=== PATIENT | female | born 1935 | race Caucasian/White ===

== ENCOUNTER 2016-08-27 11:53 | Outpatient (CLI) | payer MEDICARE, OTHER | END 2016-08-27 11:54 | disposition EMS.NT | LOC: EMS 11:53 | PROVIDERS: ATTEND Surgery | DX: Z03.89 Encounter for observation for other suspected diseases and conditions ruled out (principal); W01.0XXA Fall on same level from slipping, tripping and stumbling without subsequent striking against object, initial encounter; Y93.01 Activity, walking, marching and hiking; Y92.030 Kitchen in apartment as the place of occurrence of the external cause ==

== ENCOUNTER 2016-09-28 10:38 | Outpatient (CLI) | payer MEDICARE, OTHER | END 2016-09-28 10:39 | disposition EMS.NT | LOC: EMS 10:38 | PROVIDERS: ATTEND Surgery | DX: Z03.89 Encounter for observation for other suspected diseases and conditions ruled out (principal); W18.30XA Fall on same level, unspecified, initial encounter; Y93.9 Activity, unspecified; Y92.008 Other place in unspecified non-institutional (private) residence as the place of occurrence of the external cause ==

== ENCOUNTER 2017-03-30 09:39 | Outpatient (CLI) | payer MEDICARE, OTHER | END 2017-03-30 09:40 | disposition EMS.NT | LOC: EMS 09:39 | PROVIDERS: ATTEND Surgery | DX: R53.1 Weakness (principal); W18.30XA Fall on same level, unspecified, initial encounter; Y92.003 Bedroom of unspecified non-institutional (private) residence as the place of occurrence of the external cause ==

== ENCOUNTER 2017-03-30 12:04 | Emergency (ER) | payer MEDICARE, OTHER, MEDICAID ==
[2017-03-30 12:43] LABS: BILIRUBIN,URINE NEGATIVE (NEGATIVE); GLUCOSE, URINE (UA) NEGATIVE (NEGATIVE); KETONES,URINE (UA) NEGATIVE (NEGATIVE); LEUKOCYTE ESTERASE, URINE LARGE (NEGATIVE); NITRITE,URINE NEGATIVE (NEGATIVE); OCCULT BLOOD,URINE NEGATIVE (NEGATIVE); PH,URINE 6.5 PH (5.0-7.5); PROTEIN,URINE NEGATIVE (NEGATIVE); UROBILINOGEN,URINE 0.2 (NORMAL) E.U./dL (NORMAL)
[2017-03-30 12:53] LABS: CLARITY,URINE HAZY (CLEAR); RBC,URINE 0-5 /HPF (0-5); WBC CLUMPS,URINE PRESENT
[2017-03-30 12:54] LABS: BACTERIA,URINE Many /HPF (None Seen); SQUAMOUS EPITHELIAL CELL,UR FEW Squamous (<= Few)
[2017-03-30] MEDS ORDERED: cefTRIAXone 1 GM VIAL IM STA (13:16)
[2017-03-30] MEDS ORDERED: LIDOCAINE 1% 2 ML VIAL ONE (13:26)
--- NOTE | 2017-03-30 13:36 | ED Physician Documentation ---
History of Present Illness - Stated complaint Stated Complaint: FEMALE - Chief complaint Chief Complaint: General - History obtained from History obtained from: Patient, Family - History of Present Illness Timing: Today - Additonal information Additional information: 81-year-old female out of bed today to use her walker and she collapsed to the ground. She used her Lifeline if she is not able to get up by herself and she did not seem to be injured from this incident. The people at her residence asked her to go to the emergency department for further evaluation. The patient herself is uncertain why she fell and does not feel particularly ill. Review of Systems Constitutional: reports: Fatigue. denies: Fever, Chills Eyes: denies: Decreased vision Ears: denies: Ear pain Nose: denies: Congestion Throat: denies: Sore throat Cardiac: denies: Chest pain / pressure, Palpitations Respiratory: denies: Dyspnea, Cough GI: denies: Abdominal Pain, Nausea, Vomiting : denies: Dysuria, Frequency Skin: denies: Rash Musculoskeletal: denies: Neck pain, Back pain, Extremity pain PD PAST MEDICAL HISTORY - Past Medical History Cardiovascular: High cholesterol, Angina Respiratory: Shortness of breath Endocrine/Autoimmune: Type 2 diabetes GI: None : Incontinence HEENT: Chronic hearing loss Musculoskeletal: Osteoarthritis, Gout - Past Surgical History General: Colonoscopy Ortho: Carpal Tunnel surgery, 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 - Present Medications Home Medications: Ambulatory Orders Medication Instructions Recorded Confirmed Allopurinol [Zyloprim] 300 mg PO DAILY 02/18/13 02/18/13 Aspirin Chewable [[place] 81 mg PO DAILY 02/18/13 02/18/13 Aspirin] Calcium Carbonate [Calcium] 500 mg PO 02/18/13 02/18/13 Cholecalciferol [Vitamin D3] 2,000 unit PO DAILY 02/18/13 02/18/13 Cyanocobalamin (Vitamin B-12) 1,000 mcg PO BID 02/18/13 02/18/13 [Vitamin B-12] Cyclobenzaprine HCl 10 mg PO 02/18/13 02/18/13 Hydrochlorothiazide 25 mg PO 02/18/13 02/18/13 Insulin Aspart Protam & Aspart 19 unit SQ QPM 02/18/13 02/18/13 [Novolog Mix 70-30 Vial] Insulin Aspart Protam & Aspart 21 unit SQ DAILY 02/18/13 02/18/13 [Novolog Mix 70-30 Vial] Lisinopril 2.5 mg PO 02/18/13 02/18/13 Metformin HCl [Glumetza] 500 mg PO 02/18/13 02/18/13 [place]-3 Fatty Acids [Fish Oil 1,000 mg PO 02/18/13 02/18/13 Concentrate] Omeprazole [PriLOSEC] 20 mg PO DAILY 02/18/13 02/18/13 Oxybutynin [Ditropan] 2.5 mg PO BID 02/18/13 02/18/13 Simvastatin [Zocor] 40 mg PO QPM 02/18/13 02/18/13 Sulfamethoxazole/Trimethoprim 1 each PO BID #14 tablet 03/30/17 [Sulfamethoxazole-Tmp Ds Tablet] - Allergies Allergies/Adverse Reactions: Allergies Allergy/AdvReac Type Severity Reaction Status Date / Time cephalexin [Cephalexin] Allergy Intermediate generalized Verified 03/30/17 12:22 shaking - Social History Does the pt smoke?: No Smoking Status: Never smoker PD ED PE NORMAL - Vitals Vital signs reviewed: Yes (normal) - General General: No acute distress, Well developed/nourished - HEENT HEENT: Atraumatic, PERRL, EOMI - Neck Neck: Supple, no meningeal sign - Cardiac Cardiac: RRR, Other (2 out of 6 holosystolic blowing type murmur at the left sternal border consistent with aortic stenosis.) - Respiratory Respiratory: No respiratory distress, Clear bilaterally - Abdomen Abdomen: Normal bowel sounds, Soft, Non tender - Back Back: No CVA TTP, No spinal TTP - Derm Derm: Normal color, Warm and dry, No rash - Neuro Neuro: No motor deficit, No sensory deficit, Normal speech Eye Opening: Spontaneous Motor: Obeys Commands Verbal: Oriented GCS Score: 15 - Psych Psych: Normal mood, Normal affect Results - Vitals Vitals: Vital Signs - 24 hr 03/30/17 03/30/17 12:18 13:38 Temperature 36.2 C L 36.9 C Heart Rate 78 88 Respiratory 20 18 Rate Blood Pressure 109/63 143/77 H O2 Saturation 98 98 Oxygen O2 Source Room air - Labs Labs: Laboratory Tests 03/30/17 03/30/17 03/30/17 12:30 13:35 13:35 WBC 9.4 RBC 3.74 L Hgb 11.9 L Hct 35.4 L MCV 94.9 MCH 31.7 H MCHC 33.5 RDW 14.7 Plt Count 224 MPV 9.8 Neut # 6.9 H Lymph # 1.6 [place] # 0.6 Eos # 0.2 Baso # 0.0 Absolute Nucleated RBC 0.00 Nucleated RBC % 0.0 Sodium 141 Potassium 4.3 Chloride 105 Carbon Dioxide 23 Anion Gap 13.0 BUN 22 H Creatinine 1.1 H Estimated GFR (MDRD) 47 L Glucose 149 H Calcium 9.4 Urine Color YELLOW Urine Clarity HAZY Urine pH 6.5 Ur Specific [place] 1.010 Urine Protein NEGATIVE Urine Glucose (UA) NEGATIVE Urine Ketones NEGATIVE Urine Occult Blood NEGATIVE Urine Nitrite NEGATIVE Urine Bilirubin NEGATIVE Urine Urobilinogen 0.2 (NORMAL) Ur Leukocyte Esterase LARGE H Urine RBC 0-5 Urine WBC >25 H Urine WBC Clumps PRESENT Ur Squamous Epith Cells FEW Squamous Urine Bacteria Many H Ur Microscopic Review INDICATED Urine Culture Comments INDICATED PD MEDICAL DECISION MAKING - ED course Complexity details: reviewed old records, reviewed results, re-evaluated patient , considered differential, d/w patient, d/w family ED course: 81 y/o female with a collapse today at home has UTI on eval of the urine. She has a murmer consistent with aortic stenosis and she is warned about dehydration. She is given an injection of rocephin today and we will place her on some sulfa/tri Departure - Departure Disposition: Home, Self Care Clinical Impression: Urinary tract infection Qualifiers: Urinary tract infection type: acute cystitis Hematuria presence: without hematuria Qualified Code(s): N30.00 - Acute cystitis without hematuria Condition: Stable Instructions: ED UTI Cystitis Female Follow-Up: Kerri Webb MD [Primary Care Provider] - Prescriptions: Sulfamethoxazole/Trimethoprim [Sulfamethoxazole-Tmp Ds Tablet] 1 each PO BID # 14 tablet
[2017-03-30 13:39] VITALS: BP 143/77
[2017-03-30 13:49] LABS: BASOPHILS % (AUTO) 0.5 %; CALCIUM 9.4 mg/dL (8.5-10.3); CREATININE 1.1 mg/dL (0.4-1.0); EOSINOPHILS # (AUTO) 0.2 10^3/uL (0.0-0.7); EOSINOPHILS % (AUTO) 1.6 %; HGB - HEMOGLOBIN 11.9 g/dL (12.0-16.0); LYMPHOCYTES # (AUTO) 1.6 10^3/uL (1.5-3.5); LYMPHOCYTES % (AUTO) 17.1 %; MEAN CORPUSCULAR HEMOGLOBIN 31.7 pg (27.0-31.0); MEAN CORPUSCULAR HGB CONC 33.5 g/dL (32.0-36.0); MEAN CORPUSCULAR VOLUME 94.9 fL (81.0-99.0); MEAN PLATELET VOLUME 9.8 fL (7.9-10.8); MONOCYTES # (AUTO) 0.6 10^3/uL (0.0-1.0); MONOCYTES % (AUTO) 6.9 %; NEUTROPHILS # (AUTO) 6.9 10^3/uL (1.5-6.6); NEUTROPHILS % (AUTO) 73.9 %; PLT - PLATELET COUNT 224 10^3/uL (130-450); RED BLOOD COUNT 3.74 10^6/uL (4.20-5.40); RED CELL DISTRIBUTION WIDTH 14.7 % (12.0-15.0); WHITE BLOOD COUNT 9.4 x10^3/uL (4.8-10.8)
== END 2017-03-30 14:06 | disposition home or self-care (01) ==
LOC: ED 12:04
DX: N30.00 Acute cystitis without hematuria (principal); R55 Syncope and collapse; R01.1 Cardiac murmur, unspecified; E11.9 Type 2 diabetes mellitus without complications; Z79.4 Long term (current) use of insulin; Z79.82 Long term (current) use of aspirin
CPT/HCPCS: 36415; 80048; 81001; 81003; 85025; 87086; 96372; 99283

== ENCOUNTER 2017-04-02 09:42 | Outpatient (CLI) | payer MEDICARE, OTHER, MEDICAID | END 2017-04-02 09:43 | disposition EMS.NT | LOC: EMS 09:42 | PROVIDERS: ATTEND Surgery | DX: Z03.89 Encounter for observation for other suspected diseases and conditions ruled out (principal); W01.0XXA Fall on same level from slipping, tripping and stumbling without subsequent striking against object, initial encounter; Y92.009 Unspecified place in unspecified non-institutional (private) residence as the place of occurrence of the external cause ==

== ENCOUNTER 2017-05-14 11:11 | Outpatient (CLI) | payer MEDICARE, OTHER, MEDICAID | END 2017-05-14 11:12 | disposition EMS.NT | LOC: EMS 11:11 | PROVIDERS: ATTEND Surgery | DX: Z03.89 Encounter for observation for other suspected diseases and conditions ruled out (principal); W18.39XA Other fall on same level, initial encounter; Y92.038 Other place in apartment as the place of occurrence of the external cause ==

== ENCOUNTER 2017-08-21 02:48 | Outpatient (CLI) | payer MEDICARE, OTHER, MEDICAID | END 2017-08-21 02:49 | disposition EMS.NT | LOC: EMS 02:48 | PROVIDERS: ATTEND Surgery | DX: Z03.89 Encounter for observation for other suspected diseases and conditions ruled out (principal); W01.0XXA Fall on same level from slipping, tripping and stumbling without subsequent striking against object, initial encounter; Y92.038 Other place in apartment as the place of occurrence of the external cause ==

== ENCOUNTER 2017-10-30 13:35 | Outpatient (CLI) | payer MEDICARE, OTHER, MEDICAID ==
--- NOTE | 2017-10-30 15:32 | CT Report ---
Procedure Date: 10/30/2017 Accession Number: [id number] / [id number] Procedure: CT - Head W/O CPT Code: FULL RESULT: EXAM: Head W/O DATE: 10/30/2017 3:04 PM CLINICAL HISTORY: DEMENTIA COMPARISON: None. TECHNIQUE: Multiaxial CT images were obtained from the foramen magnum to the vertex. IV contrast: None. Reformats: Coronal. In accordance with CT protocol optimization, one or more of the following dose reduction techniques were utilized for this exam: automated exposure control, adjustment of mA and/or KV based on patient size, or use of iterative reconstructive technique. FINDINGS: Parenchyma: No intraparenchymal hemorrhage. No evidence of mass, midline shift, or CT findings of infarction. Paula-white differentiation is distinct. Extraaxial Spaces: Normal for age. No subdural or epidural collections identified. Ventricles: Normal in size and position. Sinuses: Imaged paranasal sinuses, orbits, and mastoids show no significant abnormality. Bones: No evidence of fracture or calvarial defect. Other: None. IMPRESSION: Normal head CT. RADIA
== END 2017-10-30 13:36 | disposition home or self-care (01) ==
LOC: DI 13:35
PROVIDERS: ATTEND Internal Medicine
DX: F03.90 Unspecified dementia, unspecified severity, without behavioral disturbance, psychotic disturbance, mood disturbance, and anxiety (principal)
CPT/HCPCS: 70450

== ENCOUNTER 2017-10-30 15:31 | Inpatient (IN) | payer MEDICARE, OTHER, MEDICAID ==
[2017-10-30 16:09] LABS: HGB - HEMOGLOBIN 10.9 g/dL (12.0-16.0); MEAN CORPUSCULAR HEMOGLOBIN 31.2 pg (27.0-31.0); MEAN CORPUSCULAR HGB CONC 32.8 g/dL (32.0-36.0); MEAN CORPUSCULAR VOLUME 95.2 fL (81.0-99.0); MEAN PLATELET VOLUME 8.8 fL (7.9-10.8); RED BLOOD COUNT 3.49 10^6/uL (4.20-5.40); RED CELL DISTRIBUTION WIDTH 14.2 % (12.0-15.0); WHITE BLOOD COUNT 9.6 x10^3/uL (4.8-10.8)
[2017-10-30 16:12] LABS: INR 1.4 (0.8-1.2); PT - PROTHROMBIN TIME 16.1 secs (9.9-12.6)
[2017-10-30 16:18] LABS: ALBUMIN 3.1 g/dL (3.2-5.5); ALBUMIN/GLOBULIN RATIO 0.8 (1.0-2.2); BILIRUBIN,TOTAL 0.8 mg/dL (0.2-1.0); CALCIUM 8.9 mg/dL (8.5-10.3); CREATININE 2.6 mg/dL (0.4-1.0); TOTAL PROTEIN 6.8 g/dL (6.7-8.2)
[2017-10-30 17:54] LABS: BASOPHILS # (AUTO) 0.1 10^3/uL (0.0-0.1); BASOPHILS % (AUTO) 0.9 %; EOSINOPHILS % (AUTO) 0.5 %; HGB - HEMOGLOBIN 10.7 g/dL (12.0-16.0); LYMPHOCYTES # (AUTO) 2.3 10^3/uL (1.5-3.5); LYMPHOCYTES % (AUTO) 23.8 %; MEAN CORPUSCULAR HEMOGLOBIN 31.7 pg (27.0-31.0); MEAN CORPUSCULAR HGB CONC 33.7 g/dL (32.0-36.0); MEAN CORPUSCULAR VOLUME 94.1 fL (81.0-99.0); MEAN PLATELET VOLUME 8.8 fL (7.9-10.8); MONOCYTES # (AUTO) 1.3 10^3/uL (0.0-1.0); MONOCYTES % (AUTO) 13.1 %; NEUTROPHILS # (AUTO) 5.9 10^3/uL (1.5-6.6); NEUTROPHILS % (AUTO) 61.7 %; PLT - PLATELET COUNT 335 10^3/uL (130-450); RED BLOOD COUNT 3.38 10^6/uL (4.20-5.40); RED CELL DISTRIBUTION WIDTH 13.7 % (12.0-15.0); WHITE BLOOD COUNT 9.6 x10^3/uL (4.8-10.8)
[2017-10-30] MEDS ORDERED: SODIUM CHLORIDE 0.9% 1,000 ML IV ONE (18:02)
[2017-10-30] MEDS ORDERED: MORPHINE 10 MG/ML VIAL IVP STA (18:02)
[2017-10-30] MEDS ORDERED: ONDANSETRON 4 MG/2 ML VIAL IVP STA (18:02)
[2017-10-30] MEDS ORDERED: ACETAMINOPHEN 500 MG TABLET PO STA (18:02)
[2017-10-30 18:04] LABS: BILIRUBIN,URINE NEGATIVE (NEGATIVE); GLUCOSE, URINE (UA) NEGATIVE (NEGATIVE); KETONES,URINE (UA) NEGATIVE (NEGATIVE); LEUKOCYTE ESTERASE, URINE NEGATIVE (NEGATIVE); NITRITE,URINE NEGATIVE (NEGATIVE); OCCULT BLOOD,URINE LARGE (NEGATIVE); PROTEIN,URINE >=300 mg/dL (NEGATIVE); UROBILINOGEN,URINE 0.2 (NORMAL) E.U./dL (NORMAL)
[2017-10-30 18:08] LABS: ALBUMIN 2.9 g/dL (3.2-5.5); ALBUMIN/GLOBULIN RATIO 0.7 (1.0-2.2); BILIRUBIN,TOTAL 0.9 mg/dL (0.2-1.0); CLARITY,URINE BLOODY (CLEAR); CREATININE 2.6 mg/dL (0.4-1.0)
[2017-10-30 18:09] LABS: BACTERIA,URINE Many /HPF (None Seen); RBC,URINE TNTC /HPF (0-5); SQUAMOUS EPITHELIAL CELL,UR NONE SEEN (<= Few)
[2017-10-30] MEDS ORDERED: cefTRIAXone 2 GM in SODIUM CHLORIDE 0.9% MINIBAG 100 ML IV STA (18:23)
--- NOTE | 2017-10-30 19:49 | CT Report ---
Procedure Date: 10/30/2017 Accession Number: [id number] / [id number] Procedure: CT - Abdomen/Pelvis W/O CPT Code: FULL RESULT: EXAM: CT ABDOMEN AND PELVIS WITHOUT CONTRAST. EXAM DATE: 10/30/2017 06:50 PM. CLINICAL HISTORY: Hematuria, abdominal pain. COMPARISONS: None. TECHNIQUE: Routine helical CT imaging was performed through the abdomen and pelvis. IV contrast: No. Enteric contrast: No. Reconstructions: Coronal and sagittal. In accordance with CT protocol optimization, one or more of the following dose reduction techniques were utilized for this exam: automated exposure control, adjustment of mA and/or KV based on patient size, or use of iterative reconstructive technique. FINDINGS: Lung bases: Jayson coronary artery calcification. Minimal bibasilar scarring or atelectasis. Liver: Unremarkable. Gallbladder: Surgically removed. Bile ducts: Unremarkable Pancreas: Unremarkable. Spleen: Unremarkable. Adrenals: Unremarkable. Kidneys: Low-density mass Hounsfield units of 17 at the upper pole right kidney most suggestive for a renal cyst measures 2.7 cm. Evaluation limited without IV contrast. Mild atrophy of both kidneys. Bilateral dilated intra and extra renal pelves with mild bilateral hydronephrosis. There is also bilateral hydroureter diffusely but no ureteral calculi are seen. No urinary tract calculus is seen. Bowel: There are no dilated bowel loops seen to suggest obstruction. There is mild sigmoid diverticulosis. Normal appendix. There is a rectocele present. No free fluid or free air. Pelvis: Diffuse bladder wall thickening most prominent at the bladder dome, with mild adjacent stranding, could represent acute cystitis. Bladder mass is not excluded. There is diffuse hydroureter bilaterally. Status post hysterectomy. Vascular structures: Marked splenic artery calcification. No acute findings. Fat-containing umbilical or periumbilical hernia, has a neck of 1.7 cm, diameter measures 3.7 cm. No acute bone findings. IMPRESSION: 1. Mild atrophy of both kidneys. Bilateral dilated intra-and extra renal pelves with mild bilateral hydronephrosis. There is also bilateral hydroureter diffusely. No urinary tract calculi are seen. Diffuse bladder wall thickening most prominent at the bladder dome, with mild adjacent stranding, could represent acute cystitis. Bladder mass is not excluded. 2. Fat-containing umbilical hernia. 3. Mild sigmoid diverticulosis. 4. Rectocele. 5. Otherwise, see above. RADIA
--- NOTE | 2017-10-30 20:12 | ED Physician Documentation ---
History of Present Illness - Stated complaint Stated Complaint: FEMALE /BLEEDING CLOTS - Chief complaint Chief Complaint: General - History obtained from History obtained from: Patient, Family - Additonal information Additional information: 82-year-old female presents the emergency department with increasing lower abdominal pain and hematuria which has progressively worsened. The patient reports a significant amount of pain with urination. No fevers. No triggering factors. Symptoms are described as severe. No other associated symptoms. Review of Systems Constitutional: reports: Fatigue. denies: Fever, Chills Eyes: denies: Discharge Ears: denies: Ear pain Nose: denies: Congestion Throat: denies: Sore throat Cardiac: denies: Chest pain / pressure Respiratory: denies: Dyspnea GI: reports: Abdominal Pain : reports: Dysuria, Hematuria Musculoskeletal: denies: Neck pain Neurologic: denies: Generalized weakness Immunocompromised: denies: Chemotherapy PD PAST MEDICAL HISTORY - Past Medical History Past Medical History: Yes Cardiovascular: High cholesterol, Angina Respiratory: Shortness of breath Endocrine/Autoimmune: Type 2 diabetes GI: None : Incontinence HEENT: Chronic hearing loss Musculoskeletal: Osteoarthritis, Gout - Past Surgical History General: Colonoscopy Ortho: Carpal Tunnel surgery, 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 - Present Medications Home Medications: Ambulatory Orders Medication Instructions Recorded Confirmed Allopurinol [Zyloprim] 300 mg PO DAILY 02/18/13 02/18/13 Aspirin Chewable [[place] 81 mg PO DAILY 02/18/13 02/18/13 Aspirin] Cyanocobalamin (Vitamin B-12) 1,000 mcg PO BID 02/18/13 02/18/13 [Vitamin B-12] Lisinopril 2.5 mg PO 02/18/13 02/18/13 Metformin HCl [Glumetza] 500 mg PO 02/18/13 02/18/13 Omeprazole [PriLOSEC] 20 mg PO DAILY 02/18/13 02/18/13 Oxybutynin [Ditropan] 2.5 mg PO BID 02/18/13 02/18/13 Simvastatin [Zocor] 40 mg PO QPM 02/18/13 02/18/13 Donepezil [Aricept] 10/30/17 traZODone [Desyrel] 10/30/17 - Allergies Allergies/Adverse Reactions: Allergies Allergy/AdvReac Type Severity Reaction Status Date / Time cephalexin [Cephalexin] Allergy Intermediate generalized Verified 10/30/17 15:40 shaking - Social History Does the pt smoke?: No Smoking Status: Never smoker Does the pt drink ETOH?: No Does the pt have substance abuse?: No - Immunizations Immunizations are current?: Yes - POLST Patient has POLST: No PD ED PE NORMAL - General General: Other (82-year-old frail-appearing female who appears acutely uncomfortable) - HEENT HEENT: Atraumatic, PERRL, EOMI, Ears normal - Neck Neck: Supple, no meningeal sign - Cardiac Cardiac: RRR - Respiratory Respiratory: No respiratory distress, Clear bilaterally - Abdomen Abdomen: Normal bowel sounds. No: Non tender (Tenderness to palpation in the lower abdomen) - Derm Derm: Normal color - Extremities Extremities: No deformity, No edema - Neuro Neuro: Alert and oriented X 3, No motor deficit - Psych Psych: Normal mood Results - Vitals Vitals: Vital Signs - 24 hr 10/30/17 15:37 Temperature 36.4 C L Heart Rate 114 H Respiratory 18 Rate Blood Pressure 130/117 H O2 Saturation 99 Oxygen O2 Source Room air - Labs Labs: Laboratory Tests 10/30/17 10/30/17 10/30/17 16:00 16:00 16:00 WBC 9.6 RBC 3.49 L Hgb 10.9 L Hct 33.2 L MCV 95.2 MCH 31.2 H MCHC 32.8 RDW 14.2 Plt Count 347 MPV 8.8 Neut # (Auto) Lymph # (Auto) [place] # (Auto) Eos # (Auto) Baso # (Auto) Absolute Nucleated RBC Nucleated RBC % PT 16.1 H INR 1.4 H APTT 25.6 Sodium Potassium Chloride Carbon Dioxide Anion Gap BUN Creatinine Estimated GFR (MDRD) Glucose Calcium Total Bilirubin AST ALT Alkaline Phosphatase Total Protein Albumin Globulin Albumin/Globulin Ratio Lipase Urine Color Urine Clarity Urine pH Ur Specific [place] Urine Protein Urine Glucose (UA) Urine Ketones Urine Occult Blood Urine Nitrite Urine Bilirubin Urine Urobilinogen Ur Leukocyte Esterase Urine RBC Urine WBC Ur Squamous Epith Cells Urine Bacteria Ur Microscopic Review Urine Culture Comments Blood Type O POSITIVE Antibody Screen NEGATIVE 10/30/17 10/30/17 10/30/17 16:00 17:45 17:45 WBC 9.6 RBC 3.38 L Hgb 10.7 L Hct 31.8 L MCV 94.1 MCH 31.7 H MCHC 33.7 RDW 13.7 Plt Count 335 MPV 8.8 Neut # (Auto) 5.9 Lymph # (Auto) 2.3 [place] # (Auto) 1.3 H Eos # (Auto) 0.0 Baso # (Auto) 0.1 Absolute Nucleated RBC 0.00 Nucleated RBC % 0.0 PT INR APTT Sodium 132 L 131 L Potassium 4.1 5.1 H Chloride 100 L 100 L Carbon Dioxide 21 23 Anion Gap 11.0 8.0 BUN 50 H 49 H Creatinine 2.6 H 2.6 H Estimated GFR (MDRD) 18 L 18 L Glucose 194 H 193 H Calcium 8.9 9.0 Total Bilirubin 0.8 0.9 AST 21 19 ALT 13 13 Alkaline Phosphatase 90 87 Total Protein 6.8 7.0 Albumin 3.1 L 2.9 L Globulin 3.7 4.1 Albumin/Globulin Ratio 0.8 L 0.7 L Lipase 51 51 Urine Color Urine Clarity Urine pH Ur Specific [place] Urine Protein Urine Glucose (UA) Urine Ketones Urine Occult Blood Urine Nitrite Urine Bilirubin Urine Urobilinogen Ur Leukocyte Esterase Urine RBC Urine WBC Ur Squamous Epith Cells Urine Bacteria Ur Microscopic Review Urine Culture Comments Blood Type Antibody Screen 10/30/17 17:45 WBC RBC Hgb Hct MCV MCH MCHC RDW Plt Count MPV Neut # (Auto) Lymph # (Auto) [place] # (Auto) Eos # (Auto) Baso # (Auto) Absolute Nucleated RBC Nucleated RBC % PT INR APTT Sodium Potassium Chloride Carbon Dioxide Anion Gap BUN Creatinine Estimated GFR (MDRD) Glucose Calcium Total Bilirubin AST ALT Alkaline Phosphatase Total Protein Albumin Globulin Albumin/Globulin Ratio Lipase Urine Color RED/BLOODY Urine Clarity BLOODY Urine pH 6.0 Ur Specific [place] 1.020 Urine Protein >=300 H Urine Glucose (UA) NEGATIVE Urine Ketones NEGATIVE Urine Occult Blood LARGE H Urine Nitrite NEGATIVE Urine Bilirubin NEGATIVE Urine Urobilinogen 0.2 (NORMAL) Ur Leukocyte Esterase NEGATIVE Urine RBC TNTC H Urine WBC >25 H Ur Squamous Epith Cells NONE SEEN Urine Bacteria Many H Ur Microscopic Review INDICATED Urine Culture Comments INDICATED Blood Type Antibody Screen - Rads (name of study) CT abdomen pelvis Radiology: Final report received, See rad report PD MEDICAL DECISION MAKING - ED course ED course: The patient has severe acute cystitis which has caused acute renal failure and there is evidence of bladder thickening on CT scan. The patient appears still quite uncomfortable and will require admission to the hospital for further management of her symptoms. I discussed The case with the hospitalist who accepts the patient onto his service. The findings and plan were discussed with the patient and family who understand and agree to the plan - Sepsis Event Vital Signs: Vital Signs - 24 hr 10/30/17 15:37 Temperature 36.4 C L Heart Rate 114 H Respiratory 18 Rate Blood Pressure 130/117 H O2 Saturation 99 Oxygen O2 Source Room air Departure - Departure Disposition: ED Place in Observation Clinical Impression: Acute cystitis without hematuria Acute renal failure Qualifiers: Acute renal failure type: unspecified Qualified Code(s): N17.9 - Acute kidney failure, unspecified Abdominal pain Qualifiers: Abdominal location: unspecified location Qualified Code(s): R10.9 - Unspecified abdominal pain Condition: Good Discharge Date/Time: 10/30/17 21:20
--- NOTE | 2017-10-30 21:43 | HISTORY & PHYSICAL EXAMINATION ---
Chief Complaint - Chief Complaint Chief Complaint: Hematuria History of Present Illness - Admitted From Admitted From:: Home - History Obtained From History obtained from: Patient, daughter, ED Physician - History of Present Illness HPI Comment/Other: Ms. Trini Bond is a very pleasant 82-year-old female with a past medical history significant for Hyperlipidemia, type 2 diabetes mellitus, gastroesophageal reflux disease, detrussor instability, heart per lipidemia, and insomnia. Yesterday the patient began noticing blood clots when she voided and this has continued through to today. Patient's daughter brought her into the emergency department where she has been diagnosed with a urinary tract infection and an acute kidney injury. She will be admitted to an observation bed, given IV fluids and antibiotics, and we will reassess her electrolytes in the morning. If her renal function is returning to baseline she may be safely discharged on oral antibiotics. 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: Uterine cancer : reports: Incontinence HEENT: reports: Chronic hearing loss Musculoskeletal: reports: Osteoarthritis, Gout - Past Surgical History General: reports: Colonoscopy Ortho: reports: Carpal Tunnel surgery, Other /ELECTRICAL AND INSTRUMENT MECHANIC: reports: Hysterectomy HEENT: reports: Cataracts - Family & Social History Family History: Mother: , CAD, Hyperlipidemia, Hypertension, [place], Father : , Alzheimer's Disease, CAD, Hyperlipidemia, Hypertension, [place], Brother : , CAD, Hyperlipidemia, Hypertension, VA Living arrangement: At home Living Situation: Alone - Substance History Use: Uses substance without health or social issues: NONE Abuse: Recurrent use of substance despite neg consequences: NONE Dependence: Experiences withdrawal or developed tolerances: NONE - POLST Patient has POLST: No POLST Status: DNR Meds/Allgy - Home Medications Home Medications: Ambulatory Orders Medication Instructions Recorded Confirmed Allopurinol [Zyloprim] 300 mg PO DAILY 02/18/13 02/18/13 Aspirin Chewable [[facility] Alberto 81 mg PO DAILY 02/18/13 02/18/13 Aspirin] Cyanocobalamin (Vitamin B-12) 1,000 mcg PO BID 02/18/13 02/18/13 [Vitamin B-12] Lisinopril 2.5 mg PO 02/18/13 02/18/13 Metformin HCl [Glumetza] 500 mg PO 02/18/13 02/18/13 Omeprazole [PriLOSEC] 20 mg PO DAILY 02/18/13 02/18/13 Oxybutynin [Ditropan] 2.5 mg PO BID 02/18/13 02/18/13 Simvastatin [Zocor] 40 mg PO QPM 02/18/13 02/18/13 Donepezil [Aricept] 10/30/17 traZODone [Desyrel] 10/30/17 - Allergies Allergies/Adverse Reactions: Allergies Allergy/AdvReac Type Severity Reaction Status Date / Time cephalexin [Cephalexin] Allergy Intermediate generalized Verified 10/30/17 15:40 shaking Review of Systems - Constitutional Constitutional: denies: Fatigue, Fever, Chills, Malaise - Eyes Eyes: denies: Pain, Irritation, Amaurosis, Blurred vision, Dipolpia - Ears, Nose & Throat Ears, Nose & Throat: reports: Hearing loss. denies: Ear pain, Hearing aids, Tinnitus, Vertigo, Nosebleeds - Cardiovascular Cariovascular: denies: Palpitations, Chest pain, Edema, Syncope, Exertional dyspnea - Respiratory Respiratory: denies: Cough, Sputum production, Wheezing, Snoring, Hemoptysis - Gastrointestinal Gastrointestinal: denies: Abdominal pain, Abdominal distention, Constipation, Diarrhea, Change in bowel habits, Rectal bleeding - Genitourinary Genitourinary: reports: Frequency, Hematuria. denies: Dysuria, Urgency, Incontinence - Musculoskeletal Musculoskeletal: denies: Muscle pain, Back pain, Muscle aches, Stiffness, Gout, Joint swelling - Integumentary Integumentary: denies: Rash, Pruritis, Lesions, Dryness - Neurological Neurological: denies: General weakness, Focal weakness, Headache, Dizziness - Psychiatric Psychiatric: denies: Depression, Anxiety, Suicidal, Hallucinations - Endocrine Endocrine: denies: Polyuria, Polydypsia, Polyphagia - Hematologic/Lymphatic Hematologic/Lymphatic: denies: Anemia, Bruising, Petechiae, Lymphadenopathy - All Other Systems All Other Systems: reports: Reviewed and negative Exam - Vital Signs Reviewed Vital Signs: Yes Vital Signs: Vital Signs x48h Temp Pulse Resp BP Pulse Ox 10/30/17 21:02 98.1 C H 84 16 90/52 L 98 - Physical Exam General Appearance: positive: No acute distress, Alert Eyes Bilateral: positive: Normal inspection, PERRL, EOMI, No lid inflammation, Conjunctivae nml, No scleral icterus ENT: positive: ENT inspection nml, Pharynx nml, No signs of dehydration Neck: positive: Nml inspection, Thyroid nml, No JVD, Trachea midline. negative : Thyromegaly Respiratory: positive: Chest non-tender, No respiratory distress, Breath sounds nml. negative: Wheezes, Rales, Rhonchi Cardiovascular: positive: Regular rate & rhythm, No murmur, No gallop Peripheral Pulses: positive: 1+ Abdomen: positive: Non-tender, No organomegaly, Nml bowel sounds, No distention. negative: Guarding, Rebound Back: positive: Nml inspection. negative: CVA tenderness (R), CVA tenderness (L ) Skin: positive: Color nml, No rash, Warm, Dry. negative: Cyanosis Extremities: positive: Non-tender, Full ROM, Nml appearance, No pedal edema Neurologic/Psychiatric: positive: Oriented x3, CN's nml (2-12), Motor nml, Sensation nml, Mood/affect nml Conclusion/Plan - Problem List (1) Hematuria due to acute cystitis Conclusion/Plan: CT scan of the abdomen and pelvis failed to show any significant abnormalities other than some bladder wall thickening which is consistent with acute cystitis. She is also exhibiting an acute kidney injury, with an elevated creatinine to 2.6. Her baseline creatinine done in March of 2017 was 1.1. The patient's urinary tract urinalysis shows bacteriuria, and pyuria and her diagnosis is therefore a simple complicated urinary tract infection. We will treat her with IV antibiotics and IV fluids, and monitor her renal function carefully. If she shows improvement and feels better she may be safely discharged on oral antibiotics. (2) Acute kidney injury Conclusion/Plan: The patient was only here once before, in March 2017 and at that time had a creatinine of 1.1. Her creatinine at this time is 2.6. We will treat her with IV fluids and monitor her creatinine and BUN levels. Her daughter notes that she has not been eating or drinking for about 24 hours. Of note is that on CT of the abdomen and pelvis there was bilateral mild hydronephrosis noted. In light of this the patient should follow-up with a urologist following discharge. (3) Type 2 diabetes mellitus Conclusion/Plan: The patient has a history of type 2 diabetes mellitus but has only been taking 500 mg of metformin as an outpatient. We will hold the metformin and obtain a hemoglobin A1c. (4) Hyperlipidemia Conclusion/Plan: The patient has a history of hyperlipidemia and takes simvastatin at home. We will continue this while she is inpatient. (5) History of gout Conclusion/Plan: The patient has a history of gout and takes allopurinol at home. We will continue this while she is inpatient. (6) Mild dementia Conclusion/Plan: Patient has a history of mild dementia and takes donepezil at home. We will continue this while she is inpatient. (7) Insomnia Conclusion/Plan: Patient has a history of insomnia and takes trazodone at home. We will continue this while she is inpatient. - Lab Results Lab results reviewed: Yes Fish Bones: 10/30/17 17:45 10/30/17 17:45 - Diagnostic Imaging Results Diagnostic Imaging Results: positive: Final report reviewed Diagnostic Imaging Results Comments: EXAM: Head W/O DATE: 10/30/2017 3:04 PM CLINICAL HISTORY: DEMENTIA COMPARISON: None. TECHNIQUE: Multiaxial CT images were obtained from the foramen magnum to the vertex. IV contrast: None. Reformats: Coronal. In accordance with CT protocol optimization, one or more of the following dose reduction techniques were utilized for this exam: automated exposure control, adjustment of mA and/or KV based on patient size, or use of iterative reconstructive technique. FINDINGS: Parenchyma: No intraparenchymal hemorrhage. No evidence of mass, midline shift, or CT findings of infarction. Paula-white differentiation is distinct. Extraaxial Spaces: Normal for age. No subdural or epidural collections identified. Ventricles: Normal in size and position. Sinuses: Imaged paranasal sinuses, orbits, and mastoids show no significant abnormality. Bones: No evidence of fracture or calvarial defect. Other: None. IMPRESSION: Normal head CT. EXAM: CT ABDOMEN AND PELVIS WITHOUT CONTRAST. EXAM DATE: 10/30/2017 06:50 PM. CLINICAL HISTORY: Hematuria, abdominal pain. COMPARISONS: None. TECHNIQUE: Routine helical CT imaging was performed through the abdomen and pelvis. IV contrast: No. Enteric contrast: No. Reconstructions: Coronal and sagittal. In accordance with CT protocol optimization, one or more of the following dose reduction techniques were utilized for this exam: automated exposure control, adjustment of mA and/or KV based on patient size, or use of iterative reconstructive technique. FINDINGS: Lung bases: Jayson coronary artery calcification. Minimal bibasilar scarring or atelectasis. Liver: Unremarkable. Gallbladder: Surgically removed. Bile ducts: Unremarkable Pancreas: Unremarkable. Spleen: Unremarkable. Adrenals: Unremarkable. Kidneys: Low-density mass Hounsfield units of 17 at the upper pole right kidney most suggestive for a renal cyst measures 2.7 cm. Evaluation limited without IV contrast. Mild atrophy of both kidneys. Bilateral dilated intra and extra renal pelves with mild bilateral hydronephrosis. There is also bilateral hydroureter diffusely but no ureteral calculi are seen. No urinary tract calculus is seen. Bowel: There are no dilated bowel loops seen to suggest obstruction. There is mild sigmoid diverticulosis. Normal appendix. There is a rectocele present. No free fluid or free air. Pelvis: Diffuse bladder wall thickening most prominent at the bladder dome, with mild adjacent stranding, could represent acute cystitis. Bladder mass is not excluded. There is diffuse hydroureter bilaterally. Status post hysterectomy. Vascular structures: Marked splenic artery calcification. No acute findings. Fat-containing umbilical or periumbilical hernia, has a neck of 1.7 cm, diameter measures 3.7 cm. No acute bone findings. IMPRESSION: 1. Mild atrophy of both kidneys. Bilateral dilated intra-and extra renal pelves with mild bilateral hydronephrosis. There is also bilateral hydroureter diffusely. No urinary tract calculi are seen. Diffuse bladder wall thickening most prominent at the bladder dome, with mild adjacent stranding, could represent acute cystitis. Bladder mass is not excluded. 2. Fat-containing umbilical hernia. 3. Mild sigmoid diverticulosis. 4. Rectocele. 5. Otherwise, see above. Core Measures - Anticipated LOS I expect patient to be DC'd or transferred within 96 hours.: Yes - DVT/VTE - Prophylaxis VTE/DVT Device ordered at admit?: Yes
[2017-10-30] MEDS: SODIUM CHLORIDE FLUSH 0.9% 10 ML SYRINGE IVP PRN (22:20)
[2017-10-30] MEDS: SODIUM CHLORIDE 0.9% 1,000 ML IV SCH (22:20)
[2017-10-30] MEDS: TEMAZEPAM 15 MG CAPSULE PO PRN (23:43)
[2017-10-31] MEDS: SODIUM CHLORIDE FLUSH 0.9% 10 ML SYRINGE IVP SCH ×3 (00:45→16:28)
[2017-10-31 05:50] LABS: HGB - HEMOGLOBIN 9.4 g/dL (12.0-16.0); MEAN CORPUSCULAR HEMOGLOBIN 31.7 pg (27.0-31.0); MEAN CORPUSCULAR VOLUME 96.1 fL (81.0-99.0); MEAN PLATELET VOLUME 8.5 fL (7.9-10.8); RED BLOOD COUNT 2.96 10^6/uL (4.20-5.40); RED CELL DISTRIBUTION WIDTH 13.8 % (12.0-15.0); WHITE BLOOD COUNT 6.4 x10^3/uL (4.8-10.8)
[2017-10-31 05:58] LABS: CALCIUM 8.2 mg/dL (8.5-10.3); CREATININE 2.1 mg/dL (0.4-1.0)
[2017-10-31 06:43] LABS: HB2 TOTAL 9.6 g/dL; HEMOGLOBIN A1C 0.61 g/dL
--- NOTE | 2017-10-31 08:45 | PROVIDER PROGRESS NOTE ---
Subjective - Prog Note Date Prog Note Date: 10/31/17 Prog Note Time: 08:38 - Subjective Pt reports feeling: Improved Subjective: Trini states, "I am not used to being in the hospital". She denies shortness of breath, chest pain, nausea, vomiting, or a new cough. Current Medications - Current Medications Current Medications: Active Medications Acetaminophen (Tylenol) 650 mg PO Q4HR PRN PRN Reason: Pain or Fever > 38C (100.4F) Last Admin: 10/31/17 17:41 Dose: 650 mg Aspirin (St Alberto Aspirin) 81 mg PO DAILY [facility] Last Admin: 10/31/17 09:18 Dose: 81 mg Sodium Chloride (Normal Saline 0.9%) 1,000 mls @ 80 mls/hr IV .[id number] [facility] Last Admin: 10/31/17 09:18 Dose: 80 mls/hr Ceftriaxone Sodium 1 gm/ (Sodium Chloride) 100 mls @ 200 mls/hr IV Q24H [facility] Last Admin: 10/31/17 17:42 Dose: 200 mls/hr Loratadine (Claritin) 10 mg PO DAILY [facility] Polyethylene Glycol (Miralax) 17 gm PO DAILY [facility] Last Admin: 10/31/17 09:18 Dose: Not Given Sodium Chloride (Normal Saline Flush 0.9%) 10 ml IVP PRN PRN PRN Reason: NEEDED PER PROVIDER ORDERS Last Admin: 10/30/17 22:20 Dose: 10 ml Sodium Chloride (Normal Saline Flush 0.9%) 10 ml IVP 0100,0900,1700 [facility] Last Admin: 10/31/17 16:28 Dose: Not Given Temazepam (Restoril) 15 mg PO QPM PRN PRN Reason: Insomnia Last Admin: 10/30/17 23:43 Dose: 15 mg Trazodone HCl (Desyrel) 100 mg PO QPM [facility] Zinc Oxide (Desitin) 113 gm TOP PRN PRN PRN Reason: Skin Care Last Admin: 10/31/17 09:19 Dose: 1 applic Allopurinol [Zyloprim] 300 mg PO DAILY 02/18/13 Aspirin Chewable [St Alberto Aspirin] 81 mg PO DAILY 02/18/13 Cyanocobalamin (Vitamin B-12) [Vitamin B-12] 2,500 mcg PO BID 02/18/13 Lisinopril 2.5 mg PO DAILY 02/18/13 Metformin HCl [Glumetza] 500 mg PO BIDWM 02/18/13 Omeprazole [PriLOSEC] 20 mg PO QDAC 02/18/13 Oxybutynin [Ditropan] 5 mg PO BID 02/18/13 Simvastatin [Zocor] 40 mg PO QPM 02/18/13 Donepezil [Aricept] 10 mg PO DAILY 10/30/17 traZODone [Desyrel] 100 mg PO QPM 10/30/17 Folic Acid 1 mg PO DAILY 10/31/17 Gluc/Harshal-MSM#1/Vit C/Juan/Bor [Amhdryh-Suaeq-LGI Complex Cplt] 1 tab PO DAILY 10/31/17 Loratadine 10 mg PO DAILY 10/31/17 Potassium Gluconate 99 mg PO QPM 10/31/17 Objective - Vital Signs/Intake & Output Reviewed Vital Signs: Yes Vital Signs: Vital Signs x48h Temp Pulse Resp BP BP Pulse Ox 10/31/17 07:32 36.1 C L 74 18 91/39 L 96 10/31/17 04:42 36.4 C L 81 18 110/58 L 92 Intake & Output: Intake & Output 10/28/17 10/29/17 10/30/17 10/31/17 23:59 23:59 23:59 23:59 Intake Total 150.667 100 Balance 150.667 100 - Objective General Appearance: positive: Alert, Moderate distress, Anxious Eyes Bilateral: positive: Normal inspection Eyes: OU Conjunctivae pale ENT: positive: ENT inspection nml, Pharyngeal erythema, Dry mucous membranes Neck: positive: Nml inspection, Thyroid nml, No JVD Respiratory: positive: Chest non-tender, No respiratory distress, Other ( diminished) Cardiovascular: positive: Systolic murmur, Decreased pulse(s) Peripheral Pulses: 1+ Radial (R), 1+ Radial (L) Abdomen: positive: Non-tender, Other - Lab Results Fish Bones: 11/02/17 06:21 11/02/17 06:21 Other Labs: Lab Results x24hrs 10/31/17 10/31/17 10/31/17 Range/Units 05:35 05:35 05:35 WBC (4.8-10.8) x10^3/uL RBC (4.20-5.40) 10^6/uL Hgb (12.0-16.0) g/dL Hct (37.0-47.0) % MCV (81.0-99.0) fL MCH (27.0-31.0) pg MCHC (32.0-36.0) g/dL RDW (12.0-15.0) % Plt Count (130-450) 10^3/uL MPV (7.9-10.8) fL Sodium 135 (135-145) mmol/L Potassium 4.6 (3.5-5.0) mmol/L Chloride 105 (101-111) mmol/L Carbon Dioxide 23 (21-32) mmol/L Anion Gap 7.0 (6-13) BUN 45 H (6-20) mg/dL Creatinine 2.1 H (0.4-1.0) mg/dL Estimated GFR (MDRD) 22 L (>89) Glucose 179 H (70-100) mg/dL POC Whole Bld Glucose (70 - 100) mg/dL Glycated Hemoglobin 8.0 H (4.6-6.2) % Estim Average Glucose 183 H (70-100) Calcium 8.2 L (8.5-10.3) mg/dL TSH 1.49 (0.34-5.60) uIU/mL 10/31/17 10/30/17 Range/Units 05:35 21:57 WBC 6.4 (4.8-10.8) x10^3/uL RBC 2.96 L (4.20-5.40) 10^6/uL Hgb 9.4 L (12.0-16.0) g/dL Hct 28.5 L (37.0-47.0) % MCV 96.1 (81.0-99.0) fL MCH 31.7 H (27.0-31.0) pg MCHC 33.0 (32.0-36.0) g/dL RDW 13.8 (12.0-15.0) % Plt Count 254 (130-450) 10^3/uL MPV 8.5 (7.9-10.8) fL Sodium (135-145) mmol/L Potassium (3.5-5.0) mmol/L Chloride (101-111) mmol/L Carbon Dioxide (21-32) mmol/L Anion Gap (6-13) BUN (6-20) mg/dL Creatinine (0.4-1.0) mg/dL Estimated GFR (MDRD) (>89) Glucose (70-100) mg/dL POC Whole Bld Glucose 162 H (70 - 100) mg/dL Glycated Hemoglobin (4.6-6.2) % Estim Average Glucose (70-100) Calcium (8.5-10.3) mg/dL TSH (0.34-5.60) uIU/mL ABX Reporting Has patient been on IV antibiotics over the past 48 hours?: Yes Assessment/Plan - Problem List (1) Urinary tract infection with hematuria Impression: A urine sample was obtained in the ED and shows a UTI. The culture has shown no growth so far. She has had bright red blood at times noted by nursing. Her H/H continue to trend downward. Plan: Continue IV antibiotics and await culture results. (2) Acute kidney injury Impression: Creatinine was elevated to 2.6, and this morning was mildly improved at 2.1. Plan: Continue gentle fluids, re-check labs daily. (3) History of gout Impression: The patient has a history of gout and is prescribed allopurinol at home. I will place this on hold this AM as it can be nephrotoxic. Plan: Resume as creatinine improves. (4) Hyperlipidemia Impression: The patient has a history of hyperlipidemia and takes simvastatin at home, and this is continued here. As per lab results, she is found to have a normal ALT/ AST. Plan: Continue to monitor. (5) Type 2 diabetes mellitus Impression: The patient has a history of type 2 diabetes mellitus but has only been taking 500 mg of metformin at home, which is on hold as per hospital protocol. A Hemoglobin A1c was 8.0%, considered fair control for someone her age. The patient was not prescribed coverage so far and we are monitoring early AM sugars. Plan: Consider low dose Lantus in the event her sugars become continuously elevated.
[2017-10-31] MEDS ORDERED: LISINOPRIL 5 MG TABLET PO SCH (09:00)
[2017-10-31] MEDS: SODIUM CHLORIDE 0.9% 1,000 ML IV SCH ×2 (09:18→22:21)
[2017-10-31] MEDS: ASPIRIN CHEW 81 MG TABLET PO SCH (09:18)
[2017-10-31] MEDS: POLYETHYLENE GLYCOL 3350 17 GM PACKET PO SCH (09:18)
[2017-10-31] MEDS: COD LIVER OIL/ZINC OXIDE 113 GM TUBE TOP PRN (09:19)
[2017-10-31] MEDS: ACETAMINOPHEN 325 MG TABLET PO PRN (17:41)
[2017-10-31] MEDS: cefTRIAXone 1 GM in SODIUM CHLORIDE 0.9% MINIBAG 100 ML IV SCH (17:42)
[2017-10-31] MEDS: traZODone 50 MG TABLET PO SCH (20:29)
[2017-10-31] MEDS ORDERED: ZINC OXIDE 20% OINT 28.35 GM TUBE TOP PRN (21:30)
[2017-11-01] MEDS: OXYBUTYNIN 5MG TABLET PO SCH ×3 (00:26→21:05)
[2017-11-01] MEDS: SODIUM CHLORIDE FLUSH 0.9% 10 ML SYRINGE IVP SCH ×3 (01:02→17:26)
[2017-11-01 05:34] LABS: HGB - HEMOGLOBIN 8.5 g/dL (12.0-16.0); MEAN CORPUSCULAR HEMOGLOBIN 31.1 pg (27.0-31.0); MEAN CORPUSCULAR HGB CONC 33.2 g/dL (32.0-36.0); MEAN CORPUSCULAR VOLUME 93.5 fL (81.0-99.0); MEAN PLATELET VOLUME 9.1 fL (7.9-10.8); RED BLOOD COUNT 2.72 10^6/uL (4.20-5.40); RED CELL DISTRIBUTION WIDTH 13.8 % (12.0-15.0); WHITE BLOOD COUNT 5.7 x10^3/uL (4.8-10.8)
[2017-11-01 05:48] LABS: CALCIUM 7.9 mg/dL (8.5-10.3); CREATININE 1.4 mg/dL (0.4-1.0)
[2017-11-01] MEDS: LORATADINE 10 MG TABLET PO SCH (08:39)
[2017-11-01] MEDS: ASPIRIN CHEW 81 MG TABLET PO SCH (08:39)
[2017-11-01] MEDS: POLYETHYLENE GLYCOL 3350 17 GM PACKET PO SCH (08:39)
[2017-11-01] MEDS: ACETAMINOPHEN 325 MG TABLET PO PRN (10:55)
[2017-11-01] MEDS: SODIUM CHLORIDE 0.9% 1,000 ML IV SCH (10:57)
[2017-11-01] MEDS: cefTRIAXone 1 GM in SODIUM CHLORIDE 0.9% MINIBAG 100 ML IV SCH (17:25)
[2017-11-01] MEDS: traZODone 50 MG TABLET PO SCH (21:05)
[2017-11-02] MEDS: SODIUM CHLORIDE FLUSH 0.9% 10 ML SYRINGE IVP SCH ×3 (00:13→17:58)
[2017-11-02 06:49] LABS: HGB - HEMOGLOBIN 7.9 g/dL (12.0-16.0); MEAN CORPUSCULAR HEMOGLOBIN 31.4 pg (27.0-31.0); MEAN CORPUSCULAR HGB CONC 33.8 g/dL (32.0-36.0); MEAN CORPUSCULAR VOLUME 93.1 fL (81.0-99.0); MEAN PLATELET VOLUME 8.9 fL (7.9-10.8); RED BLOOD COUNT 2.51 10^6/uL (4.20-5.40); RED CELL DISTRIBUTION WIDTH 13.9 % (12.0-15.0); WHITE BLOOD COUNT 5.7 x10^3/uL (4.8-10.8)
[2017-11-02 07:06] LABS: CALCIUM 7.9 mg/dL (8.5-10.3); CREATININE 1.1 mg/dL (0.4-1.0)
[2017-11-02] MEDS: POLYETHYLENE GLYCOL 3350 17 GM PACKET PO SCH (09:27)
[2017-11-02] MEDS: LORATADINE 10 MG TABLET PO SCH (09:27)
[2017-11-02] MEDS: OXYBUTYNIN 5MG TABLET PO SCH ×2 (09:27→21:29)
[2017-11-02] MEDS: ASPIRIN CHEW 81 MG TABLET PO SCH (09:27)
[2017-11-02] MEDS: INSULIN GLARGINE 300 UNIT/3 ML PEN SUBQ SCH (09:31)
[2017-11-02] MEDS: ACETAMINOPHEN 325 MG TABLET PO PRN ×2 (09:37→23:46)
[2017-11-02] MEDS: INSULIN ASPART 300 UNIT/3 ML PEN SUBQ SCH ×3 (12:07→21:31)
--- NOTE | 2017-11-02 14:11 | PROVIDER PROGRESS NOTE ---
Subjective - Prog Note Date Prog Note Date: 11/01/17 Prog Note Time: 08:00 - Subjective Pt reports feeling: No change Subjective: Trini continues to display a pleasantly confused demeanor. She denies increased shortness of breath, chest pain, nausea, vomiting or a new cough. Objective - Vital Signs/Intake & Output Reviewed Vital Signs: Yes Vital Signs: Vital Signs x48h Temp Pulse Resp BP Pulse Ox 11/02/17 08:00 36.5 C 97 20 121/75 98 Intake & Output: Intake & Output 10/30/17 10/31/17 11/01/17 11/02/17 23:59 23:59 23:59 23:59 Intake Total 1400 2910.667 680 Output Total 275 150 Balance 1400 2635.667 530 - Objective General Appearance: positive: No acute distress, Alert, Lethargic Eyes Bilateral: positive: Normal inspection Eyes: OU Conjunctivae pale ENT: positive: ENT inspection nml, Pharynx nml, No signs of dehydration, Pharyngeal erythema Neck: positive: Thyroid nml, No JVD, Lymphadenopathy (R), Lymphadenopathy (L), Stiff neck Respiratory: positive: Chest non-tender, No respiratory distress, Other (mild scattered crackles in low bases.) Cardiovascular: positive: No gallop, Irregularly irregular, Systolic murmur, Decreased pulse(s) Peripheral Pulses: 1+ Radial (R), 1+ Radial (L), 1+ Dorsalis pedis (R), 1+ Dorsalis pedis (L) Abdomen: positive: Non-tender, Nml bowel sounds, Other (rounded, soft) Back: positive: Nml inspection Skin: positive: No rash, Warm, Dry, Other (pale) Extremities: positive: Non-tender, Full ROM, Pedal edema (chronic, dependent BLE edema), Joint swelling Neurologic/Psychiatric: positive: Disoriented to time, Weakness, Sensory loss, Depressed mood/affect, Other (very pleasant, understanding of current memory losses) Reflexes: Bicep (R): 2+, Bicep (L): 2+ - Lab Results Fish Bones: 11/02/17 06:21 11/02/17 06:21 Other Labs: Lab Results x24hrs 11/02/17 11/02/17 11/02/17 Range/Units 11:26 06:21 06:21 WBC (4.8-10.8) x10^3/uL RBC (4.20-5.40) 10^6/uL Hgb (12.0-16.0) g/dL Hct (37.0-47.0) % MCV (81.0-99.0) fL MCH (27.0-31.0) pg MCHC (32.0-36.0) g/dL RDW (12.0-15.0) % Plt Count (130-450) 10^3/uL MPV (7.9-10.8) fL Sodium 138 (135-145) mmol/L Potassium 4.1 (3.5-5.0) mmol/L Chloride 110 (101-111) mmol/L Carbon Dioxide 23 (21-32) mmol/L Anion Gap 5.0 L (6-13) BUN 22 H (6-20) mg/dL Creatinine 1.1 H (0.4-1.0) mg/dL Estimated GFR (MDRD) 47 L (>89) Glucose 159 H (70-100) mg/dL POC Whole Bld Glucose 223 H (70 - 100) mg/dL Calcium 7.9 L (8.5-10.3) mg/dL Magnesium 1.2 L (1.7-2.8) mg/dL 18 18 Range/Units 06:21 16:31 WBC 5.7 (4.8-10.8) x10^3/uL RBC 2.51 L (4.20-5.40) 10^6/uL Hgb 7.9 L (12.0-16.0) g/dL Hct 23.4 L (37.0-47.0) % MCV 93.1 (81.0-99.0) fL MCH 31.4 H (27.0-31.0) pg MCHC 33.8 (32.0-36.0) g/dL RDW 13.9 (12.0-15.0) % Plt Count 255 (130-450) 10^3/uL MPV 8.9 (7.9-10.8) fL Sodium (135-145) mmol/L Potassium (3.5-5.0) mmol/L Chloride (101-111) mmol/L Carbon Dioxide (21-32) mmol/L Anion Gap (6-13) BUN (6-20) mg/dL Creatinine (0.4-1.0) mg/dL Estimated GFR (MDRD) (>89) Glucose (70-100) mg/dL POC Whole Bld Glucose 221 H (70 - 100) mg/dL Calcium (8.5-10.3) mg/dL Magnesium (1.7-2.8) mg/dL - Diagnostic Imaging Diagnostic Imaging Results: positive: Final report reviewed ABX Reporting Has patient been on IV antibiotics over the past 48 hours?: Yes Assessment/Plan - Problem List (1) Urinary tract infection with hematuria Impression: A urine sample was obtained in the ED and shows a UTI. The culture has shown lactobaccilli. She has had bright red blood at times noted by nursing. Her H/ H continue to trend downward and today is 8.5/25.5. The bloody urine is noted to be somewhat less frequent. Plan: Continue IV antibiotics and await culture results. (2) Acute kidney injury Impression: Creatinine was elevated to 2.6 on admit and today, are much improved at 1.4, so IVFs are discontinued. Plan: Continue with daily labs. (3) History of gout Impression: The patient has a history of gout and is prescribed allopurinol at home. This was resumed last evening. Plan: Continue to monitor for increased pain. (4) Type 2 diabetes mellitus Impression: The patient continues to demonstrate dementia signs including a "pleasantly confused demeanor". She has been diabetic for several years and is prescribed Metformin at home. A HgA1C was ~8%, which is a safe range for this patient's age. Plan: Start low dose Lantus and continue blood glucose checks. Qualifiers: Diabetes mellitus complication status: with neurologic complications Diabetes mellitus complication detail: with other neurological complication
--- NOTE | 2017-11-02 14:14 | PROVIDER PROGRESS NOTE ---
Subjective - Prog Note Date Prog Note Date: 11/02/17 Prog Note Time: 12:00 - Subjective Pt reports feeling: Improved Subjective: Trini was content with having a riley and agreeable to the plan of care. She denies any new symptoms. Her daughter was in the room later and given a medical update by myself. Current Medications - Current Medications Current Medications: Active Medications Acetaminophen (Tylenol) 650 mg PO Q4HR PRN PRN Reason: Pain or Fever > 38C (100.4F) Last Admin: 11/02/17 09:37 Dose: 650 mg Aspirin ([facility] Alberto Aspirin) 81 mg PO DAILY [facility] Last Admin: 11/02/17 09:27 Dose: 81 mg Ceftriaxone Sodium 1 gm/ (Sodium Chloride) 100 mls @ 200 mls/hr IV Q24H [facility] Last Infusion: 11/01/17 18:35 Dose: Infused Insulin Aspart (Novolog) 1 - 5 unit SUBQ 0800,1200,1700,2100 [facility] PRN Reason: Protocol Last Admin: 11/02/17 12:07 Dose: 2 unit Insulin Glargine (Lantus Solostar) 10 unit SUBQ DAILY [facility] Last Admin: 11/02/17 09:31 Dose: 10 unit Loratadine (Claritin) 10 mg PO DAILY [facility] Last Admin: 11/02/17 09:27 Dose: 10 mg Multi-Ingredient Ointment (Zinc Oxide) 1 applic TOP PRN PRN PRN Reason: Skin Care Oxybutynin Chloride (Ditropan) 5 mg PO BID [facility] Last Admin: 11/02/17 09:27 Dose: 5 mg Polyethylene Glycol (Miralax) 17 gm PO DAILY [facility] Last Admin: 11/02/17 09:27 Dose: 17 gm Sodium Chloride (Normal Saline Flush 0.9%) 10 ml IVP PRN PRN PRN Reason: NEEDED PER PROVIDER ORDERS Last Admin: 10/30/17 22:20 Dose: 10 ml Sodium Chloride (Normal Saline Flush 0.9%) 10 ml IVP 0100,0900,1700 [facility] Last Admin: 11/02/17 09:27 Dose: 10 ml Temazepam (Restoril) 15 mg PO QPM PRN PRN Reason: Insomnia Last Admin: 10/30/17 23:43 Dose: 15 mg Trazodone HCl (Desyrel) 100 mg PO QPM [facility] Last Admin: 11/01/17 21:05 Dose: 100 mg Zinc Oxide (Desitin) 113 gm TOP PRN PRN PRN Reason: Skin Care Last Admin: 10/31/17 09:19 Dose: 1 applic Allopurinol [Zyloprim] 300 mg PO DAILY 02/18/13 Aspirin Chewable [[facility] Alberto Aspirin] 81 mg PO DAILY 02/18/13 Cyanocobalamin (Vitamin B-12) [Vitamin B-12] 2,500 mcg PO BID 02/18/13 Lisinopril 2.5 mg PO DAILY 02/18/13 Metformin HCl [Glumetza] 500 mg PO BIDWM 02/18/13 Omeprazole [PriLOSEC] 20 mg PO QDAC 02/18/13 Oxybutynin [Ditropan] 5 mg PO BID 02/18/13 Simvastatin [Zocor] 40 mg PO QPM 02/18/13 Donepezil [Aricept] 10 mg PO DAILY 10/30/17 traZODone [Desyrel] 100 mg PO QPM 10/30/17 Folic Acid 1 mg PO DAILY 10/31/17 Gluc/Harshal-MSM#1/Vit C/Juan/Bor [Dykugkt-Ahlfj-VMK Complex Cplt] 1 tab PO DAILY 10/31/17 Loratadine 10 mg PO DAILY 10/31/17 Potassium Gluconate 99 mg PO QPM 10/31/17 Objective - Vital Signs/Intake & Output Reviewed Vital Signs: Yes Vital Signs: Vital Signs x48h Temp Pulse Resp BP Pulse Ox 11/02/17 08:00 36.5 C 97 20 121/75 98 Intake & Output: Intake & Output 10/30/17 10/31/17 11/01/17 11/02/17 23:59 23:59 23:59 23:59 Intake Total 1400 2910.667 680 Output Total 275 150 Balance 1400 2635.667 530 - Objective General Appearance: positive: No acute distress, Alert Eyes Bilateral: positive: Normal inspection, PERRL Eyes: OU Conjunctivae pale ENT: positive: ENT inspection nml, Pharynx nml, No signs of dehydration Neck: positive: Nml inspection, Thyroid nml, No JVD, Stiff neck Respiratory: positive: Chest non-tender, No respiratory distress, Breath sounds nml Cardiovascular: positive: No gallop, Irregularly irregular, Systolic murmur, Decreased pulse(s) Peripheral Pulses: 1+ Radial (R), 1+ Radial (L) Abdomen: positive: Non-tender, Nml bowel sounds, Other (rounded, soft) Back: positive: Nml inspection Skin: positive: No rash, Warm, Dry, Other (slightly more pale) Extremities: positive: Non-tender, Full ROM, Pedal edema (chronic, dependent BLE edema equeal) Neurologic/Psychiatric: positive: Disoriented to place, Disoriented to time, Weakness, Sensory loss, Depressed mood/affect, Other (baseline) Reflexes: Bicep (R): 2+ (equal), Bicep (L): 2+ - Lab Results Fish Bones: 11/02/17 06:21 11/02/17 06:21 Other Labs: Lab Results x24hrs 11/02/17 11/02/17 11/02/17 Range/Units 11:26 06:21 06:21 WBC (4.8-10.8) x10^3/uL RBC (4.20-5.40) 10^6/uL Hgb (12.0-16.0) g/dL Hct (37.0-47.0) % MCV (81.0-99.0) fL MCH (27.0-31.0) pg MCHC (32.0-36.0) g/dL RDW (12.0-15.0) % Plt Count (130-450) 10^3/uL MPV (7.9-10.8) fL Sodium 138 (135-145) mmol/L Potassium 4.1 (3.5-5.0) mmol/L Chloride 110 (101-111) mmol/L Carbon Dioxide 23 (21-32) mmol/L Anion Gap 5.0 L (6-13) BUN 22 H (6-20) mg/dL Creatinine 1.1 H (0.4-1.0) mg/dL Estimated GFR (MDRD) 47 L (>89) Glucose 159 H (70-100) mg/dL POC Whole Bld Glucose 223 H (70 - 100) mg/dL Calcium 7.9 L (8.5-10.3) mg/dL Magnesium 1.2 L (1.7-2.8) mg/dL 11/02/1718 Range/Units 06:21 16:31 WBC 5.7 (4.8-10.8) x10^3/uL RBC 2.51 L (4.20-5.40) 10^6/uL Hgb 7.9 L (12.0-16.0) g/dL Hct 23.4 L (37.0-47.0) % MCV 93.1 (81.0-99.0) fL MCH 31.4 H (27.0-31.0) pg MCHC 33.8 (32.0-36.0) g/dL RDW 13.9 (12.0-15.0) % Plt Count 255 (130-450) 10^3/uL MPV 8.9 (7.9-10.8) fL Sodium (135-145) mmol/L Potassium (3.5-5.0) mmol/L Chloride (101-111) mmol/L Carbon Dioxide (21-32) mmol/L Anion Gap (6-13) BUN (6-20) mg/dL Creatinine (0.4-1.0) mg/dL Estimated GFR (MDRD) (>89) Glucose (70-100) mg/dL POC Whole Bld Glucose 221 H (70 - 100) mg/dL Calcium (8.5-10.3) mg/dL Magnesium (1.7-2.8) mg/dL - Diagnostic Imaging Diagnostic Imaging Results: positive: Final report reviewed ABX Reporting Has patient been on IV antibiotics over the past 48 hours?: No Assessment/Plan - Problem List (1) Severe aortic valve stenosis Impression: An echocardiogram was completed and shows this condition to be severe. The patient demonstrates an impressive murmur on exam. Plan: Continue medications, monitor VS, FALL precautions. (2) Urinary tract infection with hematuria Impression: A urine sample was obtained in the ED and shows a UTI. The culture has shown lactobaccilli. She has had bright red blood at times noted by nursing. Her H/ H continue to trend downward and today is 7.9/23.4. The bloody urine is noted to be somewhat less frequent but for ease of monitoring and to ensure that she is no longer bleeding, a riley catheter was inserted. I will change her antibiotic choice to Diflican as per her culture results, and stop IV treatment. Plan: Monitor urine, and maintain riley. (3) Acute kidney injury Impression: Creatinine was elevated to 2.6 on admit and today, are much improved at 1.1. She continues to be eating well and drinking enough fluids. Plan: Continue with daily labs. (4) History of gout Impression: The patient has a history of gout and is prescribed allopurinol at home. This was resumed last evening. Plan: Continue to monitor for increased pain. (5) Type 2 diabetes mellitus Impression: The patient continues to demonstrate dementia signs including a "pleasantly confused demeanor". She has been diabetic for several years and is prescribed Metformin at home. A HgA1C was ~8%, which is a safe range for this patient's age. Early AM sugars are ~150, but during the day with meals, the patient continues to run higher in the 200s. SSI was added at the low dose. Plan: Start low dose Lantus and continue blood glucose checks. Qualifiers: Diabetes mellitus complication status: with neurologic complications Diabetes mellitus complication detail: with other neurological complication (6) Dementia Impression: This is likely a consequence of her many years of DM, vascular in nature. As per her daughter, she has progressively become worse with her memory and functioning. Plan: Continue to monitor, fall precautions. Qualifiers: Dementia type: vascular dementia
[2017-11-02] MEDS: cefTRIAXone 1 GM in SODIUM CHLORIDE 0.9% MINIBAG 100 ML IV SCH (17:58)
[2017-11-02] MEDS: FLUCONAZOLE 100 MG TABLET PO SCH (21:29)
[2017-11-02] MEDS: traZODone 50 MG TABLET PO SCH (21:29)
[2017-11-02] MEDS: MAGNESIUM SULFATE 2 GRAM 2 GM/50 ML BAG IV SCH ×2 (22:30→23:45)
[2017-11-02] MEDS: SODIUM CHLORIDE FLUSH 0.9% 10 ML SYRINGE IVP PRN (22:30)
[2017-11-02] MEDS: COD LIVER OIL/ZINC OXIDE 113 GM TUBE TOP PRN (23:59)
[2017-11-03] MEDS: MAGNESIUM SULFATE 2 GRAM 2 GM/50 ML BAG IV SCH ×2 (00:49→02:00)
[2017-11-03] MEDS: TEMAZEPAM 15 MG CAPSULE PO PRN (00:49)
[2017-11-03] MEDS: SODIUM CHLORIDE FLUSH 0.9% 10 ML SYRINGE IVP SCH ×2 (03:11→08:10)
[2017-11-03 06:22] LABS: HGB - HEMOGLOBIN 8.2 g/dL (12.0-16.0); MEAN CORPUSCULAR VOLUME 93.9 fL (81.0-99.0); MEAN PLATELET VOLUME 8.5 fL (7.9-10.8); RED BLOOD COUNT 2.64 10^6/uL (4.20-5.40); WHITE BLOOD COUNT 6.6 x10^3/uL (4.8-10.8)
[2017-11-03 06:31] LABS: ALBUMIN 2.2 g/dL (3.2-5.5); ALBUMIN/GLOBULIN RATIO 0.8 (1.0-2.2); BILIRUBIN,TOTAL 0.5 mg/dL (0.2-1.0); CALCIUM 8.1 mg/dL (8.5-10.3); MAGNESIUM 3.1 mg/dL (1.7-2.8); PHOSPHORUS 2.8 mg/dL (2.5-4.6); TOTAL PROTEIN 4.9 g/dL (6.7-8.2)
[2017-11-03] MEDS: POLYETHYLENE GLYCOL 3350 17 GM PACKET PO SCH (08:09)
[2017-11-03] MEDS: FLUCONAZOLE 100 MG TABLET PO SCH (08:10)
[2017-11-03] MEDS: FOLIC ACID 1 MG TABLET PO SCH (08:10)
[2017-11-03] MEDS: OXYBUTYNIN 5MG TABLET PO SCH ×2 (08:10→21:45)
[2017-11-03] MEDS: LORATADINE 10 MG TABLET PO SCH (08:10)
[2017-11-03] MEDS: ALLOPURINOL 100 MG TABLET PO SCH (08:10)
[2017-11-03] MEDS: INSULIN ASPART 300 UNIT/3 ML PEN SUBQ SCH ×4 (08:10→21:45)
[2017-11-03] MEDS: ASPIRIN CHEW 81 MG TABLET PO SCH (08:10)
[2017-11-03] MEDS ORDERED: TEMAZEPAM 15 MG CAPSULE PO PRN (10:18)
--- NOTE | 2017-11-03 10:22 | PROVIDER PROGRESS NOTE ---
Subjective - Prog Note Date Prog Note Date: 11/03/17 Prog Note Time: 10:19 - Subjective Pt reports feeling: Improved Subjective: Trini is extra sleepy this AM, possible side effect of a sleep agent. This dose has been cut in half, in the event that she receives it again tonight. She denies any new symptoms such as increased shortness of breath, chest pain, nausea, vomiting or a new cough. Current Medications - Current Medications Current Medications: Active Medications Acetaminophen (Tylenol) 650 mg PO Q4HR PRN PRN Reason: Pain or Fever > 38C (100.4F) Last Admin: 11/02/17 23:46 Dose: 650 mg Allopurinol (Zyloprim) 300 mg PO DAILY [facility] Last Admin: 11/03/17 08:10 Dose: 300 mg Aspirin ([facility]to Aspirin) 81 mg PO DAILY [facility] Last Admin: 11/03/17 08:10 Dose: 81 mg Fluconazole (Diflucan) 100 mg PO DAILY [facility] Last Admin: 11/03/17 08:10 Dose: 100 mg Folic Acid () 1 mg PO DAILY [facility] Last Admin: 11/03/17 08:10 Dose: 1 mg Insulin Aspart (Novolog) 1 - 5 unit SUBQ 0800,1200,1700,2100 [facility] PRN Reason: Protocol Last Admin: 11/03/17 08:10 Dose: Not Given Insulin Glargine (Lantus Solostar) 10 unit SUBQ DAILY [facility] Last Admin: 11/02/17 09:31 Dose: 10 unit Loratadine (Claritin) 10 mg PO DAILY [facility] Last Admin: 11/03/17 08:10 Dose: 10 mg Multi-Ingredient Ointment (Zinc Oxide) 1 applic TOP PRN PRN PRN Reason: Skin Care Oxybutynin Chloride (Ditropan) 5 mg PO BID [facility] Last Admin: 11/03/17 08:10 Dose: 5 mg Polyethylene Glycol (Miralax) 17 gm PO DAILY [facility] Last Admin: 11/03/17 08:09 Dose: 17 gm Spironolactone (Aldactone) 12.5 mg PO DAILY [facility] Temazepam (Restoril) 7.5 mg PO QPM PRN PRN Reason: Insomnia Trazodone HCl (Desyrel) 100 mg PO QPM [facility] Last Admin: 11/02/17 21:29 Dose: 100 mg Zinc Oxide (Desitin) 113 gm TOP PRN PRN PRN Reason: Skin Care Last Admin: 11/02/17 23:59 Dose: 1 applic Allopurinol [Zyloprim] 300 mg PO DAILY 02/18/13 Aspirin Chewable [[facility]to Aspirin] 81 mg PO DAILY 02/18/13 Cyanocobalamin (Vitamin B-12) [Vitamin B-12] 2,500 mcg PO BID 02/18/13 Lisinopril 2.5 mg PO DAILY 02/18/13 Metformin HCl [Glumetza] 500 mg PO BIDWM 02/18/13 Omeprazole [PriLOSEC] 20 mg PO QDAC 02/18/13 Oxybutynin [Ditropan] 5 mg PO BID 02/18/13 Simvastatin [Zocor] 40 mg PO QPM 02/18/13 Donepezil [Aricept] 10 mg PO DAILY 10/30/17 traZODone [Desyrel] 100 mg PO QPM 10/30/17 Folic Acid 1 mg PO DAILY 10/31/17 Gluc/Harshal-MSM#1/Vit C/Juan/Bor [Dzmbtku-Pdkes-SAP Complex Cplt] 1 tab PO DAILY 10/31/17 Loratadine 10 mg PO DAILY 10/31/17 Potassium Gluconate 99 mg PO QPM 10/31/17 Objective - Vital Signs/Intake & Output Reviewed Vital Signs: Yes Vital Signs: Vital Signs x48h Temp Pulse Resp BP Pulse Ox 11/03/17 08:00 36.0 C L 74 18 156/76 H 99 Intake & Output: Intake & Output 10/31/17 11/01/17 11/02/17 11/03/17 23:59 23:59 23:59 23:59 Intake Total 1400 2910.667 1180 510 Output Total 275 1075 950 Balance 1400 2635.667 105 -440 - Objective General Appearance: positive: No acute distress, Lethargic Eyes Bilateral: positive: Normal inspection, PERRL Eyes: OU Conjunctivae pale ENT: positive: ENT inspection nml, Pharynx nml, Pharyngeal erythema Neck: positive: Nml inspection, Thyroid nml, No JVD Respiratory: positive: Chest non-tender, No respiratory distress, Other ( scattered crackles in low bases) - Lab Results Fish Bones: 11/03/17 05:42 11/03/17 05:42 Other Labs: Lab Results x24hrs 11/03/17 11/03/17 11/02/17 Range/Units 05:42 05:42 11:26 WBC 6.6 (4.8-10.8) x10^3/uL RBC 2.64 L (4.20-5.40) 10^6/uL Hgb 8.2 L (12.0-16.0) g/dL Hct 24.8 L (37.0-47.0) % MCV 93.9 (81.0-99.0) fL MCH 31.0 (27.0-31.0) pg MCHC 33.0 (32.0-36.0) g/dL RDW 14.0 (12.0-15.0) % Plt Count 261 (130-450) 10^3/uL MPV 8.5 (7.9-10.8) fL Sodium 137 (135-145) mmol/L Potassium 3.8 (3.5-5.0) mmol/L Chloride 106 (101-111) mmol/L Carbon Dioxide 25 (21-32) mmol/L Anion Gap 6.0 (6-13) BUN 16 (6-20) mg/dL Creatinine 1.0 (0.4-1.0) mg/dL Estimated GFR (MDRD) 53 L (>89) Glucose 127 H (70-100) mg/dL POC Whole Bld Glucose 223 H (70 - 100) mg/dL Calcium 8.1 L (8.5-10.3) mg/dL Phosphorus 2.8 (2.5-4.6) mg/dL Magnesium 3.1 H (1.7-2.8) mg/dL Total Bilirubin 0.5 (0.2-1.0) mg/dL AST 15 (10-42) IU/L ALT 13 (10-60) IU/L Alkaline Phosphatase 62 (42-121) IU/L Total Protein 4.9 L (6.7-8.2) g/dL Albumin 2.2 L (3.2-5.5) g/dL Globulin 2.7 (2.1-4.2) g/dL Albumin/Globulin Ratio 0.8 L (1.0-2.2) ABX Reporting Has patient been on IV antibiotics over the past 48 hours?: No Assessment/Plan - Problem List (1) Severe aortic valve stenosis Impression: An echocardiogram was completed and shows this condition to be severe. The patient demonstrates an impressive murmur on exam. Medical management to keep heart rates lower than 90 bpm. Heart rates today have been ~70. Plan: Continue medications, monitor VS, FALL precautions. (2) Urinary tract infection with hematuria Impression: A urine sample was obtained in the ED and shows a UTI. The culture has shown lactobaccilli. She has had bright red blood at times noted by nursing. Her H/ H is improved today at 8.2/24.8. A rilye was placed yesterday as per conversation with general surgery to monitor bleeding and to keep the bladder decompressed for further prevention of bleeding. There has been no evidence of bleeding, so orders to remove riley were written. Continue oral Diflican as per her culture results. Plan: Monitor urine out put without riley. Qualifiers: Urinary tract infection type: acute cystitis Qualified Code(s): N30.01 - Acute cystitis with hematuria (3) Acute kidney injury Impression: Creatinine was elevated to 2.6 on admit and today, are much improved at 1.0. She continues to be eating well and drinking enough fluids. This condition is considered to be resolved. Plan: Continue with daily labs. (4) History of gout Impression: The patient has a history of gout and is prescribed allopurinol at home and is being administered here. Upon exam, the patient notes no discomfort in her joints. She should be monitored for this as we begin her low dose spironolactone since diuretics sometimes cause worsening gout s/s. Plan: Continue to monitor for increased pain. (5) Type 2 diabetes mellitus Impression: The patient continues to demonstrate dementia signs including a "pleasantly confused demeanor". She has been diabetic for several years and is prescribed Metformin at home. A HgA1C was ~8%, which is a safe range for this patient's age. Early AM sugar today was a bit low at 127, so I will adjust her Lantus to just 7 units daily. During the day with meals, the patient was noted to be in the 200s. SSI was added at the low dose. Plan: Continue with adjusted low dose Lantus and continue blood glucose checks with SSI. Qualifiers: Diabetes mellitus complication status: with neurologic complications Diabetes mellitus complication detail: with other neurological complication (6) Dementia Impression: This is likely a consequence of her many years of DM, vascular in nature. As per her daughter, she has progressively become worse with her memory and functioning. She is noted to need constant cues for doing the next step in ADLs and with ambulating/eating. Plan: Continue to monitor, fall precautions. Qualifiers: Dementia type: vascular dementia (7) Pulmonary hypertension Impression: The patient is found to have increased right sided heart pressures on preliminary echo results. The RVSP at rest is 51 mmHg (estimated), and the indicated, ideal treatment for this is Spironolactone. I will start this medication today, low dose daily, remove her riley to ensure a resolution in her bleeding and monitor for one more night. Plan: Remove riley, IV access, and start spironolactone. * The patient will have an extended stay, past 3 days, due to her newly found pulmonary HTN, and the treatment required. This treatment was delayed due to her other acute problems such as UTI and possible bladder bleeding, which are now both managed or resolved. She is expected to be medically cleared for discharge by tomorrow.
[2017-11-03] MEDS: SPIRONOLACTONE 25 MG TABLET PO SCH (11:08)
[2017-11-03] MEDS: INSULIN GLARGINE 300 UNIT/3 ML PEN SUBQ SCH (11:08)
[2017-11-03] MEDS ORDERED: DOCUSATE SODIUM 250 MG CAPSULE PO SCH (17:00)
[2017-11-03] MEDS ORDERED: SENNA 8.6 MG TABLET PO SCH (17:00)
[2017-11-03] MEDS: traZODone 50 MG TABLET PO SCH (21:44)
[2017-11-04 06:06] LABS: ALBUMIN 2.5 g/dL (3.2-5.5); ALBUMIN/GLOBULIN RATIO 0.8 (1.0-2.2); BILIRUBIN,TOTAL 0.6 mg/dL (0.2-1.0); CALCIUM 8.5 mg/dL (8.5-10.3); CREATININE 1.1 mg/dL (0.4-1.0); TOTAL PROTEIN 5.6 g/dL (6.7-8.2)
[2017-11-04] MEDS: SPIRONOLACTONE 25 MG TABLET PO SCH (08:02)
[2017-11-04] MEDS: POLYETHYLENE GLYCOL 3350 17 GM PACKET PO SCH (08:02)
[2017-11-04] MEDS: FOLIC ACID 1 MG TABLET PO SCH (08:02)
[2017-11-04] MEDS: FLUCONAZOLE 100 MG TABLET PO SCH (08:02)
[2017-11-04] MEDS: LORATADINE 10 MG TABLET PO SCH (08:03)
[2017-11-04] MEDS: ALLOPURINOL 100 MG TABLET PO SCH (08:03)
[2017-11-04] MEDS: OXYBUTYNIN 5MG TABLET PO SCH ×2 (08:03→21:32)
[2017-11-04] MEDS: ASPIRIN CHEW 81 MG TABLET PO SCH (08:03)
[2017-11-04] MEDS: INSULIN ASPART 300 UNIT/3 ML PEN SUBQ SCH ×4 (08:04→21:39)
[2017-11-04] MEDS: INSULIN GLARGINE 300 UNIT/3 ML PEN SUBQ SCH (08:05)
--- NOTE | 2017-11-04 09:18 | DISCHARGE SUMMARY ---
Discharge Summary Admit Date: 10/30/17 Discharge Date: 11/04/17 Discharging Provider: MARISSA Earl Primary Care Provider: Kerri Webb Code Status: Do Not Attempt Resuscitation Condition at Discharge: Good Discharge Disposition: 03 SNF DC/Xfer Discharge Facility Name: [facility] Age of [age] - DIAGNOSES Admission Diagnoses: Acute cystitis with hematuria (N30.01) Acute kidney failure, unspecified (N17.9) Type 2 diabetes mellitus without complications (E11.9) Hyperlipidemia, unspecified (E78.5) Personal history of other diseases of the musculoskeletal system and connective tissue (Z87.39) Unspecified dementia without behavioral disturbance (F03.90) Insomnia, unspecified (G47.00) Discharge Diagnoses with Status of Each Condition: Severe aortic valve stenosis (I35.0) new on this admission, stable. Urinary tract infection with hematuria (N39.0) new on this admit, stable. YOSVANY (acute kidney injury) (N17.9) resolved. History of gout (Z87.39) chronic, stable. Type 2 diabetes mellitus (E11.9) chronic, stable. Dementia (F03.90) chronic, MRI confirms-advanced. Pulmonary hypertension (I27.20) new on this admission, stable. - HPI History of Present Illness: Trini Bond is an 82-year old female with a past medical history of hyperlipidemia, type 2 diabetes mellitus, gastroesophageal reflux disease, detrussor instability, frequent falls, and insomnia. Yesterday the patient began noticing blood clots when she voided and this has continued through to today. She also complained of increasing lower abdominal pain and hematuria which has progressively worsened. The patient reports a significant amount of pain with urination. She denies fevers, chills, recent illnesses, sick contacts , or other triggering factors. Patient's daughter, Susan, who is thought to be her primary pet caretaker, although does not reside with her mother, brought her into the emergency department. She has been diagnosed with a urinary tract infection and an acute kidney injury. A urine sample was obtained and shows a likely UTI. A head CT was completed and shows no bleeds. She was given IV fluids and antibiotics in the ED. She will be watched overnight to evaluate the severity of her bleeding. - HOSPITAL COURSE Hospital Course: The following diagnoses were prevalent during this hospital stay: (1) Severe aortic valve stenosis An echocardiogram was completed and shows this condition to be severe. The patient demonstrates an impressive murmur on exam. Medical management to keep heart rates lower than 90 bpm. She was continued on FALL precautions and this is considered to be stable at the time of discharge. (2) Urinary tract infection with hematuria A urine sample was obtained in the ED and shows a UTI. The culture has shown lactobaccilli. She has had bright red blood at times noted by nursing. Her H/ H is improved today at 8.2/24.8. A riley was placed for 24 hours to observe for hematuria as this was continuing for several days, and the patient's blood levels were falling. After the riley removal, the patient had no further bleeding. The patient was given oral Diflican as per her culture results. (3) Acute kidney injury Creatinine was elevated to 2.6 on admit and today, are much improved at 1.0. She continues to be eating well and drinking enough fluids. This condition is considered to be resolved. (4) History of gout The patient has a history of gout and is prescribed allopurinol at home and is being administered here. Upon exam, the patient notes no discomfort in her joints. She should be monitored for this as we begin her low dose spironolactone since diuretics sometimes cause worsening gout s/s. (5) Type 2 diabetes mellitus The patient continues to demonstrate dementia, but is not known to be combative. She has been diabetic for several years and is prescribed Metformin at home. A HgA1C was ~8%, which is a safe range for this patient's age. Early AM sugar today was a bit low at 149, and she remains on Lantus 5 units daily. During the day with meals, the patient was noted to be in the 200s. SSI was added at the low dose and discontinued at the time of discharge. Her metformin was resumed upon discharge, and all insulin was discontinued. (6) Dementia-vascular This is likely a consequence of her many years of DM, vascular in nature. As per her daughter, she has progressively become worse with her memory and functioning. She is noted to need constant cues for doing the next step in ADLs and with ambulating/eating. Today, her daughter thinks that her mother is much worse with her mentation. A repeat MRI was completed and results show no acute infarcts. She remains on Diflucan for her UTI. (7) Pulmonary hypertension The patient is found to have increased right sided heart pressures on preliminary echo results. The RVSP at rest is 51 mmHg (estimated), and the indicated, ideal treatment for this is Spironolactone. The patient has an increased abdominal girth. * The patient had an extended stay due to her newly found pulmonary HTN, and the treatment required. This treatment was delayed due to her other acute problems such as UTI and possible bladder bleeding, which are now both managed or resolved. Disposition: The patient was in stable condition and was transported via wheel chair van to [facility] for further rehab. She did not require oxygen and her hematuria was resolved. - ALLERGIES Allergies/Adverse Reactions: Allergies Allergy/AdvReac Type Severity Reaction Status Date / Time cephalexin [Cephalexin] Allergy Intermediate generalized Verified 10/30/17 15:40 shaking - MEDICATIONS Home Medications: Ambulatory Orders Medication Instructions Recorded Confirmed Allopurinol [Zyloprim] 300 mg PO DAILY 02/18/13 10/31/17 Aspirin Chewable [St Alberto 81 mg PO DAILY 02/18/13 10/31/17 Aspirin] Cyanocobalamin (Vitamin B-12) 2,500 mcg PO BID 02/18/13 10/31/17 [Vitamin B-12] Lisinopril 2.5 mg PO DAILY 02/18/13 10/31/17 Metformin HCl [Glumetza] 500 mg PO BIDWM 02/18/13 10/31/17 Omeprazole [PriLOSEC] 20 mg PO QDAC 02/18/13 10/31/17 Oxybutynin [Ditropan] 5 mg PO BID 02/18/13 10/31/17 Simvastatin [Zocor] 40 mg PO QPM 02/18/13 10/31/17 traZODone [Desyrel] 100 mg PO QPM 10/30/17 10/31/17 Folic Acid 1 mg PO DAILY 10/31/17 10/31/17 Gluc/Harshal-MSM#1/Vit C/Juan/Bor 1 tab PO DAILY 10/31/17 10/31/17 [Qszxxqa-Afbut-ARU Complex Cplt] Loratadine 10 mg PO DAILY 10/31/17 10/31/17 Fluconazole [Diflucan] 100 mg PO DAILY 5 Days #5 tablet 07/24/18 Spironolactone [Aldactone] 12.5 mg PO DAILY #15 tablet 11/05/17 - PHYSICAL EXAM AT DISCHARGE General Appearance: positive: No acute distress, Alert Eyes Bilateral: positive: Normal inspection, PERRL ENT: positive: ENT inspection nml, Pharynx nml, No signs of dehydration Neck: positive: Nml inspection, Thyroid nml, No JVD, Stiff neck Respiratory: positive: Chest non-tender, No respiratory distress, Breath sounds nml Cardiovascular: positive: Irregularly irregular, Bradycardia, Systolic murmur, Decreased pulse(s) Peripheral Pulses: positive: 1+ Abdomen: positive: Non-tender, Nml bowel sounds, Other (rounded, soft) Back: positive: Nml inspection Skin: positive: No rash, Warm, Dry Extremities: positive: Non-tender, Pedal edema Neurologic/Psychiatric: positive: CN's nml (2-12), Disoriented to place, Disoriented to time, Weakness, Depressed mood/affect Reflexes: Bicep (R): 2+, Bicep (L): 2+ - LABS Result Diagrams: 11/03/17 05:42 11/05/17 05:28 - DIAGNOSTIC IMAGING Diagnostic Imaging Results: Prelim report reviewed, Final report reviewed Diagnostic Imaging Results Comments: EXAM: MRI BRAIN WITHOUT CONTRAST EXAM DATE: 11/04/2017 02:15 PM. IMPRESSION: 1. No MRI evidence for acute intracranial abnormality. 2. Generalized cerebral volume loss is present consistent with atrophy. 3. No hemorrhage. There are minimal to mild findings suggestive of chronic small vessel ischemic disease. 4. Ventral thecal sac indentation at the C1-C2 level without cord compression from a broad-based probably degenerative hypertrophic pannus-like soft tissue collection. EXAM: CT ABDOMEN AND PELVIS WITHOUT CONTRAST. EXAM DATE: 10/30/2017 06:50 PM. IMPRESSION: 1. Mild atrophy of both kidneys. Bilateral dilated intra-and extra renal pelves with mild bilateral hydronephrosis. There is also bilateral hydroureter diffusely. No urinary tract calculi are seen. Diffuse bladder wall thickening most prominent at the bladder dome, with mild adjacent stranding, could represent acute cystitis. Bladder mass is not excluded. 2. Fat-containing umbilical hernia. 3. Mild sigmoid diverticulosis. 4. Rectocele. 5. Otherwise, see above. ECHOCARDIOGRAM 11/01/17 Final read by Jessica Herrmann MD 1. Overall LV systolic function is normal with an EF of 70-75%. 2. Impaired relaxation consistent with Grade 1 diastolic dysfunction. 3. Mild RV enlargement. 4. The RV systolic function is normal. 5. Severe aortic stenosis with peak/mean pressure gradient of 70 mmHg/47 mmHg, the aortic valve area by continuity equation is 0.84 cm2. 6. There is mild aortic regurgitation. 7. Mild tricuspid regurgitation. 8. Moderately abnormal right heart pressures. 9. The RVSP at rest is 51 mmHg. - FOLLOW UP Follow Up: Disposition: 03 SNF DC/Xfer Condition: Good SNF Transition Orders: Admit to: Care Age under the care of Dr. Webb Discharge Diagnosis: Pulmonary hypertension, hypertension, Severe aortic stenosis, UTI, YOSVANY, DM type 2, Dementia, debility, and falls. - TIME SPENT Time Spent in Discharge (Minutes): 60
--- NOTE | 2017-11-04 09:18 | Discharge Plan ---
"Discharge Plan for SNF / [facility] - DC Plan and Transition Orders Disposition: 03 SNF DC/Xfer Condition: Good SNF Transition Orders: Admit to: Care Age under the care of Dr. Webb Discharge Diagnosis: Pulmonary hypertension, hypertension, Severe aortic stenosis, UTI, YOSVANY, DM type 2, Dementia, debility, and falls. Medicare Certification: I certify that [facility] residential care is medically necessary on a continuing basis for any of the conditions for which she/he is receiving care during hospitalization. Notify PCP of admission and forward orders to primary provider for signature. Weight on admission and weekly. Call PCP immediately if weight increases by 5 pounds or if patient develops dyspnea, chest pain/tightness or edema. House Bowel Program: yes; If no BM after 2 days, nurse may give M.O.M. 30ml PO PRN and /or ducolax Supp 1 NE and /or ELIZABETH 250mg P.O., and/or senna 1-2 tabs PO. On day 3 nurse may give repeat above order until residents constipation is resolved. Immunizations: Annual Influenza Vaccine: yes; (between Dec 14 and July 13. ) Unless allergy or already given Two-Step PPD: yes; per [facility] [id number] or appropriate documentation of approved exceptions Treatments & Other Orders: PT/OT and speech as per facility protocol. Physical therapy. Newly started on Spironolactone for pulmonary hypertension. Oxygen Orders: 1-2 L via nasal cannula to keep oxygen saturation greater than 91 %, PRN. Lab Tests or X-Rays Orders: No x-rays indicated. CMP, CBC in 2 weeks. Medications: PLEASE REFER TO THE DISCHARGE MEDICATION LIST. Insulin Orders? No, oral agents only. Diagnosis: Diabetes; Initiate hypo and hyperglycemia protocols for BG <70 and BG >375. May check BG prn for signs/symptoms of dysglycemia. Allergies and Adverse Reactions: Allergies Allergy/AdvReac Type Severity Reaction Status Date / Time cephalexin [Cephalexin] Allergy Intermediate generalized Verified 10/30/17 15:40 shaking - Diet Type: Geriatric Texture: Regular Liquids: Thin May have monthly special meal: Yes - Therapies | Activity Therapy: Evaluation | Treat if indicated: Speech, PT, OT Rehabilitation Potential: Maximize functional status, Return to independent living, Maintain present ADL Functional Activity: Activity as Tolerated Weight Bearing: Full Weight Assistance Devices: Walker"
--- NOTE | 2017-11-04 10:50 | PROVIDER PROGRESS NOTE ---
Subjective - Prog Note Date Prog Note Date: 11/04/17 Prog Note Time: 10:50 - Subjective Pt reports feeling: No change Subjective: Trini has no complaints and is talking "about a man that was in her room". Her daughter is present for this exam and is very concerned about her mother's increased confusion. Current Medications - Current Medications Current Medications: Active Medications Acetaminophen (Tylenol) 650 mg PO Q4HR PRN PRN Reason: Pain or Fever > 38C (100.4F) Last Admin: 11/02/17 23:46 Dose: 650 mg Allopurinol (Zyloprim) 300 mg PO DAILY [facility] Last Admin: 11/04/17 08:03 Dose: 300 mg Aspirin (St Alberto Aspirin) 81 mg PO DAILY [facility] Last Admin: 11/04/17 08:03 Dose: 81 mg Fluconazole (Diflucan) 100 mg PO DAILY [facility] Last Admin: 11/04/17 08:02 Dose: 100 mg Folic Acid () 1 mg PO DAILY [facility] Last Admin: 11/04/17 08:02 Dose: 1 mg Insulin Aspart (Novolog) 1 - 5 unit SUBQ 0800,1200,1700,2100 REBECCA PRN Reason: Protocol Last Admin: 11/04/17 21:39 Dose: 2 unit Insulin Glargine (Lantus Solostar) 10 unit SUBQ DAILY [facility] Last Admin: 11/04/17 08:05 Dose: 10 unit Loratadine (Claritin) 10 mg PO DAILY [facility] Last Admin: 11/04/17 08:03 Dose: 10 mg Multi-Ingredient Ointment (Zinc Oxide) 1 applic TOP PRN PRN PRN Reason: Skin Care Oxybutynin Chloride (Ditropan) 5 mg PO BID [facility] Last Admin: 11/04/17 21:32 Dose: 5 mg Polyethylene Glycol (Miralax) 17 gm PO DAILY [facility] Last Admin: 11/04/17 08:02 Dose: 17 gm Sodium Chloride (Normal Saline Flush 0.9%) 10 ml IVP Q8HR [facility] Spironolactone (Aldactone) 12.5 mg PO DAILY [facility] Last Admin: 11/04/17 08:02 Dose: 12.5 mg Temazepam (Restoril) 15 mg PO QPM PRN PRN Reason: Insomnia Last Admin: 11/04/17 21:32 Dose: 15 mg Trazodone HCl (Desyrel) 100 mg PO QPM REBECCA Last Admin: 11/04/17 21:33 Dose: 100 mg Zinc Oxide (Desitin) 113 gm TOP PRN PRN PRN Reason: Skin Care Last Admin: 11/02/17 23:59 Dose: 1 applic Allopurinol [Zyloprim] 300 mg PO DAILY 02/18/13 Aspirin Chewable [St Alberto Aspirin] 81 mg PO DAILY 02/18/13 Cyanocobalamin (Vitamin B-12) [Vitamin B-12] 2,500 mcg PO BID 02/18/13 Lisinopril 2.5 mg PO DAILY 02/18/13 Metformin HCl [Glumetza] 500 mg PO BIDWM 02/18/13 Omeprazole [PriLOSEC] 20 mg PO QDAC 02/18/13 Oxybutynin [Ditropan] 5 mg PO BID 02/18/13 Simvastatin [Zocor] 40 mg PO QPM 02/18/13 Donepezil [Aricept] 10 mg PO DAILY 10/30/17 traZODone [Desyrel] 100 mg PO QPM 10/30/17 Folic Acid 1 mg PO DAILY 10/31/17 Gluc/Harshal-MSM#1/Vit C/Juan/Bor [Gbculmm-Fsfqn-YMQ Complex Cplt] 1 tab PO DAILY 10/31/17 Loratadine 10 mg PO DAILY 10/31/17 Potassium Gluconate 99 mg PO QPM 10/31/17 Objective - Vital Signs/Intake & Output Reviewed Vital Signs: Yes Vital Signs: Vital Signs x48h Temp Pulse Resp BP Pulse Ox 11/04/17 07:58 37.0 C 98 18 115/58 L 97 Intake & Output: Intake & Output 11/01/17 11/02/17 11/03/17 11/04/17 23:59 23:59 23:59 23:59 Intake Total 2910.667 1180 1130 500 Output Total 275 1075 2150 3 Balance 2635.667 105 -1020 497 - Objective General Appearance: positive: No acute distress, Alert, Anxious Eyes Bilateral: positive: Normal inspection, PERRL Eyes: OU Conjunctivae pale, OU Scleral icterus ENT: positive: ENT inspection nml, Pharynx nml, No signs of dehydration Neck: positive: Nml inspection, No JVD, Lymphadenopathy (R), Lymphadenopathy (L) , Stiff neck Respiratory: positive: Chest non-tender, No respiratory distress, Breath sounds nml Cardiovascular: positive: No gallop, Irregularly irregular, Systolic murmur Peripheral Pulses: 1+ Dorsalis pedis (R), 1+ Dorsalis pedis (L) Abdomen: positive: Non-tender, Nml bowel sounds, Other (rounded, soft) Back: positive: Nml inspection Skin: positive: No rash, Warm, Dry Neurologic/Psychiatric: positive: Disoriented to place, Disoriented to time, Weakness, Sensory loss, Slurred/abnml speech, Depressed mood/affect Reflexes: Bicep (R): 2+, Bicep (L): 2+ - Lab Results Fish Bones: 11/03/17 05:42 11/04/17 05:34 Other Labs: Lab Results x24hrs 11/04/17 11/03/17 Range/Units 05:34 11:19 Sodium 139 (135-145) mmol/L Potassium 3.9 (3.5-5.0) mmol/L Chloride 107 (101-111) mmol/L Carbon Dioxide 27 (21-32) mmol/L Anion Gap 5.0 L (6-13) BUN 15 (6-20) mg/dL Creatinine 1.1 H (0.4-1.0) mg/dL Estimated GFR (MDRD) 47 L (>89) Glucose 149 H (70-100) mg/dL POC Whole Bld Glucose 205 H (70 - 100) mg/dL Calcium 8.5 (8.5-10.3) mg/dL Total Bilirubin 0.6 (0.2-1.0) mg/dL AST 21 (10-42) IU/L ALT 13 (10-60) IU/L Alkaline Phosphatase 71 (42-121) IU/L Total Protein 5.6 L (6.7-8.2) g/dL Albumin 2.5 L (3.2-5.5) g/dL Globulin 3.1 (2.1-4.2) g/dL Albumin/Globulin Ratio 0.8 L (1.0-2.2) - Diagnostic Imaging Diagnostic Imaging Results: positive: Prelim report reviewed, Final report reviewed ABX Reporting Has patient been on IV antibiotics over the past 48 hours?: No Assessment/Plan - Problem List (1) Severe aortic valve stenosis Impression: An echocardiogram was completed and shows this condition to be severe. The patient demonstrates an impressive murmur on exam. Medical management to keep heart rates lower than 90 bpm. Heart rates today have been 58-77. Plan: Continue medications, monitor VS, FALL precautions. (2) Urinary tract infection with hematuria Impression: A urine sample was obtained in the ED and shows a UTI. The culture has shown lactobaccilli. She has had bright red blood at times noted by nursing. Her H/ H is improved today at 8.2/24.8. A riley was placed for 24 hours to observe for hematuria as this was continuing for several days, and the patient's blood levels were falling. The patient was given oral Diflican as per her culture results. Plan: Monitor urine out put without riley. Qualifiers: Urinary tract infection type: acute cystitis Qualified Code(s): N30.01 - Acute cystitis with hematuria (3) Acute kidney injury Impression: Creatinine was elevated to 2.6 on admit and today, are much improved at 1.0. She continues to be eating well and drinking enough fluids. This condition is considered to be resolved. Plan: Continue with daily labs. (4) History of gout Impression: The patient has a history of gout and is prescribed allopurinol at home and is being administered here. Upon exam, the patient notes no discomfort in her joints. She should be monitored for this as we begin her low dose spironolactone since diuretics sometimes cause worsening gout s/s. Plan: Continue to monitor for increased pain. (5) Type 2 diabetes mellitus Impression: The patient continues to demonstrate dementia, but is not known to be combative. She has been diabetic for several years and is prescribed Metformin at home. A HgA1C was ~8%, which is a safe range for this patient's age. Early AM sugar today was a bit low at 149, and she remains on Lantus 7 units daily. During the day with meals, the patient was noted to be in the 200s. SSI was added at the low dose. Plan: Continue with adjusted low dose Lantus and continue blood glucose checks with SSI. Qualifiers: Diabetes mellitus complication status: with neurologic complications Diabetes mellitus complication detail: with other neurological complication (6) Dementia Impression: This is likely a consequence of her many years of DM, vascular in nature. As per her daughter, she has progressively become worse with her memory and functioning. She is noted to need constant cues for doing the next step in ADLs and with ambulating/eating. Today, her daughter thinks that her mother is much worse with her mentation. A repeat MRI was completed and preliminary results show no acute infarcts. I will resume her Diflucan for her UTI. Plan: Continue to monitor, fall precautions. Qualifiers: Dementia type: vascular dementia (7) Pulmonary hypertension Impression: The patient is found to have increased right sided heart pressures on preliminary echo results. The RVSP at rest is 51 mmHg (estimated), and the indicated, ideal treatment for this is Spironolactone. Plan: Continue spironolactone. * The patient will have an extended stay, past 3 days, due to her newly found pulmonary HTN, and the treatment required. This treatment was delayed due to her other acute problems such as UTI and possible bladder bleeding, which are now both managed or resolved.
--- NOTE | 2017-11-04 14:56 | MRI Report ---
Procedure Date: 11/04/2017 Accession Number: [id number] / [id number] Procedure: MRI - Brain W/O CPT Code: FULL RESULT: EXAM: MRI BRAIN WITHOUT CONTRAST EXAM DATE: 11/04/2017 02:15 PM. CLINICAL HISTORY: Change in mental status. COMPARISON: No previous MRI. TECHNIQUE: Multiplanar, multisequence T1-weighted and fluid-sensitive MR sequences of the brain were performed. Sequences optimized for routine evaluation. Other: None. IV Contrast: None. FINDINGS: Brain Volume: Mild generalized cerebral volume loss. Parenchyma/Dura: No restricted diffusion to suggest acute or recent ischemic infarct. Tiny left cerebellar T2 hyperintensity may be from an old infarct. Minimal amorphous brainstem T2 hyperintensity is consistent with chronic microangiopathy. No acute hemorrhage, mass effect, midline shift or abnormal subdural fluid collection. Minimal amorphous cerebral white matter T2-hyperintense signal changes likely from aging and minimal microangiopathy. Ventricles/Cisterns: No hydrocephalus. Mild ventricular prominence is consistent with brain atrophy. Orbits: Previous lens extractions. Sella Turcica: Probable empty or partially empty sella. IAC: No evidence for significant asymmetry or space-occupying lesion allowing for inherent limitations of noncontrast posterior fossa imaging technique. Vasculature: Normal signal flow void is seen in the major arterial structures at the skull base. Sinuses: Minimal nonspecific mucosal thickening. Bones: Ventral thecal sac effacement at the C1-C2 level by broad-based pannus-like hypertrophic degenerative soft tissue collection along the dorsal aspect of the odontoid process extending laterally along the posterior aspects of the C1-C2 lateral masses. No cord compression or displacement. Other: The major arterial skull base flow voids are present. IMPRESSION: 1. No MRI evidence for acute intracranial abnormality. 2. Generalized cerebral volume loss is present consistent with atrophy. 3. No hemorrhage. There are minimal to mild findings suggestive of chronic small vessel ischemic disease. 4. Ventral thecal sac indentation at the C1-C2 level without cord compression from a broad-based probably degenerative hypertrophic pannus-like soft tissue collection. RADIA
[2017-11-04] MEDS ORDERED: TEMAZEPAM 15 MG CAPSULE PO PRN (21:31)
[2017-11-04] MEDS: traZODone 50 MG TABLET PO SCH (21:33)
[2017-11-05 05:49] LABS: ALBUMIN 2.8 g/dL (3.2-5.5); ALBUMIN/GLOBULIN RATIO 0.9 (1.0-2.2); BILIRUBIN,TOTAL 0.3 mg/dL (0.2-1.0); TOTAL PROTEIN 5.9 g/dL (6.7-8.2)
[2017-11-05] MEDS ORDERED: SODIUM CHLORIDE FLUSH 0.9% 10 ML SYRINGE IVP SCH (06:00)
[2017-11-05 08:43] VITALS: BP 144/76
[2017-11-05] MEDS: INSULIN ASPART 300 UNIT/3 ML PEN SUBQ SCH ×2 (09:15→11:39)
[2017-11-05] MEDS: ALLOPURINOL 100 MG TABLET PO SCH (09:16)
[2017-11-05] MEDS: LORATADINE 10 MG TABLET PO SCH (09:16)
[2017-11-05] MEDS: FOLIC ACID 1 MG TABLET PO SCH (09:16)
[2017-11-05] MEDS: FLUCONAZOLE 100 MG TABLET PO SCH (09:16)
[2017-11-05] MEDS: SPIRONOLACTONE 25 MG TABLET PO SCH (09:16)
[2017-11-05] MEDS: OXYBUTYNIN 5MG TABLET PO SCH (09:17)
[2017-11-05] MEDS: POLYETHYLENE GLYCOL 3350 17 GM PACKET PO SCH (09:17)
[2017-11-05] MEDS: ASPIRIN CHEW 81 MG TABLET PO SCH (09:17)
[2017-11-05] MEDS: INSULIN GLARGINE 300 UNIT/3 ML PEN SUBQ SCH (09:26)
== END 2017-11-05 14:39 | DRG 690 ==
LOC: ED 15:31 → MS2 20:36 → UNDOADMOB 20:36 → OBSVTOIN 10-31 13:29 → INTOOBSV 10-31 13:29 → UNDODISIN 11-05 14:39
PROVIDERS: ADMIT Hospitalist; ATTEND Nurse Practitioner
DX: N30.01 Acute cystitis with hematuria (principal); N17.9 Acute kidney failure, unspecified; N13.30 Unspecified hydronephrosis; B96.89 Other specified bacterial agents as the cause of diseases classified elsewhere; E11.49 Type 2 diabetes mellitus with other diabetic neurological complication; E11.9 Type 2 diabetes mellitus without complications; F01.50 Vascular dementia, unspecified severity, without behavioral disturbance, psychotic disturbance, mood disturbance, and anxiety; E78.5 Hyperlipidemia, unspecified; I35.0 Nonrheumatic aortic (valve) stenosis; I27.20 Pulmonary hypertension, unspecified; D64.9 Anemia, unspecified; I10 Essential (primary) hypertension; M1A.9XX0 Chronic gout, unspecified, without tophus (tophi); G47.00 Insomnia, unspecified; K21.9 Gastro-esophageal reflux disease without esophagitis; Z85.42 Personal history of malignant neoplasm of other parts of uterus; Z90.710 Acquired absence of both cervix and uterus; Z66 Do not resuscitate; Z79.84 Long term (current) use of oral hypoglycemic drugs; Z79.82 Long term (current) use of aspirin; Z91.81 History of falling; Z86.79 Personal history of other diseases of the circulatory system; Z79.899 Other long term (current) drug therapy
CPT/HCPCS: 36415; 51701; 70450; 70551; 74176; 80048; 80053; 81001; 81003; 83036; 83690; 83735; 84100; 84443; 85025; 85027; 85610; 85730; 86850; 86900; 86901; 87086; 93306; 96361; 96365; 96375; 99283; 99284

== ENCOUNTER 2017-11-14 04:15 | Outpatient (CLI) | payer MEDICARE, OTHER, MEDICAID | END 2017-11-14 04:16 | disposition home or self-care (01) | LOC: LAB.R 04:15 | DX: A04.72 Enterocolitis due to Clostridium difficile, not specified as recurrent (principal) | CPT/HCPCS: 87493 ==

== ENCOUNTER 2017-11-19 11:45 | Outpatient (CLI) | payer MEDICARE, OTHER, MEDICAID ==
[2017-11-19 18:59] LABS: BASOPHILS % (AUTO) 0.7 %; EOSINOPHILS # (AUTO) 0.1 10^3/uL (0.0-0.7); EOSINOPHILS % (AUTO) 1.6 %; HGB - HEMOGLOBIN 8.7 g/dL (12.0-16.0); LYMPHOCYTES # (AUTO) 1.1 10^3/uL (1.5-3.5); LYMPHOCYTES % (AUTO) 16.5 %; MEAN CORPUSCULAR HEMOGLOBIN 31.1 pg (27.0-31.0); MEAN CORPUSCULAR HGB CONC 32.6 g/dL (32.0-36.0); MEAN CORPUSCULAR VOLUME 95.4 fL (81.0-99.0); MONOCYTES # (AUTO) 0.6 10^3/uL (0.0-1.0); MONOCYTES % (AUTO) 8.8 %; NEUTROPHILS # (AUTO) 4.8 10^3/uL (1.5-6.6); NEUTROPHILS % (AUTO) 72.4 %; PLT - PLATELET COUNT 253 10^3/uL (130-450); RED CELL DISTRIBUTION WIDTH 15.2 % (12.0-15.0); WHITE BLOOD COUNT 6.6 x10^3/uL (4.8-10.8)
[2017-11-19 19:43] LABS: ALBUMIN 2.7 g/dL (3.2-5.5); ALBUMIN/GLOBULIN RATIO 0.9 (1.0-2.2); BILIRUBIN,TOTAL 0.4 mg/dL (0.2-1.0); CREATININE 1.4 mg/dL (0.4-1.0); TOTAL PROTEIN 5.7 g/dL (6.7-8.2)
== END 2017-11-19 11:46 | disposition home or self-care (01) ==
LOC: LAB.R 11:45
DX: I10 Essential (primary) hypertension (principal); I27.20 Pulmonary hypertension, unspecified
CPT/HCPCS: 80053; 85025

== ENCOUNTER 2017-11-25 14:40 | Outpatient (CLI) | payer MEDICARE, OTHER, MEDICAID ==
[2017-11-25 16:22] LABS: BASOPHILS % (AUTO) 0.6 %; EOSINOPHILS # (AUTO) 0.1 10^3/uL (0.0-0.7); EOSINOPHILS % (AUTO) 2.1 %; HGB - HEMOGLOBIN 8.4 g/dL (12.0-16.0); LYMPHOCYTES # (AUTO) 1.2 10^3/uL (1.5-3.5); LYMPHOCYTES % (AUTO) 18.7 %; MEAN CORPUSCULAR HEMOGLOBIN 30.7 pg (27.0-31.0); MEAN CORPUSCULAR HGB CONC 32.3 g/dL (32.0-36.0); MEAN PLATELET VOLUME 9.8 fL (7.9-10.8); MONOCYTES # (AUTO) 0.6 10^3/uL (0.0-1.0); MONOCYTES % (AUTO) 9.3 %; NEUTROPHILS # (AUTO) 4.6 10^3/uL (1.5-6.6); NEUTROPHILS % (AUTO) 69.3 %; PLT - PLATELET COUNT 306 10^3/uL (130-450); RED BLOOD COUNT 2.73 10^6/uL (4.20-5.40); RED CELL DISTRIBUTION WIDTH 14.7 % (12.0-15.0); WHITE BLOOD COUNT 6.6 x10^3/uL (4.8-10.8)
[2017-11-25 16:23] LABS: BILIRUBIN,URINE NEGATIVE (NEGATIVE); GLUCOSE, URINE (UA) NEGATIVE (NEGATIVE); KETONES,URINE (UA) NEGATIVE (NEGATIVE); LEUKOCYTE ESTERASE, URINE LARGE (NEGATIVE); NITRITE,URINE NEGATIVE (NEGATIVE); OCCULT BLOOD,URINE LARGE (NEGATIVE); PH,URINE 6.5 PH (5.0-7.5); PROTEIN,URINE 30 mg/dL (NEGATIVE); UROBILINOGEN,URINE 0.2 (NORMAL) E.U./dL (NORMAL)
[2017-11-25 16:24] LABS: CLARITY,URINE HAZY (CLEAR)
[2017-11-25 16:32] LABS: BACTERIA,URINE Many /HPF (None Seen); RBC,URINE TNTC /HPF (0-5); SQUAMOUS EPITHELIAL CELL,UR NONE SEEN (<= Few); WBC CLUMPS,URINE PRESENT
== END 2017-11-25 14:41 | disposition home or self-care (01) ==
LOC: LAB.R 14:40
DX: N39.0 Urinary tract infection, site not specified (principal)
CPT/HCPCS: 81001; 81003; 85025; 87077; 87086; 87181

== ENCOUNTER 2017-12-29 21:41 | Outpatient (CLI) | payer MEDICARE, OTHER, MEDICAID | END 2017-12-29 21:42 | disposition critical access hospital (66) | LOC: EMS 21:41 | PROVIDERS: ATTEND Surgery | DX: R53.1 Weakness (principal) | CPT/HCPCS: A0425; A0427 ==

== ENCOUNTER 2017-12-29 21:45 | Emergency (ER) | payer MEDICARE, OTHER, MEDICAID ==
[2017-12-29] MEDS ORDERED: SODIUM CHLORIDE 0.9% 1,000 ML IV ONE (22:35)
--- NOTE | 2017-12-29 22:44 | ED Physician Documentation ---
History of Present Illness - Stated complaint Stated Complaint: WEAKNESS - Chief complaint Chief Complaint: General - History obtained from History obtained from: Patient, Family - History of Present Illness Timing: Today - Additonal information Additional information: Patient is an 82 year old female who is being brought in for generalized weakness. according to patient, family and ems patient was trying to walk and got weak and fell. patient currently has a urinary tract infection and is being treated with bactrim. Patient currently denies any pain or injuries. Review of Systems Ten Systems: 10 systems reviewed and negative Constitutional: denies: Fever, Chills Nose: denies: Epistaxis Cardiac: denies: Chest pain / pressure, Palpitations Respiratory: denies: Dyspnea, Cough, Wheezing GI: denies: Abdominal Pain, Nausea, Vomiting : reports: Incontinent (at baseline) Musculoskeletal: reports: Extremity pain, Joint swelling Neurologic: reports: Generalized weakness PD PAST MEDICAL HISTORY - Past Medical History Past Medical History: Yes Cardiovascular: High cholesterol, Angina Respiratory: Shortness of breath Neuro: Dementia Endocrine/Autoimmune: Type 2 diabetes GI: None 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: 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 cancer : Incontinence HEENT: Chronic hearing loss Psych: None Musculoskeletal: Osteoarthritis, Gout Derm: None - Past Surgical History Past Surgical History: Yes General: Colonoscopy Ortho: Carpal Tunnel surgery, Other /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: Hysterectomy HEENT: Cataracts - Present Medications Home Medications: Ambulatory Orders Medication Instructions Recorded Confirmed RX: Allopurinol [Zyloprim] 300 mg PO DAILY 02/18/13 10/31/17 RX: Aspirin Chewable [[place] 81 mg PO DAILY 02/18/13 10/31/17 Aspirin] RX: Cyanocobalamin (Vitamin B-12) 2,500 mcg PO BID 02/18/13 10/31/17 [Vitamin B-12] RX: Lisinopril 2.5 mg PO DAILY 02/18/13 10/31/17 RX: Metformin HCl [Glumetza] 500 mg PO BIDWM 02/18/13 10/31/17 RX: Omeprazole [PriLOSEC] 20 mg PO QDAC 02/18/13 10/31/17 RX: Oxybutynin [Ditropan] 5 mg PO BID 02/18/13 10/31/17 RX: Simvastatin [Zocor] 40 mg PO QPM 02/18/13 10/31/17 RX: traZODone [Desyrel] 100 mg PO QPM 10/30/17 10/31/17 RX: Folic Acid 1 mg PO DAILY 10/31/17 10/31/17 RX: Gluc/Harshal-MSM#1/Vit C/Juan/Bor 1 tab PO DAILY 10/31/17 10/31/17 [Ucmoits-Plijj-QLP Complex Cplt] RX: Loratadine 10 mg PO DAILY 10/31/17 10/31/17 RX: Fluconazole [Diflucan] 100 mg PO DAILY 5 Days #5 tablet 11/05/17 RX: Spironolactone [Aldactone] 12.5 mg PO DAILY #15 tablet 11/05/17 Sulfamethoxazole/Trimethoprim 1 tab ORAL BID 12/29/17 12/29/17 [Sulfamethoxazole-Tmp Ds Tablet] Amox/Clav 875/125 [Augmentin] 1 each PO Q12H #14 tablet 12/30/17 - Allergies Allergies/Adverse Reactions: Allergies Allergy/AdvReac Type Severity Reaction Status Date / Time cephalexin [Cephalexin] Allergy Intermediate generalized Verified 12/29/17 22:08 shaking - Social History Does the pt smoke?: No Smoking Status: Never smoker Does the pt drink ETOH?: No Does the pt have substance abuse?: No - Immunizations Immunizations are current?: Yes - POLST Patient has POLST: No POLST Status: DNR PD ED PE NORMAL - Vitals Vital signs reviewed: Yes - General General: Alert and oriented X 3, No acute distress - HEENT HEENT: Atraumatic - Cardiac Cardiac: RRR - Respiratory Respiratory: No respiratory distress - Abdomen Abdomen: Soft, Non distended - Derm Derm: Normal color PD ED PE EXPANDED - Extremities Extremities: Pedal edema bilateral Results - Vitals Vitals: Vital Signs - 24 hr 12/29/17 12/30/17 21:53 00:08 Temperature 36.6 C 36.7 C Heart Rate 71 86 Respiratory 18 18 Rate Blood Pressure 112/52 L 103/56 L O2 Saturation 95 96 Oxygen O2 Source Room air - Labs Labs: Laboratory Tests 12/29/17 12/29/17 12/29/17 22:45 22:45 22:45 WBC 9.6 RBC 2.88 L Hgb 8.7 L Hct 26.6 L MCV 92.5 MCH 30.3 MCHC 32.8 RDW 15.1 H Plt Count 262 MPV 9.6 Neut # (Auto) 7.9 H Lymph # (Auto) 0.8 L [place] # (Auto) 0.8 Eos # (Auto) 0.0 Baso # (Auto) 0.0 Absolute Nucleated RBC 0.00 Nucleated RBC % 0.0 Sodium 132 L Potassium 3.9 Chloride 103 Carbon Dioxide 19 L Anion Gap 10.0 BUN 36 H Creatinine 1.7 H Estimated GFR (MDRD) 29 L Glucose 166 H Lactic Acid Calcium 8.3 L Total Bilirubin 0.6 AST 28 ALT 23 Alkaline Phosphatase 76 Troponin I < 0.04 Total Protein 6.1 L Albumin 2.7 L Globulin 3.4 Albumin/Globulin Ratio 0.8 L Lipase 33 Urine Color Urine Clarity Urine pH Ur Specific [place] Urine Protein Urine Glucose (UA) Urine Ketones Urine Occult Blood Urine Nitrite Urine Bilirubin Urine Urobilinogen Ur Leukocyte Esterase Urine RBC Urine WBC Ur Squamous Epith Cells Urine Bacteria Urine Mucus Ur Microscopic Review Urine Culture Comments 12/29/17 12/29/17 22:45 23:20 WBC RBC Hgb Hct MCV MCH MCHC RDW Plt Count MPV Neut # (Auto) Lymph # (Auto) [place] # (Auto) Eos # (Auto) Baso # (Auto) Absolute Nucleated RBC Nucleated RBC % Sodium Potassium Chloride Carbon Dioxide Anion Gap BUN Creatinine Estimated GFR (MDRD) Glucose Lactic Acid 1.2 Calcium Total Bilirubin AST ALT Alkaline Phosphatase Troponin I Total Protein Albumin Globulin Albumin/Globulin Ratio Lipase Urine Color YELLOW Urine Clarity SL. CLOUDY Urine pH 6.0 Ur Specific [place] 1.010 Urine Protein TRACE Urine Glucose (UA) NEGATIVE Urine Ketones NEGATIVE Urine Occult Blood TRACE-LYSE Urine Nitrite NEGATIVE Urine Bilirubin NEGATIVE Urine Urobilinogen 0.2 (NORMAL) Ur Leukocyte Esterase LARGE H Urine RBC 0-5 Urine WBC >25 H Ur Squamous Epith Cells RARE Squamous Urine Bacteria Few Urine Mucus Few Strands Ur Microscopic Review INDICATED Urine Culture Comments INDICATED PD MEDICAL DECISION MAKING - ED course Complexity details: reviewed old records, reviewed results, re-evaluated patient, considered differential, d/w patient, d/w family ED course: Patient was seen and examined at bedside. iv access was gained and labs were drawn. patient was started on a fluid bolus and urine was collected. patient's previous urine culture results were reviewed and patient's urine was resistant to bactrim. patient was treated with augmentin based on susceptibility. patient's labs were otherwise unremarkable. A discussion was had with the daughter about seeking out more definitive long care solutions. The daughter stated she had been looking but did not like any of the places. patient did not meet any inpatient criteria and was stable for discharge with outpatient follow up. - Sepsis Event Vital Signs: Vital Signs - 24 hr 12/29/17 12/30/17 21:53 00:08 Temperature 36.6 C 36.7 C Heart Rate 71 86 Respiratory 18 18 Rate Blood Pressure 112/52 L 103/56 L O2 Saturation 95 96 Oxygen O2 Source Room air Departure - Departure Disposition: 01 Home, Self Care Clinical Impression: Urinary tract infection Condition: Good Instructions: ED UTI Cystitis Female Follow-Up: Kerri Webb MD [Primary Care Provider] - Tomorrow Prescriptions: Amox/Clav 875/125 [Augmentin] 1 each PO Q12H #14 tablet Comments: Your symptoms today are being caused by a urinary tract infection. Your antibiotics have been switched. you will be on augmentin 2 times a day for the next week. you should take it with yogurt or probiotics to help reduce gi side effects. you should follow up with your doctor this week for routine care. It is also likely time to look into nursing homes or home nursing. you should work with your doctor in finding a place. Discharge Date/Time: 12/30/17 01:18
[2017-12-29 22:50] LABS: BASOPHILS % (AUTO) 0.3 %; EOSINOPHILS % (AUTO) 0.4 %; HGB - HEMOGLOBIN 8.7 g/dL (12.0-16.0); LYMPHOCYTES # (AUTO) 0.8 10^3/uL (1.5-3.5); LYMPHOCYTES % (AUTO) 8.4 %; MEAN CORPUSCULAR HEMOGLOBIN 30.3 pg (27.0-31.0); MEAN CORPUSCULAR HGB CONC 32.8 g/dL (32.0-36.0); MEAN CORPUSCULAR VOLUME 92.5 fL (81.0-99.0); MEAN PLATELET VOLUME 9.6 fL (7.9-10.8); MONOCYTES # (AUTO) 0.8 10^3/uL (0.0-1.0); MONOCYTES % (AUTO) 8.3 %; NEUTROPHILS # (AUTO) 7.9 10^3/uL (1.5-6.6); NEUTROPHILS % (AUTO) 82.6 %; PLT - PLATELET COUNT 262 10^3/uL (130-450); RED BLOOD COUNT 2.88 10^6/uL (4.20-5.40); RED CELL DISTRIBUTION WIDTH 15.1 % (12.0-15.0); WHITE BLOOD COUNT 9.6 x10^3/uL (4.8-10.8)
[2017-12-29 23:12] LABS: ALBUMIN 2.7 g/dL (3.2-5.5); ALBUMIN/GLOBULIN RATIO 0.8 (1.0-2.2); BILIRUBIN,TOTAL 0.6 mg/dL (0.2-1.0); CALCIUM 8.3 mg/dL (8.5-10.3); CREATININE 1.7 mg/dL (0.4-1.0); TOTAL PROTEIN 6.1 g/dL (6.7-8.2)
[2017-12-29 23:44] LABS: BILIRUBIN,URINE NEGATIVE (NEGATIVE); GLUCOSE, URINE (UA) NEGATIVE (NEGATIVE); KETONES,URINE (UA) NEGATIVE (NEGATIVE); LEUKOCYTE ESTERASE, URINE LARGE (NEGATIVE); NITRITE,URINE NEGATIVE (NEGATIVE); OCCULT BLOOD,URINE TRACE-LYSE (NEGATIVE); PROTEIN,URINE TRACE mg/dL (NEGATIVE); UROBILINOGEN,URINE 0.2 (NORMAL) E.U./dL (NORMAL)
[2017-12-29] MEDS ORDERED: AMOX/CLAV 875 MG/125 MG TABLET PO STA (23:46)
[2017-12-29 23:47] LABS: CLARITY,URINE SL. CLOUDY (CLEAR)
[2017-12-29 23:57] LABS: BACTERIA,URINE Few /HPF (None Seen); MUCUS,URINE Few Strands; RBC,URINE 0-5 /HPF (0-5); SQUAMOUS EPITHELIAL CELL,UR RARE Squamous (<= Few)
[2017-12-30 00:09] VITALS: BP 103/56
== END 2017-12-30 01:18 | disposition home or self-care (01) ==
LOC: EDUNIT# → ED 21:45
DX: N30.90 Cystitis, unspecified without hematuria (principal); E11.9 Type 2 diabetes mellitus without complications; Z79.84 Long term (current) use of oral hypoglycemic drugs
CPT/HCPCS: 36415; 51701; 80053; 81001; 83605; 83690; 84484; 85025; 87086; 96360; 99283; A9270; 81003; 87077; 87181

== ENCOUNTER 2018-01-26 14:11 | Inpatient (IN) | payer MEDICARE, OTHER, MEDICAID ==
--- NOTE | 2018-01-26 14:18 | ED Physician Documentation ---
PD HPI FEMALE - Stated complaint Stated Complaint: FEMALE - History obtained from History obtained from: Patient, Family (daughter) - History of Present Illness Timing - onset: How many days ago (The patient states she has had general we akness again the last couple of days. She typically gets around with a walker. Her daughter states she had seem to be doing okay after starting antibiotics for a UTI 10 days ago. However there is still some medications left and so the patient has apparently not taken them consistently. She has started to have some weakness and confusion last couple of days again. The patient states she has had a little bit of a cough and congestion but no overt fevers or dyspnea. She is usually incontinent of urine. She does not have any dysuria per se.) Timing - duration: Days Timing - details: Gradual onset, Still present, Waxing and waning Associated symptoms: Genital sore/lesion (rash in inguinal area), Hematuria (the past 1-2 days). No: Fever, Vaginal discharge Recently seen: Clinic (10 days ago for UTI and weakness.) Review of Systems Constitutional: reports: Myalgias. denies: Fever, Chills Nose: reports: Congestion. denies: Rhinorrhea / runny nose Cardiac: denies: Chest pain / pressure, Palpitations Respiratory: reports: Cough. 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: Uterine cancer : Incontinence HEENT: Chronic hearing loss Psych: None Musculoskeletal: Osteoarthritis, Gout Derm: None - Past Surgical History Past Surgical History: Yes General: Colonoscopy Ortho: Carpal Tunnel surgery, Other /SUBSEA ENGINEER: Hysterectomy HEENT: Cataracts - Present Medications Home Medications: Ambulatory Orders Medication Instructions Recorded Confirmed Allopurinol [Zyloprim] 300 mg PO DAILY 02/18/13 10/31/17 Aspirin Chewable [[place] Alberto 81 mg PO DAILY 02/18/13 10/31/17 Aspirin] Cyanocobalamin (Vitamin B-12) 2,500 mcg PO BID 02/18/13 10/31/17 [Vitamin B-12] Lisinopril 2.5 mg PO DAILY 02/18/13 10/31/17 Metformin HCl [Glumetza] 500 mg PO BIDWM 02/18/13 10/31/17 Omeprazole [PriLOSEC] 20 mg PO QDAC 02/18/13 10/31/17 Oxybutynin [Ditropan] 5 mg PO BID 02/18/13 10/31/17 Simvastatin [Zocor] 40 mg PO QPM 02/18/13 10/31/17 traZODone [Desyrel] 100 mg PO QPM 10/30/17 10/31/17 Folic Acid 1 mg PO DAILY 10/31/17 10/31/17 Gluc/Harshal-MSM#1/Vit C/Juan/Bor 1 tab PO DAILY 10/31/17 10/31/17 [Jvshvvr-Bktpl-OIA Complex Cplt] Loratadine 10 mg PO DAILY 10/31/17 10/31/17 Acetaminophen [Tylenol Extra 1 tab BID 01/26/18 01/26/18 Strength] Ciprofloxacin [Cipro] 250 mg PO Q12H 01/26/18 01/26/18 Donepezil HCl 10 mg 01/26/18 Multivitamin [Multiple Vitamins] 1 each 01/26/18 - Allergies Allergies/Adverse Reactions: Allergies Allergy/AdvReac Type Severity Reaction Status Date / Time cephalexin [Cephalexin] Allergy Intermediate generalized Verified 01/26/18 14:30 shaking - Living Situation Living Situation: reports: Alone (With her daughter checking in on her once or twice daily.) Living Arrangement: reports: At home - Social History Does the pt smoke?: No Smoking Status: Never smoker Does the pt drink ETOH?: No Does the pt have substance abuse?: No - Family History Family history: reports: Non contributory - Immunizations Immunizations are current?: Yes - POLST Patient has POLST: No POLST Status: DNR PD ED PE NORMAL - Vitals Vital signs reviewed: Yes - General General: No acute distress, Well developed/nourished. No: Alert and oriented X 3 (talkative and oriented to person and place. ) - HEENT HEENT: Atraumatic, Pharynx benign - Neck Neck: Supple, no meningeal sign, No adenopathy - Cardiac Cardiac: RRR, Other (left chest murmur c/w ) - Respiratory Respiratory: Clear bilaterally - Abdomen Abdomen: Soft, Non tender - Female Female : Deferred, Other (there is red rash noted in inguinal area bilaterally, appearing yeast-like. ) - Rectal Rectal: Deferred - Back Back: No CVA TTP - Derm Derm: Normal color, Warm and dry, No rash - Psych Psych: Normal mood Results - Vitals Vitals: Oxygen O2 Source Room air PD MEDICAL DECISION MAKING - ED course Complexity details: reviewed old records (We did get her urine culture results from the office at [facility] and it was showing multiply resistant organism I believe Klebsiella that was sensitive to quinolones and imipenem.), considered differential (The patient is having recurrent weakness and some confusion consistent with prior UTI. She is on Cipro since 01 16 for that and still has some medications left. Her daughter believes she has not been taking them completely as scheduled. Consider the possibility of the weakness and confusion from persistent urinary tract infection or other infection and also consider a possible side effect of the Cipro as that could cause the symptoms to.), d/w patient Departure - Departure Disposition: 66 [facility] DC/Xfer Clinical Impression: Generalized weakness, Confusion, Vicky rash of groin UTI (urinary tract infection) Qualifiers: Urinary tract infection type: acute cystitis Hematuria presence: without hematuria Qualified Code(s): N30.00 - Acute cystitis without hematuria Condition: Stable Record reviewed to determine appropriate education?: Yes
[2018-01-26 14:51] LABS: BILIRUBIN,URINE NEGATIVE (NEGATIVE); GLUCOSE, URINE (UA) NEGATIVE (NEGATIVE); KETONES,URINE (UA) NEGATIVE (NEGATIVE); LEUKOCYTE ESTERASE, URINE TRACE (NEGATIVE); NITRITE,URINE NEGATIVE (NEGATIVE); OCCULT BLOOD,URINE LARGE (NEGATIVE); PROTEIN,URINE 100 mg/dL (NEGATIVE); UROBILINOGEN,URINE 0.2 (NORMAL) E.U./dL (NORMAL)
[2018-01-26 14:53] LABS: CLARITY,URINE CLOUDY (CLEAR)
[2018-01-26] MEDS ORDERED: SODIUM CHLORIDE 0.9% 1,000 ML IV ONE (14:53)
[2018-01-26 14:54] LABS: BACTERIA,URINE Few /HPF (None Seen); RBC,URINE TNTC /HPF (0-5); SQUAMOUS EPITHELIAL CELL,UR NONE SEEN (<= Few); WBC CLUMPS,URINE PRESENT
[2018-01-26 15:10] LABS: BASOPHILS % (AUTO) 0.5 %; EOSINOPHILS # (AUTO) 0.1 10^3/uL (0.0-0.7); EOSINOPHILS % (AUTO) 1.4 %; HGB - HEMOGLOBIN 8.3 g/dL (12.0-16.0); LYMPHOCYTES # (AUTO) 1.1 10^3/uL (1.5-3.5); LYMPHOCYTES % (AUTO) 15.3 %; MEAN CORPUSCULAR HEMOGLOBIN 29.4 pg (27.0-31.0); MEAN CORPUSCULAR HGB CONC 32.3 g/dL (32.0-36.0); MEAN CORPUSCULAR VOLUME 90.9 fL (81.0-99.0); MEAN PLATELET VOLUME 9.1 fL (7.9-10.8); MONOCYTES # (AUTO) 0.6 10^3/uL (0.0-1.0); MONOCYTES % (AUTO) 8.2 %; NEUTROPHILS # (AUTO) 5.5 10^3/uL (1.5-6.6); NEUTROPHILS % (AUTO) 74.6 %; PLT - PLATELET COUNT 321 10^3/uL (130-450); RED BLOOD COUNT 2.83 10^6/uL (4.20-5.40); RED CELL DISTRIBUTION WIDTH 16.1 % (12.0-15.0); WHITE BLOOD COUNT 7.4 x10^3/uL (4.8-10.8)
[2018-01-26 15:21] LABS: ALBUMIN 2.8 g/dL (3.2-5.5); ALBUMIN/GLOBULIN RATIO 0.8 (1.0-2.2); BILIRUBIN,TOTAL 0.2 mg/dL (0.2-1.0); CALCIUM 8.4 mg/dL (8.5-10.3); MAGNESIUM 1.3 mg/dL (1.7-2.8); TOTAL PROTEIN 6.4 g/dL (6.7-8.2)
[2018-01-26] MEDS ORDERED: MEROPENEM 1 GM in SODIUM CHLORIDE 0.9% MINIBAG 100 ML IV STA (15:41)
--- NOTE | 2018-01-26 15:54 | XRAY Report ---
Reason: chest pain left sided Procedure Date: 01/26/2018 Accession Number: [id number] / [id number] Procedure: XR - Chest 2 View X-Ray CPT Code: 89553 FULL RESULT: EXAM: CHEST RADIOGRAPHY EXAM DATE: 01/26/2018 03:22 PM. CLINICAL HISTORY: Chest pain left sided. COMPARISON: Chest radiograph dated 05/11/2014. TECHNIQUE: 2 views. FINDINGS: Lungs/Pleura: No focal opacities evident. No pleural effusion. No pneumothorax. Normal volumes. Mediastinum: Heart and mediastinal contours are unremarkable. Other: There is a peripherally calcified structure projecting through the left lower neck. This was present on the prior chest radiograph dated 05/11/2014 and measured 2.2 cm at that time. IMPRESSION: 1. No focal consolidation. 2. Possible peripherally calcified thyroid nodule which is similar in size to the prior chest radiograph dated 05/11/2014 but is incompletely assessed on this examination and a thyroid ultrasound may be of benefit to further characterize this finding. RADIA
[2018-01-26] MEDS ORDERED: FLUCONAZOLE 100 MG TABLET PO STA (16:37)
--- NOTE | 2018-01-26 16:46 | HISTORY & PHYSICAL EXAMINATION ---
Chief Complaint - Chief Complaint Chief Complaint: increased confusion, UTI History of Present Illness - Admitted From Admitted From:: ED - History Obtained From Records Reviewed: yes History obtained from: chart review, patient Exam Limitations: AMS - History of Present Illness HPI Comment/Other: Trini Bond is an 82-year old female with a past medical history of recurrent UTIs, CKD, DM type 2-diet controlled, hyerlipidemia, gout, dementia, insomnia, severe aortic stenosis, pulmonary hypertension, and anemia. The patient presented to the ED with generalized weakness and increased confusion that began about 2 days ago. She had been prescribed Cipro for a UTI about 10 days ago, but according to her daughter may not have taken the whole course as she has left over pills. Labs show anemia with a hemoglobin of 8.3, hematocrit of 25.7, normal MCV, no WBC count. YOSVANY with a creatinine of 2.2, BUN of 46, reduced GFR of 24, an elevated glucose of 213 and a normal lactic acid of 1.7. A repeat urine sample was obtained and showed a UTI. Upon exam the patient is confused and her daughter was not present. She states that she has been falling at home lately, she has urinary incontinence, and has had more weakness. She states that it has been difficult for her to ambulate, so has been just lying in bed. She is not oriented, but can state her name. She denies chest pain, vomiting, new pain, or shortness of breath. She will be admitted for treatment of her UTI with IV antibiotics and possible higher level of care/Hospice care. 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: Uterine cancer : reports: Incontinence, Chronic bladder infection, Renal insuffiency, Nocturia, Frequency HEENT: reports: Chronic vision loss, Chronic sinusitis, Chronic hearing loss Psych: reports: Depression, Anxiety Musculoskeletal: reports: Osteoarthritis, Gout, Fatigue Derm: reports: None MRSA Hx?: No - Past Surgical History General: reports: Colonoscopy Ortho: reports: Carpal Tunnel surgery, Other /TRIGONOMETRY TUTOR: reports: Hysterectomy HEENT: reports: Cataracts - Family & Social History Family History: Mother: , CAD, Hyperlipidemia, Hypertension, [place], Father: , Alzheimer's Disease, CAD, Hyperlipidemia, Hypertension, [place], Brother: , CAD, Hyperlipidemia, Hypertension, [place] Living arrangement: At home Living Situation: Alone ([facility]) Social History Notes: The patient denies current use of alcohol, tobacco or illicit drugs. She is a DNR. - Substance History Use: Uses substance without health or social issues: NONE Abuse: Recurrent use of substance despite neg consequences: NONE Dependence: Experiences withdrawal or developed tolerances: NONE - POLST Patient has POLST: No POLST Status: DNR Meds/Allgy - Home Medications Home Medications: Ambulatory Orders Medication Instructions Recorded Confirmed Allopurinol [Zyloprim] 300 mg PO DAILY 02/18/13 01/26/18 Aspirin Chewable [St Alberto 81 mg PO DAILY 02/18/13 01/26/18 Aspirin] Cyanocobalamin (Vitamin B-12) 2,500 mcg PO DAILY 02/18/13 01/26/18 [Vitamin B-12] Lisinopril 2.5 mg PO DAILY 02/18/13 01/26/18 Metformin HCl [Glumetza] 500 mg PO BIDWM 02/18/13 01/26/18 Omeprazole [PriLOSEC] 20 mg PO QDAC 02/18/13 01/26/18 Oxybutynin [Ditropan] 5 mg PO BID 02/18/13 01/26/18 Simvastatin [Zocor] 40 mg PO QPM 02/18/13 01/26/18 traZODone [Desyrel] 100 mg PO QPM 10/30/17 01/26/18 Loratadine 10 mg PO DAILY 10/31/17 01/26/18 Acetaminophen [Tylenol Extra 500 mg PO BID 01/26/18 01/26/18 Strength] Donepezil HCl 10 mg PO DAILY 01/26/18 01/26/18 Folic Acid 1 mg PO DAILY 01/26/18 01/26/18 Glucosamine Sulfate 500 mg PO BID 01/26/18 01/26/18 Multivitamin [Theragran] 1 tab PO DAILY 01/26/18 01/26/18 - Allergies Allergies/Adverse Reactions: Allergies Allergy/AdvReac Type Severity Reaction Status Date / Time cephalexin [Cephalexin] Allergy Intermediate generalized Verified 01/26/18 14:30 shaking Review of Systems - Constitutional Constitutional: reports: Fatigue, Weakness, Poor appetite - Eyes Eyes: reports: Vision loss, Corrective lenses - Ears, Nose & Throat Ears, Nose & Throat: reports: Hearing loss, Hearing aids, Nasal congestion, Postnasal drainage - Cardiovascular Cariovascular: reports: Edema, Lightheadedness, Decr. exercise tolerance - Respiratory Respiratory: reports: Cough, SOB with exertion - Gastrointestinal Gastrointestinal: reports: Nausea, Reflux/heartburn, Poor appetite - Genitourinary Genitourinary: reports: Dysuria, Frequency, Hematuria, Incontinence, Nocturia - Musculoskeletal Musculoskeletal: reports: Muscle pain, Limited range of motion, Muscle weakness, Gout - Integumentary Integumentary: reports: Dryness - Neurological Neurological: reports: Dizziness, Memory problems, Pre-existing deficit, Abnormal gait - Psychiatric Psychiatric: reports: Depression - Hematologic/Lymphatic Hematologic/Lymphatic: reports: Recurrent infections - All Other Systems All Other Systems: reports: Reviewed and negative Prior Level of Functionality: The patient has a 4-wheeled walker and was previously ambulatory, with frequent falls. Advanced dementia with very poor heart function. Exam - Vital Signs Reviewed Vital Signs: Yes Vital Signs: Vital Signs x48h Temp Pulse Resp BP Pulse Ox 01/26/18 16:01 36.4 C L 87 16 99/61 100 01/26/18 14:27 36.5 C 100 16 114/48 L 100 - Physical Exam General Appearance: positive: Alert, Moderate distress, Anxious Eyes Bilateral: positive: PERRL ENT: positive: ENT inspection nml, No signs of dehydration Neck: positive: Thyroid nml, No JVD, Trachea midline Respiratory: positive: Chest non-tender, No respiratory distress Cardiovascular: positive: Irregularly irregular, Systolic murmur, Diastolic murmur, Decreased pulse(s) Peripheral Pulses: positive: 1+ Abdomen: positive: Non-tender, Abnml bowel sounds Back: positive: Nml inspection Skin: positive: No rash, Warm, Dry, Pallor Extremities: positive: Non-tender, Pedal edema Neurologic/Psychiatric: positive: Disoriented to place, Disoriented to time, Weakness, Sensory loss, Slurred/abnml speech, Depressed mood/affect Reflexes: Bicep (R): 2+, Bicep (L): 2+ Conclusion/Plan - Problem List (1) Urinary tract infection with hematuria Conclusion/Plan: The patient has been treated with outpatient Cipro, but should have finished these by this time. Her last culture, although I do not have an actual copy, may be sensitive to quinolones and imipenem, and a suspected pathogen of Klebsiella. Plan: Start gentle fluids and continue meropenem IV. Qualifiers: Urinary tract infection type: acute cystitis Qualified Code(s): N30.01 - Acute cystitis with hematuria (2) Confusion Conclusion/Plan: The patient's daughter states that she has been more confused and resides independently over at [facility], close to the hospital. She has baseline moderate to severe dementia. She does not believe that she has been falling lately. She has been on Cipro for UTI treatment. Plan: Continue to monitor. (3) Pulmonary hypertension Conclusion/Plan: The patient last had an echocaridogram in October during her last admission. At that time, she was found to have elevated right heart pressures with an RVSP of 51 mmHg and grade 1 diastolic dysfunction. She was started on spironolactone, but upon this admission, she is no longer on this. Plan: Obtain an updated echo. (4) Severe aortic valve stenosis Conclusion/Plan: The patient has a last known severe aortic stenosis with an aortic valve area of 0.84 cm. She now appears less mobile, with profound confusion. This may be caused by her acute infection, or a worsening overall heart function due to her stenosis. Plan: Obtain an echo and fall precautions. (5) Anemia Conclusion/Plan: The patient has a reduced hemoglobin and hematocrit of 8.3/25.7. As compared to her last admission, when her H/H was 10.9/33.2. She has a normal MCV. She is on folic acid at home, which will continue here. She is having ongoing hematuria, similar to her last admission. It appears pink. Plan: Continue to check daily labs and insert riley for gross hematuria. - Lab Results Lab results reviewed: Yes Demetris Bones: 01/27/18 06:07 01/27/18 06:07 Core Measures - Anticipated LOS I expect patient to be DC'd or transferred within 96 hours.: Yes - DVT/VTE - Prophylaxis VTE/DVT Device ordered at admit?: Yes VTE/DVT Prophylaxis med ordered at admit?: Yes - Stroke - Rehab Assessment Rehab services assessment to be ordered?: Yes - AMI - Statin at Admit Aspirin Prescribed on Admit: Yes
[2018-01-26] MEDS ORDERED: MAGNESIUM SULFATE 2 GRAM 2 GM/50 ML BAG IV SCH (19:09)
[2018-01-26] MEDS: SODIUM CHLORIDE FLUSH 0.9% 10 ML SYRINGE IVP SCH (19:55)
[2018-01-26] MEDS: SODIUM CHLORIDE 0.9% 1,000 ML IV SCH (19:56)
[2018-01-26] MEDS: traZODone 50 MG TABLET PO SCH (20:11)
[2018-01-26] MEDS: OXYBUTYNIN 5MG TABLET PO SCH (20:11)
[2018-01-26] MEDS: ACETAMINOPHEN 500 MG TABLET PO SCH (20:11)
[2018-01-26] MEDS: INSULIN ASPART 300 UNIT/3 ML PEN SUBQ SCH (21:39)
[2018-01-26] MEDS ORDERED: MEROPENEM 1 GM in SODIUM CHLORIDE 0.9% MINIBAG 100 ML IV SCH (23:30)
[2018-01-27] MEDS: SODIUM CHLORIDE FLUSH 0.9% 10 ML SYRINGE IVP SCH ×3 (01:57→17:55)
[2018-01-27] MEDS: MEROPENEM 500 MG in SODIUM CHLORIDE 0.9% MINIBAG 100 ML IV SCH ×2 (03:59→16:08)
[2018-01-27 06:17] LABS: BASOPHILS % (AUTO) 0.7 %; EOSINOPHILS # (AUTO) 0.2 10^3/uL (0.0-0.7); EOSINOPHILS % (AUTO) 3.5 %; HGB - HEMOGLOBIN 7.3 g/dL (12.0-16.0); LYMPHOCYTES # (AUTO) 1.6 10^3/uL (1.5-3.5); LYMPHOCYTES % (AUTO) 22.2 %; MEAN CORPUSCULAR HEMOGLOBIN 29.4 pg (27.0-31.0); MEAN CORPUSCULAR HGB CONC 32.2 g/dL (32.0-36.0); MEAN CORPUSCULAR VOLUME 91.2 fL (81.0-99.0); MEAN PLATELET VOLUME 9.1 fL (7.9-10.8); MONOCYTES # (AUTO) 0.6 10^3/uL (0.0-1.0); MONOCYTES % (AUTO) 8.7 %; NEUTROPHILS # (AUTO) 4.7 10^3/uL (1.5-6.6); NEUTROPHILS % (AUTO) 64.9 %; PLT - PLATELET COUNT 278 10^3/uL (130-450); RED BLOOD COUNT 2.49 10^6/uL (4.20-5.40); RED CELL DISTRIBUTION WIDTH 15.9 % (12.0-15.0); WHITE BLOOD COUNT 7.2 x10^3/uL (4.8-10.8)
[2018-01-27 06:34] LABS: ALBUMIN 2.3 g/dL (3.2-5.5); ALBUMIN/GLOBULIN RATIO 0.9 (1.0-2.2); BILIRUBIN,TOTAL 0.4 mg/dL (0.2-1.0); CALCIUM 8.4 mg/dL (8.5-10.3); CREATININE 1.7 mg/dL (0.4-1.0); MAGNESIUM 1.8 mg/dL (1.7-2.8); PHOSPHORUS 2.7 mg/dL (2.5-4.6); TOTAL PROTEIN 4.9 g/dL (6.7-8.2)
[2018-01-27 06:35] LABS: HB2 TOTAL 7.3 g/dL; HEMOGLOBIN A1C 0.35 g/dL; HEMOGLOBIN A1C % 6.5 % (4.6-6.2)
[2018-01-27] MEDS ORDERED: INSULIN ASPART 300 UNIT/3 ML PEN SUBQ SCH (08:00)
[2018-01-27] MEDS: SODIUM CHLORIDE 0.9% 1,000 ML IV SCH ×2 (08:07→21:29)
[2018-01-27] MEDS: FOLIC ACID 1 MG TABLET PO SCH (08:07)
[2018-01-27] MEDS: ACETAMINOPHEN 500 MG TABLET PO SCH ×2 (08:07→21:23)
[2018-01-27] MEDS: OXYBUTYNIN 5MG TABLET PO SCH ×2 (08:08→21:24)
[2018-01-27] MEDS: POLYETHYLENE GLYCOL 3350 17 GM PACKET PO SCH (08:08)
[2018-01-27] MEDS: INSULIN ASPART 300 UNIT/3 ML PEN SUBQ SCH ×4 (08:09→21:23)
[2018-01-27] MEDS: DOCUSATE SODIUM 250 MG CAPSULE PO SCH (16:13)
[2018-01-27] MEDS: SENNA 8.6 MG TABLET PO SCH (16:14)
[2018-01-27] MEDS: traZODone 50 MG TABLET PO SCH (21:23)
[2018-01-28] MEDS: SODIUM CHLORIDE FLUSH 0.9% 10 ML SYRINGE IVP SCH ×4 (00:31→17:35)
[2018-01-28] MEDS: MEROPENEM 500 MG in SODIUM CHLORIDE 0.9% MINIBAG 100 ML IV SCH ×2 (03:58→15:49)
[2018-01-28 05:46] LABS: BASOPHILS % (AUTO) 0.6 %; EOSINOPHILS # (AUTO) 0.2 10^3/uL (0.0-0.7); EOSINOPHILS % (AUTO) 3.7 %; LYMPHOCYTES # (AUTO) 1.5 10^3/uL (1.5-3.5); LYMPHOCYTES % (AUTO) 22.2 %; MEAN CORPUSCULAR HEMOGLOBIN 29.5 pg (27.0-31.0); MEAN CORPUSCULAR HGB CONC 32.1 g/dL (32.0-36.0); MEAN CORPUSCULAR VOLUME 91.7 fL (81.0-99.0); MEAN PLATELET VOLUME 9.2 fL (7.9-10.8); MONOCYTES # (AUTO) 0.6 10^3/uL (0.0-1.0); MONOCYTES % (AUTO) 9.2 %; NEUTROPHILS # (AUTO) 4.2 10^3/uL (1.5-6.6); NEUTROPHILS % (AUTO) 64.3 %; PLT - PLATELET COUNT 268 10^3/uL (130-450); RED BLOOD COUNT 2.33 10^6/uL (4.20-5.40); RED CELL DISTRIBUTION WIDTH 16.2 % (12.0-15.0); WHITE BLOOD COUNT 6.6 x10^3/uL (4.8-10.8)
[2018-01-28 05:53] LABS: HGB - HEMOGLOBIN 6.9 g/dL (12.0-16.0)
[2018-01-28 05:54] LABS: ALBUMIN/GLOBULIN RATIO 0.8 (1.0-2.2); BILIRUBIN,TOTAL 0.3 mg/dL (0.2-1.0); CALCIUM 7.8 mg/dL (8.5-10.3); CREATININE 1.5 mg/dL (0.4-1.0); TOTAL PROTEIN 4.6 g/dL (6.7-8.2)
[2018-01-28] MEDS ORDERED: FUROSEMIDE 20 MG/2 ML VIAL IVP PRN (05:59)
--- NOTE | 2018-01-28 07:16 | PROVIDER PROGRESS NOTE ---
Subjective - Prog Note Date Prog Note Date: 01/27/18 Prog Note Time: 09:00 - Subjective Pt reports feeling: Improved Subjective: Trini states, "I guess I have to stay her a few more days". She denies dizziness, bleeding, new pain, increased shortness of breath or a productive cough, when asked, but continues to demonstrate confusion. Current Medications - Current Medications Current Medications: Active Medications Acetaminophen (Tylenol) 500 mg PO BID [facility] Last Admin: 01/27/18 21:23 Dose: 500 mg Docusate Sodium (Colace 250mg Capsule) 250 - 500 mg PO DAILY [facility] Last Admin: 01/27/18 16:13 Dose: 250 mg Folic Acid () 1 mg PO DAILY [facility] Last Admin: 01/27/18 08:07 Dose: 1 mg Furosemide (Lasix Inj 20mg Vial) 20 mg IVP ONCE PRN PRN Reason: Between units Stop: 01/29/18 05:58 Meropenem 500 mg/ Sodium (Chloride) 100 mls @ 200 mls/hr IV Q12H [facility] Last Infusion: 01/28/18 04:50 Dose: Infused Sodium Chloride (Normal Saline 0.9%) 1,000 mls @ 83.333 mls/hr IV .Q12H [facility] Last Infusion: 01/28/18 04:50 Dose: 83.333 mls/hr Insulin Aspart (Novolog) 1 - 5 unit SUBQ 0800,1200,1700,2100 [facility]; Protocol Last Admin: 01/27/18 21:23 Dose: 1 unit Oxybutynin Chloride (Ditropan) 5 mg PO BID [facility] Last Admin: 01/27/18 21:24 Dose: 5 mg Polyethylene Glycol (Miralax) 17 gm PO DAILY [facility] Last Admin: 01/27/18 08:08 Dose: 17 gm Senna (Senokot) 8.6 - 17.2 mg PO DAILY [facility] Last Admin: 01/27/18 16:14 Dose: 17.2 mg Sodium Chloride (Normal Saline Flush 0.9%) 10 ml IVP PRN PRN PRN Reason: NEEDED PER PROVIDER ORDERS Sodium Chloride (Normal Saline Flush 0.9%) 10 ml IVP 0100,0900,1700 [facility] Last Admin: 01/28/18 00:31 Dose: Not Given Trazodone HCl (Desyrel) 100 mg PO QPM [facility] Last Admin: 01/27/18 21:23 Dose: 100 mg Allopurinol [Zyloprim] 300 mg PO DAILY 02/18/13 Aspirin Chewable [[place] Aspirin] 81 mg PO DAILY 02/18/13 Cyanocobalamin (Vitamin B-12) [Vitamin B-12] 2,500 mcg PO DAILY 02/18/13 Lisinopril 2.5 mg PO DAILY 02/18/13 Metformin HCl [Glumetza] 500 mg PO BIDWM 02/18/13 Omeprazole [PriLOSEC] 20 mg PO QDAC 02/18/13 Oxybutynin [Ditropan] 5 mg PO BID 02/18/13 Simvastatin [Zocor] 40 mg PO QPM 02/18/13 traZODone [Desyrel] 100 mg PO QPM 10/30/17 Loratadine 10 mg PO DAILY 10/31/17 Acetaminophen [Tylenol Extra Strength] 500 mg PO BID 01/26/18 Donepezil HCl 10 mg PO DAILY 01/26/18 Folic Acid 1 mg PO DAILY 01/26/18 Glucosamine Sulfate 500 mg PO BID 01/26/18 Multivitamin [Theragran] 1 tab PO DAILY 01/26/18 Objective - Vital Signs/Intake & Output Reviewed Vital Signs: Yes Vital Signs: Vital Signs x48h Temp Pulse Resp BP BP Pulse Ox 01/28/18 04:30 36.4 C L 74 18 108/80 98 01/28/18 00:22 36.7 C 83 17 107/58 L 100 Intake & Output: Intake & Output 01/25/18 01/26/18 01/27/18 01/28/18 23:59 23:59 23:59 23:59 Intake Total 1150 3013.608 641.665 Output Total 300 Balance 1150 2713.608 641.665 - Objective General Appearance: positive: No acute distress, Alert Eyes Bilateral: positive: PERRL Eyes: OU Conjunctivae pale ENT: positive: Pharynx nml, Dry mucous membranes Neck: positive: Thyroid nml, No JVD, Trachea midline Respiratory: positive: Chest non-tender, No respiratory distress, Other (bilateral low lobe crackles) Cardiovascular: positive: Irregularly irregular, Systolic murmur, Diastolic murmur, Decreased pulse(s) Peripheral Pulses: 1+ Radial (R), 1+ Radial (L) Abdomen: positive: Non-tender, Nml bowel sounds, Other (rounded, soft) Back: positive: Nml inspection Skin: positive: No rash, Warm, Dry, Other (very pale) Extremities: positive: Pedal edema, Joint swelling Neurologic/Psychiatric: positive: Disoriented to place, Disoriented to time, Weakness, Sensory loss, Slurred/abnml speech (sluggish speech), Depressed mood/affect Reflexes: Bicep (R): 2+, Bicep (L): 2+ - Lab Results Fish Bones: 01/28/18 05:10 01/28/18 05:10 Other Labs: Lab Results x24hrs 01/28/18 01/28/18 01/28/18 Range/Units 05:10 05:10 05:10 WBC 6.6 (4.8-10.8) x10^3/uL RBC 2.33 L (4.20-5.40) 10^6/uL Hgb 6.9 L* (12.0-16.0) g/dL Hct 21.4 L (37.0-47.0) % MCV 91.7 (81.0-99.0) fL MCH 29.5 (27.0-31.0) pg MCHC 32.1 (32.0-36.0) g/dL RDW 16.2 H (12.0-15.0) % Plt Count 268 (130-450) 10^3/uL MPV 9.2 (7.9-10.8) fL Neut # (Auto) 4.2 (1.5-6.6) 10^3/uL Lymph # (Auto) 1.5 (1.5-3.5) 10^3/uL Bandera # (Auto) 0.6 (0.0-1.0) 10^3/uL Eos # (Auto) 0.2 (0.0-0.7) 10^3/uL Baso # (Auto) 0.0 (0.0-0.1) 10^3/uL Absolute Nucleated RBC 0.00 x10^3/uL Nucleated RBC % 0.0 /100WBC Sodium 141 (135-145) mmol/L Potassium 4.4 (3.5-5.0) mmol/L Chloride 115 H (101-111) mmol/L Carbon Dioxide 20 L (21-32) mmol/L Anion Gap 6.0 (6-13) BUN 27 H (6-20) mg/dL Creatinine 1.5 H (0.4-1.0) mg/dL Estimated GFR (MDRD) 33 L (>89) Glucose 174 H (70-100) mg/dL POC Whole Bld Glucose (70 - 100) mg/dL Calcium 7.8 L (8.5-10.3) mg/dL Total Bilirubin 0.3 (0.2-1.0) mg/dL AST 17 (10-42) IU/L ALT 15 (10-60) IU/L Alkaline Phosphatase 66 (42-121) IU/L B-Natriuretic Peptide 320 H (5-100) pg/mL Total Protein 4.6 L (6.7-8.2) g/dL Albumin 2.0 L (3.2-5.5) g/dL Globulin 2.6 (2.1-4.2) g/dL Albumin/Globulin Ratio 0.8 L (1.0-2.2) 01/27/18 01/27/18 01/27/18 Range/Units 20:52 16:36 07:44 WBC (4.8-10.8) x10^3/uL RBC (4.20-5.40) 10^6/uL Hgb (12.0-16.0) g/dL Hct (37.0-47.0) % MCV (81.0-99.0) fL MCH (27.0-31.0) pg MCHC (32.0-36.0) g/dL RDW (12.0-15.0) % Plt Count (130-450) 10^3/uL MPV (7.9-10.8) fL Neut # (Auto) (1.5-6.6) 10^3/uL Lymph # (Auto) (1.5-3.5) 10^3/uL Band[place] # (Auto) (0.0-1.0) 10^3/uL Eos # (Auto) (0.0-0.7) 10^3/uL Baso # (Auto) (0.0-0.1) 10^3/uL Absolute Nucleated RBC x10^3/uL Nucleated RBC % /100WBC Sodium (135-145) mmol/L Potassium (3.5-5.0) mmol/L Chloride (101-111) mmol/L Carbon Dioxide (21-32) mmol/L Anion Gap (6-13) BUN (6-20) mg/dL Creatinine (0.4-1.0) mg/dL Estimated GFR (MDRD) (>89) Glucose (70-100) mg/dL POC Whole Bld Glucose 152 H 155 H 132 H (70 - 100) mg/dL Calcium (8.5-10.3) mg/dL Total Bilirubin (0.2-1.0) mg/dL AST (10-42) IU/L ALT (10-60) IU/L Alkaline Phosphatase (42-121) IU/L B-Natriuretic Peptide (5-100) pg/mL Total Protein (6.7-8.2) g/dL Albumin (3.2-5.5) g/dL Globulin (2.1-4.2) g/dL Albumin/Globulin Ratio (1.0-2.2) ABX Reporting Has patient been on IV antibiotics over the past 48 hours?: Yes Assessment/Plan - Problem List (1) Urinary tract infection with hematuria Impression: The patient has been treated with outpatient Cipro, but should have finished these by this time. Her last culture, although I do not have an actual copy, may be sensitive to quinolones and imipenem, and a suspected pathogen of Klebsiella. Her urine today appears brown, as this may be from previous hematuria that was noted on admission. Plan: Continue gentle fluids and continue meropenem IV. Qualifiers: Urinary tract infection type: acute cystitis Qualified Code(s): N30.01 - Acute cystitis with hematuria (2) Anemia Impression: The patient has a reduced hemoglobin and hematocrit of 8.3/25.7 on admit that is a little worse today at 7.3/22.7. As compared to her last admission, when her H/H was 10.9/33.2. She has a normal MCV. She is on folic acid at home, which will continue here. She is having ongoing hematuria, similar to her last admission. It appeared pink yesterday and today has turned a brown color indicating old bleeding. Her blood pressure is variable, and she denies symptoms on exam, although is a very poor historian. Plan: Continue to check daily labs and insert riley for gross hematuria. (3) Confusion Impression: The patient's daughter states that she has been more confused and resides independently over at [facility] apartments, close to the hospital. She has baseline moderate to severe dementia. She does not believe that she has been falling lately, although, her daughter tells us she has been falling much more often. She has been on Cipro for UTI treatment outpatient that has been now changed to IV treatment. Today, she replied, "it's new to me", when I let her know she is in the hospital. Plan: Continue to monitor. (4) Pulmonary hypertension Impression: The patient last had an echocaridogram in October during her last admission. At that time, she was found to have elevated right heart pressures with an RVSP of 51 mmHg and grade 1 diastolic dysfunction. She was started on spironolactone, but upon this admission, she is no longer on this. Preliminary echo results show an improvement in her RVSP, likley due to the lack of pneumonia for this a dmission. Plan: provide oxygen for respiratory distress. (5) Severe aortic valve stenosis Impression: The patient has a last known severe aortic stenosis with an aortic valve area of 0.84 cm. She now appears less mobile, with profound confusion. This may be caused by her acute infection, or a worsening overall heart function due to her stenosis. Preliminary echo shows no change in this condition. Plan: Continue fall precautions.
[2018-01-28] MEDS ORDERED: SODIUM CHLORIDE 0.9% 500 ML IV ONE ×2 (07:54→11:17)
[2018-01-28] MEDS: DOCUSATE SODIUM 250 MG CAPSULE PO SCH (09:06)
[2018-01-28] MEDS: ACETAMINOPHEN 500 MG TABLET PO SCH ×2 (09:06→20:53)
[2018-01-28] MEDS: SENNA 8.6 MG TABLET PO SCH (09:07)
[2018-01-28] MEDS: FOLIC ACID 1 MG TABLET PO SCH (09:07)
[2018-01-28] MEDS: OXYBUTYNIN 5MG TABLET PO SCH ×2 (09:07→20:54)
[2018-01-28] MEDS: POLYETHYLENE GLYCOL 3350 17 GM PACKET PO SCH (09:07)
[2018-01-28] MEDS: INSULIN ASPART 300 UNIT/3 ML PEN SUBQ SCH ×4 (09:08→20:54)
[2018-01-28 10:56] LABS: MEAN RETIC VALUE 111.5; RED BLOOD COUNT 2.85 10^6/uL (4.20-5.40)
--- NOTE | 2018-01-28 11:22 | Ultrasound Report ---
Reason: hematuria Procedure Date: 01/28/2018 Accession Number: [id number] / [id number] Procedure: US - Retroperitoneal CPT Code: FULL RESULT: EXAM: RENAL ULTRASOUND EXAM DATE: 01/28/2018 10:18 AM. CLINICAL HISTORY: Hematuria. COMPARISON: 10/30/2017 CT. TECHNIQUE: Real-time scanning was performed with static images obtained. FINDINGS: Right Kidney: 11.9 x 5.1 x 3.5 cm. Superior pole cyst 2.2 x 2.3 x 1.7 cm. Moderate hydronephrosis stable. Renal pelvis 2.2 cm Left Kidney: 10.8 x 5.6 x 4.5 cm. Stable moderate hydronephrosis. Renal pelvis 2.2 cm Bladder: Bilateral jets seen. The prevoid bladder volume was 75.8 cc. The postvoid bladder volume was 72.7 cc. Other: None. IMPRESSION: 1. Stable bilateral moderate hydronephrosis. 2. Right renal cyst RADIA
[2018-01-28 11:59] LABS: FERRITIN 67.8 ng/mL (11.0-306.8)
[2018-01-28 12:09] LABS: % IRON SATURATION 22 % (20-50); IRON 40 ug/dL (28-170); TOTAL IRON BINDING CAPACITY 179 ug/dL (250-450); TRANSFERRIN 128 mg/dL (192-382)
--- NOTE | 2018-01-28 13:38 | PROVIDER PROGRESS NOTE ---
Subjective - Prog Note Date Prog Note Date: 01/28/18 - Subjective Pt reports feeling: Improved Subjective: pt report she feel fine, she denies shortness of breath, dizziness, CP, fever, chill. Current Medications - Current Medications Current Medications: Active Medications Acetaminophen (Tylenol) 500 mg PO BID [facility] Last Admin: 01/28/18 09:06 Dose: 500 mg Allopurinol (Zyloprim) 200 mg PO DAILY [facility] Atorvastatin Calcium (Lipitor) 20 mg PO QPM [facility] Docusate Sodium (Colace 250mg Capsule) 250 - 500 mg PO DAILY [facility] Last Admin: 01/28/18 09:06 Dose: 250 mg Donepezil HCl (Aricept) 10 mg PO QPM [facility] Folic Acid () 1 mg PO DAILY [facility] Last Admin: 01/28/18 09:07 Dose: 1 mg Furosemide (Lasix Inj 20mg Vial) 20 mg IVP ONCE PRN PRN Reason: Between units Stop: 01/29/18 05:58 Meropenem 500 mg/ Sodium (Chloride) 100 mls @ 200 mls/hr IV Q12H [facility] Last Infusion: 01/28/18 16:20 Dose: Infused Sodium Chloride (Normal Saline 0.9%) 1,000 mls @ 83.333 mls/hr IV .Q12H [facility] Last Infusion: 01/28/18 04:50 Dose: 83.333 mls/hr Insulin Aspart (Novolog) 1 - 5 unit SUBQ 0800,1200,1700,2100 [facility]; Protocol Last Admin: 01/28/18 16:30 Dose: Not Given Loratadine (Claritin) 10 mg PO DAILY [facility] Multivitamins (Theragran) 1 tab PO DAILY [facility] Oxybutynin Chloride (Ditropan) 5 mg PO BID [facility] Last Admin: 01/28/18 09:07 Dose: 5 mg Polyethylene Glycol (Miralax) 17 gm PO DAILY [facility] Last Admin: 01/28/18 09:07 Dose: 17 gm Senna (Senokot) 8.6 - 17.2 mg PO DAILY [facility] Last Admin: 01/28/18 09:07 Dose: 8.6 mg Sodium Chloride (Normal Saline Flush 0.9%) 10 ml IVP PRN PRN PRN Reason: NEEDED PER PROVIDER ORDERS Sodium Chloride (Normal Saline Flush 0.9%) 10 ml IVP 0100,0900,1700 [facility] Last Admin: 01/28/18 16:31 Dose: Not Given Trazodone HCl (Desyrel) 100 mg PO QPM [facility] Last Admin: 01/27/18 21:23 Dose: 100 mg Allopurinol [Zyloprim] 300 mg PO DAILY 02/18/13 Aspirin Chewable [[place] Aspirin] 81 mg PO DAILY 02/18/13 Cyanocobalamin (Vitamin B-12) [Vitamin B-12] 2,500 mcg PO DAILY 02/18/13 Lisinopril 2.5 mg PO DAILY 02/18/13 Metformin HCl [Glumetza] 500 mg PO BIDWM 02/18/13 Omeprazole [PriLOSEC] 20 mg PO QDAC 02/18/13 Oxybutynin [Ditropan] 5 mg PO BID 02/18/13 Simvastatin [Zocor] 40 mg PO QPM 02/18/13 traZODone [Desyrel] 100 mg PO QPM 10/30/17 Loratadine 10 mg PO DAILY 10/31/17 Acetaminophen [Tylenol Extra Strength] 500 mg PO BID 01/26/18 Donepezil HCl 10 mg PO DAILY 01/26/18 Folic Acid 1 mg PO DAILY 01/26/18 Glucosamine Sulfate 500 mg PO BID 01/26/18 Multivitamin [Theragran] 1 tab PO DAILY 01/26/18 Objective - Vital Signs/Intake & Output Reviewed Vital Signs: Yes Vital Signs: Vital Signs x48h Temp Pulse Pulse Resp BP BP Pulse Ox 01/28/18 12:25 102/73 01/28/18 11:52 36.2 C L 82 18 135/91 H 01/28/18 11:28 36.6 C 65 18 106/71 01/28/18 11:26 36.6 C 65 18 106/71 01/28/18 08:47 36.8 C 88 16 108/58 L 01/28/18 08:18 36.1 C L 65 16 122/62 01/28/18 08:02 36.1 C L 65 16 122/62 96 Intake & Output: Intake & Output 01/25/18 01/26/18 01/27/18 01/28/18 23:59 23:59 23:59 23:59 Intake Total 1150 3013.608 1501.665 Output Total 300 Balance 1150 2713.608 1501.665 - Objective General Appearance: positive: No acute distress, Alert. negative: Lethargic Eyes Bilateral: positive: Normal inspection, PERRL, No lid inflammation, Conjunctivae nml ENT: positive: ENT inspection nml, Pharynx nml, No signs of dehydration. negative: Purulent nasal drainage, Pharyngeal erythema, Oral lesions Neck: positive: Nml inspection, Thyroid nml, No JVD, Trachea midline. negative: Thyromegaly, Lymphadenopathy (R), Lymphadenopathy (L), Stiff neck, Swelling/bruising, Tracheal deviation Respiratory: positive: Chest non-tender, No respiratory distress, Breath sounds nml. negative: Wheezes, Rales, Rhonchi Cardiovascular: positive: Regular rate & rhythm, No murmur, No gallop. negative: Irregularly irregular, Extrasystoles, Tachycardia, Bradycardia, JVD present, Systolic murmur, Diastolic murmur Peripheral Pulses: 2+ Radial (R), 2+ Radial (L), 2+ Dorsalis pedis (R), 2+ Dorsalis pedis (L) Abdomen: positive: Non-tender, No organomegaly, Nml bowel sounds, No distention. negative: Guarding, Rebound Back: positive: Nml inspection. negative: CVA tenderness (R), CVA tenderness (L) Skin: positive: Color nml, No rash, Warm, Dry. negative: Cyanosis, Diaphoresis, Pallor Extremities: positive: Non-tender, Full ROM, Nml appearance. negative: Calf tenderness, Joint swelling, Hudson's sign/cords Neurologic/Psychiatric: positive: Oriented x3, Sensation nml, Mood/affect nml. negative: Weakness, Sensory loss, Facial droop, Slurred/abnml speech, Depressed mood/affect - Lab Results Fish Bones: 01/28/18 05:10 01/28/18 05:10 Other Labs: Lab Results x24hrs 01/28/18 01/28/18 01/28/18 Range/Units 10:46 10:46 10:46 WBC (4.8-10.8) x10^3/uL RBC (4.20-5.40) 10^6/uL Hgb (12.0-16.0) g/dL Hct (37.0-47.0) % MCV (81.0-99.0) fL MCH (27.0-31.0) pg MCHC (32.0-36.0) g/dL RDW (12.0-15.0) % Plt Count (130-450) 10^3/uL MPV (7.9-10.8) fL Reticulocyte % (Auto) (0.5-2.3) % Neut # (Auto) (1.5-6.6) 10^3/uL Lymph # (Auto) (1.5-3.5) 10^3/uL Bremer # (Auto) (0.0-1.0) 10^3/uL Eos # (Auto) (0.0-0.7) 10^3/uL Baso # (Auto) (0.0-0.1) 10^3/uL Absolute Nucleated RBC x10^3/uL Nucleated RBC % /100WBC Absolute Retic (0.020-0.110) 10^6/uL Sodium (135-145) mmol/L Potassium (3.5-5.0) mmol/L Chloride (101-111) mmol/L Carbon Dioxide (21-32) mmol/L Anion Gap (6-13) BUN (6-20) mg/dL Creatinine (0.4-1.0) mg/dL Estimated GFR (MDRD) (>89) Glucose (70-100) mg/dL POC Whole Bld Glucose (70 - 100) mg/dL Calcium (8.5-10.3) mg/dL Iron 40 (28-170) ug/dL TIBC 179 L (250-450) ug/dL % Saturation 22 (20-50) % Transferrin 128 L (192-382) mg/dL Ferritin 67.8 (11.0-306.8) ng/mL Total Bilirubin (0.2-1.0) mg/dL AST (10-42) IU/L ALT (10-60) IU/L Alkaline Phosphatase (42-121) IU/L Lactate Dehydrogenase 115 (91-225) IU/L B-Natriuretic Peptide (5-100) pg/mL Total Protein (6.7-8.2) g/dL Albumin (3.2-5.5) g/dL Globulin (2.1-4.2) g/dL Albumin/Globulin Ratio (1.0-2.2) Vitamin B12 1737 H (180-914) pg/mL Blood Type Antibody Screen Crossmatch IS Only 01/28/18 01/28/18 01/28/18 Range/Units 10:46 07:28 06:29 WBC (4.8-10.8) x10^3/uL RBC 2.85 L (4.20-5.40) 10^6/uL Hgb (12.0-16.0) g/dL Hct (37.0-47.0) % MCV (81.0-99.0) fL MCH (27.0-31.0) pg MCHC (32.0-36.0) g/dL RDW (12.0-15.0) % Plt Count (130-450) 10^3/uL MPV (7.9-10.8) fL Reticulocyte % (Auto) 1.21 (0.5-2.3) % Neut # (Auto) (1.5-6.6) 10^3/uL Lymph # (Auto) (1.5-3.5) 10^3/uL Bremer # (Auto) (0.0-1.0) 10^3/uL Eos # (Auto) (0.0-0.7) 10^3/uL Baso # (Auto) (0.0-0.1) 10^3/uL Absolute Nucleated RBC x10^3/uL Nucleated RBC % /100WBC Absolute Retic 0.035 (0.020-0.110) 10^6/uL Sodium (135-145) mmol/L Potassium (3.5-5.0) mmol/L Chloride (101-111) mmol/L Carbon Dioxide (21-32) mmol/L Anion Gap (6-13) BUN (6-20) mg/dL Creatinine (0.4-1.0) mg/dL Estimated GFR (MDRD) (>89) Glucose (70-100) mg/dL POC Whole Bld Glucose 159 H (70 - 100) mg/dL Calcium (8.5-10.3) mg/dL Iron (28-170) ug/dL TIBC (250-450) ug/dL % Saturation (20-50) % Transferrin (192-382) mg/dL Ferritin (11.0-306.8) ng/mL Total Bilirubin (0.2-1.0) mg/dL AST (10-42) IU/L ALT (10-60) IU/L Alkaline Phosphatase (42-121) IU/L Lactate Dehydrogenase (91-225) IU/L B-Natriuretic Peptide (5-100) pg/mL Total Protein (6.7-8.2) g/dL Albumin (3.2-5.5) g/dL Globulin (2.1-4.2) g/dL Albumin/Globulin Ratio (1.0-2.2) Vitamin B12 (180-914) pg/mL Blood Type O POSITIVE Antibody Screen NEGATIVE Crossmatch IS Only See Detail 01/28/18 01/28/18 01/28/18 Range/Units 05:10 05:10 05:10 WBC 6.6 (4.8-10.8) x10^3/uL RBC 2.33 L (4.20-5.40) 10^6/uL Hgb 6.9 L* (12.0-16.0) g/dL Hct 21.4 L (37.0-47.0) % MCV 91.7 (81.0-99.0) fL MCH 29.5 (27.0-31.0) pg MCHC 32.1 (32.0-36.0) g/dL RDW 16.2 H (12.0-15.0) % Plt Count 268 (130-450) 10^3/uL MPV 9.2 (7.9-10.8) fL Reticulocyte % (Auto) (0.5-2.3) % Neut # (Auto) 4.2 (1.5-6.6) 10^3/uL Lymph # (Auto) 1.5 (1.5-3.5) 10^3/uL Bremer # (Auto) 0.6 (0.0-1.0) 10^3/uL Eos # (Auto) 0.2 (0.0-0.7) 10^3/uL Baso # (Auto) 0.0 (0.0-0.1) 10^3/uL Absolute Nucleated RBC 0.00 x10^3/uL Nucleated RBC % 0.0 /100WBC Absolute Retic (0.020-0.110) 10^6/uL Sodium 141 (135-145) mmol/L Potassium 4.4 (3.5-5.0) mmol/L Chloride 115 H (101-111) mmol/L Carbon Dioxide 20 L (21-32) mmol/L Anion Gap 6.0 (6-13) BUN 27 H (6-20) mg/dL Creatinine 1.5 H (0.4-1.0) mg/dL Estimated GFR (MDRD) 33 L (>89) Glucose 174 H (70-100) mg/dL POC Whole Bld Glucose (70 - 100) mg/dL Calcium 7.8 L (8.5-10.3) mg/dL Iron (28-170) ug/dL TIBC (250-450) ug/dL % Saturation (20-50) % Transferrin (192-382) mg/dL Ferritin (11.0-306.8) ng/mL Total Bilirubin 0.3 (0.2-1.0) mg/dL AST 17 (10-42) IU/L ALT 15 (10-60) IU/L Alkaline Phosphatase 66 (42-121) IU/L Lactate Dehydrogenase (91-225) IU/L B-Natriuretic Peptide 320 H (5-100) pg/mL Total Protein 4.6 L (6.7-8.2) g/dL Albumin 2.0 L (3.2-5.5) g/dL Globulin 2.6 (2.1-4.2) g/dL Albumin/Globulin Ratio 0.8 L (1.0-2.2) Vitamin B12 (180-914) pg/mL Blood Type Antibody Screen Crossmatch IS Only 01/27/18 01/27/18 Range/Units 20:52 16:36 WBC (4.8-10.8) x10^3/uL RBC (4.20-5.40) 10^6/uL Hgb (12.0-16.0) g/dL Hct (37.0-47.0) % MCV (81.0-99.0) fL MCH (27.0-31.0) pg MCHC (32.0-36.0) g/dL RDW (12.0-15.0) % Plt Count (130-450) 10^3/uL MPV (7.9-10.8) fL Reticulocyte % (Auto) (0.5-2.3) % Neut # (Auto) (1.5-6.6) 10^3/uL Lymph # (Auto) (1.5-3.5) 10^3/uL Bremer # (Auto) (0.0-1.0) 10^3/uL Eos # (Auto) (0.0-0.7) 10^3/uL Baso # (Auto) (0.0-0.1) 10^3/uL Absolute Nucleated RBC x10^3/uL Nucleated RBC % /100WBC Absolute Retic (0.020-0.110) 10^6/uL Sodium (135-145) mmol/L Potassium (3.5-5.0) mmol/L Chloride (101-111) mmol/L Carbon Dioxide (21-32) mmol/L Anion Gap (6-13) BUN (6-20) mg/dL Creatinine (0.4-1.0) mg/dL Estimated GFR (MDRD) (>89) Glucose (70-100) mg/dL POC Whole Bld Glucose 152 H 155 H (70 - 100) mg/dL Calcium (8.5-10.3) mg/dL Iron (28-170) ug/dL TIBC (250-450) ug/dL % Saturation (20-50) % Transferrin (192-382) mg/dL Ferritin (11.0-306.8) ng/mL Total Bilirubin (0.2-1.0) mg/dL AST (10-42) IU/L ALT (10-60) IU/L Alkaline Phosphatase (42-121) IU/L Lactate Dehydrogenase (91-225) IU/L B-Natriuretic Peptide (5-100) pg/mL Total Protein (6.7-8.2) g/dL Albumin (3.2-5.5) g/dL Globulin (2.1-4.2) g/dL Albumin/Globulin Ratio (1.0-2.2) Vitamin B12 (180-914) pg/mL Blood Type Antibody Screen Crossmatch IS Only ABX Reporting Has patient been on IV antibiotics over the past 48 hours?: No Assessment/Plan - Problem List (1) Acute cystitis without hematuria Impression: (1) Urinary tract infection with hematuria Impression: 01/28 pt has hx of multiple UTI, ESBL. culture indicates at this time sensitivity to Rocephin continue antibiotics US of abdomen indicates no acute findings follow up urologist as out-pt The patient has been treated with outpatient Cipro, but should have finished these by this time. Her last culture, although I do not have an actual copy, may be sensitive to quinolones and imipenem, and a suspected pathogen of Klebsiella. Her urine today appears brown, as this may be from previous hematuria that was noted on admission. Plan: Continue gentle fluids and continue meropenem IV. (2) Anemia Impression: 01/28, pt's HGB is 6.9 today, will transfusion of two units of blood H&H monitor pt iron study reveals no significant for iron deficiency if HGB continue drop, will test UA again to see pt is hemtauria. if positive, pt may need transfer for uroscopy to stop the bleeding. The patient has a reduced hemoglobin and hematocrit of 8.3/25.7 on admit that is a little worse today at 7.3/22.7. As compared to her last admission, when her H/H was 10.9/33.2. She has a normal MCV. She is on folic acid at home, which will continue here. She is having ongoing hematuria, similar to her last admission. It appeared pink yesterday and today has turned a brown color indicating old bleeding. Her blood pressure is variable, and she denies symptoms on exam, although is a very poor historian. Plan: Continue to check daily labs and insert riley for gross hematuria. (3) Confusion Impression: 01/28 pt is alert and oriented today The patient's daughter states that she has been more confused and resides independently over at [facility], close to the hospital. She has baseline moderate to severe dementia. She does not believe that she has been falling lately, although, her daughter tells us she has been falling much more often. She has been on Cipro for UTI treatment outpatient that has been now changed to IV treatment. Today, she replied, "it's new to me", when I let her know she is in the hospital. Plan: Continue to monitor. (4) Severe aortic valve stenosis Impression: The patient has a last known severe aortic stenosis with an aortic valve area of 0.84 cm. She now appears less mobile, with profound confusion. This may be caused by her acute infection, or a worsening overall heart function due to her stenosis. Preliminary echo shows no change in this condition. Plan: Continue fall precautions.
[2018-01-28] MEDS: traZODone 50 MG TABLET PO SCH (20:54)
[2018-01-28] MEDS: ATORVASTATIN 10 MG TABLET PO SCH (20:54)
[2018-01-28] MEDS: DONEPEZIL 5 MG TABLET PO SCH (20:54)
[2018-01-28 21:06] LABS: HGB - HEMOGLOBIN 11.3 g/dL (12.0-16.0)
[2018-01-29] MEDS: SODIUM CHLORIDE FLUSH 0.9% 10 ML SYRINGE IVP SCH ×3 (00:52→16:08)
[2018-01-29] MEDS: MEROPENEM 500 MG in SODIUM CHLORIDE 0.9% MINIBAG 100 ML IV SCH ×2 (04:12→16:07)
[2018-01-29] MEDS: SODIUM CHLORIDE FLUSH 0.9% 10 ML SYRINGE IVP PRN (04:12)
[2018-01-29 06:32] LABS: BASOPHILS # (AUTO) 0.1 10^3/uL (0.0-0.1); EOSINOPHILS # (AUTO) 0.2 10^3/uL (0.0-0.7); EOSINOPHILS % (AUTO) 3.6 %; HGB - HEMOGLOBIN 10.2 g/dL (12.0-16.0); LYMPHOCYTES # (AUTO) 1.6 10^3/uL (1.5-3.5); LYMPHOCYTES % (AUTO) 26.6 %; MEAN CORPUSCULAR HEMOGLOBIN 30.2 pg (27.0-31.0); MEAN CORPUSCULAR HGB CONC 33.2 g/dL (32.0-36.0); MEAN PLATELET VOLUME 9.1 fL (7.9-10.8); MONOCYTES # (AUTO) 0.5 10^3/uL (0.0-1.0); MONOCYTES % (AUTO) 8.9 %; NEUTROPHILS # (AUTO) 3.6 10^3/uL (1.5-6.6); NEUTROPHILS % (AUTO) 59.9 %; PLT - PLATELET COUNT 265 10^3/uL (130-450); RED BLOOD COUNT 3.39 10^6/uL (4.20-5.40); RED CELL DISTRIBUTION WIDTH 15.1 % (12.0-15.0)
[2018-01-29 06:47] LABS: ALBUMIN 2.2 g/dL (3.2-5.5); ALBUMIN/GLOBULIN RATIO 0.8 (1.0-2.2); BILIRUBIN,TOTAL 0.6 mg/dL (0.2-1.0); CALCIUM 7.9 mg/dL (8.5-10.3); CREATININE 1.3 mg/dL (0.4-1.0); TOTAL PROTEIN 4.9 g/dL (6.7-8.2)
[2018-01-29] MEDS: INSULIN ASPART 300 UNIT/3 ML PEN SUBQ SCH ×4 (09:33→20:20)
[2018-01-29] MEDS: ACETAMINOPHEN 500 MG TABLET PO SCH ×2 (09:34→20:20)
[2018-01-29] MEDS: ALLOPURINOL 100 MG TABLET PO SCH (09:34)
[2018-01-29] MEDS: SENNA 8.6 MG TABLET PO SCH (09:35)
[2018-01-29] MEDS: POLYETHYLENE GLYCOL 3350 17 GM PACKET PO SCH (09:35)
[2018-01-29] MEDS: MULTIVITAMIN TABLET PO SCH (09:35)
[2018-01-29] MEDS: LORATADINE 10 MG TABLET PO SCH (09:35)
[2018-01-29] MEDS: FOLIC ACID 1 MG TABLET PO SCH (09:35)
[2018-01-29] MEDS: OXYBUTYNIN 5MG TABLET PO SCH ×2 (09:35→20:21)
[2018-01-29] MEDS: DOCUSATE SODIUM 250 MG CAPSULE PO SCH (09:35)
[2018-01-29] MEDS: traMADol 50 MG TABLET PO PRN (16:07)
--- NOTE | 2018-01-29 16:51 | PROVIDER PROGRESS NOTE ---
Subjective - Prog Note Date Prog Note Date: 01/29/18 - Subjective Pt reports feeling: Improved Subjective: pt report she feel good, she ate most of her breakfast. pt denies dizziness, hemtauria, black stool. pt denies fever, chill, CP, SOB Current Medications - Current Medications Current Medications: Active Medications Acetaminophen (Tylenol) 500 mg PO BID [facility] Last Admin: 01/29/18 09:34 Dose: 500 mg Allopurinol (Zyloprim) 200 mg PO DAILY [facility] Last Admin: 01/29/18 09:34 Dose: 200 mg Atorvastatin Calcium (Lipitor) 20 mg PO QPM [facility] Last Admin: 01/28/18 20:54 Dose: 20 mg Docusate Sodium (Colace 250mg Capsule) 250 - 500 mg PO DAILY [facility] Last Admin: 01/29/18 09:35 Dose: Not Given Donepezil HCl (Aricept) 10 mg PO QPM [facility] Last Admin: 01/28/18 20:54 Dose: 10 mg Folic Acid () 1 mg PO DAILY [facility] Last Admin: 01/29/18 09:35 Dose: 1 mg Meropenem 500 mg/ Sodium (Chloride) 100 mls @ 200 mls/hr IV Q12H [facility] Last Admin: 01/29/18 16:07 Dose: 200 mls/hr Insulin Aspart (Novolog) 1 - 5 unit SUBQ 0800,1200,1700,2100 [facility]; Protocol Last Admin: 01/29/18 12:08 Dose: 1 unit Loratadine (Claritin) 10 mg PO DAILY [facility] Last Admin: 01/29/18 09:35 Dose: 10 mg Multivitamins (Theragran) 1 tab PO DAILY [facility] Last Admin: 01/29/18 09:35 Dose: 1 tab Oxybutynin Chloride (Ditropan) 5 mg PO BID [facility] Last Admin: 01/29/18 09:35 Dose: 5 mg Polyethylene Glycol (Miralax) 17 gm PO DAILY [facility] Last Admin: 01/29/18 09:35 Dose: Not Given Senna (Senokot) 8.6 - 17.2 mg PO DAILY [facility] Last Admin: 01/29/18 09:35 Dose: Not Given Sodium Chloride (Normal Saline Flush 0.9%) 10 ml IVP PRN PRN PRN Reason: NEEDED PER PROVIDER ORDERS Last Admin: 01/29/18 04:12 Dose: 10 ml Sodium Chloride (Normal Saline Flush 0.9%) 10 ml IVP 0100,0900,1700 [facility] Last Admin: 01/29/18 16:08 Dose: 10 ml Tramadol HCl (Ultram) 50 mg PO Q12H PRN PRN Reason: PAIN Last Admin: 01/29/18 16:07 Dose: 50 mg Trazodone HCl (Desyrel) 100 mg PO QPM [facility] Last Admin: 01/28/18 20:54 Dose: 100 mg Allopurinol [Zyloprim] 300 mg PO DAILY 02/18/13 Aspirin Chewable [[place] Aspirin] 81 mg PO DAILY 02/18/13 Cyanocobalamin (Vitamin B-12) [Vitamin B-12] 2,500 mcg PO DAILY 02/18/13 Lisinopril 2.5 mg PO DAILY 02/18/13 Metformin HCl [Glumetza] 500 mg PO BIDWM 02/18/13 Omeprazole [PriLOSEC] 20 mg PO QDAC 02/18/13 Oxybutynin [Ditropan] 5 mg PO BID 02/18/13 Simvastatin [Zocor] 40 mg PO QPM 02/18/13 traZODone [Desyrel] 100 mg PO QPM 10/30/17 Loratadine 10 mg PO DAILY 10/31/17 Acetaminophen [Tylenol Extra Strength] 500 mg PO BID 01/26/18 Donepezil HCl 10 mg PO DAILY 01/26/18 Folic Acid 1 mg PO DAILY 01/26/18 Glucosamine Sulfate 500 mg PO BID 01/26/18 Multivitamin [Theragran] 1 tab PO DAILY 01/26/18 Objective - Vital Signs/Intake & Output Reviewed Vital Signs: Yes Vital Signs: Vital Signs x48h Temp Pulse Resp BP BP Pulse Ox 01/29/18 16:04 36.6 C 75 20 120/86 H 98 01/29/18 11:50 36.5 C 62 16 122/66 100 Intake & Output: Intake & Output 01/26/18 01/27/18 01/28/18 01/29/18 23:59 23:59 23:59 23:59 Intake Total 1150 3013.608 3766.670 1160 Output Total 300 2100 Balance 1150 2713.608 3766.670 -940 - Objective General Appearance: positive: No acute distress, Alert. negative: Lethargic Eyes Bilateral: positive: Normal inspection, PERRL, No lid inflammation, Conjunctivae nml ENT: positive: ENT inspection nml, Pharynx nml, No signs of dehydration. negative: Purulent nasal drainage, Pharyngeal erythema, Oral lesions Neck: positive: Nml inspection, Thyroid nml, No JVD, Trachea midline. negative: Thyromegaly, Lymphadenopathy (R), Lymphadenopathy (L), Stiff neck, Swelling/bruising, Tracheal deviation Respiratory: positive: Chest non-tender, No respiratory distress, Breath sounds nml. negative: Wheezes, Rales, Rhonchi Cardiovascular: positive: Regular rate & rhythm, No murmur, No gallop. negative: Irregularly irregular, Extrasystoles, Tachycardia, Bradycardia, JVD present, Systolic murmur, Diastolic murmur Peripheral Pulses: 2+ Radial (R), 2+ Radial (L), 2+ Dorsalis pedis (R), 2+ Dorsalis pedis (L) Abdomen: positive: Non-tender, No organomegaly, Nml bowel sounds, No distention. negative: Tenderness, Guarding, Rebound Back: positive: Nml inspection. negative: CVA tenderness (R), CVA tenderness (L) Skin: positive: Color nml, No rash, Warm, Dry. negative: Cyanosis, Diaphoresis, Pallor Extremities: positive: Non-tender, Full ROM, Nml appearance. negative: Calf tenderness, Joint swelling, Hudson's sign/cords Neurologic/Psychiatric: positive: Oriented x3, Sensation nml, Mood/affect nml. negative: Weakness, Sensory loss, Facial droop, Slurred/abnml speech, Depressed mood/affect - Lab Results Fish Bones: 01/29/18 13:02 01/29/18 05:50 Other Labs: Lab Results x24hrs 01/29/18 01/29/18 01/29/18 Range/Units 16:42 13:02 13:02 WBC (4.8-10.8) x10^3/uL RBC (4.20-5.40) 10^6/uL Hgb 11.0 L (12.0-16.0) g/dL Hct 32.9 L (37.0-47.0) % MCV (81.0-99.0) fL MCH (27.0-31.0) pg MCHC (32.0-36.0) g/dL RDW (12.0-15.0) % Plt Count (130-450) 10^3/uL MPV (7.9-10.8) fL Neut # (Auto) (1.5-6.6) 10^3/uL Lymph # (Auto) (1.5-3.5) 10^3/uL [place] # (Auto) (0.0-1.0) 10^3/uL Eos # (Auto) (0.0-0.7) 10^3/uL Baso # (Auto) (0.0-0.1) 10^3/uL Absolute Nucleated RBC x10^3/uL Nucleated RBC % /100WBC Sodium (135-145) mmol/L Potassium (3.5-5.0) mmol/L Chloride (101-111) mmol/L Carbon Dioxide (21-32) mmol/L Anion Gap (6-13) BUN (6-20) mg/dL Creatinine (0.4-1.0) mg/dL Estimated GFR (MDRD) (>89) Glucose (70-100) mg/dL POC Whole Bld Glucose 148 H (70 - 100) mg/dL Calcium (8.5-10.3) mg/dL Total Bilirubin (0.2-1.0) mg/dL AST (10-42) IU/L ALT (10-60) IU/L Alkaline Phosphatase (42-121) IU/L B-Natriuretic Peptide (5-100) pg/mL Total Protein (6.7-8.2) g/dL Albumin (3.2-5.5) g/dL Globulin (2.1-4.2) g/dL Albumin/Globulin Ratio (1.0-2.2) Folate > 49.60 (5.90 - >24.8) ng/mL 01/29/18 01/29/18 01/29/18 Range/Units 11:14 07:32 05:50 WBC (4.8-10.8) x10^3/uL RBC (4.20-5.40) 10^6/uL Hgb (12.0-16.0) g/dL Hct (37.0-47.0) % MCV (81.0-99.0) fL MCH (27.0-31.0) pg MCHC (32.0-36.0) g/dL RDW (12.0-15.0) % Plt Count (130-450) 10^3/uL MPV (7.9-10.8) fL Neut # (Auto) (1.5-6.6) 10^3/uL Lymph # (Auto) (1.5-3.5) 10^3/uL [place] # (Auto) (0.0-1.0) 10^3/uL Eos # (Auto) (0.0-0.7) 10^3/uL Baso # (Auto) (0.0-0.1) 10^3/uL Absolute Nucleated RBC x10^3/uL Nucleated RBC % /100WBC Sodium (135-145) mmol/L Potassium (3.5-5.0) mmol/L Chloride (101-111) mmol/L Carbon Dioxide (21-32) mmol/L Anion Gap (6-13) BUN (6-20) mg/dL Creatinine (0.4-1.0) mg/dL Estimated GFR (MDRD) (>89) Glucose (70-100) mg/dL POC Whole Bld Glucose 160 H 95 (70 - 100) mg/dL Calcium (8.5-10.3) mg/dL Total Bilirubin (0.2-1.0) mg/dL AST (10-42) IU/L ALT (10-60) IU/L Alkaline Phosphatase (42-121) IU/L B-Natriuretic Peptide 440 H (5-100) pg/mL Total Protein (6.7-8.2) g/dL Albumin (3.2-5.5) g/dL Globulin (2.1-4.2) g/dL Albumin/Globulin Ratio (1.0-2.2) Folate (5.90 - >24.8) ng/mL 01/29/18 01/29/18 01/28/18 Range/Units 05:50 05:50 20:57 WBC 6.0 (4.8-10.8) x10^3/uL RBC 3.39 L (4.20-5.40) 10^6/uL Hgb 10.2 L 11.3 L (12.0-16.0) g/dL Hct 30.8 L 34.7 L (37.0-47.0) % MCV 91.0 (81.0-99.0) fL MCH 30.2 (27.0-31.0) pg MCHC 33.2 (32.0-36.0) g/dL RDW 15.1 H (12.0-15.0) % Plt Count 265 (130-450) 10^3/uL MPV 9.1 (7.9-10.8) fL Neut # (Auto) 3.6 (1.5-6.6) 10^3/uL Lymph # (Auto) 1.6 (1.5-3.5) 10^3/uL [place] # (Auto) 0.5 (0.0-1.0) 10^3/uL Eos # (Auto) 0.2 (0.0-0.7) 10^3/uL Baso # (Auto) 0.1 (0.0-0.1) 10^3/uL Absolute Nucleated RBC 0.00 x10^3/uL Nucleated RBC % 0.0 /100WBC Sodium 137 (135-145) mmol/L Potassium 4.3 (3.5-5.0) mmol/L Chloride 113 H (101-111) mmol/L Carbon Dioxide 22 (21-32) mmol/L Anion Gap 2.0 L (6-13) BUN 29 H (6-20) mg/dL Creatinine 1.3 H (0.4-1.0) mg/dL Estimated GFR (MDRD) 39 L (>89) Glucose 123 H (70-100) mg/dL POC Whole Bld Glucose (70 - 100) mg/dL Calcium 7.9 L (8.5-10.3) mg/dL Total Bilirubin 0.6 (0.2-1.0) mg/dL AST 15 (10-42) IU/L ALT 14 (10-60) IU/L Alkaline Phosphatase 69 (42-121) IU/L B-Natriuretic Peptide (5-100) pg/mL Total Protein 4.9 L (6.7-8.2) g/dL Albumin 2.2 L (3.2-5.5) g/dL Globulin 2.7 (2.1-4.2) g/dL Albumin/Globulin Ratio 0.8 L (1.0-2.2) Folate (5.90 - >24.8) ng/mL 01/28/18 Range/Units 20:41 WBC (4.8-10.8) x10^3/uL RBC (4.20-5.40) 10^6/uL Hgb (12.0-16.0) g/dL Hct (37.0-47.0) % MCV (81.0-99.0) fL MCH (27.0-31.0) pg MCHC (32.0-36.0) g/dL RDW (12.0-15.0) % Plt Count (130-450) 10^3/uL MPV (7.9-10.8) fL Neut # (Auto) (1.5-6.6) 10^3/uL Lymph # (Auto) (1.5-3.5) 10^3/uL [place] # (Auto) (0.0-1.0) 10^3/uL Eos # (Auto) (0.0-0.7) 10^3/uL Baso # (Auto) (0.0-0.1) 10^3/uL Absolute Nucleated RBC x10^3/uL Nucleated RBC % /100WBC Sodium (135-145) mmol/L Potassium (3.5-5.0) mmol/L Chloride (101-111) mmol/L Carbon Dioxide (21-32) mmol/L Anion Gap (6-13) BUN (6-20) mg/dL Creatinine (0.4-1.0) mg/dL Estimated GFR (MDRD) (>89) Glucose (70-100) mg/dL POC Whole Bld Glucose 171 H (70 - 100) mg/dL Calcium (8.5-10.3) mg/dL Total Bilirubin (0.2-1.0) mg/dL AST (10-42) IU/L ALT (10-60) IU/L Alkaline Phosphatase (42-121) IU/L B-Natriuretic Peptide (5-100) pg/mL Total Protein (6.7-8.2) g/dL Albumin (3.2-5.5) g/dL Globulin (2.1-4.2) g/dL Albumin/Globulin Ratio (1.0-2.2) Folate (5.90 - >24.8) ng/mL ABX Reporting Has patient been on IV antibiotics over the past 48 hours?: Yes Assessment/Plan - Problem List (1) Acute cystitis without hematuria Impression: 01/29, per sensitivity study of UTI, continue Meropenem pt's occult test is positive, but pt denies. it is possible contaminated from hematuria, repeat occult blood test, is pending now pt also denies hematuria now, report UA, and follow up pt's HGB is stable, report H&H pt had appointment with her urologist Dr. Yolanda Howard, for hematuria on 02/25/18, advise pt follow up 01/28 pt has hx of multiple UTI, ESBL. culture indicates at this time sensitivity to Rocephin continue antibiotics US of abdomen indicates no acute findings follow up urologist as out-pt (2) Anemia Impression: 01/29, HGB is 10.2, repeat H&H, HGB increase to 11.0 at this afternoon iron study not indicate iron deficiency repeat H&H if H&H drop significant and continue hemauria, pt may need transfer for advance care with urologist 01/28, pt's HGB is 6.9 today, will transfusion of two units of blood H&H monitor pt iron study reveals no significant for iron deficiency if HGB continue drop, will test UA again to see pt is hemtauria. if positive, pt may need transfer for uroscopy to stop the bleeding. (3) Confusion Impression: 01/29 pt is alert, oriented 01/28 pt is alert and oriented today (4) Severe aortic valve stenosis Impression: 01/29 EF 70-75%, continue support (5) weakness 01/29 pt report she feel significant weakness. consult with PT/OT
[2018-01-29] MEDS: DONEPEZIL 5 MG TABLET PO SCH (20:21)
[2018-01-29] MEDS: ATORVASTATIN 10 MG TABLET PO SCH (20:21)
[2018-01-29] MEDS: traZODone 50 MG TABLET PO SCH (20:21)
[2018-01-30] MEDS: SODIUM CHLORIDE FLUSH 0.9% 10 ML SYRINGE IVP PRN ×3 (01:17→05:05)
[2018-01-30] MEDS: SODIUM CHLORIDE FLUSH 0.9% 10 ML SYRINGE IVP SCH ×4 (01:17→23:54)
[2018-01-30] MEDS: MEROPENEM 500 MG in SODIUM CHLORIDE 0.9% MINIBAG 100 ML IV SCH ×2 (04:31→16:29)
[2018-01-30 06:14] LABS: BASOPHILS # (AUTO) 0.1 10^3/uL (0.0-0.1); EOSINOPHILS # (AUTO) 0.2 10^3/uL (0.0-0.7); EOSINOPHILS % (AUTO) 2.8 %; HGB - HEMOGLOBIN 10.4 g/dL (12.0-16.0); LYMPHOCYTES # (AUTO) 2.3 10^3/uL (1.5-3.5); LYMPHOCYTES % (AUTO) 29.8 %; MEAN CORPUSCULAR HEMOGLOBIN 29.6 pg (27.0-31.0); MEAN CORPUSCULAR HGB CONC 32.5 g/dL (32.0-36.0); MEAN PLATELET VOLUME 8.8 fL (7.9-10.8); MONOCYTES # (AUTO) 0.6 10^3/uL (0.0-1.0); MONOCYTES % (AUTO) 8.5 %; NEUTROPHILS # (AUTO) 4.4 10^3/uL (1.5-6.6); NEUTROPHILS % (AUTO) 57.9 %; PLT - PLATELET COUNT 296 10^3/uL (130-450); RED BLOOD COUNT 3.53 10^6/uL (4.20-5.40); RED CELL DISTRIBUTION WIDTH 15.7 % (12.0-15.0); WHITE BLOOD COUNT 7.6 x10^3/uL (4.8-10.8)
[2018-01-30 06:46] LABS: ALBUMIN 2.1 g/dL (3.2-5.5); ALBUMIN/GLOBULIN RATIO 0.7 (1.0-2.2); ALKALINE PHOSPHATASE 60 IU/L (42-121); ALT ALANINE AMINOTRANSFERASE 13 IU/L (10-60); AST ASPARTATE AMINOTRANSFERASE 15 IU/L (10-42); BILIRUBIN,TOTAL 0.5 mg/dL (0.2-1.0); BUN - BLOOD UREA NITROGEN 27 mg/dL (6-20); CALCIUM 8.3 mg/dL (8.5-10.3); CARBON DIOXIDE - CO2 24 mmol/L (21-32); CHLORIDE 108 mmol/L (101-111); CREATININE 1.2 mg/dL (0.4-1.0); GFR - MDRD 43 (>89); GLUCOSE 99 mg/dL (70-100); SODIUM 139 mmol/L (135-145); TOTAL PROTEIN 5.1 g/dL (6.7-8.2)
[2018-01-30 06:55] LABS: VBG PH 7.405 (7.31-7.41)
[2018-01-30] MEDS: INSULIN ASPART 300 UNIT/3 ML PEN SUBQ SCH ×4 (08:42→20:14)
[2018-01-30] MEDS: ACETAMINOPHEN 500 MG TABLET PO SCH ×2 (08:43→20:14)
[2018-01-30] MEDS: SENNA 8.6 MG TABLET PO SCH (08:44)
[2018-01-30] MEDS: LORATADINE 10 MG TABLET PO SCH (08:44)
[2018-01-30] MEDS: MULTIVITAMIN TABLET PO SCH (08:44)
[2018-01-30] MEDS: FOLIC ACID 1 MG TABLET PO SCH (08:44)
[2018-01-30] MEDS: DOCUSATE SODIUM 250 MG CAPSULE PO SCH (08:44)
[2018-01-30] MEDS: ALLOPURINOL 100 MG TABLET PO SCH (08:44)
[2018-01-30] MEDS: POLYETHYLENE GLYCOL 3350 17 GM PACKET PO SCH (08:45)
[2018-01-30] MEDS: OXYBUTYNIN 5MG TABLET PO SCH ×2 (08:45→20:14)
--- NOTE | 2018-01-30 13:59 | XRAY Report ---
Reason: Right PICC line placed Procedure Date: 01/30/2018 Accession Number: [id number] / [id number] Procedure: XR - Chest for Line Placement CPT Code: FULL RESULT: EXAM: CHEST RADIOGRAPHY EXAM DATE: 01/30/2018 01:37 PM. CLINICAL HISTORY: Right PICC line placed. COMPARISON: CHEST 2 VIEW 01/26/2018 3:12 PM. TECHNIQUE: 1 view. FINDINGS: Lungs/Pleura: No focal opacities evident. No pleural effusion. No pneumothorax. Mediastinum: Within exam limitations, the cardiomediastinal contour is normal. Other: Stable 2 cm rim calcified lesion left lower neck, benign in appearance. Interval placement of a right PICC line with the tip cavoatrial junction. IMPRESSION: 1. Right PICC line tip cavoatrial junction. 2. Stable, otherwise unremarkable exam. [facility]
[2018-01-30] MEDS: DONEPEZIL 5 MG TABLET PO SCH (20:14)
[2018-01-30] MEDS: ATORVASTATIN 10 MG TABLET PO SCH (20:14)
[2018-01-30] MEDS: traMADol 50 MG TABLET PO PRN (20:14)
[2018-01-30] MEDS: traZODone 50 MG TABLET PO SCH (20:14)
[2018-01-31] MEDS: MEROPENEM 500 MG in SODIUM CHLORIDE 0.9% MINIBAG 100 ML IV SCH (04:23)
[2018-01-31 06:33] LABS: BASOPHILS # (AUTO) 0.1 10^3/uL (0.0-0.1); BASOPHILS % (AUTO) 1.4 %; EOSINOPHILS # (AUTO) 0.2 10^3/uL (0.0-0.7); EOSINOPHILS % (AUTO) 2.3 %; HGB - HEMOGLOBIN 10.5 g/dL (12.0-16.0); LYMPHOCYTES # (AUTO) 2.4 10^3/uL (1.5-3.5); LYMPHOCYTES % (AUTO) 31.7 %; MEAN CORPUSCULAR HEMOGLOBIN 29.9 pg (27.0-31.0); MEAN CORPUSCULAR HGB CONC 32.8 g/dL (32.0-36.0); MEAN CORPUSCULAR VOLUME 91.2 fL (81.0-99.0); MEAN PLATELET VOLUME 8.5 fL (7.9-10.8); MONOCYTES # (AUTO) 0.7 10^3/uL (0.0-1.0); MONOCYTES % (AUTO) 9.3 %; NEUTROPHILS # (AUTO) 4.2 10^3/uL (1.5-6.6); NEUTROPHILS % (AUTO) 55.3 %; PLT - PLATELET COUNT 298 10^3/uL (130-450); RED CELL DISTRIBUTION WIDTH 15.3 % (12.0-15.0); WHITE BLOOD COUNT 7.6 x10^3/uL (4.8-10.8)
[2018-01-31 06:46] LABS: ALBUMIN 2.2 g/dL (3.2-5.5); ALBUMIN/GLOBULIN RATIO 0.8 (1.0-2.2); ALKALINE PHOSPHATASE 68 IU/L (42-121); ALT ALANINE AMINOTRANSFERASE 14 IU/L (10-60); AST ASPARTATE AMINOTRANSFERASE 17 IU/L (10-42); BILIRUBIN,TOTAL 0.5 mg/dL (0.2-1.0); BUN - BLOOD UREA NITROGEN 27 mg/dL (6-20); CALCIUM 8.3 mg/dL (8.5-10.3); CARBON DIOXIDE - CO2 25 mmol/L (21-32); CHLORIDE 108 mmol/L (101-111); CREATININE 1.2 mg/dL (0.4-1.0); GFR - MDRD 43 (>89); GLUCOSE 112 mg/dL (70-100); SODIUM 139 mmol/L (135-145); TOTAL PROTEIN 5.1 g/dL (6.7-8.2)
[2018-01-31 06:55] LABS: VBG PH 7.397 (7.31-7.41)
[2018-01-31] MEDS: LORATADINE 10 MG TABLET PO SCH (08:07)
[2018-01-31] MEDS: POLYETHYLENE GLYCOL 3350 17 GM PACKET PO SCH (08:07)
[2018-01-31] MEDS: MULTIVITAMIN TABLET PO SCH (08:07)
[2018-01-31] MEDS: ALLOPURINOL 100 MG TABLET PO SCH (08:07)
[2018-01-31] MEDS: DOCUSATE SODIUM 250 MG CAPSULE PO SCH (08:08)
[2018-01-31] MEDS: ACETAMINOPHEN 500 MG TABLET PO SCH (08:08)
[2018-01-31] MEDS: OXYBUTYNIN 5MG TABLET PO SCH (08:08)
[2018-01-31] MEDS: SENNA 8.6 MG TABLET PO SCH (08:08)
[2018-01-31] MEDS: SODIUM CHLORIDE FLUSH 0.9% 10 ML SYRINGE IVP SCH (08:09)
[2018-01-31] MEDS: INSULIN ASPART 300 UNIT/3 ML PEN SUBQ SCH ×2 (08:17→11:26)
--- NOTE | 2018-01-31 12:32 | Discharge Plan ---
"Discharge Plan for SNF / [facility] - Discharge Plan And Transition Orders Disposition: 03 SNF DC/Xfer Condition: Poor Allergies and Adverse Reactions: Allergies Allergy/AdvReac Type Severity Reaction Status Date / Time cephalexin [Cephalexin] Allergy Intermediate generalized Verified 01/26/18 14:30 shaking - SNF / [facility] Transition Orders Admit to (Facility): [facility] Under the care of (Name): Kerri Page Discharge Diagnosis: UTI, Hemtouria, weakness, anemia Medicare Certification Statement: I certify that Post Hospital custodial care is medically necessary on a continuing basis for any of the conditions for which she/he is receiving care during hospitalization. Notify PCP of admission and forward orders to primary provider for signature. Weight on admission and: Daily Call PCP immediately if weight increases by: 2 kg Other Notification Orders: Call PCP immediately if patient develops dyspnea, chest pain/tightness or edema. House Bowel Program: Yes Additional Bowel Program Orders: If no BM after 2 days, nurse may give M.O.M. 30ml PO PRN and/or ducolax Supp 1 [place] and/or ELIZABETH 250mg P.O., and/or senna 1-2 tabs PO. On day 3 nurse may give repeat above order until residents constipation is resolved. Annual Influenza Vaccine (between Dec 14 and July 13): Yes Two-step PPD per [facility] [phone] or approved exception documents: Yes Treatments & Other Orders: pt may follow up her PCP when pt is arrival to [facility], continue to have IV of Meropenem for 10 days by PICC line, continue to have PT/OT Lab Tests or X-ray Orders: pt may have CBC and UA in 10 days Medication Orders: PLEASE REFER TO THE DISCHARGE MEDICATION LIST. Insulin Orders?: No - Medications New Prescriptions: Meropenem [Merrem] 500 mg IV Q12H #20 vial - Diet Type: Geriatric Texture: Regular Liquids: Thin May have monthly special meal: Yes - Therapies | Activity Therapy: Evaluation | Treat if indicated: PT, OT Rehabilitation Potential: Maximize functional status Activity: Activity as Tolerated Additional Instructions: pt may follow up her PCP when pt is arrival to [facility], continue to have IV of Meropenem for 10 days by PICC line, continue to have PT/OT"
--- NOTE | 2018-01-31 12:48 | DISCHARGE SUMMARY ---
Discharge Summary Discharge Date: 01/31/18 Discharging Provider: BENITEZ Primary Care Provider: KENAN Lerma Condition at Discharge: Poor Discharge Disposition: 03 SNF DC/Xfer Discharge Facility Name: [facility] - DIAGNOSES Admission Diagnoses: (1) Urinary tract infection with hematuria (2) Confusion (3) Pulmonary hypertension (4) Severe aortic valve stenosis (5) Anemia Discharge Diagnoses with Status of Each Condition: (1) Acute cystitis without hematuria UA reveals enterobacter cloacae complex. pt was arranged to have PICC line for Meropenem IV in SNF for another 10 days. Pt and nurse report pt's hematuria was stopped. HGB has been stable. (2) Anemia HGB is stable. pt has schedule to see her urologist on 02/25/18. pt decline to have EGD and colonoscopy. pt and nurse denies to have more hematuria and black stool. (3) Confusion resolved, as pt's baseline (4) Severe aortic valve stenosis stable (5) weakness improved, continue in [facility] for training. - HPI History of Present Illness: refer from 's HPI on 01/26/18 for pt as the following: Trini Bond is an 82-year old female with a past medical history of recurrent UTIs, CKD, DM type 2-diet controlled, hyerlipidemia, gout, dementia, insomnia, severe aortic stenosis, pulmonary hypertension, and anemia. The patient presented to the ED with generalized weakness and increased confusion that began about 2 days ago. She had been prescribed Cipro for a UTI about 10 days ago, but according to her daughter may not have taken the whole course as she has left over pills. Labs show anemia with a hemoglobin of 8.3, hematocrit of 25.7, normal MCV, no WBC count. YOSVANY with a creatinine of 2.2, BUN of 46, reduced GFR of 24, an elevated glucose of 213 and a normal lactic acid of 1.7. A repeat urine sample was obtained and showed a UTI. Upon exam the patient is confused and her daughter was not present. She states that she has been falling at home lately, she has urinary incontinence, and has had more weakness. She states that it has been difficult for her to ambulate, so has been just lying in bed. She is not oriented, but can state her name. She denies chest pain, vomiting, new pain, or shortness of breath. She will be admitted for treatment of her UTI with IV antibiotics and possible higher level of care/Hospice care. - HOSPITAL COURSE Hospital Course: pt was admitted for AMS and UTI, hematuria and anemia. pt report since she is child, she has been for many times of UTI. pt was treated with Meropenem. pt was transfused two units of blood. pt's HGB has been stable in the hospital. Pt denies to have more hematuria, and black stool. pt decline to have EGD and colonoscopy. pt was d/c to [facility] for continuing PT/OT training for her weakness and IV of antibiotics of Meropenem - ALLERGIES Allergies/Adverse Reactions: Allergies Allergy/AdvReac Type Severity Reaction Status Date / Time cephalexin [Cephalexin] Allergy Intermediate generalized Verified 01/26/18 14:30 shaking - MEDICATIONS Home Medications: Ambulatory Orders Medication Instructions Recorded Confirmed Allopurinol [Zyloprim] 300 mg PO DAILY 02/18/13 01/26/18 Aspirin Chewable [[place] 81 mg PO DAILY 02/18/13 01/26/18 Aspirin] Cyanocobalamin (Vitamin B-12) 2,500 mcg PO DAILY 02/18/13 01/26/18 [Vitamin B-12] Lisinopril 2.5 mg PO DAILY 02/18/13 01/26/18 Metformin HCl [Glumetza] 500 mg PO BIDWM 02/18/13 01/26/18 Omeprazole [PriLOSEC] 20 mg PO QDAC 02/18/13 01/26/18 Oxybutynin [Ditropan] 5 mg PO BID 02/18/13 01/26/18 Simvastatin [Zocor] 40 mg PO QPM 02/18/13 01/26/18 traZODone [Desyrel] 100 mg PO QPM 10/30/17 01/26/18 Loratadine 10 mg PO DAILY 10/31/17 01/26/18 Acetaminophen [Tylenol Extra 500 mg PO BID 01/26/18 01/26/18 Strength] Donepezil HCl 10 mg PO DAILY 01/26/18 01/26/18 Folic Acid 1 mg PO DAILY 01/26/18 01/26/18 Glucosamine Sulfate 500 mg PO BID 01/26/18 01/26/18 Multivitamin [Theragran] 1 tab PO DAILY 01/26/18 01/26/18 Meropenem [Merrem] 500 mg IV Q12H #20 vial 01/31/18 - PHYSICAL EXAM AT DISCHARGE General Appearance: positive: No acute distress, Alert. negative: Lethargic Eyes Bilateral: positive: Normal inspection, PERRL, No lid inflammation, Conjunctivae nml ENT: positive: ENT inspection nml, Pharynx nml, No signs of dehydration. negative: Purulent nasal drainage, Pharyngeal erythema, Oral lesions Neck: positive: Nml inspection, Thyroid nml, No JVD, Trachea midline. negative: Thyromegaly, Lymphadenopathy (R), Lymphadenopathy (L), Stiff neck, Swelling/bruising, Tracheal deviation Respiratory: positive: Chest non-tender, No respiratory distress, Breath sounds nml. negative: Wheezes, Rales, Rhonchi Cardiovascular: positive: Regular rate & rhythm, No murmur, No gallop. negative: Irregularly irregular, Extrasystoles, Tachycardia, Bradycardia, JVD present, Systolic murmur, Diastolic murmur Peripheral Pulses: positive: 2+ Abdomen: positive: Non-tender, No organomegaly, Nml bowel sounds, No distention. negative: Tenderness, Guarding, Rebound Back: positive: Nml inspection. negative: CVA tenderness (R), CVA tenderness (L) Skin: positive: Color nml, No rash, Warm, Dry. negative: Cyanosis, Diaphoresis, Pallor Extremities: positive: Non-tender, Full ROM, Nml appearance. negative: Calf tenderness, Joint swelling, Hudson's sign/cords Neurologic/Psychiatric: positive: Oriented x3, Motor nml, Sensation nml, Mood/affect nml. negative: Weakness, Sensory loss, Facial droop, Slurred/abnml speech, Depressed mood/affect - LABS Result Diagrams: 01/31/18 06:25 01/31/18 06:25 - FOLLOW UP Follow Up: pt may follow up her PCP when pt is arrival to [facility], continue her urologist appointment as out-pt, continue to have IV of Meropenem for 10 days by PICC line, continue to have PT/OT - TIME SPENT Time Spent in Discharge (Minutes): 50
[2018-01-31 15:41] VITALS: BP 150/86
== END 2018-01-31 16:03 | DRG 690 ==
LOC: ED 14:11 → MS2 16:43
PROVIDERS: ADMIT Nurse Practitioner; ATTEND Nurse Practitioner Gerontology
PROC: 30233N1 Transfusion of Nonautologous Red Blood Cells into Peripheral Vein, Percutaneous Approach (ICD-10-PCS; 2018-01-28)
PROC: 02HV33Z Insertion of Infusion Device into Superior Vena Cava, Percutaneous Approach (ICD-10-PCS; principal; 2018-01-30)
DX: N30.01 Acute cystitis with hematuria (principal); N17.9 Acute kidney failure, unspecified; B37.2 Candidiasis of skin and nail; I13.0 Hypertensive heart and chronic kidney disease with heart failure and stage 1 through stage 4 chronic kidney disease, or unspecified chronic kidney disease; I50.30 Unspecified diastolic (congestive) heart failure; D62 Acute posthemorrhagic anemia; Y92.009 Unspecified place in unspecified non-institutional (private) residence as the place of occurrence of the external cause; I27.20 Pulmonary hypertension, unspecified; E11.9 Type 2 diabetes mellitus without complications; I35.0 Nonrheumatic aortic (valve) stenosis; I38 Endocarditis, valve unspecified; Z85.42 Personal history of malignant neoplasm of other parts of uterus; B96.89 Other specified bacterial agents as the cause of diseases classified elsewhere; T36.8X6A Underdosing of other systemic antibiotics, initial encounter; Z91.138 Patient's unintentional underdosing of medication regimen for other reason; R32 Unspecified urinary incontinence; Z16.24 Resistance to multiple antibiotics; R53.1 Weakness; E11.22 Type 2 diabetes mellitus with diabetic chronic kidney disease; N18.9 Chronic kidney disease, unspecified; E11.42 Type 2 diabetes mellitus with diabetic polyneuropathy; E78.5 Hyperlipidemia, unspecified; M10.9 Gout, unspecified; K21.9 Gastro-esophageal reflux disease without esophagitis; F03.90 Unspecified dementia, unspecified severity, without behavioral disturbance, psychotic disturbance, mood disturbance, and anxiety; H91.90 Unspecified hearing loss, unspecified ear; G47.00 Insomnia, unspecified; F32.9 Major depressive disorder, single episode, unspecified; F41.9 Anxiety disorder, unspecified; R19.5 Other fecal abnormalities; Z66 Do not resuscitate; Z87.440 Personal history of urinary (tract) infections; Z91.81 History of falling; Z79.82 Long term (current) use of aspirin; Z79.84 Long term (current) use of oral hypoglycemic drugs; Z79.899 Other long term (current) drug therapy; Z16.12 Extended spectrum beta lactamase (ESBL) resistance
CPT/HCPCS: 36415; 71045; 71046; 76770; 80053; 81001; 81003; 82272; 82330; 82607; 82728; 82746; 83036; 83540; 83605; 83615; 83690; 83735; 83880; 84100; 84466; 85014; 85018; 85025; 85044; 86850; 86900; 86901; 86920; 87077; 87086; 87181; 93306; 96361; 96365; 99284

== ENCOUNTER → 2018-02-13 | Outpatient (CLI) | payer MEDICARE, OTHER, MEDICAID ==
[2018-02-13 13:46] LABS: BASOPHILS % (AUTO) 0.7 %; EOSINOPHILS # (AUTO) 0.3 10^3/uL (0.0-0.7); EOSINOPHILS % (AUTO) 4.7 %; HGB - HEMOGLOBIN 10.4 g/dL (12.0-16.0); LYMPHOCYTES # (AUTO) 1.8 10^3/uL (1.5-3.5); MEAN CORPUSCULAR HEMOGLOBIN 30.3 pg (27.0-31.0); MEAN CORPUSCULAR VOLUME 91.8 fL (81.0-99.0); MONOCYTES # (AUTO) 0.4 10^3/uL (0.0-1.0); MONOCYTES % (AUTO) 6.9 %; NEUTROPHILS # (AUTO) 3.6 10^3/uL (1.5-6.6); NEUTROPHILS % (AUTO) 58.7 %; PLT - PLATELET COUNT 209 10^3/uL (130-450); RED BLOOD COUNT 3.42 10^6/uL (4.20-5.40); RED CELL DISTRIBUTION WIDTH 16.3 % (12.0-15.0); WHITE BLOOD COUNT 6.1 x10^3/uL (4.8-10.8)
== END ==
LOC: LAB.R 11:58
DX: N39.0 Urinary tract infection, site not specified (principal)
CPT/HCPCS: 85025

== ENCOUNTER 2018-03-13 15:08 | Outpatient (CLI) | payer MEDICARE, OTHER, MEDICAID ==
--- NOTE | 2018-03-14 11:16 | Ultrasound Report ---
Reason: THYROID NODULE Procedure Date: 03/13/2018 Accession Number: [id number] / [id number] Procedure: US - Head or Neck Soft Tissue CPT Code: FULL RESULT: EXAM: THYROID ULTRASOUND EXAM DATE: 03/13/2018 04:14 PM. CLINICAL HISTORY: THYROID NODULE. COMPARISON: None. TECHNIQUE: Real time sonographic imaging of the thyroid was performed by the sales representative marine [employer]. Multiple leasing representative static images were saved for review. FINDINGS: THYROID GLAND: Right Lobe: 1.4 x 1.8 x 3.3 cm, volume 4.2 cc. Normal background echotexture. Right Lobe Nodules: None. Left Lobe: 1.4 x 1.9 x 4.1 cm, volume 5.6 cc. Normal background echotexture. Left Lobe Nodules: 2.0 x 1.6 x 1.7 cm peripherally calcified nodule with acoustic dropout preventing further characterization. Isthmus: 0.2 cm AP. Isthmic Nodules: None. LYMPH NODES: No adenopathy demonstrated in the central or lateral compartment. OTHER: None. IMPRESSION: The portion of the 2.0 cm nodule that is visualized is clearly demarcated by eggshell calcification. The remaining margin of the nodule is not visible by ultrasound limiting information. Presuming the nodule to be circumferentially eggshell calcified classifies it as very low suspicion which is not warranted for biopsy unless greater than 2 cm in size. At this time point, fine-needle aspiration as well as continued annual ultrasound surveillance are reasonable. Management recommendations are based on 2015 [place] [employer] Management Guidelines for Adult Patients with Thyroid Nodules and Differentiated Thyroid Cancer. [facility]
== END 2018-03-13 15:09 | disposition home or self-care (01) ==
LOC: DI 15:08
PROVIDERS: ATTEND Internal Medicine
DX: E04.1 Nontoxic single thyroid nodule (principal)
CPT/HCPCS: 76536

== ENCOUNTER 2018-04-18 11:18 | Outpatient (CLI) | payer OTHER | END 2018-04-18 11:19 | disposition EMS.NT | LOC: EMS 11:18 | PROVIDERS: ATTEND Surgery | DX: R40.20 Unspecified coma (principal); Z53.20 Procedure and treatment not carried out because of patient's decision for unspecified reasons ==

== ENCOUNTER 2018-04-20 12:35 | Outpatient (CLI) | payer MEDICARE, OTHER, MEDICAID | END 2018-04-20 12:36 | disposition critical access hospital (66) | LOC: EMS 12:35 | PROVIDERS: ATTEND Surgery | DX: R53.1 Weakness (principal) | CPT/HCPCS: A0425; A0429 ==

== ENCOUNTER 2018-04-20 12:38 | Inpatient (IN) | payer MEDICARE, OTHER, MEDICAID ==
--- NOTE | 2018-04-20 12:48 | ED Physician Documentation ---
History of Present Illness - Stated complaint Stated Complaint: WEAK - History obtained from History obtained from: Patient, EMS - History of Present Illness Timing: Other (This is an 82-year-old woman with severe aortic stenosis, dementia, and recurrent UTIs as well as diabetes who presents by ambulance with a reported complaint of weakness for the last few days with hallucinations. The paramedics passed along the history from the daughter who is not immediately available on arrival but I am led to believe by the paramedics that she should be arriving shortly. Patient is unreliable historian due to to dementia.) Review of Systems Unable to obtain: Dementia PD PAST MEDICAL HISTORY - Past Medical History Cardiovascular: Congestive heart failure, Hypertension, High cholesterol, Angina, Murmur, Valve disorder Respiratory: Pneumonia, Shortness of breath Neuro: Dementia, Peripheral neuropathy Endocrine/Autoimmune: Type 2 diabetes GI: GERD INVESTMENT MANAGER: Uterine cancer : Incontinence, Chronic bladder infection, Renal insuffiency, Nocturia, Frequency HEENT: Chronic vision loss, Chronic sinusitis, Chronic hearing loss Psych: Depression, Anxiety Musculoskeletal: Osteoarthritis, Gout, Fatigue Derm: None - Past Surgical History Past Surgical History: Yes General: Colonoscopy Ortho: Carpal Tunnel surgery, Other /INVESTMENT MANAGER: Hysterectomy HEENT: Cataracts - Present Medications Home Medications: Ambulatory Orders Medication Instructions Recorded Confirmed Allopurinol [Zyloprim] 300 mg PO DAILY 02/18/13 01/26/18 Aspirin Chewable [[place] 81 mg PO DAILY 02/18/13 01/26/18 Aspirin] Cyanocobalamin (Vitamin B-12) 2,500 mcg PO DAILY 02/18/13 01/26/18 [Vitamin B-12] Lisinopril 2.5 mg PO DAILY 02/18/13 01/26/18 Metformin HCl [Glumetza] 500 mg PO BIDWM 02/18/13 01/26/18 Omeprazole [PriLOSEC] 20 mg PO QDAC 02/18/13 01/26/18 Oxybutynin [Ditropan] 5 mg PO BID 02/18/13 01/26/18 Simvastatin [Zocor] 40 mg PO QPM 02/18/13 01/26/18 traZODone [Desyrel] 100 mg PO QPM 10/30/17 01/26/18 Loratadine 10 mg PO DAILY 10/31/17 01/26/18 Acetaminophen [Tylenol Extra 500 mg PO BID 01/26/18 01/26/18 Strength] Donepezil HCl 10 mg PO DAILY 01/26/18 01/26/18 Folic Acid 1 mg PO DAILY 01/26/18 01/26/18 Glucosamine Sulfate 500 mg PO BID 01/26/18 01/26/18 Multivitamin [Theragran] 1 tab PO DAILY 01/26/18 01/26/18 Meropenem [Merrem] 500 mg IV Q12H #20 vial 01/31/18 - Allergies Allergies/Adverse Reactions: Allergies Allergy/AdvReac Type Severity Reaction Status Date / Time cephalexin [Cephalexin] Allergy Intermediate generalized Verified 01/26/18 14:30 shaking - Social History Does the pt smoke?: No Smoking Status: Never smoker Does the pt drink ETOH?: No Does the pt have substance abuse?: No - Immunizations Immunizations are current?: Yes - POLST Patient has POLST: No POLST Status: DNR PD ED PE NORMAL - Vitals Vital signs reviewed: Yes - General General: Other (She is alert and oriented to person and is cooperative and pleasant but a poor historian for short-term events. 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 Eye Opening: Spontaneous Motor: Obeys Commands Verbal: Confused GCS Score: 14 - Psych Psych: Normal mood, Normal affect Results - Vitals Vitals: Vital Signs - 24 hr 04/20/18 12:40 Temperature 36.8 C Heart Rate 88 Respiratory 16 Rate Blood Pressure 94/64 O2 Saturation 100 Oxygen O2 Source [Without Activity] Room air O2 Source Room air - Labs Labs: Laboratory Tests 04/20/18 04/20/18 04/20/18 12:57 12:57 12:57 WBC 10.1 RBC 3.39 L Hgb 10.6 L Hct 31.9 L MCV 93.9 MCH 31.2 H MCHC 33.2 RDW 14.7 Plt Count 306 MPV 9.2 Neut # (Auto) 7.7 H Lymph # (Auto) 1.4 L [place] # (Auto) 0.7 Eos # (Auto) 0.1 Baso # (Auto) 0.0 Absolute Nucleated RBC 0.00 Nucleated RBC % 0.0 Sodium 133 L Potassium 4.7 Chloride 103 Carbon Dioxide 21 Anion Gap 9.0 BUN 52 H Creatinine 3.2 H Estimated GFR (MDRD) 14 L Glucose 204 H Lactic Acid 1.5 Calcium 8.9 Total Bilirubin 0.5 AST 13 ALT 11 Alkaline Phosphatase 85 Total Protein 7.4 Albumin 3.1 L Globulin 4.3 H Albumin/Globulin Ratio 0.7 L Lipase 29 Urine Color Urine Clarity Urine pH Ur Specific [place] Urine Protein Urine Glucose (UA) Urine Ketones Urine Occult Blood Urine Nitrite Urine Bilirubin Urine Urobilinogen Ur Leukocyte Esterase Urine RBC Urine WBC Urine WBC Clumps Ur Squamous Epith Cells Urine Bacteria Ur Microscopic Review Urine Culture Comments 04/20/18 13:25 WBC RBC Hgb Hct MCV MCH MCHC RDW Plt Count MPV Neut # (Auto) Lymph # (Auto) [place] # (Auto) Eos # (Auto) Baso # (Auto) Absolute Nucleated RBC Nucleated RBC % Sodium Potassium Chloride Carbon Dioxide Anion Gap BUN Creatinine Estimated GFR (MDRD) Glucose Lactic Acid Calcium Total Bilirubin AST ALT Alkaline Phosphatase Total Protein Albumin Globulin Albumin/Globulin Ratio Lipase Urine Color LIGHT YELLOW Urine Clarity CLOUDY Urine pH 6.0 Ur Specific [place] 1.025 Urine Protein 100 H Urine Glucose (UA) NEGATIVE Urine Ketones NEGATIVE Urine Occult Blood SMALL H Urine Nitrite POSITIVE H Urine Bilirubin NEGATIVE Urine Urobilinogen 0.2 (NORMAL) Ur Leukocyte Esterase LARGE H Urine RBC None Seen Urine WBC >25 H Urine WBC Clumps PRESENT Ur Squamous Epith Cells NONE SEEN Urine Bacteria Many H Ur Microscopic Review INDICATED Urine Culture Comments INDICATED PD MEDICAL DECISION MAKING - ED course Complexity details: reviewed old records (Recent urine cultures have been fairly dey resistant bacteria, most recently was in Enterobacter and before that was an ESBL Klebsiella.), d/w family (The daughter arrived shortly after the patient's initial arrival and confirmed it for the last week she has been basically unable to walk because of increased weakness. She has not been eating or drinking and has had decreased urine output as well as a cough that is nonproductive. I point out that the patient seems to have chills, but the daughter thinks she is always like that. I also point out that the patient is hypotensive and the daughter confirms that her blood pressure is usually higher than it is on the monitor here.) ED course: 82-year-old woman with UTI and significant dehydration causing acute renal failure. Based on most recent cultures the only IV option that would cover the last 2 cultures would be either the penems or gentamicin, and gentamicin is clearly not a good choice with the renal function. Spoke with Dr. Aparicio for admission at 2:06 PM. Departure - Departure Disposition: [facility] DC/Xfer Clinical Impression: Type 2 diabetes mellitus Qualifiers: Diabetes mellitus senior care insulin use: unspecified senior care insulin use status Diabetes mellitus complication status: with unspecified complications Qualified Code(s): E11.8 - Type 2 diabetes mellitus with unspecified complications Urinary tract infection Qualifiers: Urinary tract infection type: acute pyelonephritis Qualified Code(s): N10 - Acute pyelonephritis Acute renal failure Qualifiers: Acute renal failure type: unspecified Qualified Code(s): N17.9 - Acute kidney failure, unspecified Condition: Serious
[2018-04-20] MEDS ORDERED: SODIUM CHLORIDE 0.9% 1,000 ML IV ONE ×2 (12:53→14:03)
[2018-04-20 13:01] LABS: BASOPHILS % (AUTO) 0.4 %; EOSINOPHILS # (AUTO) 0.1 10^3/uL (0.0-0.7); EOSINOPHILS % (AUTO) 1.4 %; HGB - HEMOGLOBIN 10.6 g/dL (12.0-16.0); LYMPHOCYTES # (AUTO) 1.4 10^3/uL (1.5-3.5); LYMPHOCYTES % (AUTO) 14.3 %; MEAN CORPUSCULAR HEMOGLOBIN 31.2 pg (27.0-31.0); MEAN CORPUSCULAR HGB CONC 33.2 g/dL (32.0-36.0); MEAN CORPUSCULAR VOLUME 93.9 fL (81.0-99.0); MEAN PLATELET VOLUME 9.2 fL (7.9-10.8); MONOCYTES # (AUTO) 0.7 10^3/uL (0.0-1.0); NEUTROPHILS # (AUTO) 7.7 10^3/uL (1.5-6.6); NEUTROPHILS % (AUTO) 76.9 %; PLT - PLATELET COUNT 306 10^3/uL (130-450); RED BLOOD COUNT 3.39 10^6/uL (4.20-5.40); RED CELL DISTRIBUTION WIDTH 14.7 % (12.0-15.0); WHITE BLOOD COUNT 10.1 x10^3/uL (4.8-10.8)
[2018-04-20 13:13] LABS: ALBUMIN 3.1 g/dL (3.2-5.5); ALBUMIN/GLOBULIN RATIO 0.7 (1.0-2.2); BILIRUBIN,TOTAL 0.5 mg/dL (0.2-1.0); CALCIUM 8.9 mg/dL (8.5-10.3); CREATININE 3.2 mg/dL (0.4-1.0); TOTAL PROTEIN 7.4 g/dL (6.7-8.2)
[2018-04-20 13:36] LABS: BILIRUBIN,URINE NEGATIVE (NEGATIVE); GLUCOSE, URINE (UA) NEGATIVE (NEGATIVE); KETONES,URINE (UA) NEGATIVE (NEGATIVE); LEUKOCYTE ESTERASE, URINE LARGE (NEGATIVE); NITRITE,URINE POSITIVE (NEGATIVE); OCCULT BLOOD,URINE SMALL (NEGATIVE); PROTEIN,URINE 100 mg/dL (NEGATIVE); UROBILINOGEN,URINE 0.2 (NORMAL) E.U./dL (NORMAL)
[2018-04-20 13:40] LABS: CLARITY,URINE CLOUDY (CLEAR)
[2018-04-20 13:41] LABS: BACTERIA,URINE Many /HPF (None Seen); RBC,URINE None Seen /HPF (0-5); SQUAMOUS EPITHELIAL CELL,UR NONE SEEN (<= Few); WBC CLUMPS,URINE PRESENT
--- NOTE | 2018-04-20 13:55 | XRAY Report ---
Reason: cough Procedure Date: 04/20/2018 Accession Number: [id number] / [id number] Procedure: XR - Chest 1 View X-Ray CPT Code: 27064 FULL RESULT: EXAM: CHEST RADIOGRAPHY EXAM DATE: 04/20/2018 01:36 PM. CLINICAL HISTORY: Cough. COMPARISON: CHEST FOR LINE PLACEMENT 01/30/2018 1:22 PM. TECHNIQUE: 1 view. FINDINGS: Lungs/Pleura: No focal opacities evident. No pleural effusion. No pneumothorax. Mediastinum: Stable cardiomediastinal silhouette. Other: None. IMPRESSION: No evidence for acute cardiothoracic process. [facility]
[2018-04-20] MEDS ORDERED: MEROPENEM 1 GM in SODIUM CHLORIDE 0.9% MINIBAG 100 ML IV STA (14:03)
[2018-04-20] MEDS ORDERED: ONDANSETRON ODT 4 MG TABLET TL PRN (14:08)
[2018-04-20] MEDS ORDERED: HYDROcod/ACETAM 5/325 MG TABLET PO PRN (14:08)
[2018-04-20] MEDS ORDERED: ONDANSETRON 4 MG/2 ML VIAL IVP PRN (14:08)
[2018-04-20] MEDS ORDERED: ACETAMINOPHEN 325 MG TABLET PO PRN (14:08)
--- NOTE | 2018-04-20 14:29 | HISTORY & PHYSICAL EXAMINATION ---
Chief Complaint - Chief Complaint Chief Complaint: weakness, confusion, fall History of Present Illness - Admitted From Admitted From:: Home/ER - History Obtained From Records Reviewed: [facility] History obtained from: Dr. Caro Exam Limitations: patient has dementia - History of Present Illness HPI Comment/Other: This is an 82-year-old female who has severe aortic stenosis, pulmonary hypertension, dementia, type 2 diabetes, chronic kidney disease, as well as chronic urinary tract infections. She had already fallen once, EMS went there to pick her up. They had to return when she had yet another fall and this time associated with increasing confusion. She has been having weakness for the last few days as well as hallucinations. She is seeing a son visiting her in her room. But her son lives in [place]. In November 2017 as well as December 2017 she had an ESBL producing Klebsiella pneumonia urinary tract infection. With her last admission January 2018 she had an Enterobacter UTI. She is allergic to cephalexin. Has multiple drug resistance for her bacteria. Because she had hematuria, she was sent to see urology after she left [facility] in January 2018. Dr. Garcia, Urology, scheduled her for a cystoscopy. She was also referred to see infectious disease. Infectious disease put her on an antibiotic that she takes every 10 days that starts with a "M". And the cystoscopy did not show bladder cancer. This is per the daughter. She is followed by Dr. Aidee Webb. Although she was admitted to [facility] with the idea that it was permanent placement after her last admission in January 2018, the daughter took her out of carriage around February 23. Mom should really have 24/7 care, but she felt "guilted" into taking her out by the patient. Daughter comes from [place] everyday and stays 5-8 hours. The patient spends most of her day sitting. She hurts from OA and doesn't do much. She uses a scooter when her daughter takes her grocery shopping. She does not leave her apartment other than when her daughter takes her out. Daughter sometimes comes in the morning to find mom on the floor since falling the night before. She is getting more more forgetful even worse than her baseline dementia. She has been refusing to eat for the last week. No nausea, no vomiting. Daughter felt that possibly something was going on that was really "bad" when mom (who is usually incontinent of urine and stool) had not had a BM and her diaper has been dry for over [address] Caro examined the patient and found her to be afebrile at 36.8. She has a normal heart rate of 88. She is oxygenating well on room air and only has a respiratory rate of 16. EMS stated that she had an O2 sat in the 80s when they got there but that has not been reproduced in the emergency room. Dr. Caro found her to have a blood pressure of 94/64. With her last admission she is 106-108 systolic. At discharge she was 124 systolic. She has a BUN of 52 and a creatinine of 3.2 which is worse than her 27 and 1.2 from January 2018. Her lactic acid is normal at 1.5. White cell count is 10.1 and not elevated. She does take metformin for her diabetes. Has severe pyuria. She is now being admitted as sepsis with UTI. However, the only criteria being met is that of hypotension. She does not have a fever, elevated white cell count, hypoxia. History - Past Medical History Cardiovascular: reports: Congestive heart failure, Hypertension, High cholesterol, Angina, Murmur, Valve disorder (Echocardiogram January 2018 shows mild to moderate concentric left ventricular hypertrophy. Ejection fraction 70- 75%. Moderate increase in left atrial volume index. Severe aortic stenosis with a peak/mean pressure gradient of 73 mmHg / 40 mmHg, aortic valve area 0.82 cm. Grade 1 diastolic dysfunction. Mild elevated pulmonary pressures at 36 mmHg which were improved from October 2017 which had 51 mmHg.) Respiratory: reports: Pneumonia, Shortness of breath Neuro: reports: Dementia (Brain MRI October 2017. Generalized cerebral volume loss consistent with atrophy. Chronic small vessel ischemic disease. Degenerative hypertrophic pannus-like soft tissue collection indenting ventral thecal sac at C1-C2.TSH normal October 2017, B12 level high January 2018), Peripheral neuropathy Endocrine/Autoimmune: reports: Type 2 diabetes (Glycosylated hemoglobin 8% October 31, 2017, 6.5% January 27, 2018. Positive proteinuria. Positive chronic kidney disease. Positive neuropathy.), Other (Thyroid nodule. 2 cm size. Last ultrasound February,.) GI: reports: GERD RN TESTING: reports: Uterine cancer : reports: Incontinence, Chronic bladder infection, Renal insuffiency, Nocturia, Frequency HEENT: reports: Chronic vision loss, Chronic sinusitis, Chronic hearing loss Psych: reports: Depression, Anxiety Musculoskeletal: reports: Osteoarthritis, Gout, Fatigue Derm: reports: None MRSA Hx?: No - Past Surgical History General: reports: Colonoscopy Ortho: reports: Carpal Tunnel surgery, Other /RN TESTING: reports: Hysterectomy HEENT: reports: Cataracts - Family & Social History Family History: Mother: , CAD, Hyperlipidemia, Hypertension, [place], Father: , Alzheimer's Disease, CAD, Hyperlipidemia, Hypertension, [place], Brother: , CAD, Hyperlipidemia, Hypertension, [place] Family History Comment/Other: Dad at age 91. He of old age. Her mother was in her 70s. 3 sisters and a brother. One brother of heart disease. Her sisters are alive. She is the oldest sibling. 4 children. One son has esophageal cancer. There is high blood pressure and diabetes in her children. Living arrangement: At home Living Situation: Alone Social History Notes: She is from the [facility] and mainly spent her formative years in [place] and [place]. Her of heart attack when he was 63 and just getting ready to retire and she has been on her own for probably 28 years. 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 She did live on [facility] for many many years with 1 of her daughters when she left to go live with 1 of her sons in [place]. From [place] she returned to [place]. From [place] she was brought back to the [place] out 6 years ago. She temporary lived with 2 of her daughters and one of her daughter's partners. But was [facility] shortly thereafter. So [facility]. There was a short time where she was at [facility] January, after a UTI admit w AMS. Really she should have stayed there. But the daughter felt too guilty leaving her mom there and took her out. In retrospect she thinks it was a mistake and mom should stay there. Her memory loss is getting worse, getting more difficult to deal with, not eating, falling more. And really needs more help. She is a non-smoker. Never had problems with alcohol abuse. Never had problems with recreational substance abuse. - Substance History Use: Uses substance without health or social issues: NONE Abuse: Recurrent use of substance despite neg consequences: NONE Dependence: Experiences withdrawal or developed tolerances: NONE - POLST Patient has POLST: Yes POLST Status: DNR Meds/Allgy - Home Medications Home Medications: Ambulatory Orders Medication Instructions Recorded Confirmed Allopurinol [Zyloprim] 300 mg PO DAILY 02/18/13 04/20/18 Aspirin Chewable [[place] 81 mg PO DAILY 02/18/13 04/20/18 Aspirin] Cyanocobalamin (Vitamin B-12) 2,500 mcg PO DAILY 02/18/13 04/20/18 [Vitamin B-12] Lisinopril 2.5 mg PO DAILY 02/18/13 04/20/18 Metformin HCl [Glumetza] 500 mg PO BIDWM 02/18/13 04/20/18 Omeprazole [PriLOSEC] 20 mg PO QDAC 02/18/13 04/20/18 Oxybutynin [Ditropan] 5 mg PO BID 02/18/13 04/20/18 Simvastatin [Zocor] 40 mg PO QPM 02/18/13 04/20/18 traZODone [Desyrel] 100 mg PO QPM 10/30/17 04/20/18 Loratadine 10 mg PO DAILY 10/31/17 04/20/18 Acetaminophen [Tylenol Extra 500 mg PO BID 01/26/18 04/20/18 Strength] Donepezil HCl 10 mg PO DAILY 01/26/18 04/20/18 Folic Acid 1 mg PO DAILY 01/26/18 04/20/18 Glucosamine Sulfate 500 mg PO BID 01/26/18 04/20/18 Multivitamin [Theragran] 1 tab PO DAILY 01/26/18 04/20/18 - Allergies Allergies/Adverse Reactions: Allergies Allergy/AdvReac Type Severity Reaction Status Date / Time cephalexin [Cephalexin] Allergy Intermediate generalized Verified 01/26/18 14:30 shaking Review of Systems - Constitutional Constitutional: reports: Fatigue, Chills, Malaise, Weakness, Poor appetite, Weight loss. denies: Fever, Diaphoresis, Night sweats - Eyes Eyes: denies: Pain, Irritation, Amaurosis, Blurred vision - Ears, Nose & Throat Ears, Nose & Throat: reports: Hearing loss, Hearing aids. denies: Ear pain, Tinnitus, Vertigo, Nasal pain, Nasal discharge, Nasal congestion, Postnasal drainage, Dentures - Cardiovascular Cariovascular: reports: Exertional dyspnea, Decr. exercise tolerance, Other (She really does not do much at all except sit in her chair all day long. She is able to walk short distances in her apartment but usually only 5-6 feet. For anything longer than that she has to use a scooter.). denies: Irregular heart rate, Palpitations, Chest pain, Edema, Lightheadedness, Syncope - Respiratory Respiratory: reports: Cough, SOB with exertion. denies: Sputum production, Wheezing, Snoring, Hemoptysis, Orthopnea - Gastrointestinal Gastrointestinal: reports: Other (Incontinence of stool). denies: Abdominal pain, Abdominal distention, Constipation, Diarrhea, Rectal bleeding, Vomiting - Genitourinary Genitourinary: reports: Dysuria, Frequency, Urgency, Incontinence - Musculoskeletal Musculoskeletal: reports: Back pain, Stiffness, Muscle weakness, Gout, Joint pain. denies: Muscle pain, Muscle aches - Integumentary Integumentary: denies: Rash, Pruritis, Lesions, Dryness - Neurological Neurological: reports: General weakness, Memory problems (They are getting more more severe especially in the last couple of months). denies: Focal weakness, Headache, Dizziness, Pre-existing deficit, Abnormal gait, Seizures, Incoordination, Slurred speech - Psychiatric Psychiatric: reports: Delusions, Hallucinations. denies: Depression, Anxiety, Suicidal - Endocrine Endocrine: reports: Intolerance to cold. denies: Polyuria, Polydypsia, Polyphagia - Hematologic/Lymphatic Hematologic/Lymphatic: reports: Anemia. denies: Bruising, Petechiae Prior Level of Functionality: She is completely dependent for her daughter's ability to get her groceries, cleaning her apartment. Pay her bills. She is able to dress herself and feed herself albeit very slowly. Because of her memory loss she needs constant prompting. Because of her aortic stenosis she spends most of her time sitting in a chair. She is incontinent of urine or stool. When she leaves the apartment she must use a scooter. In the apartment she is not using a cane or a walker. She has frequent falls. Exam - Vital Signs Reviewed Vital Signs: Yes Vital Signs: Vital Signs x48h Temp Pulse Resp BP Pulse Ox 04/20/18 12:40 36.8 C 88 16 94/64 100 - Physical Exam General Appearance: positive: No acute distress, Alert, Other (Cachectic female, hirsute lips and chin, looks older than stated age, fretful affect with constant picking at the sheets and constantly saying "bring me another blanket, I am cold".) Eyes Bilateral: positive: PERRL, EOMI ENT: positive: Dry mucous membranes Neck: positive: No JVD. negative: Stiff neck, Carotid bruit Respiratory: positive: Chest non-tender. negative: Wheezes, Rales, Rhonchi Cardiovascular: positive: Regular rate & rhythm, Systolic murmur (Largest in the right upper sternal border, and radiates to the carotids. Very harsh.). negative: Gallop/S4, Friction rub Peripheral Pulses: positive: 1+ Abdomen: positive: Non-tender, No organomegaly, Nml bowel sounds, No distention, Other (Scaphoid) Skin: positive: Warm, Dry, Pallor Extremities: positive: Non-tender, No pedal edema, Other (Tremendous loss of muscle mass, and very thin) Neurologic/Psychiatric: positive: CN's nml (2-12) (Except very deaf), Motor nml, Disoriented to place, Disoriented to time, Weakness Reflexes: Bicep (R): 1+, Bicep (L): 1+, Knee (R): 1+, Knee (L): 1+, Ankle (R): 0, Ankle (L): 0 Babinski Reflex: Right: Down, Left: Down Sepsis Event Note (H) - Evaluation Current Stage of Sepsis: Sepsis Possible source of Sepsis: positive: Genitourinary - Sepsis Criteria Sepsis Criteria: SBP drop more than 40mHg, Renal: urine output less than 0.5ml/kg/hr for 2 hours or creatinine gr Conclusion/Plan - Problem List (1) Hypotension due to hypovolemia Conclusion/Plan: This is an elderly woman who has chronic urinary tract infections, and is been failing at home probably from a combination of dementia, aortic stenosis. She is falling, not eating, and has become dehydrated with acute renal failure and hypovolemia. Although she is being admitted his possible sepsis with UTI, I think, overall, that she is simply severely dehydrated from malnutrition and la ck of p.o. intake. Plan: ICU admission with acute inpatient stay greater than 2 midnights Already received lactated Ringer's in the ER, give another 2 L of lactated Ringer in the ICU Rule out sepsis with repeat lactic acid and blood and urine culture review Start to feed her. Work with nutrition services to see what is palatable for her. (2) Urinary tract infection Conclusion/Plan: Dr. Caro has already spoken to pharmacist. And taking into account her allergies, drug sensitivities for her previous UTIs, she will be on meropenem, pharmacy to adjust. Plan: Meropenem day #1 Pharmacy to adjust Adjust treatment on the basis of cultures Get cystoscopy report from urology Get infectious disease encounter notes Qualifiers: Urinary tract infection type: acute cystitis Hematuria presence: without hematuria Qualified Code(s): N30.00 - Acute cystitis without hematuria (3) Adult failure to thrive Conclusion/Plan: From senescence, aortic stenosis, dementia. In any case she appears to be malnourished, underweight. In February 2013 she was 90.4 kg. 2018 she was 68 kg. By the end of 2017 she was 63 kg. This month she is 65 kg. Plan: Again, work with nutrition services about supplements, encouraging her to eat Probable need for permanent placement [facility]. The daughter says she is already been in contact with admission services there and they are aware. In the meantime we will have our social services analyst work with him. Physical therapy evaluation tomorrow (4) Acute worsening of stage 3 chronic kidney disease Conclusion/Plan: hydration w LR check retroperitoneal US (5) Chronic anemia Conclusion/Plan: In 2018 her hemoglobin was as low as 6.9 and she needed transfusion. She then came up to 10-11 g of hemoglobin and has been staying stable at about 10.4-10.6. She does have borderline iron deficiency, normal B12 levels. TSH is normal. No hemolysis. Suspect either anemia of chronic disease or malnutrition. 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 (7) Gout Conclusion/Plan: At this time, because of her renal failure, will hold off on her allopurinol. Daughter is unsure when her last gout attack was. 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 CLINICAL HISTORY: Cough. COMPARISON: CHEST FOR LINE PLACEMENT 01/30/2018 1:22 PM. TECHNIQUE: 1 view. FINDINGS: Lungs/Pleura: No focal opacities evident. No pleural effusion. No pneumothorax. Mediastinum: Stable cardiomediastinal silhouette. Other: None. IMPRESSION: No evidence for acute cardiothoracic process. - EKG Results EKG Interpreted Independently: No Core Measures - Anticipated LOS I expect patient to be DC'd or transferred within 96 hours.: Yes - DVT/VTE - Prophylaxis VTE/DVT Device ordered at admit?: Yes
[2018-04-20] MEDS ORDERED: MEROPENEM 500 MG VIAL IV SCH (15:00)
[2018-04-20] MEDS: LACTATED RINGERS 1,000 ML IV SCH ×2 (15:45→20:33)
[2018-04-20] MEDS: SODIUM CHLORIDE FLUSH 0.9% 10 ML SYRINGE IVP SCH (16:13)
[2018-04-20] MEDS ORDERED: MIN OIL/DIMETHICON/COCONUT OIL 92 GM TUBE TOP PRN (16:56)
[2018-04-20] MEDS: traZODone 50 MG TABLET PO SCH (20:25)
[2018-04-20] MEDS: PHENAZOPYRIDINE 100 MG TABLET PO SCH (21:15)
[2018-04-21] MEDS: SODIUM CHLORIDE FLUSH 0.9% 10 ML SYRINGE IVP SCH ×3 (01:23→16:21)
[2018-04-21] MEDS: MEROPENEM 500 MG in SODIUM CHLORIDE 0.9% MINIBAG 100 ML IV SCH ×2 (01:28→13:39)
[2018-04-21 05:34] LABS: BASOPHILS % (AUTO) 0.6 %; EOSINOPHILS # (AUTO) 0.1 10^3/uL (0.0-0.7); EOSINOPHILS % (AUTO) 1.8 %; HGB - HEMOGLOBIN 9.3 g/dL (12.0-16.0); LYMPHOCYTES # (AUTO) 1.2 10^3/uL (1.5-3.5); LYMPHOCYTES % (AUTO) 17.8 %; MEAN CORPUSCULAR HEMOGLOBIN 31.3 pg (27.0-31.0); MEAN CORPUSCULAR HGB CONC 32.8 g/dL (32.0-36.0); MEAN CORPUSCULAR VOLUME 95.6 fL (81.0-99.0); MEAN PLATELET VOLUME 9.4 fL (7.9-10.8); MONOCYTES # (AUTO) 0.7 10^3/uL (0.0-1.0); MONOCYTES % (AUTO) 10.1 %; NEUTROPHILS # (AUTO) 4.9 10^3/uL (1.5-6.6); NEUTROPHILS % (AUTO) 69.7 %; PLT - PLATELET COUNT 268 10^3/uL (130-450); RED BLOOD COUNT 2.98 10^6/uL (4.20-5.40); RED CELL DISTRIBUTION WIDTH 14.7 % (12.0-15.0)
[2018-04-21 05:46] LABS: ALBUMIN 2.4 g/dL (3.2-5.5); ALBUMIN/GLOBULIN RATIO 0.8 (1.0-2.2); BILIRUBIN,TOTAL 0.5 mg/dL (0.2-1.0); CALCIUM 8.6 mg/dL (8.5-10.3); CREATININE 2.4 mg/dL (0.4-1.0); MAGNESIUM 1.3 mg/dL (1.7-2.8); PHOSPHORUS 3.2 mg/dL (2.5-4.6); TOTAL PROTEIN 5.6 g/dL (6.7-8.2)
[2018-04-21] MEDS: PHENAZOPYRIDINE 100 MG TABLET PO SCH ×3 (05:48→21:10)
[2018-04-21] MEDS: POLYETHYLENE GLYCOL 3350 17 GM PACKET PO SCH (08:07)
[2018-04-21] MEDS: MAGNESIUM OXIDE 400 MG TABLET PO SCH (08:08)
[2018-04-21] MEDS ORDERED: POLYETHYLENE GLYCOL 3350 17 GM PACKET PO SCH (09:00)
[2018-04-21] MEDS ORDERED: MAGNESIUM HYDROXIDE 2,400 MG/30 ML UDC PO ONE (16:47)
[2018-04-21 17:36] LABS: HB2 TOTAL 9.6 g/dL; HEMOGLOBIN A1C 0.42 g/dL; HEMOGLOBIN A1C % 6.2 % (4.6-6.2)
[2018-04-21] MEDS: INSULIN ASPART 300 UNIT/3 ML PEN SUBQ SCH ×2 (18:30→21:10)
[2018-04-21] MEDS: SENNA 8.6 MG TABLET PO SCH ×2 (18:30→23:02)
--- NOTE | 2018-04-21 18:56 | PROVIDER PROGRESS NOTE ---
Subjective - Prog Note Date Prog Note Date: 04/21/18 Prog Note Time: 18:54 - Subjective Subjective: She is very withdrawn. Prefers to sleep. Gets very cranky when we try to examine her and get her up. She denies any problems. More than anything she just really really cold. Current Medications - Current Medications Current Medications: Active Medications Acetaminophen (Tylenol) 650 mg PO Q4HR PRN PRN Reason: Pain 1 to 4 Hydrocodone Bitart/Acetaminophen (Toponas 5/325) 1 tab PO Q4HR PRN PRN Reason: Pain 5 to 7 Docusate Sodium (Colace 250mg Capsule) 250 - 500 mg PO DAILY [facility] Meropenem 500 mg/ Sodium (Chloride) 100 mls @ 200 mls/hr IV Q12H [facility] Last Infusion: 04/21/18 14:15 Dose: Infused Insulin Aspart (Novolog) 1 - 5 unit SUBQ 0800,1200,1700,2100 [facility]; Protocol Last Admin: 04/21/18 18:30 Dose: 1 unit Magnesium Oxide (Mag Ox) 400 mg PO DAILYWM [facility] Last Admin: 04/21/18 08:08 Dose: 400 mg Mineral Oil (Cavilon) 1 applic TOP PRN PRN PRN Reason: Skin Care Last Admin: 04/20/18 18:00 Dose: 1 applic Ondansetron HCl (Zofran Inj) 4 mg IVP Q6HR PRN PRN Reason: Nausea / Vomiting Ondansetron HCl (Zofran Odt) 4 mg TL Q6HR PRN PRN Reason: Nausea / Vomiting Phenazopyridine HCl (Pyridium) 100 mg PO TID [facility] Last Admin: 04/21/18 13:39 Dose: 100 mg Polyethylene Glycol (Miralax) 17 gm PO DAILY [facility] Last Admin: 04/21/18 08:07 Dose: 17 gm Senna (Senokot) 8.6 - 17.2 mg PO DAILY [facility] Senna (Senokot) 17.2 - 25.8 mg PO Q6H [facility] Stop: 04/22/18 11:01 Last Admin: 04/21/18 18:30 Dose: 25.8 mg Sodium Chloride (Normal Saline Flush 0.9%) 10 ml IVP 0100,0900,1700 [facility] Last Admin: 04/21/18 16:21 Dose: Not Given Sodium Chloride (Normal Saline Flush 0.9%) 10 ml IVP PRN PRN PRN Reason: NEEDED PER PROVIDER ORDERS Trazodone HCl (Desyrel) 100 mg PO QPM [facility] Last Admin: 04/20/18 20:25 Dose: 100 mg Allopurinol [Zyloprim] 300 mg PO DAILY 02/18/13 Aspirin Chewable [[place] Aspirin] 81 mg PO DAILY 02/18/13 Cyanocobalamin (Vitamin B-12) [Vitamin B-12] 2,500 mcg PO DAILY 02/18/13 Lisinopril 2.5 mg PO DAILY 02/18/13 Metformin HCl [Glumetza] 500 mg PO BIDWM 02/18/13 Omeprazole [PriLOSEC] 20 mg PO QDAC 02/18/13 Oxybutynin [Ditropan] 5 mg PO BID 02/18/13 Simvastatin [Zocor] 40 mg PO QPM 02/18/13 traZODone [Desyrel] 100 mg PO QPM 10/30/17 Loratadine 10 mg PO DAILY 10/31/17 Acetaminophen [Tylenol Extra Strength] 500 mg PO BID 01/26/18 Donepezil HCl 10 mg PO DAILY 01/26/18 Folic Acid 1 mg PO DAILY 01/26/18 Glucosamine Sulfate 500 mg PO BID 01/26/18 Multivitamin [Theragran] 1 tab PO DAILY 01/26/18 My Active Orders 04/20/18 21:00 traZODone [Desyrel] 100 mg PO QPM 04/21/18 Evaluate and Treat OT [OT] Routine Evaluate and Treat PT [PT] Routine 04/21/18 02:00 Meropenem [Merrem] 500 mg Sodium Chloride 0.9% Minibag [Normal Saline 0.9% Minibag] 100 ml IV Q12H 04/21/18 08:00 Magnesium Oxide [Mag Ox] 400 mg PO DAILYWM 04/21/18 09:00 Polyethylene Glycol 3350 [Miralax] 17 gm PO DAILY 04/21/18 15:30 Oxygen Therapy [RC] .PRN 04/21/18 16:50 Blood Glucose Checks - Eating [RC] 0800,1200,1700,2100 Initiate Hypoglycemia Protocol [RC] .protocol 04/21/18 17:00 Insulin Aspart [NovoLOG] 1 - 5 unit SUBQ 0800,1200,1700,2100 Senna [Senokot] 17.2 - 25.8 mg PO Q6H 04/21/18 Lunch Regular Diet [DIET] 04/22/18 05:00 CBC - COMP BLD CT W/AUTO DIFF [HEME] DAILYLAB COMPREHENSIVE METABOLIC PANEL [CHEM] DAILYLAB MAGNESIUM [CHEM] DAILYLAB PHOSPHORUS [CHEM] DAILYLAB 04/22/18 09:00 Docusate Sodium 250Mg Capsule [Colace 250Mg Capsule] 250 - 500 mg PO DAILY Senna [Senokot] 8.6 - 17.2 mg PO DAILY 04/23/18 05:00 CBC - COMP BLD CT W/AUTO DIFF [HEME] DAILYLAB COMPREHENSIVE METABOLIC PANEL [CHEM] DAILYLAB MAGNESIUM [CHEM] DAILYLAB PHOSPHORUS [CHEM] DAILYLAB Objective - Vital Signs/Intake & Output Reviewed Vital Signs: Yes Vital Signs: Vital Signs x48h Temp Pulse Pulse Pulse Resp BP BP 04/21/18 16:00 36.6 C 70 16 112/73 04/21/18 13:12 78 76 04/21/18 13:10 78 76 04/21/18 12:00 36.9 C 64 18 95/57 L BP BP Pulse Ox 04/21/18 16:00 100 04/21/18 13:12 117/46 L 123/72 04/21/18 13:10 117/46 L 123/72 04/21/18 12:00 96 Intake & Output: Intake & Output 04/18/18 04/19/18 04/20/18 04/21/18 23:59 23:59 23:59 23:59 Intake Total 2664 2690 Output Total 1900 Balance 2664 790 - Objective General Appearance: positive: No acute distress, Alert, Other (Pale elderly withdrawn female laying comfortably in bed) Eyes Bilateral: positive: PERRL, EOMI ENT: positive: Dry mucous membranes Neck: positive: No JVD. negative: Stiff neck, Carotid bruit Respiratory: positive: Chest non-tender. negative: Wheezes, Rales, Rhonchi Cardiovascular: positive: Systolic murmur. negative: Gallop/S4, Friction rub Abdomen: positive: Non-tender, No organomegaly, Nml bowel sounds, No distention Skin: positive: Warm, Dry, Pallor Extremities: positive: Full ROM, Pedal edema Neurologic/Psychiatric: positive: Disoriented to person, Disoriented to place, Disoriented to time, Weakness, Other (Verbal, does interact appropriately and answer questions appropriately.) - Lab Results Fish Bones: 04/21/18 05:17 04/21/18 05:17 Other Labs: Lab Results x24hrs 04/21/18 04/21/18 04/21/18 Range/Units 05:17 05:17 05:17 WBC 7.0 (4.8-10.8) x10^3/uL RBC 2.98 L (4.20-5.40) 10^6/uL Hgb 9.3 L (12.0-16.0) g/dL Hct 28.5 L (37.0-47.0) % MCV 95.6 (81.0-99.0) fL MCH 31.3 H (27.0-31.0) pg MCHC 32.8 (32.0-36.0) g/dL RDW 14.7 (12.0-15.0) % Plt Count 268 (130-450) 10^3/uL MPV 9.4 (7.9-10.8) fL Neut # (Auto) 4.9 (1.5-6.6) 10^3/uL Lymph # (Auto) 1.2 L (1.5-3.5) 10^3/uL Gilchrist # (Auto) 0.7 (0.0-1.0) 10^3/uL Eos # (Auto) 0.1 (0.0-0.7) 10^3/uL Baso # (Auto) 0.0 (0.0-0.1) 10^3/uL Absolute Nucleated RBC 0.00 x10^3/uL Nucleated RBC % 0.0 /100WBC Sodium 138 (135-145) mmol/L Potassium 5.0 (3.5-5.0) mmol/L Chloride 111 (101-111) mmol/L Carbon Dioxide 21 (21-32) mmol/L Anion Gap 6.0 (6-13) BUN 43 H (6-20) mg/dL Creatinine 2.4 H (0.4-1.0) mg/dL Estimated GFR (MDRD) 19 L (>89) Glucose 152 H (70-100) mg/dL Glycated Hemoglobin 6.2 (4.6-6.2) % Estim Average Glucose 131 H (70-100) Uric Acid (2.6-7.2) mg/dL Calcium 8.6 (8.5-10.3) mg/dL Phosphorus 3.2 (2.5-4.6) mg/dL Magnesium 1.3 L (1.7-2.8) mg/dL Total Bilirubin 0.5 (0.2-1.0) mg/dL AST 10 (10-42) IU/L ALT 10 (10-60) IU/L Alkaline Phosphatase 72 (42-121) IU/L Total Protein 5.6 L (6.7-8.2) g/dL Albumin 2.4 L (3.2-5.5) g/dL Globulin 3.2 (2.1-4.2) g/dL Albumin/Globulin Ratio 0.8 L (1.0-2.2) 04/20/18 Range/Units 12:57 WBC (4.8-10.8) x10^3/uL RBC (4.20-5.40) 10^6/uL Hgb (12.0-16.0) g/dL Hct (37.0-47.0) % MCV (81.0-99.0) fL MCH (27.0-31.0) pg MCHC (32.0-36.0) g/dL RDW (12.0-15.0) % Plt Count (130-450) 10^3/uL MPV (7.9-10.8) fL Neut # (Auto) (1.5-6.6) 10^3/uL Lymph # (Auto) (1.5-3.5) 10^3/uL Gilchrist # (Auto) (0.0-1.0) 10^3/uL Eos # (Auto) (0.0-0.7) 10^3/uL Baso # (Auto) (0.0-0.1) 10^3/uL Absolute Nucleated RBC x10^3/uL Nucleated RBC % /100WBC Sodium (135-145) mmol/L Potassium (3.5-5.0) mmol/L Chloride (101-111) mmol/L Carbon Dioxide (21-32) mmol/L Anion Gap (6-13) BUN (6-20) mg/dL Creatinine (0.4-1.0) mg/dL Estimated GFR (MDRD) (>89) Glucose (70-100) mg/dL Glycated Hemoglobin (4.6-6.2) % Estim Average Glucose (70-100) Uric Acid 6.1 (2.6-7.2) mg/dL Calcium (8.5-10.3) mg/dL Phosphorus (2.5-4.6) mg/dL Magnesium (1.7-2.8) mg/dL Total Bilirubin (0.2-1.0) mg/dL AST (10-42) IU/L ALT (10-60) IU/L Alkaline Phosphatase (42-121) IU/L Total Protein (6.7-8.2) g/dL Albumin (3.2-5.5) g/dL Globulin (2.1-4.2) g/dL Albumin/Globulin Ratio (1.0-2.2) ABX Reporting Has patient been on IV antibiotics over the past 48 hours?: Yes Sepsis Event Note (H) - Evaluation Current Stage of Sepsis: Sepsis Possible source of Sepsis: positive: Genitourinary - Sepsis Criteria Sepsis Criteria: SBP drop more than 40mHg, Renal: urine output less than 0.5ml /kg/hr for 2 hours or creatinine gr Assessment/Plan - Problem List (1) Hypotension due to hypovolemia Impression: This is an elderly woman who has chronic urinary tract infections, and is been failing at home probably from a combination of dementia, aortic stenosis. She is falling, not eating, and has become dehydrated with acute renal failure and hypovolemia. Although she is being admitted his possible sepsis with UTI, I think, overall, that she is simply severely dehydrated from malnutrition and lack of p.o. intake. Plan: ICU admission with acute inpatient stay greater than 2 midnights. Stable overnight with IV fluids. No further hypotension after fluid resuscitation. Transfer to [facility] status Ruled out sepsis with repeat lactic acid and blood and urine culture review Started to feed her. She is eating everything we give her. Work with nutrition services to see what is palatable for her.We are using the large utensils at the daughter's request. (2) Urinary tract infection Conclusion/Plan: Dr. Caro has already spoken to pharmacist. And taking into account her allergies, drug sensitivities for her previous UTIs, she will be on meropenem, pharmacy to adjust.Blood cultures have been negative. Initial microbiology and urine is gram-negative growth. Plan: Meropenem day #2 Pharmacy to adjust Adjust treatment on the basis of cultures Get cystoscopy report from urology Get infectious disease encounter notes Qualifiers: Urinary tract infection type: acute cystitis Hematuria presence: without he maturia Qualified Code(s): N30.00 - Acute cystitis without hematuria (3) Adult failure to thrive Conclusion/Plan: From senescence, aortic stenosis, dementia. In any case she appears to be malnourished, underweight. In February 2013 she was 90.4 kg. 2018 she was 68 kg. By the end of 2018 she was 63 kg. This month she is 65 kg. Plan: Again, work with nutrition services about supplements, encouraging her to eat Probable need for permanent placement [facility]. The daughter says she is already been in contact with admission services there and they are aware. In the meantime we will have our web content & social media manager work with him.Care conference discussion held. Physical therapy evaluation: Pt. is a pleasant, 82 y.o. F admitted w/hypotension and falls; she presents w/improved mentation this p.m. presenting very alert and interactive; she is able to stand and step in place w/min. to mod. a x 1 and takes steps w/walker forward and backward. She is able to assist w/scooting; pt. needs continued PT in hospital working on improving her independence w/functional activity and progression of her gait; she is recommended for trasnfer to SNF after hospital d/c for continued physical therapy toward her goals of safe, independent, mobility. (4) Acute worsening of stage 3 chronic kidney disease Conclusion/Plan: hydration w LR check retroperitoneal US (5) Chronic anemia Conclusion/Plan: In 2018 her hemoglobin was as low as 6.9 and she needed transfusion. She then came up to 10-11 g of hemoglobin and has been staying stable at about 10.4-10.6. She does have borderline iron deficiency, normal B12 levels. TSH is normal. No hemolysis. Suspect either anemia of chronic disease or malnutrition. 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 (7) Gout Conclusion/Plan: At this time, because of her renal failure, will hold off on her allopurinol. Daughter is unsure when her last gout attack was. 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
[2018-04-21] MEDS: traZODone 50 MG TABLET PO SCH (21:10)
[2018-04-22] MEDS: SODIUM CHLORIDE FLUSH 0.9% 10 ML SYRINGE IVP SCH ×3 (00:49→17:58)
[2018-04-22] MEDS: MEROPENEM 500 MG in SODIUM CHLORIDE 0.9% MINIBAG 100 ML IV SCH ×2 (01:33→13:55)
[2018-04-22] MEDS: SODIUM CHLORIDE FLUSH 0.9% 10 ML SYRINGE IVP PRN (01:33)
--- NOTE | 2018-04-22 02:13 | Ultrasound Report ---
Reason: acute renal failure Procedure Date: 04/22/2018 Accession Number: [id number] / [id number] Procedure: US - Retroperitoneal CPT Code: FULL RESULT: EXAM: RENAL ULTRASOUND EXAM DATE: 04/22/2018 01:10 AM. CLINICAL HISTORY: Acute renal failure. COMPARISON: RETROPERITONEAL 01/28/2018 9:26 AM. TECHNIQUE: Real-time scanning was performed with static images obtained. FINDINGS: Right Kidney: 11.9 x 6.7 x 7.3 cm. There is an upper pole cyst measuring 2.3 x 2.1 x 2.4 cm. There is an extrarenal pelvis measuring 3.5 cm. Mild hydronephrosis. Left Kidney: 10.8 x 7.0 x 5.8 cm. There is an extrarenal pelvis measuring 2.8 cm. There is mild hydronephrosis. Bladder: Not seen The prevoid bladder volume was 111 cc. Post void residual not obtained. Other: According to the sinologist this was a technically difficult examination due to patient's position and constant motion. IMPRESSION: 1. Bilateral extrarenal pelves. 2. Mild bilateral hydronephrosis. RADIA
[2018-04-22 05:29] LABS: BASOPHILS % (AUTO) 0.6 %; EOSINOPHILS # (AUTO) 0.2 10^3/uL (0.0-0.7); EOSINOPHILS % (AUTO) 3.2 %; HGB - HEMOGLOBIN 8.9 g/dL (12.0-16.0); LYMPHOCYTES # (AUTO) 1.9 10^3/uL (1.5-3.5); LYMPHOCYTES % (AUTO) 32.4 %; MEAN CORPUSCULAR HEMOGLOBIN 30.8 pg (27.0-31.0); MEAN CORPUSCULAR HGB CONC 32.5 g/dL (32.0-36.0); MEAN CORPUSCULAR VOLUME 94.7 fL (81.0-99.0); MEAN PLATELET VOLUME 9.5 fL (7.9-10.8); MONOCYTES # (AUTO) 0.6 10^3/uL (0.0-1.0); MONOCYTES % (AUTO) 10.4 %; NEUTROPHILS # (AUTO) 3.1 10^3/uL (1.5-6.6); NEUTROPHILS % (AUTO) 53.4 %; PLT - PLATELET COUNT 268 10^3/uL (130-450); RED CELL DISTRIBUTION WIDTH 14.5 % (12.0-15.0); WHITE BLOOD COUNT 5.8 x10^3/uL (4.8-10.8)
[2018-04-22 05:42] LABS: ALBUMIN 2.3 g/dL (3.2-5.5); ALBUMIN/GLOBULIN RATIO 0.8 (1.0-2.2); BILIRUBIN,TOTAL 0.4 mg/dL (0.2-1.0); CALCIUM 8.5 mg/dL (8.5-10.3); CREATININE 1.7 mg/dL (0.4-1.0); MAGNESIUM 1.4 mg/dL (1.7-2.8); PHOSPHORUS 2.7 mg/dL (2.5-4.6); TOTAL PROTEIN 5.2 g/dL (6.7-8.2)
[2018-04-22] MEDS: SENNA 8.6 MG TABLET PO SCH ×3 (06:07→10:36)
[2018-04-22] MEDS: PHENAZOPYRIDINE 100 MG TABLET PO SCH ×3 (06:07→21:27)
--- NOTE | 2018-04-22 07:27 | PROVIDER PROGRESS NOTE ---
Subjective - Prog Note Date Prog Note Date: 04/22/18 Prog Note Time: 08:44 - Subjective Subjective: Very weak, very shaky. Needs a lap belt and 2 nurses to get her up out of the bed to then position her in the chair. She is still happy to get out of bed. She says her tailbone is "killing me". She is motivated to get up. She really wants to see if she can use a walker and walk in the hallway. Eating about 50% of her food. She is exhausted in the effort of just getting her up out of bed and putting her in a chair. She denies chest pain, shortness of breath. Denies any abdominal pain. Current Medications - Current Medications Current Medications: Active Medications Acetaminophen (Tylenol) 650 mg PO Q4HR PRN PRN Reason: Pain 1 to 4 Hydrocodone Bitart/Acetaminophen ([place] 5/325) 1 tab PO Q4HR PRN PRN Reason: Pain 5 to 7 Last Admin: 04/22/18 00:54 Dose: 1 tab Docusate Sodium (Colace 250mg Capsule) 250 - 500 mg PO DAILY [facility] Last Admin: 04/22/18 08:16 Dose: 250 mg Meropenem 500 mg/ Sodium (Chloride) 100 mls @ 200 mls/hr IV Q12H [facility] Last Infusion: 04/22/18 02:03 Dose: Infused Insulin Aspart (Novolog) 1 - 5 unit SUBQ 0800,1200,1700,2100 [facility]; Protocol Last Admin: 04/22/18 08:17 Dose: Not Given Magnesium Oxide (Mag Ox) 400 mg PO DAILYWM [facility] Last Admin: 04/22/18 08:15 Dose: 400 mg Mineral Oil (Cavilon) 1 applic TOP PRN PRN PRN Reason: Skin Care Last Admin: 04/20/18 18:00 Dose: 1 applic Ondansetron HCl (Zofran Inj) 4 mg IVP Q6HR PRN PRN Reason: Nausea / Vomiting Ondansetron HCl (Zofran Odt) 4 mg TL Q6HR PRN PRN Reason: Nausea / Vomiting Phenazopyridine HCl (Pyridium) 100 mg PO TID [facility] Last Admin: 04/22/18 06:07 Dose: 100 mg Polyethylene Glycol (Miralax) 17 gm PO DAILY [facility] Last Admin: 04/22/18 08:16 Dose: 17 gm Multivit/Folic Acid/Iron (Trinatal Rx 1) 1 tab PO DAILYWM [facility] Last Admin: 04/22/18 08:16 Dose: 1 tab Senna (Senokot) 8.6 - 17.2 mg PO DAILY [facility] Last Admin: 04/22/18 08:15 Dose: 8.6 mg Senna (Senokot) 17.2 - 25.8 mg PO Q6H [facility] Stop: 04/22/18 11:01 Last Admin: 04/22/18 06:07 Dose: 17.2 mg Sodium Chloride (Normal Saline Flush 0.9%) 10 ml IVP 0100,0900,1700 [facility] Last Admin: 04/22/18 08:16 Dose: 10 ml Sodium Chloride (Normal Saline Flush 0.9%) 10 ml IVP PRN PRN PRN Reason: NEEDED PER PROVIDER ORDERS Last Admin: 04/22/18 01:33 Dose: 10 ml Trazodone HCl (Desyrel) 100 mg PO QPM [facility] Last Admin: 04/21/18 21:10 Dose: 100 mg Allopurinol [Zyloprim] 300 mg PO DAILY 02/18/13 Aspirin Chewable [[place] Aspirin] 81 mg PO DAILY 02/18/13 Cyanocobalamin (Vitamin B-12) [Vitamin B-12] 2,500 mcg PO DAILY 02/18/13 Lisinopril 2.5 mg PO DAILY 02/18/13 Metformin HCl [Glumetza] 500 mg PO BIDWM 02/18/13 Omeprazole [PriLOSEC] 20 mg PO QDAC 02/18/13 Oxybutynin [Ditropan] 5 mg PO BID 02/18/13 Simvastatin [Zocor] 40 mg PO QPM 02/18/13 traZODone [Desyrel] 100 mg PO QPM 10/30/17 Loratadine 10 mg PO DAILY 10/31/17 Acetaminophen [Tylenol Extra Strength] 500 mg PO BID 01/26/18 Donepezil HCl 10 mg PO DAILY 01/26/18 Folic Acid 1 mg PO DAILY 01/26/18 Glucosamine Sulfate 500 mg PO BID 01/26/18 Multivitamin [Theragran] 1 tab PO DAILY 01/26/18 Objective - Vital Signs/Intake & Output Reviewed Vital Signs: Yes Vital Signs: Vital Signs x48h Temp Pulse Pulse Resp BP Pulse Ox 04/22/18 04:00 36.8 C 85 18 126/82 H 97 04/22/18 00:00 36.5 C 88 20 137/66 H 99 Intake & Output: Intake & Output 04/19/18 04/20/18 04/21/18 04/22/18 23:59 23:59 23:59 23:59 Intake Total 2664 3050 100 Output Total 2100 400 Balance 2664 950 -300 - Objective General Appearance: positive: No acute distress, Alert, Other (Short statured, frail and tremulous elderly female who looks stated age,. Her alertness and mentation is tremendously improved from admission as well as yesterday.) Eyes Bilateral: positive: PERRL, EOMI ENT: positive: Pharynx nml Neck: positive: No JVD. negative: Stiff neck, Carotid bruit Respiratory: positive: Chest non-tender. negative: Wheezes, Rales, Rhonchi Cardiovascular: positive: Regular rate & rhythm, Systolic murmur. negative: Gallop/S4, Friction rub Abdomen: positive: Non-tender, No organomegaly, Nml bowel sounds, No distention Skin: positive: Warm, Dry, Pallor Extremities: positive: Full ROM, No pedal edema Neurologic/Psychiatric: positive: CN's nml (2-12), Motor nml (but tremors of exertion and severe generalized weakness), Disoriented to time, Weakness. negative: Facial droop, Slurred/abnml speech - Lab Results Fish Bones: 04/22/18 05:17 04/22/18 05:17 Other Labs: Lab Results x24hrs 04/22/18 04/22/18 04/21/18 Range/Units 05:17 05:17 05:17 WBC 5.8 (4.8-10.8) x10^3/uL RBC 2.90 L (4.20-5.40) 10^6/uL Hgb 8.9 L (12.0-16.0) g/dL Hct 27.4 L (37.0-47.0) % MCV 94.7 (81.0-99.0) fL MCH 30.8 (27.0-31.0) pg MCHC 32.5 (32.0-36.0) g/dL RDW 14.5 (12.0-15.0) % Plt Count 268 (130-450) 10^3/uL MPV 9.5 (7.9-10.8) fL Neut # (Auto) 3.1 (1.5-6.6) 10^3/uL Lymph # (Auto) 1.9 (1.5-3.5) 10^3/uL [place] # (Auto) 0.6 (0.0-1.0) 10^3/uL Eos # (Auto) 0.2 (0.0-0.7) 10^3/uL Baso # (Auto) 0.0 (0.0-0.1) 10^3/uL Absolute Nucleated RBC 0.00 x10^3/uL Nucleated RBC % 0.0 /100WBC Sodium 139 (135-145) mmol/L Potassium 5.1 H (3.5-5.0) mmol/L Chloride 107 (101-111) mmol/L Carbon Dioxide 25 (21-32) mmol/L Anion Gap 7.0 (6-13) BUN 40 H (6-20) mg/dL Creatinine 1.7 H (0.4-1.0) mg/dL Estimated GFR (MDRD) 29 L (>89) Glucose 154 H (70-100) mg/dL Glycated Hemoglobin 6.2 (4.6-6.2) % Estim Average Glucose 131 H (70-100) Calcium 8.5 (8.5-10.3) mg/dL Phosphorus 2.7 (2.5-4.6) mg/dL Magnesium 1.4 L (1.7-2.8) mg/dL Total Bilirubin 0.4 (0.2-1.0) mg/dL AST 13 (10-42) IU/L ALT 11 (10-60) IU/L Alkaline Phosphatase 71 (42-121) IU/L Total Protein 5.2 L (6.7-8.2) g/dL Albumin 2.3 L (3.2-5.5) g/dL Globulin 2.9 (2.1-4.2) g/dL Albumin/Globulin Ratio 0.8 L (1.0-2.2) ABX Reporting Has patient been on IV antibiotics over the past 48 hours?: Yes Sepsis Event Note (H) - Evaluation Current Stage of Sepsis: Ruled out Possible source of Sepsis: positive: Genitourinary - Sepsis Criteria Sepsis Criteria: SBP drop more than 40mHg, Renal: urine output less than 0.5ml/kg/hr for 2 hours or creatinine gr Assessment/Plan - Problem List (1) Hypotension due to hypovolemia Impression: Resolved 04/21 This is an elderly woman who has chronic urinary tract infections, and is been failing at home probably from a combination of dementia, aortic stenosis, lack of po intake and UTI. She is falling, not eating, and has become dehydrated with acute renal failure and hypovolemia. Although she is being admitted possible sepsis with UTI, I think, overall, that she is simply severely dehydrated from malnutrition and lack of p.o. intake. Plan: ICU admission with acute inpatient stay greater than 2 midnights. Stable overnight with IV fluids. No further hypotension after fluid resuscitation. Transfer to [facility] status 04/21/17. Ruled out sepsis with repeat lactic acid and blood and urine culture review Started to feed her. She is eating everything we give her. Work with nutrition services to see what is palatable for her.We are using the large utensils at the daughter's request. Plan is for dc in am to SNF (2) Urinary tract infection Conclusion/Plan: Dr. Caro has already spoken to pharmacist. And taking into account her allergies, drug sensitivities for her previous UTIs, she will be on meropenem, pharmacy to adjust. Blood cultures have been negative. Initial microbiology and urine is gram-negative growth. Final growth is EBSL Kleb pneumonia resistant to everything except -penems and quinolones. Plan: Meropenem day #3 dose completed today. Pharmacy was adjusting dose on basis of GFR Stop IV meds. Change to levaquin po. Get cystoscopy report from urology Get infectious disease encounter notes Qualifiers: Urinary tract infection type: acute cystitis Hematuria presence: without hematuria Qualified Code(s): N30.00 - Acute cystitis without hematuria (3) Adult failure to thrive with chronic protein calorie malnutrition. Conclusion/Plan: From senescence, aortic stenosis, dementia. In any case she appears to be malnourished, underweight. In February 2013 she was 90.4 kg. 2017 she was 68 kg. By the end of 2017 she was 63 kg. This month she is 65 kg. Eating 50% of her meals. Plan: Again, work with nutrition services about supplements, encouraging her to eat Probable need for permanent placement [facility]. The daughter says she is already been in contact with admission services there and they are aware. In the meantime we will have our social insurance adviser work with her. Care conference discussion held. Plan is for daily PT. Physical therapy evaluation: 04/21/18: Pt. is a pleasant, 82 y.o. F admitted w/hypotension and falls; she presents w/improved mentation this p.m. presenting very alert and interactive; she is able to stand and step in place w/min. to mod. a x 1 and takes steps w/walker forward and backward. She is able to assist w/scooting; pt. needs continued PT in hospital working on improving her independence w/functional acti vity and progression of her gait; she is recommended for transfer to SNF after hospital d/c for continued physical therapy toward her goals of safe, independent, mobility. We will plan for discharge in am to SNF. (4) Acute worsening of stage 3 chronic kidney disease Conclusion/Plan: hydration w LR check retroperitoneal US Creatinine is falling and responding to IVF and food. 3.2>2.4>1.7. She should be at baseline by tomorrow at this rate. (5) Chronic anemia Conclusion/Plan: In 2018 her hemoglobin was as low as 6.9 and she needed transfusion. She then came up to 10-11 g of hemoglobin and has been staying stable at about 10.4-10.6. She does have borderline iron deficiency, normal B12 levels. TSH is normal. No hemolysis. Suspect either anemia of chronic disease or malnutrition. Laboratory Tests 10/31/17 01/28/18 01/28/18 05:35 10:46 10:46 Reticulocyte % (Auto) 1.21 Iron 40 TIBC 179 L % Saturation 22 Ferritin Vitamin B12 Folate TSH 1.49 01/28/18 01/29/18 10:46 13:02 Reticulocyte % (Auto) Iron TIBC % Saturation Ferritin 67.8 Vitamin B12 1737 H Folate > 49.60 TSH She is dropping her Hgb again. No clear etiology of cause. She has no GI bleed. Postulated she may have enough hematuria that she is chronically losing blood and on top of that malnourished. No need for transfusion today. Will start vitamin. 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 Eating 50% of her meals. Glucose yesterday was 152 and 168. (7) Gout Conclusion/Plan: At this time, because of her renal failure, will hold off on her allopurinol. Daughter is unsure when her last gout attack was. Qualifiers: Gout site: unspecified site Gout etiology: other secondary cause Chronicity: chronic Presence of tophus: without tophus Qualified Code(s): M1A.40X0 - Other secondary chronic gout, unspecified site, without tophus (tophi)
[2018-04-22] MEDS: MAGNESIUM OXIDE 400 MG TABLET PO SCH (08:15)
[2018-04-22] MEDS: POLYETHYLENE GLYCOL 3350 17 GM PACKET PO SCH (08:16)
[2018-04-22] MEDS: PRENATAL VITAMIN TABLET PO SCH (08:16)
[2018-04-22] MEDS: DOCUSATE SODIUM 250 MG CAPSULE PO SCH (08:16)
[2018-04-22] MEDS: INSULIN ASPART 300 UNIT/3 ML PEN SUBQ SCH ×4 (08:17→21:25)
[2018-04-22] MEDS: traZODone 50 MG TABLET PO SCH (21:27)
[2018-04-23] MEDS: SODIUM CHLORIDE FLUSH 0.9% 10 ML SYRINGE IVP SCH ×2 (00:40→09:06)
[2018-04-23] MEDS: MEROPENEM 500 MG in SODIUM CHLORIDE 0.9% MINIBAG 100 ML IV SCH (03:53)
[2018-04-23] MEDS: SODIUM CHLORIDE FLUSH 0.9% 10 ML SYRINGE IVP PRN (03:54)
[2018-04-23] MEDS: PHENAZOPYRIDINE 100 MG TABLET PO SCH (05:06)
[2018-04-23 05:53] LABS: BASOPHILS # (AUTO) 0.1 10^3/uL (0.0-0.1); EOSINOPHILS # (AUTO) 0.2 10^3/uL (0.0-0.7); EOSINOPHILS % (AUTO) 2.8 %; HGB - HEMOGLOBIN 9.3 g/dL (12.0-16.0); LYMPHOCYTES # (AUTO) 1.9 10^3/uL (1.5-3.5); LYMPHOCYTES % (AUTO) 32.6 %; MEAN CORPUSCULAR HEMOGLOBIN 32.1 pg (27.0-31.0); MEAN CORPUSCULAR HGB CONC 33.5 g/dL (32.0-36.0); MEAN CORPUSCULAR VOLUME 95.9 fL (81.0-99.0); MEAN PLATELET VOLUME 8.8 fL (7.9-10.8); MONOCYTES # (AUTO) 0.5 10^3/uL (0.0-1.0); MONOCYTES % (AUTO) 9.1 %; NEUTROPHILS # (AUTO) 3.2 10^3/uL (1.5-6.6); NEUTROPHILS % (AUTO) 54.5 %; PLT - PLATELET COUNT 278 10^3/uL (130-450); RED BLOOD COUNT 2.89 10^6/uL (4.20-5.40); RED CELL DISTRIBUTION WIDTH 14.6 % (12.0-15.0); WHITE BLOOD COUNT 5.9 x10^3/uL (4.8-10.8)
[2018-04-23 06:08] LABS: ALBUMIN 2.5 g/dL (3.2-5.5); ALBUMIN/GLOBULIN RATIO 0.9 (1.0-2.2); BILIRUBIN,TOTAL 0.4 mg/dL (0.2-1.0); CALCIUM 8.7 mg/dL (8.5-10.3); CREATININE 1.5 mg/dL (0.4-1.0); MAGNESIUM 1.3 mg/dL (1.7-2.8); PHOSPHORUS 2.4 mg/dL (2.5-4.6); TOTAL PROTEIN 5.4 g/dL (6.7-8.2)
--- NOTE | 2018-04-23 08:02 | Discharge Plan ---
"Discharge Plan for SNF / [facility] - Discharge Plan And Transition Orders Disposition: 03 SNF DC/Xfer Condition: Good Allergies and Adverse Reactions: Allergies Allergy/AdvReac Type Severity Reaction Status Date / Time cephalexin [Cephalexin] Allergy Intermediate generalized Verified 01/26/18 14:30 shaking - SNF / [facility] Transition Orders Admit to (Facility): [facility] Under the care of (Name): Kerri Webb MD/Titus Vega MD Discharge Diagnosis: 1. Hypotension due to hypovolemia, protein calorie malnutrition, dehydration 2. Aortic stenosis, severe 3. Vascular dementia 4. UTI with E BSL Klebsiella pneumonia 5. Acute worsening of stage III chronic kidney disease, resolved. Retroperitoneal ultrasound showed mild hydronephrosis and extra pelvis each kidney. 6. Chronic anemia. Iron and B12 studies normal. Possible mild hemolysis 7. Controlled type 2 diabetes mellitus with diabetic proteinuria. A1c 6.2% 8. History of gout 9. Hypertension 10. Hyperlipidemia 11. Urinary incontinence 12. Depression with anxiety 13. Osteoarthritis Medicare Certification Statement: [facility] cert[facility] medically necessary on a continuing basis for any of the conditions for which she/he is receiving care during hospitalization. Notify PCP of admission and forward orders to primary provider for signature. Weight on admission and: Weekly Call PCP immediately if weight increases by: 2.2 kg Other Notification Orders: Call PCP immediately if patient develops dyspnea, chest pain/tightness or edema. House Bowel Program: Yes Additional Bowel Program Orders: If no BM after 2 days, nurse may give M.O.M. 30ml PO PRN and/or ducolax Supp 1 DE and/or ELIZABETH 250mg P.O., and/or senna 1-2 tabs PO. On day 3 nurse may give repeat above order until residents constipation is resolved. Annual Influenza Vaccine (between Dec 14 and July 13): Yes Two-step PPD per [facility] [id number] or approved exception documents: Yes Medication Orders: PLEASE REFER TO THE DISCHARGE MEDICATION LIST. Insulin Orders?: Yes - Medications New Prescriptions: Levofloxacin [Levaquin] 500 mg PO DAILY #4 tablet - Diet Type: No added sugar Texture: Regular Liquids: Thin May have monthly special meal: Yes - Therapies | Activity Therapy: Evaluation | Treat if indicated: PT, OT Rehabilitation Potential: Maximize functional status Activity: Additional Comments (fall risk) Assistance Devices: Walker Additional Instructions: She has vascular dementia, history of stroke, history of chronic urinary tract infections. She also has diabetes, chronic kidney disease with anemia. Has a history of falls, and sometimes daughter will find her on the floor in the morning when she comes to visit. She presented with confusion, not eating for several days, and in the emergency room was severely hypotensive with a creatinine of 3.2 and has severe pyuria from a there is a UTI. When she was fed, hydrated, and treated for her UTI, her baseline mentation returned. She is a delightful [facility] lady. With some mild memory loss. She will need to finish treatment for her UTI, receive rehabilitation for strength because she is so weak. Insulin Orders - SNF Basal | Correction | Custom Orders: Diagnosis: Diabetes Initiate hypo and hyperglycemia protocols for BG <70 and BG >375. May check BG PRN for signs/symptoms of dysglycemia. Frequency of BG checks: [AC/Meal/HS] Basal Insulin: [] Lantus 100 units / ml inject subq as follows: [] [] Other: [] Correction Insulin: - Select the type of insulin below [Choose: Humalog]100 units /ml insulin inject subq per orders indicate below [] LOW DOSE [x] MODERATE DOSE [] MODERATE/HIGH DOSE [] HIGH DOSE GB UNITS GB UNITS GB UNITS GB UNITS 61-140 0 UNITS 61-140 0 UNITS 61-140 0 UNITS 61-140 0 UNITS 141-175 1 UNITS 141-175 1 UNITS 141-175 2 UNITS 141-175 3 UNITS 176-225 2 UNITS 176-225 3 UNITS 176-225 4 UNITS 176-225 5 UNITS 226-275 3 UNITS 226-275 5 UNITS 226-275 6 UNITS 226-275 7 UNITS 276-325 4 UNITS 276-325 7 UNITS 276-325 8 UNITS 276-325 9 UNITS 326-375 5 UNITS 326-375 9 UNITS 326-375 10 UNITS 326-375 11 UNITS >375 CONTACT MD >375 CONTACT MD >375 CONTACT MD >375 CONTACT MD Custom Dosing: [Choose: Novolog/Humalog] 100 units/ml Insulin inject subq as follows: GB Units 61-140 [] Units 141-175 [] Units 176-225 [] Units 226-275 [] Units 276-325 []Units 326-375 [] Units >375 Contact MD"
[2018-04-23] MEDS: INSULIN ASPART 300 UNIT/3 ML PEN SUBQ SCH ×2 (08:05→12:54)
[2018-04-23 08:11] VITALS: BP 152/81
[2018-04-23] MEDS: SENNA 8.6 MG TABLET PO SCH (09:06)
[2018-04-23] MEDS: MAGNESIUM OXIDE 400 MG TABLET PO SCH (09:06)
[2018-04-23] MEDS: POLYETHYLENE GLYCOL 3350 17 GM PACKET PO SCH (09:06)
[2018-04-23] MEDS: DOCUSATE SODIUM 250 MG CAPSULE PO SCH (09:06)
[2018-04-23] MEDS: PRENATAL VITAMIN TABLET PO SCH (09:06)
--- NOTE | 2018-04-23 12:11 | DISCHARGE SUMMARY ---
Physician: Kimi Aparicio MD DATE OF ADMISSION: 04/20/2018 DATE OF DISCHARGE: 04/23/2018 DISCHARGE DIAGNOSES 1. Hypotension due to hypovolemia, which is secondary to #2 and 3. 2. Dehydration. 3. Chronic protein calorie malnutrition. 4. Extended spectrum beta-lactamase Klebsiella pneumoniae urinary tract infection. 5. Adult failure to thrive. 6. Critical aortic stenosis. 7. Acute on chronic renal insufficiency stage 3. 8. Chronic anemia. 9. Diabetes mellitus type 2, with proteinuria, peripheral neuropathy, controlled, not on long-term insulin. 10. Gout. 11. Vascular dementia. 12. Hypertension. 13. Hyperlipidemia. 14. Depression with anxiety. PRINCIPAL PROCEDURES 1. Chest x-ray with no evidence for acute cardiothoracic process. Stable cardiomediastinal silhouette. 2. Retroperitoneal ultrasound with bilateral kidney extrarenal pelvis. Mild hydronephrosis. 3. Blood cultures negative at 2 days. 4. ESBL producing Klebsiella pneumoniae. The bacteria is sensitive to only ciprofloxacin, ertapenem, imipenem, Levaquin, nitrofurantoin, and indeterminate for tobramycin. Resistant to all other antibiotics. HOSPITAL COURSE: She is a oneil 82-year-old lady who has vascular dementia. She also has a history of a stroke. Daughter goes over to see her every day. Daughter lives in [place] and drives from the [place] [facility] to see mom daily. She sees mom anywhere from 5-8 hours a day. She was living in an assisted living facility last summer/fall. Mom did well enough that she recovered and wanted to go home. Even though the daughter felt that was probably not a good idea that mom sustained permanent placement in a SNF, the patient "guilted her" into getting out. She spends most of her time in the apartment. The only way she can leave is if daughter picks her up and takes her somewhere. Sometimes she is impulsive, falls, mainly at night. Daughter will come and find her a few times on the floor when she gets there, but she is a very vivacious, stubborn personality. In spite of her dementia, she is still oriented to person, place, and time, just has poor judgment, and occasional vague memory. PAST MEDICAL HISTORY Significant for: 1. Chronic UTIs with EBSL Klebsiella pneumoniae. 2. Critical aortic stenosis. 3. Chronic kidney disease stage 3. 4. Chronic anemia, diabetes, hyperlipidemia, hypertension, and history of gout. Over the last few days, she has been more confused than usual and started refusing to eat. She had fallen today, and daughter had already called EMS once to pick her up. The daughter called back to get her picked up again, when she fell again. With her confusion, second fall, she was brought to the emergency room. She was afebrile, normotensive, but very confused, very dehydrated on physical exam with dry oral mucosa. She was hypotensive at 74/61, afebrile, very confused, dehydrated. Saturating 97-100% on room air. PHYSICAL EXAMINATION: Her exam showed her to be a slender, cachectic, elderly woman who was dehydrated, but no acute findings. No respiratory distress. No abdominal exam, negative peritoneal findings. LABORATORY/DATA Laboratory studies showed her to have normal potassium, BUN and creatinine that were 52 and 3.2. Baseline is usually about 1.5. Her glucose was controlled. A1c was 6.2%. Protein status showed her to be malnourished with a protein of 5.6. Albumin is 3.1; she dropped to 2.4 the next day. Chest x-ray was negative. Urinalysis had a UTI. She had a harsh systolic ejection murmur on exam compatible with her aortic stenosis exam. The patient was treated with IV antibiotics, IV fluids. She started turning the corner with regards to mentation, and by 48 hours was back to baseline. She is a delightful conversationalist. She was eating 25%-50% of her food. White cell count stayed normal. Unusually, her potassium started to rise and she was 5.3 on the day of discharge, so she will be sent home on lactulose. BUN and creatinine on the day of discharge were 36 and 1.5. Her glucose remained controlled during her stay. We would not recommend that she resume metformin in the face of kidney disease in a patient prone to dehydration, because of her risk of severe lactic acidosis. She is very weak, and needs quite a bit of help. Physical Therapy saw the patient for 31 minutes on the day of discharge. She is able to scoot herself to the side of the bed and get into a chair. She has to be cued several times for safety's sake. She ambulates with contact guard assist with a moving walker, and she was able to ambulate 40 feet, but was exhausted by the end of it. Physical Therapy feels that she would benefit from continued PT in the hospital while she is here, as well as SNF after discharge. This will hopefully improve her safety, strength, independence for mobility tasks. She is well motivated, alert, interactive, cooperative with PT. During her stay, her aortic stenosis was not a problem. There was no syncope, angina, or congestive heart failure. Her acute on chronic kidney disease improved. Chronic anemia was investigated, and she was stable with hemoglobin of 9.3-10.6. Diabetes was managed with sliding scale insulin. At most, she needed 1 unit with each meal, and that was it. She was continued on her hypertension medications. She should resume her hyperlipidemic drugs in the outpatient setting. I would reduce her allopurinol in the near future. She is currently on 300 mg a day, and because of kidney function, I would recommend she go down to 200 to 100 mg a day. PHYSICAL EXAMINATION GENERAL: At discharge, she is an alert, very short-statured, slender elderly female. She weighs 62.5 kg and is 5 feet 8 inches tall. VITAL SIGNS: Temperature is 36.5, pulse is 99, will go down to 83 at rest. Blood pressure 152/81, respirations 18 and unlabored, and she is 95% on room air. NECK: Supple. She does have the radiated aortic stenosis murmur into her neck. LUNGS: Diminished breath sounds at the bases, but are clear to auscultation and percussion. HEART: Heart rate is irregularly irregular. PMI is normally placed. There is no JVD. No lung crackles, and it is a harsh systolic murmur that is at the left lower sternal border, and gets loudest at the right upper sternal border with radiation. ABDOMEN: The abdomen is scaphoid, soft, nontender, without a fluid wave. The feet are warm. NEURO: With a gait belt, she is able to sit to stand and transfer. EXTREMITIES: On her feet exam, she does not have any edema. Her last bowel movement was this morning and normal. She is incontinent of urine, and we are using a PureWick catheter. She is hard of hearing, and you need to make sure you look at her straight in the face. Greater than 30 minutes was spent coordinating discharge. TD: 04/23/2018 11:49 ASYA
== END 2018-04-23 13:48 | DRG 690 ==
LOC: EDUNIT# → ED 12:38 → ICU 14:08 → MS2 04-21 15:11
PROVIDERS: ADMIT Specialist; ATTEND Specialist
DX: N30.00 Acute cystitis without hematuria (principal); N10 Acute pyelonephritis; N17.9 Acute kidney failure, unspecified; E46 Unspecified protein-calorie malnutrition; R64 Cachexia; F03.90 Unspecified dementia, unspecified severity, without behavioral disturbance, psychotic disturbance, mood disturbance, and anxiety; E86.1 Hypovolemia; I95.9 Hypotension, unspecified; I11.0 Hypertensive heart disease with heart failure; I50.9 Heart failure, unspecified; D64.9 Anemia, unspecified; E78.00 Pure hypercholesterolemia, unspecified; B96.1 Klebsiella pneumoniae [K. pneumoniae] as the cause of diseases classified elsewhere; Z68.26 Body mass index [BMI] 26.0-26.9, adult; H54.7 Unspecified visual loss; H91.90 Unspecified hearing loss, unspecified ear; F32.9 Major depressive disorder, single episode, unspecified; F41.9 Anxiety disorder, unspecified; E86.0 Dehydration; M10.9 Gout, unspecified; Z90.710 Acquired absence of both cervix and uterus; M1A.9XX0 Chronic gout, unspecified, without tophus (tophi); F01.50 Vascular dementia, unspecified severity, without behavioral disturbance, psychotic disturbance, mood disturbance, and anxiety; E78.5 Hyperlipidemia, unspecified; F41.8 Other specified anxiety disorders; Z86.73 Personal history of transient ischemic attack (TIA), and cerebral infarction without residual deficits; I27.20 Pulmonary hypertension, unspecified; Z66 Do not resuscitate; Z91.81 History of falling; R62.7 Adult failure to thrive; E11.22 Type 2 diabetes mellitus with diabetic chronic kidney disease; I12.9 Hypertensive chronic kidney disease with stage 1 through stage 4 chronic kidney disease, or unspecified chronic kidney disease; N18.3 Chronic kidney disease, stage 3 (moderate); M19.90 Unspecified osteoarthritis, unspecified site; R32 Unspecified urinary incontinence; Z85.42 Personal history of malignant neoplasm of other parts of uterus; K21.9 Gastro-esophageal reflux disease without esophagitis; Z87.440 Personal history of urinary (tract) infections; I35.0 Nonrheumatic aortic (valve) stenosis; R01.1 Cardiac murmur, unspecified; E11.42 Type 2 diabetes mellitus with diabetic polyneuropathy; E11.65 Type 2 diabetes mellitus with hyperglycemia
CPT/HCPCS: 36415; 51701; 71045; 76770; 80053; 81001; 81003; 83036; 83605; 83690; 83735; 84100; 84550; 85025; 87040; 87077; 87086; 87150; 87181; 96360; 99284; 99285

== ENCOUNTER 2018-05-03 03:30 | Outpatient (CLI) | payer MEDICARE, OTHER, MEDICAID ==
[2018-05-03 06:57] LABS: BILIRUBIN,URINE NEGATIVE (NEGATIVE); GLUCOSE, URINE (UA) >=1000 mg/dL (NEGATIVE); KETONES,URINE (UA) NEGATIVE (NEGATIVE); LEUKOCYTE ESTERASE, URINE TRACE (NEGATIVE); NITRITE,URINE NEGATIVE (NEGATIVE); OCCULT BLOOD,URINE SMALL (NEGATIVE); PROTEIN,URINE NEGATIVE (NEGATIVE); UROBILINOGEN,URINE 0.2 (NORMAL) E.U./dL (NORMAL)
[2018-05-03 07:00] LABS: CLARITY,URINE CLEAR (CLEAR)
[2018-05-03 07:08] LABS: BACTERIA,URINE Few /HPF (None Seen); SQUAMOUS EPITHELIAL CELL,UR FEW Squamous (<= Few)
== END 2018-05-03 23:59 | disposition home or self-care (01) ==
LOC: LAB.R 03:30
PROVIDERS: ATTEND Internal Medicine
DX: N39.0 Urinary tract infection, site not specified (principal)
CPT/HCPCS: 81001; 81003

== ENCOUNTER 2018-05-17 08:00 | Outpatient (CLI) | payer MEDICARE, OTHER, MEDICAID ==
[2018-05-17 00:39] LABS: BILIRUBIN,URINE NEGATIVE (NEGATIVE); GLUCOSE, URINE (UA) NEGATIVE (NEGATIVE); KETONES,URINE (UA) NEGATIVE (NEGATIVE); LEUKOCYTE ESTERASE, URINE MODERATE (NEGATIVE); NITRITE,URINE NEGATIVE (NEGATIVE); OCCULT BLOOD,URINE LARGE (NEGATIVE); PROTEIN,URINE NEGATIVE (NEGATIVE); UROBILINOGEN,URINE 0.2 (NORMAL) E.U./dL (NORMAL)
[2018-05-17 00:43] LABS: CLARITY,URINE CLEAR (CLEAR)
[2018-05-17 00:52] LABS: BACTERIA,URINE Few /HPF (None Seen); RBC,URINE TNTC /HPF (0-5); SQUAMOUS EPITHELIAL CELL,UR MOD Squamous (<= Few)
== END 2018-05-17 23:59 | disposition home or self-care (01) ==
LOC: LAB.R 08:00
PROVIDERS: ATTEND Internal Medicine
DX: N39.0 Urinary tract infection, site not specified (principal)
CPT/HCPCS: 81001; 81003; 87086

== ENCOUNTER 2018-06-02 20:30 | Outpatient (CLI) | payer MEDICARE, OTHER, MEDICAID ==
[2018-06-02 22:58] LABS: BILIRUBIN,URINE NEGATIVE (NEGATIVE); GLUCOSE, URINE (UA) NEGATIVE (NEGATIVE); KETONES,URINE (UA) NEGATIVE (NEGATIVE); LEUKOCYTE ESTERASE, URINE SMALL (NEGATIVE); NITRITE,URINE NEGATIVE (NEGATIVE); OCCULT BLOOD,URINE LARGE (NEGATIVE); PROTEIN,URINE NEGATIVE (NEGATIVE); UROBILINOGEN,URINE 0.2 (NORMAL) E.U./dL (NORMAL)
[2018-06-02 22:59] LABS: CLARITY,URINE HAZY (CLEAR)
[2018-06-02 23:06] LABS: BACTERIA,URINE None Seen /HPF (None Seen); SQUAMOUS EPITHELIAL CELL,UR FEW Squamous (<= Few)
== END 2018-06-02 23:59 | disposition home or self-care (01) ==
LOC: LAB.R 20:30
DX: N39.0 Urinary tract infection, site not specified (principal)
CPT/HCPCS: 81001; 81003; 87086

== ENCOUNTER 2018-10-07 23:47 | Outpatient (CLI) | payer MEDICARE, OTHER, MEDICAID | END 2018-10-07 23:48 | disposition critical access hospital (66) | LOC: EMS 23:47 | PROVIDERS: ATTEND Surgery | DX: K62.5 Hemorrhage of anus and rectum (principal); R53.1 Weakness; R03.1 Nonspecific low blood-pressure reading | CPT/HCPCS: A0425; A0427 ==

== ENCOUNTER 2018-10-07 23:52 | Inpatient (IN) | payer MEDICARE, OTHER, MEDICAID ==
[2018-10-08] MEDS ORDERED: MORPHINE 2 MG/ML CARPUJECT ONE (01:28)
--- NOTE | 2018-10-08 05:55 | HISTORY & PHYSICAL EXAMINATION ---
Chief Complaint - Chief Complaint Chief Complaint: Pelvic pain with associated weakness, dysuria and bloody diaper History of Present Illness - Admitted From Admitted From:: ED - History Obtained From Records Reviewed: Lacy History obtained from: Patient, ED, ER MD Exam Limitations: Yes, vascular dementia - History of Present Illness HPI Comment/Other: This is a pleasantly demented 82-year-old female with multiple chronic comorbidities to include diabetes type 2 [id number], chronic anemia, chronic renal insufficiency stage III, vascular dimension, gout, hypertension, hyperlipidemia, depression with anxiety, critical aortic stenosis, extended spectrum beta-lactamase Klebsiella pneumonia UTI for which she was treated and discharged on 04/23/2018 to [facility], at that time she had hypotension due to hypovolemia secondary to dehydration and chronic protein calorie malnutrition and adult failure to thrive. On this visitation patient had dysuria, pelvic pain and was found to have a 4.7 cm mass seen in bladder (tumor vs thrombus) likely representing hemorrhagic cystitis. Per son who is the POA, she had similar symptoms and clot in bladder fro which she was scoped over at [facility] in 2018 and cystoscopy was performed w/o evidence of bladder tumor or cancer. In addition, she has bilateral hydronephrosis per CT, straight FC revealed gross blood, Ucx sent, Morphine was given, previously UTI was Klebsiella Pn. ESBL+ MDR, sensitive to cipro, carbapenems, macrobid, and Indeter minate for tobramycin.WBC 12.2, she was hypotensive initially but did not appear to be clinically dehydrated, on lisinopril and monurol which were held for this admission. Blood cultures ordered. Son who spoke to Dr. Villarreal indicated DNR with comfort measures. History - Past Medical History Cardiovascular: reports: Congestive heart failure, Hypertension, High cholesterol, Angina, Murmur, Valve disorder Respiratory: reports: Pneumonia, Shortness of breath Neuro: reports: Dementia, Peripheral neuropathy Endocrine/Autoimmune: reports: Type 2 diabetes, Other GI: reports: GERD FORENSIC SCIENCE TECHNICIAN: reports: Uterine cancer : reports: Incontinence, Chronic bladder infection, Renal insuffiency, Nocturia, Frequency HEENT: reports: Chronic vision loss, Chronic sinusitis, Chronic hearing loss Psych: reports: Depression, Anxiety Musculoskeletal: reports: Osteoarthritis, Gout, Fatigue Derm: reports: None MRSA Hx?: No - Past Surgical History General: reports: Colonoscopy Ortho: reports: Carpal Tunnel surgery, Other /FORENSIC SCIENCE TECHNICIAN: reports: Hysterectomy HEENT: reports: Cataracts - Family & Social History Family History: Mother: , CAD, Hyperlipidemia, Hypertension, [place], Father: , Alzheimer's Disease, CAD, Hyperlipidemia, Hypertension, [place], Brother: , CAD, Hyperlipidemia, Hypertension, [place] Family History Comment/Other: Dad at age 91. He of old age. Her mother was in her 70s. 3 sisters and a brother. One brother of heart disease. Her sisters are alive. She is the oldest sibling. 4 children. One son has esophageal cancer. There is high blood pressure and diabetes in her children. Social History Notes: She is from the [facility] and mainly spent her formative years in [place] and [place]. Her of heart attack when he was 61 and just getting ready to retire and she has been on her own for probably 28 years. 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 She did live on [facility] for many many years with 1 of her daughters when she left to go live with 1 of her sons in [place]. From [place] she returned to [place]. From [place] she was brought back to the [place] about 6 years ago. She temporary lived with 2 of her daughters and one of her daughter's partners. But was placed in [facility] apartments shortly thereafter. So she has been living in [facility], senior subsidized housing. There was a short time where she was at [facility] January, after a UTI admit w A[facility]. Really she should have stayed there. But the daughter felt too guilty leaving her mom there and took her out. In retrospect she thinks it was a mistake and mom should stay there. Her memory loss is getting worse, getting more difficult to deal with, not eating, falling more. And really needs more help. She is a non-smoker. Never had problems with alcohol abuse. Never had problems with recreational substance abuse. - Substance History Use: Uses substance without health or social issues: NONE - POLST Patient has POLST: Yes POLST Status: DNR Meds/Allgy - Home Medications Home Medications: Ambulatory Orders Medication Instructions Recorded Confirmed Allopurinol [Zyloprim] 300 mg PO DAILY 02/18/13 10/08/18 Aspirin Chewable [[place] 81 mg PO DAILY 02/18/13 10/08/18 Aspirin] Cyanocobalamin (Vitamin B-12) 2,500 mcg PO DAILY 02/18/13 10/08/18 [Vitamin B-12] Lisinopril 2.5 mg PO DAILY 02/18/13 10/08/18 Omeprazole [PriLOSEC] 20 mg PO QDAC 02/18/13 10/08/18 Simvastatin [Zocor] 40 mg PO QPM 02/18/13 10/08/18 traZODone [Desyrel] 100 mg PO QPM 10/30/17 10/08/18 Loratadine 10 mg PO DAILY 10/31/17 10/08/18 Donepezil HCl 10 mg PO DAILY 01/26/18 10/08/18 Folic Acid 1 mg PO DAILY 01/26/18 10/08/18 Glucosamine Sulfate 500 mg PO BID 01/26/18 10/08/18 Acetaminophen [Tylenol] 650 mg PO Q4HR PRN #0 tablet 04/23/18 10/08/18 Magnesium Oxide [Mag Ox] 400 mg PO DAILYWM tablet 04/23/18 10/08/18 Vitamin [Trinatal Rx 1] 1 tab PO DAILYWM tablet 04/23/18 10/08/18 - Allergies Allergies/Adverse Reactions: Allergies Allergy/AdvReac Type Severity Reaction Status Date / Time cephalexin [Cephalexin] Allergy Intermediate generalized Verified 01/26/18 14:30 shaking Review of Systems - All Other Systems All Other Systems: reports: Reviewed and negative Prior Level of Functionality: Patient presenting from COW and unclear on FC and ADL's Exam - Vital Signs Reviewed Vital Signs: Yes Vital Signs: Vital Signs x48h Temp Pulse Resp BP Pulse Ox 10/08/18 00:05 86 164/133 H 97 10/07/18 23:57 36.8 C 88 17 131/90 H 100 - Physical Exam General Appearance: positive: No acute distress, Alert, Other (Non-toxic appearing , pleasantly demented) Eyes Bilateral: positive: Normal inspection, PERRL, EOMI, Conjunctivae nml, No scleral icterus ENT: positive: ENT inspection nml, Pharynx nml, No signs of dehydration Neck: positive: Nml inspection, Thyroid nml, No JVD, Trachea midline. negative: Thyromegaly Respiratory: positive: Chest non-tender, No respiratory distress, Breath sounds nml Cardiovascular: positive: Regular rate & rhythm, No gallop, Systolic murmur (Harsh 2-3/6 crescendo-decrescendo type murmur). negative: JVD present, Friction rub Peripheral Pulses: positive: 2+ Abdomen: positive: No organomegaly, Nml bowel sounds, No distention, Other (+suprapubic peliv pain with no CVA tenderness). negative: Guarding Back: positive: Nml inspection. negative: CVA tenderness (R), CVA tenderness (L) Skin: positive: Color nml, No rash, Warm Extremities: positive: Non-tender, Full ROM, Nml appearance. negative: Pedal edema Neurologic/Psychiatric: positive: Motor nml, Sensation nml, Disoriented to time. negative: Depressed mood/affect Sepsis Event Note (H) - Evaluation Possible source of Sepsis: positive: Genitourinary - Sepsis Criteria Sepsis Criteria: WBC count greater than 12,000 or less than 4000 Conclusion/Plan - Problem List (1) Acute hemorrhagic cystitis Conclusion/Plan: CT abd/pelvis shows 4.7 cm mass seen in bladder (tumor vs thrombus) likely representing hemorrhagic cystitis. Would treat empirically with IV merrem, place on probiotics, pain control, supportive care. (2) Urinary tract infection with hematuria Conclusion/Plan: Place on IV merrem as hx ESBL+ MDR Klebsiella pn. Ucx, BCx x 2 to follow. Qualifiers: Urinary tract infection type: acute cystitis Qualified Code(s): N30.01 - Acute cystitis with hematuria (3) Acute blood loss anemia Conclusion/Plan: Secondary to acute hemorrhagic cystitis. Would transfuse under liberal protocol. H/H monitoring. (4) Hypotension Conclusion/Plan: Likely from lisinopril as opposed to hypovolemia or dehydration, IVF's, midodrine prn. Orthostats. Qualifiers: Hypotension type: unspecified hypotension type Qualified Code(s): I95.9 - Hypotension, unspecified (5) Vascular dementia Conclusion/Plan: Resume aricept. No evidence of hallucinations, patient p/w with mild agitation as it pertained to her pelvic pain and her symptoms of her UTI. Qualifiers: Dementia behavioral disturbance: without behavioral disturbance Qualified Code(s): F01.50 - Vascular dementia without behavioral disturbance (6) Acute worsening of stage 3 chronic kidney disease Conclusion/Plan: Would avoid nephrotoxic agents, perfuse kidneys with IVF's, transfuse as needed, correct lytes, prior cr 1.5 on last discharge here. Monitor renal function, bilateral hydronephrosis as well as recurrence of hemorrhagic cystatis with possible post-obstructive process seen. Uric acid level to follow, allopurinol to continue. (7) Macrocytosis Conclusion/Plan: Check labs and correct nutritional deficiencies if present (8) Anemia Conclusion/Plan: Multifactorial anemia; Anemia of chronic disease superimposed on acute on chronic blood loss anemia as it pertains to her recurrence of hemorrhagic cystitis. Would obtain TSH, Iron, FA, B12 levels, FOBTx1 was negative in ED. Correct underlying cause. Transfuse under liberal protocol of <8g/dl due to hx valvular heart disease with . Qualifiers: Anemia type: other cause Other causes of anemia: other cause, not classified Qualified Code(s): D64.89 - Other specified anemias (9) Vicky rash of groin Conclusion/Plan: Would apply nystatin powder which she was receiving at [facility]. (10) Generalized weakness Conclusion/Plan: Likely related to recurrent UTI along with blood loss anemia, correct underlying causes. May need PT to eval for physical deconditioning related to medical conditions. (11) History of gout Conclusion/Plan: Allopurinol to continue at 200 mg po daily, uric acid level. (12) Hyperlipidemia Conclusion/Plan: continue with statin Qualifiers: Hyperlipidemia type: other hyperlipidemia Qualified Code(s): E78.49 - Other hyperlipidemia; E78.4 - Other hyperlipidemia (13) Severe aortic valve stenosis Conclusion/Plan: Patient denies SOB, +murmur heard on exam c/s , no evidence of CHF, pulm HTN documented in prior admission. Would avoid agents or drugs that would exacerbate . 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 Carb controlled diet. (15) Advanced care planning/counseling discussion Conclusion/Plan: Son who is the POA has discussed patient's advanced directive and would need to fill out or update POLST. Currently DNR with comfort care measures. Due to patient's vascular dementia goals of care and medical conditions were not discussed in length with patient. Would benefit from a palliative care consultation. - Lab Results Lab results reviewed: Yes - Diagnostic Imaging Results Diagnostic Imaging Results: positive: Final report reviewed - EKG Results EKG Interpreted Independently: No Core Measures - Anticipated LOS I expect patient to be DC'd or transferred within 96 hours.: Yes - Issues Hospital Issues and Management Plan: IV abx, fluids, pain control, med mgmt, transfuse prn - DVT/VTE - Prophylaxis VTE/DVT Device ordered at admit?: Yes VTE/DVT Prophylaxis med ordered at admit?: No Not Ordered - Medical Reason: Contraindicated - Stroke - Rehab Assessment Rehab services assessment to be ordered?: No Not Ordered - Medical Reason: Not indicated - AMI - Statin at Admit Aspirin Prescribed on Admit: No Not Ordered - Medical Reason: Not indicated
[2018-10-08] MEDS ORDERED: MIDODRINE 2.5 MG TABLET PO PRN (06:21)
[2018-10-08 06:32] LABS: ALBUMIN 2.7 g/dL (3.2-5.5); ALBUMIN/GLOBULIN RATIO 0.8 (1.0-2.2); BILIRUBIN,TOTAL 0.4 mg/dL (0.2-1.0); CALCIUM 8.1 mg/dL (8.5-10.3); TOTAL PROTEIN 6.3 g/dL (6.7-8.2)
[2018-10-08 06:35] LABS: BASOPHILS % (AUTO) 0.2 %; EOSINOPHILS # (AUTO) 0.1 10^3/uL (0.0-0.7); EOSINOPHILS % (AUTO) 0.6 %; HGB - HEMOGLOBIN 8.6 g/dL (12.0-16.0); LYMPHOCYTES # (AUTO) 0.7 10^3/uL (1.5-3.5); LYMPHOCYTES % (AUTO) 5.2 %; MEAN CORPUSCULAR HEMOGLOBIN 29.8 pg (27.0-31.0); MEAN CORPUSCULAR HGB CONC 31.2 g/dL (32.0-36.0); MEAN CORPUSCULAR VOLUME 95.5 fL (81.0-99.0); MEAN PLATELET VOLUME 11.3 fL (7.9-10.8); MONOCYTES # (AUTO) 0.8 10^3/uL (0.0-1.0); MONOCYTES % (AUTO) 6.4 %; NEUTROPHILS # (AUTO) 10.9 10^3/uL (1.5-6.6); NEUTROPHILS % (AUTO) 87.1 %; PLT - PLATELET COUNT 222 10^3/uL (130-450); RED BLOOD COUNT 2.89 10^6/uL (4.20-5.40); RED CELL DISTRIBUTION WIDTH 14.1 % (12.0-15.0); WHITE BLOOD COUNT 12.5 x10^3/uL (4.8-10.8)
[2018-10-08 06:37] LABS: CLARITY,URINE TURBID (CLEAR); GLUCOSE, URINE (UA) NEGATIVE (NEGATIVE); KETONES,URINE (UA) TRACE mg/dL (NEGATIVE)
[2018-10-08 06:38] LABS: BILIRUBIN,URINE COLOR INTERFERENCE (NEGATIVE)
[2018-10-08 06:40] LABS: BACTERIA,URINE None Seen /HPF (None Seen); RBC,URINE TNTC /HPF (0-5); SQUAMOUS EPITHELIAL CELL,UR NONE SEEN (<= Few)
[2018-10-08] MEDS ORDERED: PHENAZOPYRIDINE 100 MG TABLET PO SCH (07:00)
[2018-10-08 08:03] LABS: % IRON SATURATION 4 % (20-50); IRON 10 ug/dL (28-170); TOTAL IRON BINDING CAPACITY 225 ug/dL (250-450); TRANSFERRIN 161 mg/dL (192-382)
[2018-10-08 08:14] LABS: THYROID STIMULATING HORMONE 1.24 uIU/mL (0.34-5.60)
[2018-10-08 08:48] LABS: BASOPHILS % (AUTO) 0.3 %; EOSINOPHILS % (AUTO) 0.1 %; HGB - HEMOGLOBIN 8.9 g/dL (12.0-16.0); LYMPHOCYTES % (AUTO) 2.7 %; MEAN CORPUSCULAR HEMOGLOBIN 29.2 pg (27.0-31.0); MEAN CORPUSCULAR HGB CONC 30.9 g/dL (32.0-36.0); MEAN CORPUSCULAR VOLUME 94.4 fL (81.0-99.0); MEAN PLATELET VOLUME 11.3 fL (7.9-10.8); MONOCYTES % (AUTO) 4.3 %; NEUTROPHILS % (AUTO) 91.9 %; PLT - PLATELET COUNT 236 10^3/uL (130-450); RED BLOOD COUNT 3.05 10^6/uL (4.20-5.40); RED CELL DISTRIBUTION WIDTH 13.9 % (12.0-15.0); WHITE BLOOD COUNT 20.5 x10^3/uL (4.8-10.8)
[2018-10-08 08:52] LABS: ABNORMAL LYMPHS % (MANUAL) 0 %
--- NOTE | 2018-10-08 08:53 | ADVANCE CARE PLANNING NOTE ---
Advance Care Planning - Date/Time Date: 10/08/18 Time: 09:00 - Purpose of encounter Text: To discuss goals of care as it pertains to patient's beliefs, values and understanding of medical conditions - Parties in attendance Parties in attendance: Patient in attendance with POA son who spoke to Dr. Villarreal. - Decisional capacity Decisional capacity of: Patient has marginal decisional making capacity as she has existing vascular dementia - Subjective/Patient's story Subjective/Patient's story: Patient states she was getting healthier at [facility] and at times has these infections that make her ill and weak. She states being closely monitored by her son who is her POA. She mentions she suffers from insomnia but otherwise does ok and with good appetite over at [facility]. - Objective/Medical story Objective/Medical Story: This is a pleasantly demented 82-year-old female with multiple chronic comorbidities to include diabetes type 2 [id number], chronic anemia, chronic renal insufficiency stage III, vascular dimension, gout, hypertension, hyperlipidemia, depression with anxiety, critical aortic stenosis, extended spectrum beta-lactamase Klebsiella pneumonia UTI for which she was treated and discharged on 04/23/2018 to [facility], at that time she had hypotension due to hypovolemia secondary to dehydration and chronic protein calorie malnutrition and adult failure to thrive. On this visitation patient had dysuria, pelvic pain and was found to have a 4.7 cm mass seen in bladder (tumor vs thrombus) likely representing hemorrhagic cystitis. Per son who is the POA, she had similar symptoms and clot in bladder fro which she was scoped over at [facility] in 2018 and cystoscopy was performed w/o evidence of bladder tumor or cancer. In addition, she has bilateral hydronephrosis per CT, straight FC revealed gross blood, Ucx sent, Morphine was given, previously UTI was Klebsiella Pn. ESBL+ MDR, sensitive to cipro, carbapenems, macrobid, and Indeterminate for tobramycin.WBC 12.2, she was hypotensive initially but did not appear to be clinically dehydrated, on lisinopril and monurol which were held for this admission. Blood cultures ordered. Son who spoke to Dr. Villarreal indicated DNR with comfort measures. - Goals of Care Goals of care determinations: Goals of care determinations to be further assessed as disease progresses or trajectory of illness produces more complication as it relates to multiple medical comorbidities. Her prognosis long-term is poor in terms of her critical and with the onset of multiple ESBL+ MDR UTI's with progression of her CKD, DM-2 and recurrent hemorrhagic cystitis for which patient has risk factors that would precipitate or increase mortality and morbidity. Palliative care consultation is recommended to guide further goals of care in relation to [facility] medical conditions. - Plan Plan: Continue with current medical management for her multiple medical conditions and reversible causes and to continue to honor her DNR with comfort care measure status with use of IV abx's per POLST documented 06/01. - Code Status Code Status: Do Not Attempt Resuscitation (with comfort care measures) - Time Spent on Advance Care Planning Time spent on advance care plannin minutes
[2018-10-08 09:08] LABS: FOLATE > 49.60 ng/mL (5.90 - >24.8)
[2018-10-08 09:20] LABS: CALCIUM 8.3 mg/dL (8.5-10.3); URIC ACID 4.1 mg/dL (2.6-7.2)
--- NOTE | 2018-10-08 09:20 | CT Report ---
Reason: ABD PAIN Procedure Date: 10/08/2018 Accession Number: [id number] / [id number] Procedure: CT - Abdomen/Pelvis WO CPT Code: FULL RESULT: EXAM: CT ABDOMEN AND PELVIS (CT KUB) EXAM DATE: 10/08/2018 02:41 AM. CLINICAL HISTORY: Pain COMPARISONS: ABDOMEN/PELVIS W/O 10/30/2017 6:45 PM. TECHNIQUE: Routine axial helical CT imaging was performed through the abdomen and pelvis without IV contrast. Reconstructions: Coronal and sagittal. In accordance with CT protocol optimization, one or more of the following dose reduction techniques were utilized for this exam: automated exposure control, adjustment of mA and/or KV based on patient size, or use of iterative reconstructive technique. FINDINGS: Lung Bases: Dependent atelectasis. Right Kidney/Ureter: Right upper pole cyst. Right hydronephrosis and hydroureter, increased from previous, with hydroureter extending to the bladder base. Left Kidney/Ureter: Left hydronephrosis and hydroureter, increased from previous, with hydroureter extending to the bladder base. Other Solid Organs: Noncontrast images of the solid organs are grossly unremarkable. Gallbladder/Bile Ducts: Status post cholecystectomy. No biliary dilatation. Peritoneal Cavity: No free fluid, free air or jazmyn adenopathy. Bowel is grossly unremarkable. Pelvic Organs: Hyperdense lesion in the posterior urinary bladder, new from previous, measuring 4.7 x 4.5 x 4.0 cm. This may represent a mass or thrombus. Vasculature: Extensive vascular calcifications. No aneurysm. Other: Small umbilical hernia, containing fat. IMPRESSION: 4.7 cm hyperdense lesion in the urinary bladder, new from previous. This may represent a mass or thrombus, and is likely responsible for the increasing bilateral hydronephrosis. No obstructing calculi identified. RADIA
[2018-10-08] MEDS ORDERED: SODIUM CHLORIDE 0.9% 1,000 ML IV ONE ×2 (09:28→16:45)
[2018-10-08 09:42] LABS: BAND NEUTROPHILS % (MANUAL) 12 %; LYMPHOCYTES # (MANUAL) 1.4 10^3/uL (1.5-3.5); LYMPHOCYTES % (MANUAL) 7 %; MONOCYTES # (MANUAL) 0.8 10^3/uL (0.0-1.0); NEUTROPHILS # (MANUAL) 18.2 10^3/uL (1.5-6.6); NEUTROPHILS % (MANUAL) 77 %
[2018-10-08 09:45] LABS: DIFFERENTIAL COMMENT MANUAL DIFFERENTIAL; PLATELET ESTIMATE, MANUAL NORMAL (130-450,000) (NORMAL); PLATELET MORPHOLOGY NORMAL APPEARANCE (NORMAL); RBC MORPHOLOGY (MULTIPLE) NORMAL APPEARANCE (NORMAL)
[2018-10-08 09:59] LABS: HB2 TOTAL 9.1 g/dL; HEMOGLOBIN A1C 0.5 g/dL; HEMOGLOBIN A1C % 7.2 % (4.6-6.2)
[2018-10-08] MEDS: INSULIN ASPART 300 UNIT/3 ML PEN SUBQ SCH ×3 (11:56→21:28)
[2018-10-08] MEDS: PHENAZOPYRIDINE 100 MG TABLET PO SCH ×2 (14:34→21:29)
[2018-10-08] MEDS ORDERED: levoFLOXacin 750 MG/150 ML 750 MG/150 ML BAG IV ONE (15:00)
[2018-10-08] MEDS: ACETAMINOPHEN 1,000 MG/100 ML 100 ML IV PRN (15:03)
[2018-10-08] MEDS: MIDODRINE 2.5 MG TABLET PO PRN (16:35)
[2018-10-08] MEDS ORDERED: SODIUM CHLORIDE FLUSH 0.9% 10 ML SYRINGE ONE (16:47)
[2018-10-08] MEDS ORDERED: MORPHINE SOL 10 MG/0.5 ML SYRINGE PO PRN (17:01)
--- NOTE | 2018-10-08 17:06 | PROVIDER PROGRESS NOTE ---
Subjective - Prog Note Date Prog Note Date: 10/08/18 Prog Note Time: 17:02 - Subjective Subjective: Patient was admitted overnight with acute cystitis presenting as a bloody diaper and lethargy. She has either a mass in her bladder or blood clot in her bl adder. 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 Over the course the day her daughter was with her. Daughter just left about an hour ago. Starting at 14:30 she has spiked a temperature, she was given Tylenol, more antibiotics, and repeat blood and urine cultures were done. At least we tried to do repeat urine cultures but the patient refuses to have it in and out straight cath, has cried out. Is tearful. She then began having nausea, and became bradycardic with a probable vasovagal response. Pulse rebounded. It went from the 30s back up into the 80s and 90s. Temperature came down with the IV Tylenol but at 15: 30 she is to drop her pressures. She is received a fluid bolus of close to a liter and pressure is still 74/43 at 16: 30. My next step will be to place her in the ICU and place a central line, start pressors. Continue with fluid boluses. I have called the daughter and presented her with the situation of probable sepsis due to her UTI. Or a lady who has critical aortic stenosis and could be having an [place]. The patient herself is unable to really guide me with regards to review of systems. She is a tearful, very forgetful elderly female who is very resistant as touching her, and is flatly fighting against us for the in and out catheter/Lopez. Current Medications - Current Medications Current Medications: Active Medications Acetaminophen (Ofirmev) 100 mls @ 400 mls/hr IV Q6HR PRN PRN Reason: PAIN Last Infusion: 10/08/18 15:20 Dose: Infused Levofloxacin (Levaquin 500 Mg/100 Ml) 500 mg in 100 mls @ 100 mls/hr IV Q48H REBECCA Sodium Chloride (Normal Saline 0.9%) 1,000 mls @ 999 mls/hr IV ONCE ONE Stop: 10/08/18 17:45 Last Admin: 10/08/18 16:34 Dose: 999 mls/hr Insulin Aspart (Novolog) 3 - 11 unit SUBQ 0800,1200,1700,2100 [facility]; Protocol Last Admin: 10/08/18 17:05 Dose: Not Given Midodrine () 10 mg PO TID PRN PRN Reason: SBP<100 Last Admin: 10/08/18 16:35 Dose: 10 mg Morphine Sulfate (Roxanol) 10 mg PO Q2HR PRN PRN Reason: PAIN Phenazopyridine HCl (Pyridium) 100 mg PO TID [facility] Last Admin: 10/08/18 14:34 Dose: 100 mg Allopurinol [Zyloprim] 300 mg PO DAILY 02/18/13 Aspirin Chewable [[place] Aspirin] 81 mg PO DAILY 02/18/13 Cyanocobalamin (Vitamin B-12) [Vitamin B-12] 2,500 mcg PO DAILY 02/18/13 Lisinopril 2.5 mg PO DAILY 02/18/13 Omeprazole [PriLOSEC] 20 mg PO QDAC 02/18/13 Simvastatin [Zocor] 40 mg PO QPM 02/18/13 traZODone [Desyrel] 50 mg PO QPM 10/30/17 Loratadine 10 mg PO DAILY 10/31/17 Donepezil HCl 10 mg PO DAILY 01/26/18 Folic Acid 1 mg PO DAILY 01/26/18 Glucosamine Sulfate 500 mg PO BID 01/26/18 Acetaminophen [Tylenol Extra Strength] 500 mg PO BID 10/08/18 Fosfomycin Tromethamine [Monurol] 3 g PO Q10D 10/08/18 Saccharomyces Boulardii [Florastor] 250 mg PO BID 10/08/18 Objective - Vital Signs/Intake & Output Reviewed Vital Signs: Yes Vital Signs: Vital Signs x48h Temp Pulse Resp BP Pulse Ox 10/08/18 16:45 88 76/48 L 10/08/18 16:41 88 67/34 L 10/08/18 16:38 88 74/43 L 10/08/18 16:20 37.8 C H 88 14 71/40 L 96 10/08/18 15:45 36.8 C 92 10/08/18 15:32 38.1 C H 99 18 95/56 L 94 10/08/18 14:38 39.3 C H 58 L 18 134/108 H 98 Intake & Output: Intake & Output 06/2310/06/18 10/07/18 10/08/18 23:59 23:59 23:59 23:59 Intake Total 700 Balance 700 - Objective Comments/Other: She is a tearful, grimacing elderly female who I have placed in Trendelenburg. In spite of that fluid bolus, Trendelenburg, antibiotics, Tylenol, she still in the 70 systolic. There is no respiratory distress. She is not tachycardic. The abdomen has hypoactive bowel, sounds, soft, not distended. Extremities are starting to cool down. - Lab Results Fish Bones: 10/08/18 08:30 10/08/18 07:37 Other Labs: Lab Results x24hrs 10/08/18 10/08/18 10/08/18 Range/Units 14:55 08:30 08:30 WBC 20.5 H (4.8-10.8) x10^3/uL RBC 3.05 L (4.20-5.40) 10^6/uL Hgb 8.9 L (12.0-16.0) g/dL Hct 28.8 L (37.0-47.0) % MCV 94.4 (81.0-99.0) fL MCH 29.2 (27.0-31.0) pg MCHC 30.9 L (32.0-36.0) g/dL RDW 13.9 (12.0-15.0) % Plt Count 236 (130-450) 10^3/uL MPV 11.3 H (7.9-10.8) fL Neut # (Auto) Not Reportable (1.5-6.6) 10^3/uL Lymph # (Auto) Not Reportable (1.5-3.5) 10^3/uL Ross # (Auto) Not Reportable (0.0-1.0) 10^3/uL Eos # (Auto) Not Reportable (0.0-0.7) 10^3/uL Baso # (Auto) Not Reportable (0.0-0.1) 10^3/uL Absolute Nucleated RBC Not Reportable x10^3/uL Total Counted 100 Band Neuts % (Manual) 12 H (0 - 10) % Abnorm Lymph % (Manual) 0 % Nucleated RBC % Not Reportable /100WBC Neutrophils # (Manual) 18.2 H (1.5-6.6) 10^3/uL Lymphocytes # (Manual) 1.4 L (1.5-3.5) 10^3/uL Monocytes # (Manual) 0.8 (0.0-1.0) 10^3/uL Eosinophils # (Manual) 0.0 (0-0.7) 10^3/uL Basophils # (Manual) 0.0 (0-0.1) 10^3/uL Differential Comment MANUAL DIFFERENTIAL WBC Morphology NORMAL APPEARANCE (NORMAL) Platelet Estimate NORMAL (130-450,000) (NORMAL) Platelet Morphology NORMAL APPEARANCE (NORMAL) RBC Morph Micro Appear NORMAL APPEARANCE (NORMAL) Sodium (135-145) mmol/L Potassium (3.5-5.0) mmol/L Chloride (101-111) mmol/L Carbon Dioxide (21-32) mmol/L Anion Gap (6-13) BUN (6-20) mg/dL Creatinine (0.4-1.0) mg/dL Estimated GFR (MDRD) (>89) Glucose (70-100) mg/dL Glycated Hemoglobin 7.2 H (4.6-6.2) % Estim Average Glucose 160 H (70-100) Lactic Acid < 0.3 L (0.5-2.2) mmol/L Uric Acid (2.6-7.2) mg/dL Calcium (8.5-10.3) mg/dL Iron (28-170) ug/dL TIBC (250-450) ug/dL % Saturation (20-50) % Transferrin (192-382) mg/dL Total Bilirubin (0.2-1.0) mg/dL AST (10-42) IU/L ALT (10-60) IU/L Alkaline Phosphatase (42-121) IU/L Total Protein (6.7-8.2) g/dL Albumin (3.2-5.5) g/dL Globulin (2.1-4.2) g/dL Albumin/Globulin Ratio (1.0-2.2) Lipase (22-51) U/L Vitamin B12 (180-914) pg/mL Folate (5.90 - >24.8) ng/mL TSH (0.34-5.60) uIU/mL Urine Color Urine Clarity (CLEAR) Urine pH (5.0-7.5) PH Ur Specific Blaine (1.002-1.030) Urine Protein (NEGATIVE) mg/dL Urine Glucose (UA) (NEGATIVE) mg/dL Urine Ketones (NEGATIVE) mg/dL Urine Occult Blood (NEGATIVE) Urine Nitrite (NEGATIVE) Urine Bilirubin (NEGATIVE) Urine Urobilinogen (NORMAL) E.U./dL Ur Leukocyte Esterase (NEGATIVE) Urine RBC (0-5) /HPF Urine WBC (0-5) /HPF Ur Squamous Epith Cells (<= Few) Urine Bacteria (None Seen) /HPF Ur Microscopic Review 10/08/18 10/08/18 10/08/18 Range/Units 07:37 07:37 07:37 WBC (4.8-10.8) x10^3/uL RBC (4.20-5.40) 10^6/uL Hgb (12.0-16.0) g/dL Hct (37.0-47.0) % MCV (81.0-99.0) fL MCH (27.0-31.0) pg MCHC (32.0-36.0) g/dL RDW (12.0-15.0) % Plt Count (130-450) 10^3/uL MPV (7.9-10.8) fL Neut # (Auto) (1.5-6.6) 10^3/uL Lymph # (Auto) (1.5-3.5) 10^3/uL Ross # (Auto) (0.0-1.0) 10^3/uL Eos # (Auto) (0.0-0.7) 10^3/uL Baso # (Auto) (0.0-0.1) 10^3/uL Absolute Nucleated RBC x10^3/uL Total Counted Band Neuts % (Manual) (0 - 10) % Abnorm Lymph % (Manual) % Nucleated RBC % /100WBC Neutrophils # (Manual) (1.5-6.6) 10^3/uL Lymphocytes # (Manual) (1.5-3.5) 10^3/uL Monocytes # (Manual) (0.0-1.0) 10^3/uL Eosinophils # (Manual) (0-0.7) 10^3/uL Basophils # (Manual) (0-0.1) 10^3/uL Differential Comment WBC Morphology (NORMAL) Platelet Estimate (NORMAL) Platelet Morphology (NORMAL) RBC Morph Micro Appear (NORMAL) Sodium 138 (135-145) mmol/L Potassium 4.6 (3.5-5.0) mmol/L Chloride 105 (101-111) mmol/L Carbon Dioxide 18 L (21-32) mmol/L Anion Gap 15.0 H (6-13) BUN 48 H (6-20) mg/dL Creatinine 2.0 H (0.4-1.0) mg/dL Estimated GFR (MDRD) 24 L (>89) Glucose 226 H (70-100) mg/dL Glycated Hemoglobin (4.6-6.2) % Estim Average Glucose (70-100) Lactic Acid (0.5-2.2) mmol/L Uric Acid 4.1 (2.6-7.2) mg/dL Calcium 8.3 L (8.5-10.3) mg/dL Iron 10 L (28-170) ug/dL TIBC 225 L (250-450) ug/dL % Saturation 4 L (20-50) % Transferrin 161 L (192-382) mg/dL Total Bilirubin (0.2-1.0) mg/dL AST (10-42) IU/L ALT (10-60) IU/L Alkaline Phosphatase (42-121) IU/L Total Protein (6.7-8.2) g/dL Albumin (3.2-5.5) g/dL Globulin (2.1-4.2) g/dL Albumin/Globulin Ratio (1.0-2.2) Lipase (22-51) U/L Vitamin B12 2232 H (180-914) pg/mL Folate > 49.60 (5.90 - >24.8) ng/mL TSH 1.24 (0.34-5.60) uIU/mL Urine Color Urine Clarity (CLEAR) Urine pH (5.0-7.5) PH Ur Specific Blaine (1.002-1.030) Urine Protein (NEGATIVE) mg/dL Urine Glucose (UA) (NEGATIVE) mg/dL Urine Ketones (NEGATIVE) mg/dL Urine Occult Blood (NEGATIVE) Urine Nitrite (NEGATIVE) Urine Bilirubin (NEGATIVE) Urine Urobilinogen (NORMAL) E.U./dL Ur Leukocyte Esterase (NEGATIVE) Urine RBC (0-5) /HPF Urine WBC (0-5) /HPF Ur Squamous Epith Cells (<= Few) Urine Bacteria (None Seen) /HPF Ur Microscopic Review 10/08/18 10/08/18 10/08/18 Range/Units 07:37 01:30 01:30 WBC 12.5 H (4.8-10.8) x10^3/uL RBC 2.89 L (4.20-5.40) 10^6/uL Hgb 8.6 L (12.0-16.0) g/dL Hct 27.6 L (37.0-47.0) % MCV 95.5 (81.0-99.0) fL MCH 29.8 (27.0-31.0) pg MCHC 31.2 L (32.0-36.0) g/dL RDW 14.1 (12.0-15.0) % Plt Count 222 (130-450) 10^3/uL MPV 11.3 H (7.9-10.8) fL Neut # (Auto) 10.9 H (1.5-6.6) 10^3/uL Lymph # (Auto) 0.7 L (1.5-3.5) 10^3/uL Ross # (Auto) 0.8 (0.0-1.0) 10^3/uL Eos # (Auto) 0.1 (0.0-0.7) 10^3/uL Baso # (Auto) 0.0 (0.0-0.1) 10^3/uL Absolute Nucleated RBC 0.00 x10^3/uL Total Counted Band Neuts % (Manual) (0 - 10) % Abnorm Lymph % (Manual) % Nucleated RBC % 0.0 /100WBC Neutrophils # (Manual) (1.5-6.6) 10^3/uL Lymphocytes # (Manual) (1.5-3.5) 10^3/uL Monocytes # (Manual) (0.0-1.0) 10^3/uL Eosinophils # (Manual) (0-0.7) 10^3/uL Basophils # (Manual) (0-0.1) 10^3/uL Differential Comment WBC Morphology (NORMAL) Platelet Estimate (NORMAL) Platelet Morphology (NORMAL) RBC Morph Micro Appear (NORMAL) Sodium (135-145) mmol/L Potassium (3.5-5.0) mmol/L Chloride (101-111) mmol/L Carbon Dioxide (21-32) mmol/L Anion Gap (6-13) BUN (6-20) mg/dL Creatinine (0.4-1.0) mg/dL Estimated GFR (MDRD) (>89) Glucose (70-100) mg/dL Glycated Hemoglobin (4.6-6.2) % Estim Average Glucose (70-100) Lactic Acid 0.8 (0.5-2.2) mmol/L Uric Acid (2.6-7.2) mg/dL Calcium (8.5-10.3) mg/dL Iron (28-170) ug/dL TIBC (250-450) ug/dL % Saturation (20-50) % Transferrin (192-382) mg/dL Total Bilirubin (0.2-1.0) mg/dL AST (10-42) IU/L ALT (10-60) IU/L Alkaline Phosphatase (42-121) IU/L Total Protein (6.7-8.2) g/dL Albumin (3.2-5.5) g/dL Globulin (2.1-4.2) g/dL Albumin/Globulin Ratio (1.0-2.2) Lipase (22-51) U/L Vitamin B12 (180-914) pg/mL Folate (5.90 - >24.8) ng/mL TSH (0.34-5.60) uIU/mL Urine Color RED/BLOODY Urine Clarity TURBID (CLEAR) Urine pH 7.0 (5.0-7.5) PH Ur Specific Blaine 1.010 (1.002-1.030) Urine Protein (NEGATIVE) mg/dL Urine Glucose (UA) NEGATIVE (NEGATIVE) mg/dL Urine Ketones TRACE (NEGATIVE) mg/dL Urine Occult Blood (NEGATIVE) Urine Nitrite (NEGATIVE) Urine Bilirubin COLOR INTERFERENCE (NEGATIVE) Urine Urobilinogen (NORMAL) E.U./dL Ur Leukocyte Esterase (NEGATIVE) Urine RBC TNTC H (0-5) /HPF Urine WBC 6-10 H (0-5) /HPF Ur Squamous Epith Cells NONE SEEN (<= Few) Urine Bacteria None Seen (None Seen) /HPF Ur Microscopic Review INDICATED 10/08/18 Range/Units 01:30 WBC (4.8-10.8) x10^3/uL RBC (4.20-5.40) 10^6/uL Hgb (12.0-16.0) g/dL Hct (37.0-47.0) % MCV (81.0-99.0) fL MCH (27.0-31.0) pg MCHC (32.0-36.0) g/dL RDW (12.0-15.0) % Plt Count (130-450) 10^3/uL MPV (7.9-10.8) fL Neut # (Auto) (1.5-6.6) 10^3/uL Lymph # (Auto) (1.5-3.5) 10^3/uL Ross # (Auto) (0.0-1.0) 10^3/uL Eos # (Auto) (0.0-0.7) 10^3/uL Baso # (Auto) (0.0-0.1) 10^3/uL Absolute Nucleated RBC x10^3/uL Total Counted Band Neuts % (Manual) (0 - 10) % Abnorm Lymph % (Manual) % Nucleated RBC % /100WBC Neutrophils # (Manual) (1.5-6.6) 10^3/uL Lymphocytes # (Manual) (1.5-3.5) 10^3/uL Monocytes # (Manual) (0.0-1.0) 10^3/uL Eosinophils # (Manual) (0-0.7) 10^3/uL Basophils # (Manual) (0-0.1) 10^3/uL Differential Comment WBC Morphology (NORMAL) Platelet Estimate (NORMAL) Platelet Morphology (NORMAL) RBC Morph Micro Appear (NORMAL) Sodium 140 (135-145) mmol/L Potassium 4.1 (3.5-5.0) mmol/L Chloride 110 (101-111) mmol/L Carbon Dioxide 21 (21-32) mmol/L Anion Gap 9.0 (6-13) BUN 47 H (6-20) mg/dL Creatinine 2.0 H (0.4-1.0) mg/dL Estimated GFR (MDRD) 24 L (>89) Glucose 195 H (70-100) mg/dL Glycated Hemoglobin (4.6-6.2) % Estim Average Glucose (70-100) Lactic Acid (0.5-2.2) mmol/L Uric Acid (2.6-7.2) mg/dL Calcium 8.1 L (8.5-10.3) mg/dL Iron (28-170) ug/dL TIBC (250-450) ug/dL % Saturation (20-50) % Transferrin (192-382) mg/dL Total Bilirubin 0.4 (0.2-1.0) mg/dL AST 18 (10-42) IU/L ALT 14 (10-60) IU/L Alkaline Phosphatase 87 (42-121) IU/L Total Protein 6.3 L (6.7-8.2) g/dL Albumin 2.7 L (3.2-5.5) g/dL Globulin 3.6 (2.1-4.2) g/dL Albumin/Globulin Ratio 0.8 L (1.0-2.2) Lipase 29 (22-51) U/L Vitamin B12 (180-914) pg/mL Folate (5.90 - >24.8) ng/mL TSH (0.34-5.60) uIU/mL Urine Color Urine Clarity (CLEAR) Urine pH (5.0-7.5) PH Ur Specific Blaine (1.002-1.030) Urine Protein (NEGATIVE) mg/dL Urine Glucose (UA) (NEGATIVE) mg/dL Urine Ketones (NEGATIVE) mg/dL Urine Occult Blood (NEGATIVE) Urine Nitrite (NEGATIVE) Urine Bilirubin (NEGATIVE) Urine Urobilinogen (NORMAL) E.U./dL Ur Leukocyte Esterase (NEGATIVE) Urine RBC (0-5) /HPF Urine WBC (0-5) /HPF Ur Squamous Epith Cells (<= Few) Urine Bacteria (None Seen) /HPF Ur Microscopic Review Sepsis Event Note (H) - Evaluation Current Stage of Sepsis: Septic shock Possible source of Sepsis: positive: Genitourinary - Sepsis Criteria Sepsis Criteria: Recorded Temperature greater than 38.3C or Less than 36C, WBC count greater than 12,000 or less than 4000, SBP drop more than 40mHg, MAP less than 65 mmHg Assessment/Plan - Problem List (1) Septic shock Impression: Mostly due to her urinary agent that is not responded to antibiotics or IV fluids. I had a 15-minute conversation with her daughter on the phone. Mom is already a DO NOT RESUSCITATE and we discussed that couch area of heart stopping/breathing stopping but the patient still needing treatment prior to that. She is tearful. She states that she would like her mom to keep on living. That her first inclination is to have me transfer the patient to the unit for pressors and further aggressive intervention short of intubation or CPR. But then she recalls the things that her mother has been telling her over the last few months. She is tired of living. She hates living where she lives. She is not happy there. She does not see the point of continuing to live in this state of gradual increasing dementia. With that in mind, the daughter feels that mom would not want to be transferred to the ICU and kept alive. As such, I am keeping the patient MedSurg status. I will continue with the fluid boluses, the antibiotics, and any symptom measurement of comfort to help her. I do not want to give her IV morphine because it will drop her pressure. She is grimacing with pain in her back. I will give her Roxanol drops, very small doses of Ativan, and again, continue antibiotics and fluids until it becomes obvious whether she is good to make it or not. Time spent in direct patient care has been 45 minutes.
[2018-10-08] MEDS ORDERED: SODIUM CHLORIDE 0.9% 1,000 ML IV SCH (20:00)
[2018-10-08] MEDS: MEROPENEM 500 MG in SODIUM CHLORIDE 0.9% MINIBAG 100 ML IV SCH (20:03)
[2018-10-08] MEDS: SODIUM CHLORIDE 0.9% 1,000 ML IV SCH (22:04)
[2018-10-08] MEDS: SODIUM CHLORIDE 0.9% 1,950 ML IV STA ×2 (22:42→23:40)
[2018-10-08] MEDS ORDERED: SODIUM CHLORIDE 0.9% 1,950 ML IV STA (22:51)
--- NOTE | 2018-10-09 00:23 | PROVIDER PROGRESS NOTE ---
Stripping Shovel Oiler Note - Stripping Shovel Oiler Note Stripping Shovel Oiler Note: Patient with ESBL+ E.coli Sepsis with 2/2 blood cultures that are positive, with early shock, likely present on admission. Patient seen at bedside with low systolic BPs, SBP 70's, Ucx ordered again, Patient is encephalopathic as a result of her early sepsis and possible shock currently on IV Merrem, receiving bolus normal saline for early goal-directed therapy, Patient growing ESBL E. coli but no sensitivities are out. We will continue with early goal-directed therapy, encephalopathy has improved somewhat continue with midodrine as patient has deferred off of pressor support. SBP after several 1L bolus has improved MAP>65 per orders. Poor prognosis, needs palliative to eval for hospice.
[2018-10-09] MEDS: MIDODRINE 2.5 MG TABLET PO PRN (00:26)
[2018-10-09] MEDS: ACETAMINOPHEN 1,000 MG/100 ML 100 ML IV PRN (03:14)
[2018-10-09 04:54] LABS: BASOPHILS % (AUTO) 0.2 %; EOSINOPHILS % (AUTO) 0.1 %; LYMPHOCYTES % (AUTO) 2.1 %; MEAN CORPUSCULAR HEMOGLOBIN 29.2 pg (27.0-31.0); MEAN CORPUSCULAR HGB CONC 30.4 g/dL (32.0-36.0); MEAN PLATELET VOLUME 11.3 fL (7.9-10.8); MONOCYTES % (AUTO) 3.1 %; NEUTROPHILS % (AUTO) 93.6 %; PLT - PLATELET COUNT 222 10^3/uL (130-450); RED BLOOD COUNT 2.74 10^6/uL (4.20-5.40); RED CELL DISTRIBUTION WIDTH 14.4 % (12.0-15.0); WHITE BLOOD COUNT 27.5 x10^3/uL (4.8-10.8)
[2018-10-09 04:58] LABS: ABNORMAL LYMPHS % (MANUAL) 0 %
[2018-10-09 05:08] LABS: ALBUMIN 2.2 g/dL (3.2-5.5); CALCIUM 7.9 mg/dL (8.5-10.3); CREATININE 2.5 mg/dL (0.4-1.0); PHOSPHORUS 4.2 mg/dL (2.5-4.6)
[2018-10-09] MEDS: PHENAZOPYRIDINE 100 MG TABLET PO SCH ×3 (05:16→20:58)
[2018-10-09 05:20] LABS: BAND NEUTROPHILS % (MANUAL) 17 %; DIFFERENTIAL COMMENT MANUAL DIFFERENTIAL; LYMPHOCYTES # (MANUAL) 1.4 10^3/uL (1.5-3.5); LYMPHOCYTES % (MANUAL) 5 %; MONOCYTES # (MANUAL) 1.1 10^3/uL (0.0-1.0); NEUTROPHILS % (MANUAL) 74 %; PLATELET ESTIMATE, MANUAL NORMAL (130-450,000) (NORMAL); RBC MORPHOLOGY (MULTIPLE) NORMAL APPEARANCE (NORMAL)
[2018-10-09] MEDS: SODIUM CHLORIDE 0.9% 1,000 ML IV SCH ×3 (05:39→17:18)
[2018-10-09] MEDS: INSULIN ASPART 300 UNIT/3 ML PEN SUBQ SCH ×4 (08:20→20:59)
[2018-10-09] MEDS: MEROPENEM 500 MG in SODIUM CHLORIDE 0.9% MINIBAG 100 ML IV SCH ×2 (08:23→20:58)
--- NOTE | 2018-10-09 08:25 | PROVIDER PROGRESS NOTE ---
Subjective - Prog Note Date Prog Note Date: 10/09/18 Prog Note Time: 08:23 - Subjective Subjective: Between yesterday's episode of septic shock, requiring fluid boluses and repeat cultures, etc., the patient is slowly regained some ground. She is on meropenem and grew out ESBL E. coli. Awaiting sensitivities. Systolic is now 108 this morning. She is still on MedSurg status. Daughter, power of real estate attorney, decided against more aggressive measures. She did not want mom in the ICU on pressors, central line, etc. Current Medications - Current Medications Current Medications: Active Medications Acetaminophen (Ofirmev) 100 mls @ 400 mls/hr IV Q6HR PRN PRN Reason: PAIN Last Infusion: 10/09/18 03:29 Dose: Infused Meropenem 500 mg/ Sodium (Chloride) 100 mls @ 200 mls/hr IV BID [facility] Last Infusion: 10/08/18 20:35 Dose: Infused Sodium Chloride (Normal Saline 0.9%) 1,000 mls @ 175 mls/hr IV .[id number] [facility] Last Admin: 10/09/18 05:39 Dose: 175 mls/hr Insulin Aspart (Novolog) 3 - 11 unit SUBQ 0800,1200,1700,2100 [facility]; Protocol Last Admin: 10/08/18 21:28 Dose: Not Given Midodrine () 10 mg PO TID PRN PRN Reason: SBP<100 Last Admin: 10/09/18 00:26 Dose: 10 mg Morphine Sulfate (Roxanol) 10 mg PO Q2HR PRN PRN Reason: PAIN Last Admin: 10/08/18 17:08 Dose: 10 mg Phenazopyridine HCl (Pyridium) 100 mg PO TID [facility] Last Admin: 10/09/18 05:16 Dose: 100 mg Allopurinol [Zyloprim] 300 mg PO DAILY 02/18/13 Aspirin Chewable [[place] Aspirin] 81 mg PO DAILY 02/18/13 Cyanocobalamin (Vitamin B-12) [Vitamin B-12] 2,500 mcg PO DAILY 02/18/13 Lisinopril 2.5 mg PO DAILY 02/18/13 Omeprazole [PriLOSEC] 20 mg PO QDAC 02/18/13 Simvastatin [Zocor] 40 mg PO QPM 02/18/13 traZODone [Desyrel] 50 mg PO QPM 10/30/17 Loratadine 10 mg PO DAILY 10/31/17 Donepezil HCl 10 mg PO DAILY 01/26/18 Folic Acid 1 mg PO DAILY 01/26/18 Glucosamine Sulfate 500 mg PO BID 01/26/18 Acetaminophen [Tylenol Extra Strength] 500 mg PO BID 10/08/18 Fosfomycin Tromethamine [Monurol] 3 g PO Q10D 10/08/18 Saccharomyces Boulardii [Florastor] 250 mg PO BID 10/08/18 Objective - Vital Signs/Intake & Output Reviewed Vital Signs: Yes Vital Signs: Vital Signs x48h Temp Pulse Resp BP Pulse Ox 10/09/18 08:03 36.6 C 83 20 98/65 96 10/09/18 05:17 37.3 C 86 18 108/51 L 97 10/09/18 03:11 36.3 C L 95 18 113/64 95 Intake & Output: Intake & Output 10/06/18 10/07/18 10/08/18 10/09/18 23:59 23:59 23:59 23:59 Intake Total 3823.833 989.167 Output Total 300 Balance 3823.833 689.167 - Objective General Appearance: positive: Alert, Moderate distress (from emotion. she is tearful and cries out when you touch her to examine anything) Eyes Bilateral: positive: PERRL ENT: positive: Pharynx nml Neck: positive: No JVD. negative: Stiff neck, Carotid bruit Respiratory: positive: Chest non-tender, No respiratory distress, Rales. negative: Wheezes, Rhonchi Cardiovascular: positive: Regular rate & rhythm, Systolic murmur. negative: Gallop/S4, Friction rub Abdomen: positive: Non-tender, No organomegaly, Nml bowel sounds, No distention Neurologic/Psychiatric: positive: CN's nml (2-12), Disoriented to place (dementia), Disoriented to time, Weakness - Lab Results Fish Bones: 10/09/18 04:45 10/09/18 04:45 Other Labs: Lab Results x24hrs 10/09/18 10/09/18 10/08/18 Range/Units 04:45 04:45 14:55 WBC 27.5 H (4.8-10.8) x10^3/uL RBC 2.74 L (4.20-5.40) 10^6/uL Hgb 8.0 L (12.0-16.0) g/dL Hct 26.3 L (37.0-47.0) % MCV 96.0 (81.0-99.0) fL MCH 29.2 (27.0-31.0) pg MCHC 30.4 L (32.0-36.0) g/dL RDW 14.4 (12.0-15.0) % Plt Count 222 (130-450) 10^3/uL MPV 11.3 H (7.9-10.8) fL Neut # (Auto) Not Reportable Lymph # (Auto) Not Reportable Dickenson # (Auto) Not Reportable Eos # (Auto) Not Reportable Baso # (Auto) Not Reportable Absolute Nucleated RBC Not Reportable Total Counted 100 Band Neuts % (Manual) 17 H (0 - 10) % Abnorm Lymph % (Manual) 0 % Nucleated RBC % Not Reportable Neutrophils # (Manual) 25.0 H (1.5-6.6) 10^3/uL Lymphocytes # (Manual) 1.4 L (1.5-3.5) 10^3/uL Monocytes # (Manual) 1.1 H (0.0-1.0) 10^3/uL Eosinophils # (Manual) 0.0 (0-0.7) 10^3/uL Basophils # (Manual) 0.0 (0-0.1) 10^3/uL Differential Comment MANUAL DIFFERENTIAL WBC Morphology (NORMAL) Platelet Estimate NORMAL (130-450,000) (NORMAL) Platelet Morphology (NORMAL) RBC Morph Micro Appear NORMAL APPEARANCE (NORMAL) Sodium 141 (135-145) mmol/L Potassium 5.1 H (3.5-5.0) mmol/L Chloride 114 H (101-111) mmol/L Carbon Dioxide 18 L (21-32) mmol/L Anion Gap 9.0 (6-13) BUN 51 H (6-20) mg/dL Creatinine 2.5 H (0.4-1.0) mg/dL Estimated GFR (MDRD) 18 L (>89) Glucose 165 H (70-100) mg/dL Glycated Hemoglobin (4.6-6.2) % Estim Average Glucose (70-100) Lactic Acid < 0.3 L (0.5-2.2) mmol/L Uric Acid (2.6-7.2) mg/dL Calcium 7.9 L (8.5-10.3) mg/dL Phosphorus 4.2 (2.5-4.6) mg/dL Troponin I (<0.49) ng/mL Albumin 2.2 L (3.2-5.5) g/dL Vitamin B12 (180-914) pg/mL Folate (5.90 - >24.8) ng/mL 10/08/18 10/08/18 10/08/18 Range/Units 14:43 08:30 08:30 WBC 20.5 H (4.8-10.8) x10^3/uL RBC 3.05 L (4.20-5.40) 10^6/uL Hgb 8.9 L (12.0-16.0) g/dL Hct 28.8 L (37.0-47.0) % MCV 94.4 (81.0-99.0) fL MCH 29.2 (27.0-31.0) pg MCHC 30.9 L (32.0-36.0) g/dL RDW 13.9 (12.0-15.0) % Plt Count 236 (130-450) 10^3/uL MPV 11.3 H (7.9-10.8) fL Neut # (Auto) Not Reportable Lymph # (Auto) Not Reportable Dickenson # (Auto) Not Reportable Eos # (Auto) Not Reportable Baso # (Auto) Not Reportable Absolute Nucleated RBC Not Reportable Total Counted 100 Band Neuts % (Manual) 12 H (0 - 10) % Abnorm Lymph % (Manual) 0 % Nucleated RBC % Not Reportable Neutrophils # (Manual) 18.2 H (1.5-6.6) 10^3/uL Lymphocytes # (Manual) 1.4 L (1.5-3.5) 10^3/uL Monocytes # (Manual) 0.8 (0.0-1.0) 10^3/uL Eosinophils # (Manual) 0.0 (0-0.7) 10^3/uL Basophils # (Manual) 0.0 (0-0.1) 10^3/uL Differential Comment MANUAL DIFFERENTIAL WBC Morphology NORMAL APPEARANCE (NORMAL) Platelet Estimate NORMAL (130-450,000) (NORMAL) Platelet Morphology NORMAL APPEARANCE (NORMAL) RBC Morph Micro Appear NORMAL APPEARANCE (NORMAL) Sodium (135-145) mmol/L Potassium (3.5-5.0) mmol/L Chloride (101-111) mmol/L Carbon Dioxide (21-32) mmol/L Anion Gap (6-13) BUN (6-20) mg/dL Creatinine (0.4-1.0) mg/dL Estimated GFR (MDRD) (>89) Glucose (70-100) mg/dL Glycated Hemoglobin 7.2 H (4.6-6.2) % Estim Average Glucose 160 H (70-100) Lactic Acid (0.5-2.2) mmol/L Uric Acid (2.6-7.2) mg/dL Calcium (8.5-10.3) mg/dL Phosphorus (2.5-4.6) mg/dL Troponin I 0.07 (<0.49) ng/mL Albumin (3.2-5.5) g/dL Vitamin B12 (180-914) pg/mL Folate (5.90 - >24.8) ng/mL 10/08/18 10/08/18 Range/Units 07:37 07:37 WBC (4.8-10.8) x10^3/uL RBC (4.20-5.40) 10^6/uL Hgb (12.0-16.0) g/dL Hct (37.0-47.0) % MCV (81.0-99.0) fL MCH (27.0-31.0) pg MCHC (32.0-36.0) g/dL RDW (12.0-15.0) % Plt Count (130-450) 10^3/uL MPV (7.9-10.8) fL Neut # (Auto) Lymph # (Auto) Dickenson # (Auto) Eos # (Auto) Baso # (Auto) Absolute Nucleated RBC Total Counted Band Neuts % (Manual) (0 - 10) % Abnorm Lymph % (Manual) % Nucleated RBC % Neutrophils # (Manual) (1.5-6.6) 10^3/uL Lymphocytes # (Manual) (1.5-3.5) 10^3/uL Monocytes # (Manual) (0.0-1.0) 10^3/uL Eosinophils # (Manual) (0-0.7) 10^3/uL Basophils # (Manual) (0-0.1) 10^3/uL Differential Comment WBC Morphology (NORMAL) Platelet Estimate (NORMAL) Platelet Morphology (NORMAL) RBC Morph Micro Appear (NORMAL) Sodium 138 (135-145) mmol/L Potassium 4.6 (3.5-5.0) mmol/L Chloride 105 (101-111) mmol/L Carbon Dioxide 18 L (21-32) mmol/L Anion Gap 15.0 H (6-13) BUN 48 H (6-20) mg/dL Creatinine 2.0 H (0.4-1.0) mg/dL Estimated GFR (MDRD) 24 L (>89) Glucose 226 H (70-100) mg/dL Glycated Hemoglobin (4.6-6.2) % Estim Average Glucose (70-100) Lactic Acid (0.5-2.2) mmol/L Uric Acid 4.1 (2.6-7.2) mg/dL Calcium 8.3 L (8.5-10.3) mg/dL Phosphorus (2.5-4.6) mg/dL Troponin I (<0.49) ng/mL Albumin (3.2-5.5) g/dL Vitamin B12 2232 H (180-914) pg/mL Folate > 49.60 (5.90 - >24.8) ng/mL ABX Reporting Has patient been on IV antibiotics over the past 48 hours?: Yes Sepsis Event Note (H) - Evaluation Current Stage of Sepsis: Septic shock Possible source of Sepsis: positive: Genitourinary - Sepsis Criteria Sepsis Criteria: Recorded Temperature greater than 38.3C or Less than 36C, WBC count greater than 12,000 or less than 4000, SBP drop more than 40mHg, MAP less than 65 mmHg Assessment/Plan - Problem List (1) Septic shock Impression: Patient was admitted with acute cystitis presenting as a bloody diaper and lethargy. She has either a mass in her bladder or blood clot in her bladder. 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 On 10/08, starting at 14:30 she has spiked a temperature, she was given Tylenol, more antibiotics, and repeat blood and urine cultures were done. At least we tried to do repeat urine cultures but the patient refuses to have it in and out straight cath, has cried out. Is tearful. She then began having nausea, and became bradycardic with a probable vasovagal response. Pulse rebounded. It went from the 30s back up into the 80s and 90s. Temperature came down with the IV Tylenol but at 15: 30 she is to drop her pressures. She is received a fluid bolus of close to a liter and pressure is still 74/43 at 16: 30. My next step would have been to place her in the ICU and place a central line, start pressors. Continue with fluid boluses. I called the daughter and presented her with the situation of probable sepsis due to her UTI. Or a lady who has critical aortic stenosis and could be having an PR. The patient herself is unable to really guide me with regards to review of systems. She is a tearful, very forgetful elderly female who is very resistant as touching her, and was flatly fighting against us for the in and out catheter/Lopez. She has slowly responded and is turning around from a systolic blood pressure perspective. She has manifestation of endorgan damage with a rise in her creatinine. We will continue to have goal-directed therapy for ESBL E. coli. Day #2 meropenem. Continue IV fluids. (2) Acute hemorrhagic cystitis Impression: Conclusion/Plan: CT abd/pelvis shows 4.7 cm mass seen in bladder (tumor vs thrombus) likely representing hemorrhagic cystitis. Would treat empirically with IV merrem, place on probiotics, pain control, supportive care. Cultures are showing ESBL E. coli. (2) Urinary tract infection with hematuria Conclusion/Plan: Place on IV merrem as hx ESBL+ MDR Klebsiella pn. Urine cultures were not done. We are not clear what the process is been going on. We were on downtime with orders being written on paper. During that time her urinalysis was collected and submitted to the lab for culture and sensitivity. Lab has opted not to do culture and sensitivity on the urine. Blood cultures are positive however. Plan: Continue meropenem. Qualifiers: Urinary tract infection type: acute cystitis Qualified Code(s): N30.01 - Acute cystitis with hematuria (3) Acute blood loss anemia Conclusion/Plan: Secondary to acute hemorrhagic cystitis. Would transfuse under liberal protocol. H/H monitoring. Hemoglobin has been 8 g to 8.9 g. No transfusion needed at this time. (4) Hypotension Conclusion/Plan: Initial thought that it was likely from lisinopril as opposed to hypovolemia or dehydration, IVF's, midodrine prn. As day went on 10/08, she was sliding into septic shock. Still hypotensive this am but improved from 70 systolic to 108 systolic. NO transfer to ICU Qualifiers: Hypotension type: unspecified hypotension type Qualified Code(s): I95.9 - Hypotension, unspecified (5) Vascular dementia Conclusion/Plan: Resume aricept. No evidence of hallucinations, patient p/w with mild agitation as it pertained to her pelvic pain and her symptoms of her UTI. It is On the basis of her dementia, poor quality of life, that her daughter is opted to go no further with her measures. Yesterday, she felt that her mother survived this event with antibiotics, fluid support, that would be adequate. If mom did not survive the event, that would be okay as well. Mom has been stating for many months if not over a year now that she has no quality of life. The patient has enough self introspection to define herself is unhappy, does not understand why she is still living. I have asked for Palliative Care Consult and LESTER Gutierrez has seen the patient and her daughter. Qualifiers: Dementia behavioral disturbance: without behavioral disturbance Qualified Code(s): F01.50 - Vascular dementia without behavioral disturbance (6) Acute worsening of stage 3 chronic kidney disease with hyperkalemia. Conclusion/Plan: Creatinine started 2, and with yesterday's hypotension she is gone to 2.5 this morning. She is still making urine. She is refusing a Lopez catheter. Plan:Would avoid nephrotoxic agents, perfuse kidneys with IVF's, transfuse as needed, correct lytes, prior cr 1.5 on last discharge here. Monitor renal function, bilateral hydronephrosis as well as recurrence of hemorrhagic cystatis with possible post-obstructive process seen. Uric acid is 4.1. allopurinol to continue. (7) Macrocytosis Conclusion/Plan: Check labs and correct nutritional deficiencies if present Laboratory Tests 10/08/18 10/08/18 07:37 07:37 Iron 10 L % Saturation 4 L Transferrin 161 L Vitamin B12 2232 H TSH 1.24 (8) Anemia Conclusion/Plan: Multifactorial anemia; Iron deficiency anemia, anemia of chronic disease superimposed on acute on chronic blood loss anemia as it pertains to her rec urrence of hemorrhagic cystitis. Correct underlying cause. Transfuse under liberal protocol of <8g/dl due to hx valvular heart disease with . Qualifiers: Anemia type: other cause Other causes of anemia: other cause, not classified Qualified Code(s): D64.89 - Other specified anemias (9) Vicky rash of groin Conclusion/Plan: Would apply nystatin powder which she was receiving at [facility]. (10) Generalized weakness Conclusion/Plan: Likely related to recurrent UTI along with blood loss anemia, correct underlying causes. May need PT to eval for physical deconditioning related to medical conditions. (11) Critical Aortic Stenosis Troponin was 0.07 in the midst of this episode. As such I do not think she is having an PR that is contributing to her hypotension.
[2018-10-09] MEDS: POLYETHYLENE GLYCOL 3350 17 GM PACKET PO SCH (12:05)
--- NOTE | 2018-10-09 12:39 | CONSULTATION NOTE ---
Palliative Care Consultation - Referral Referring Provider: Dez Roman MD Time of Visit: [id number] Referral setting: Hospitalized patient Referral Reason: Sepsis/Recurrent UTIs/Goals of Care - Information Sources Records reviewed: Previous records reviewed History/Review of Systems obtained from: Patient, Family (met with daughter and BURKERAAD Velaz[place]iers) Exam limitations: Clinical condition (patient with advanced vascular dementia) - History of Present Illness Brief History of Present Illness: This is an 82-year-old woman with vascular dementia, with multiple chronic comorbidities including chronic anemia, chronic renal insufficiency stage III, diabetes type 2, critical aortic stenosis, and history of multiple recurrent UTIs with previously known EBSL. Patient admitted with hemorrhagic cystitis, increased pelvic pain, identified 4.7 cm mass seen in bladder (tumor versus thrombos) altered mental status, and dehydration. She was cutely ill with fever and chills, hypotension yesterday, unable to ini tiate palliative care visit. Daughter also not available, had left message for a.m. visit. In the meantime patient is continued to deteriorate, with hypotension, loss of consciousness, and increased symptoms related to septicemia. Susan had been contacted in the context of acute changes by [facility], and chose a more comfort focus, and declined ICU or aggressive interventions. Daughter did actually thought patient would pass last night, is quite surprised to see patient awake and alert in chair eating breakfast. Patient though does remain quite frail, elevated white blood cell count, still quite shaky and weak and not back to baseline cognitive status.Patient does not recall or have any awareness when daughter to talk to her about that she was "close to " yesterday, nor does she seem to have much response to this. Daughter reports patient continues at high risk for recurrent infections, this has something to do with her actually her dementia, patient is incontinent, and with her dementia does not allow assistance her vinod-care at the facility, without significant cajoling and redirection. Patient previous to admit, was ambulatory, and toileted herself, though had been incontinent to the point that she had ruined her lift chair, would not change herself nor allow changing for hours at a time. Patient is aware of her incontinence, though does not have the cognitive wherewithal to follow through on managing her own vinod-care, and is resistant to staff assist. Patient has had recurrent UTIs, and with increasing resistance, daughter aware patient most likely has poor prognosis and is not surprised that patient's current condition. Patient has had history of bladder prolapse, with repair. She did have a cystoscopy after her last hospitalization with no acute findings of cancer or identified cause as she did have a similar episode of hemorrhagic cystitis previously per report. Patient's dementia has been present for several years, with each hospitalization she does appear to deteriorate more per daughter's perception. She reports she is quite irritable and cranky at times, she does go by the name " Narcisa". She has been a resident at [facility] since her last acute hospitalization in April, and is very dissatisfied with this. Patient does not present with decision- making capacity, as though she can speak in full sentences, she cannot back to direct questions nor has recall of recent events, she does confabulate, and unable to focus and recognize the seriousness of her situation. Daughter requests any of those serious conversations regarding treatment plans, goals of care, we had with her. She reports is just confuses and causes increased an xiety for her mother. 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: Uterine cancer : reports: Incontinence, Chronic bladder infection, Renal insuffiency, Noc turia, Frequency HEENT: reports: Chronic vision loss, Chronic sinusitis, Chronic hearing loss Psych: reports: Depression, Anxiety Musculoskeletal: reports: Osteoarthritis, Gout, Fatigue Derm: reports: None MRSA Hx?: No - Past Surgical History General: reports: Colonoscopy Ortho: reports: Carpal Tunnel surgery, Other /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 She was having a friend take care of her, but his dementia worsened and her care needs increased she brought her back to the [place] in 2011. She had been living and can be previous to her transition to the group home in April. Patient has 2 other sons, they have not seen her for several years. Susan has her own son in [place], but other social support is limited. [place] 2005 of [place]ism. Daughter visits patient every other day, her health is limited as well. Both have found living at the group home and answered to getting her care needs met, but patient quality of life continues to deteriorate. Family History - Family History Family History: Mother: (father old age 91), Father: , Sister: Alive and Well, Brother: , CAD Family History Comment/Other: has one son 2005; 2 sons on [facility]; and daughter her [place] Medications/Allergies - Medications Active Medication List: Active Medications Acetaminophen (Ofirmev) 100 mls @ 400 mls/hr IV Q6HR PRN PRN Reason: PAIN Last Infusion: 10/09/18 03:29 Dose: Infused Meropenem 500 mg/ Sodium (Chloride) 100 mls @ 200 mls/hr IV BID [facility] Last Infusion: 10/09/18 08:53 Dose: Infused Sodium Chloride (Normal Saline 0.9%) 1,000 mls @ 175 mls/hr IV .Q5H43M [facility] Last Admin: 10/09/18 12:02 Dose: 175 mls/hr Insulin Aspart (Novolog) 3 - 11 unit SUBQ 0800,1200,1700,2100 [facility]; Protocol Last Admin: 10/09/18 12:00 Dose: 5 unit Midodrine () 10 mg PO TID PRN PRN Reason: SBP<100 Last Admin: 10/09/18 00:26 Dose: 10 mg Morphine Sulfate (Roxanol) 10 mg PO Q2HR PRN PRN Reason: PAIN Last Admin: 10/08/18 17:08 Dose: 10 mg Phenazopyridine HCl (Pyridium) 100 mg PO TID [facility] Last Admin: 10/09/18 05:16 Dose: 100 mg Polyethylene Glycol (Miralax) 17 gm PO DAILY [facility] Last Admin: 10/09/18 12:05 Dose: 17 gm Allopurinol [Zyloprim] 300 mg PO DAILY 02/18/13 Aspirin Chewable [[place] Aspirin] 81 mg PO DAILY 02/18/13 Cyanocobalamin (Vitamin B-12) [Vitamin B-12] 2,500 mcg PO DAILY 02/18/13 Lisinopril 2.5 mg PO DAILY 02/18/13 Omeprazole [PriLOSEC] 20 mg PO QDAC 02/18/13 Simvastatin [Zocor] 40 mg PO QPM 02/18/13 traZODone [Desyrel] 50 mg PO QPM 10/30/17 Loratadine 10 mg PO DAILY 10/31/17 Donepezil HCl 10 mg PO DAILY 01/26/18 Folic Acid 1 mg PO DAILY 01/26/18 Glucosamine Sulfate 500 mg PO BID 01/26/18 Acetaminophen [Tylenol Extra Strength] 500 mg PO BID 10/08/18 Fosfomycin Tromethamine [Monurol] 3 g PO Q10D 10/08/18 Saccharomyces Boulardii [Florastor] 250 mg PO BID 10/08/18 - Allergies Allergies/Adverse Reactions: Allergies Allergy/AdvReac Type Severity Reaction Status Date / Time cephalexin [Cephalexin] Allergy Intermediate generalized Verified 01/26/18 14:30 shaking Review of Systems - Constitutional Constitutional: reports: Fatigue, Chills - Eyes Eyes: reports: Vision loss - Ears, Nose & Throat Ears, Nose & Throat: reports: Hearing loss, Nasal congestion, Postnasal drainage, Dry mouth - Cardiovascular Cardiovascular: reports: Irregular heart rate, Decr. exercise tolerance - Respiratory Respiratory: denies: SOB at rest - Gastrointestinal Gastrointestinal: reports: Poor appetite. denies: Nausea, Reflux/heartburn - Genitourinary Genitourinary: reports: Dysuria (reports pain with sitting; skin uncomfortable), Incontinence - Musculoskeletal Musculoskeletal: reports: Back pain, Muscle aches, Stiffness, Muscle weakness, Joint pain (bilateral knee pain and hands osteoarthritis), Assistive devices (uses walker in room at [facility]) - Integumentary Integumentary: reports: Rash, Dryness - Neurological Neurological: reports: General weakness, Memory problems, Abnormal gait, Incoordination - Psychiatric Psychiatric: reports: Anxiety, Delusions - Endocrine Endocrine: reports: Diabetes type 2, Intolerance to cold - Hematologic/Lymphatic Hematologic/Lymphatic: reports: Anemia, Recurrent infections (last hospitalized 04/2018) - All Other Systems All Other Systems: reports: Other (limited ROS wtih dementia) Physical Exam - Vital Signs Vital Signs: Vital Signs x48h Temp Pulse Resp BP Pulse Ox 10/09/18 08:03 36.6 C 83 20 98/65 96 10/09/18 05:17 37.3 C 86 18 108/51 L 97 - Physical Exam General Appearance: positive: Mild distress, Anxious Eyes Bilateral: positive: Normal inspection ENT: negative: Pharyngeal erythema, Oral lesions Neck: positive: No JVD, Trachea midline Cardiovascular: positive: Irregularly irregular Respiratory: positive: No respiratory distress Abdomen: positive: Soft Skin: positive: Pallor, Dryness, Bruising Extremities: positive: No pedal edema Neurologic/Psychiatric: positive: Disoriented to time, Weakness, Flat affect Palliative Care - POLST Patient has POLST: Yes POLST Status: DNR, Comfort Measures Pain: Pain improved Performance Status: Patient's previous level of functioning had been able to ambulate back and forth to the bathroom independently. Staff did take her to the shower, but was able to bathe herself. She was independently dressing and attempting to do vinod- care. Currently she is max assist for transfer, quite weak and shaky. She is worried about keeping strong, wants to know when she can walk again. Reviewed most likely needs to give herself another 24 hours that she is been very sick, she is in agreement to call and ask for assistance though unclear if she will remember. - Palliative Care Discussion: Recent with very little insight into her current status or her seriousness of her illness. She does understand she is in the hospital, is unclear exactly why other than she has an infection. She does try to socially cover, she denies being worried or concerned about anything. When her daughter told her she almost last night, she seemed somewhat perplexed but not concerned. Did spend quite a bit of time meeting with daughter. Shawn patient has multiple times expressed to her she just wants to be done with this, that she is not a fraid to . Patient is Jew by background. She perceives her mother's quality of life is continuing to deteriorate, she dislikes not being independent, unable to take care of herself, and finds very little laurent or distraction in her current situation. She does recognize the seriousness of her mother's illness, and was quite prepared to just transition and focus on comfort. Her goals for mom or not to prolong her suffering, to keep her comfortable, and to allow natural and let her go. Counseling provided regarding the continuum of care, role of palliative care, and ability for next episode if patient does not deteriorate this around, to make a different decision. Discussed the criteria for hospice, unfortunately at this point in time she does not have a "terminal diagnosis" unless she continues to fail. Would recommend at that point in time, transitioning to hospice and back to [facility] for hospice support. Currently does not feel can withdraw antibiotics given patient's current recovery. But did discuss in the future can choose not to go to the hospital, or nor initiate antibiotics but focus on comfort with hospice support. Did agree to follow-up for long-term support from palliative care, as most likely will be facing the same decisions in the near future. Results - Lab Results Lab results reviewed: Yes Fish Bones: 10/09/18 04:45 10/09/18 04:45 Lab and Imaging Results: Lab Results x24hrs 10/09/18 10/09/18 10/08/18 Range/Units 04:45 04:45 14:55 WBC 27.5 H (4.8-10.8) x10^3/uL RBC 2.74 L (4.20-5.40) 10^6/uL Hgb 8.0 L (12.0-16.0) g/dL Hct 26.3 L (37.0-47.0) % MCV 96.0 (81.0-99.0) fL MCH 29.2 (27.0-31.0) pg MCHC 30.4 L (32.0-36.0) g/dL RDW 14.4 (12.0-15.0) % Plt Count 222 (130-450) 10^3/uL MPV 11.3 H (7.9-10.8) fL Neut # (Auto) Not Reportable Lymph # (Auto) Not Reportable [place] # (Auto) Not Reportable Eos # (Auto) Not Reportable Baso # (Auto) Not Reportable Absolute Nucleated RBC Not Reportable Total Counted 100 Band Neuts % (Manual) 17 H (0 - 10) % Abnorm Lymph % (Manual) 0 % Nucleated RBC % Not Reportable Neutrophils # (Manual) 25.0 H (1.5-6.6) 10^3/uL Lymphocytes # (Manual) 1.4 L (1.5-3.5) 10^3/uL Monocytes # (Manual) 1.1 H (0.0-1.0) 10^3/uL Eosinophils # (Manual) 0.0 (0-0.7) 10^3/uL Basophils # (Manual) 0.0 (0-0.1) 10^3/uL Differential Comment MANUAL DIFFERENTIAL Platelet Estimate NORMAL (130-450,000) (NORMAL) RBC Morph Micro Appear NORMAL APPEARANCE (NORMAL) Sodium 141 (135-145) mmol/L Potassium 5.1 H (3.5-5.0) mmol/L Chloride 114 H (101-111) mmol/L Carbon Dioxide 18 L (21-32) mmol/L Anion Gap 9.0 (6-13) BUN 51 H (6-20) mg/dL Creatinine 2.5 H (0.4-1.0) mg/dL Estimated GFR (MDRD) 18 L (>89) Glucose 165 H (70-100) mg/dL Lactic Acid < 0.3 L (0.5-2.2) mmol/L Calcium 7.9 L (8.5-10.3) mg/dL Phosphorus 4.2 (2.5-4.6) mg/dL Troponin I (<0.49) ng/mL Albumin 2.2 L (3.2-5.5) g/dL 10/08/18 Range/Units 14:43 WBC (4.8-10.8) x10^3/uL RBC (4.20-5.40) 10^6/uL Hgb (12.0-16.0) g/dL Hct (37.0-47.0) % MCV (81.0-99.0) fL MCH (27.0-31.0) pg MCHC (32.0-36.0) g/dL RDW (12.0-15.0) % Plt Count (130-450) 10^3/uL MPV (7.9-10.8) fL Neut # (Auto) Lymph # (Auto) [place] # (Auto) Eos # (Auto) Baso # (Auto) Absolute Nucleated RBC Total Counted Band Neuts % (Manual) (0 - 10) % Abnorm Lymph % (Manual) % Nucleated RBC % Neutrophils # (Manual) (1.5-6.6) 10^3/uL Lymphocytes # (Manual) (1.5-3.5) 10^3/uL Monocytes # (Manual) (0.0-1.0) 10^3/uL Eosinophils # (Manual) (0-0.7) 10^3/uL Basophils # (Manual) (0-0.1) 10^3/uL Differential Comment Platelet Estimate (NORMAL) RBC Morph Micro Appear (NORMAL) Sodium (135-145) mmol/L Potassium (3.5-5.0) mmol/L Chloride (101-111) mmol/L Carbon Dioxide (21-32) mmol/L Anion Gap (6-13) BUN (6-20) mg/dL Creatinine (0.4-1.0) mg/dL Estimated GFR (MDRD) (>89) Glucose (70-100) mg/dL Lactic Acid (0.5-2.2) mmol/L Calcium (8.5-10.3) mg/dL Phosphorus (2.5-4.6) mg/dL Troponin I 0.07 (<0.49) ng/mL Albumin (3.2-5.5) g/dL Impression and Recommendations - Palliative Care Impression: This is an 82-year-old woman with vascular dementia, with continuing deterioration both functionally and cognitively. She is yet admitted again acutely for UTI/sepsis. She has recovered somewhat today, though remains quite frail and continues with elevated white blood cell count. Patient with out decision-making capacity, nor insight to the seriousness of her illness. Daughter's goals are to focus on comfort, not to prolong suffering, and to return to [facility] Palliative care to pursue outpatient referral, and continue provide anticipatory guidance Recommendations/Counseling Done: 1. Sepsis. Patient does appear somewhat improved today, though still with elevated WBC, and chills. She is quite frail, has no insight to her seriousness of her illness or other episode yesterday. Daughter aware given patient's risk factors, multidrug-resistant organisms in the past, will continue to be high risk for recurrent sequela. Anticipatory guidance and counseling provided. 2. Advanced care planning. Patient does have a POLST in place with comfort measures/DNA R. Family conference with daughter regarding patient's current quality of life, decision making weighing benefits and burdens in the future, as well as psychosocial support she does demonstrate caregiver fatigue. Patient were to further deteriorate, daughter would like to pursue just comfort measures only. Counseling provided regarding the role of palliative care, will continue to follow her over at the SNF. Time Spent: 75 minutes with getting 50% of this done in counseling, follow-up with daughter regarding advanced care planning and goals of care, counseled regarding hospice versus palliative care and anticipatory guidance.
[2018-10-10] MEDS: SODIUM CHLORIDE 0.9% 1,000 ML IV SCH ×4 (00:07→17:41)
[2018-10-10] MEDS: PHENAZOPYRIDINE 100 MG TABLET PO SCH ×3 (05:40→22:09)
[2018-10-10 06:56] LABS: BASOPHILS % (AUTO) 0.3 %; EOSINOPHILS # (AUTO) 0.1 10^3/uL (0.0-0.7); EOSINOPHILS % (AUTO) 0.3 %; HGB - HEMOGLOBIN 7.8 g/dL (12.0-16.0); LYMPHOCYTES # (AUTO) 0.7 10^3/uL (1.5-3.5); LYMPHOCYTES % (AUTO) 4.7 %; MEAN CORPUSCULAR HEMOGLOBIN 29.8 pg (27.0-31.0); MEAN CORPUSCULAR HGB CONC 31.3 g/dL (32.0-36.0); MEAN PLATELET VOLUME 11.6 fL (7.9-10.8); MONOCYTES # (AUTO) 0.6 10^3/uL (0.0-1.0); MONOCYTES % (AUTO) 3.7 %; NEUTROPHILS # (AUTO) 13.2 10^3/uL (1.5-6.6); NEUTROPHILS % (AUTO) 89.8 %; PLT - PLATELET COUNT 202 10^3/uL (130-450); RED BLOOD COUNT 2.62 10^6/uL (4.20-5.40); RED CELL DISTRIBUTION WIDTH 14.1 % (12.0-15.0); WHITE BLOOD COUNT 14.8 x10^3/uL (4.8-10.8)
[2018-10-10 07:06] LABS: ALBUMIN 1.9 g/dL (3.2-5.5); CALCIUM 7.5 mg/dL (8.5-10.3); CREATININE 2.4 mg/dL (0.4-1.0); PHOSPHORUS 3.7 mg/dL (2.5-4.6)
[2018-10-10] MEDS: MEROPENEM 500 MG in SODIUM CHLORIDE 0.9% MINIBAG 100 ML IV SCH ×2 (08:23→20:21)
[2018-10-10] MEDS: INSULIN ASPART 300 UNIT/3 ML PEN SUBQ SCH ×4 (08:25→21:59)
[2018-10-10] MEDS: POLYETHYLENE GLYCOL 3350 17 GM PACKET PO SCH (08:25)
[2018-10-10] MEDS ORDERED: levoFLOXacin 500 MG/100 ML 500 MG/100 ML BAG IV SCH (09:00)
--- NOTE | 2018-10-10 14:48 | PROVIDER PROGRESS NOTE ---
Subjective - Prog Note Date Prog Note Date: 10/10/18 Prog Note Time: 20:11 - Subjective Subjective: As she is improved from her sepsis, and blood pressures normalized, mentation is become more alert, she is very tearful. She does not want to be here. She does not want to be at the care home. She wonders why she is still alive. Sometimes she cooperates with nursing, sometimes it requires quite a bit of coaxing and prompting to get her to eat, to get up to go to the bathroom, etc. Current Medications - Current Medications Current Medications: Active Medications Acetaminophen (Ofirmev) 100 mls @ 400 mls/hr IV Q6HR PRN PRN Reason: PAIN Last Infusion: 10/09/18 03:29 Dose: Infused Meropenem 500 mg/ Sodium (Chloride) 100 mls @ 200 mls/hr IV BID [facility] Last Infusion: 10/10/18 09:04 Dose: Infused Sodium Chloride (Normal Saline 0.9%) 1,000 mls @ 175 mls/hr IV .Q5H43M [facility] Last Admin: 10/10/18 17:41 Dose: 175 mls/hr Insulin Aspart (Novolog) 3 - 11 unit SUBQ 0800,1200,1700,2100 [facility]; Protocol Last Admin: 10/10/18 17:37 Dose: 3 unit Lorazepam (Ativan Inj (Vial)) 0.5 mg IVP Q2H PRN PRN Reason: Agitation Midodrine () 10 mg PO TID PRN PRN Reason: SBP<100 Last Admin: 10/09/18 00:26 Dose: 10 mg Morphine Sulfate (Roxanol) 10 mg PO Q2HR PRN PRN Reason: PAIN Last Admin: 10/08/18 17:08 Dose: 10 mg Olanzapine (Zyprexa Odt) 2.5 mg TL TID PRN PRN Reason: Agitation Phenazopyridine HCl (Pyridium) 100 mg PO TID [facility] Last Admin: 10/10/18 13:56 Dose: 100 mg Polyethylene Glycol (Miralax) 17 gm PO DAILY [facility] Last Admin: 10/10/18 08:25 Dose: Not Given Allopurinol [Zyloprim] 300 mg PO DAILY 02/18/13 Aspirin Chewable [[place] Aspirin] 81 mg PO DAILY 02/18/13 Cyanocobalamin (Vitamin B-12) [Vitamin B-12] 2,500 mcg PO DAILY 02/18/13 Lisinopril 2.5 mg PO DAILY 02/18/13 Omeprazole [PriLOSEC] 20 mg PO QDAC 02/18/13 Simvastatin [Zocor] 40 mg PO QPM 02/18/13 traZODone [Desyrel] 50 mg PO QPM 10/30/17 Loratadine 10 mg PO DAILY 10/31/17 Donepezil HCl 10 mg PO DAILY 01/26/18 Folic Acid 1 mg PO DAILY 01/26/18 Glucosamine Sulfate 500 mg PO BID 01/26/18 Acetaminophen [Tylenol Extra Strength] 500 mg PO BID 10/08/18 Fosfomycin Tromethamine [Monurol] 3 g PO Q10D 10/08/18 Saccharomyces Boulardii [Florastor] 250 mg PO BID 10/08/18 Objective - Vital Signs/Intake & Output Reviewed Vital Signs: Yes Vital Signs: Vital Signs x48h Temp Pulse Resp BP Pulse Ox 10/10/18 13:00 36.7 C 85 18 129/92 H 98 10/10/18 07:55 37.4 C 86 17 109/40 L 94 Intake & Output: Intake & Output 10/07/18 10/08/18 10/09/18 10/10/18 23:59 23:59 23:59 23:59 Intake Total 3823.833 8260.834 3320 Output Total 300 300 Balance 3823.833 7960.834 3020 - Objective General Appearance: positive: No acute distress, Alert, Other (Annoyed that nursing is making her get up and sit in the chair. But she is cooperating with them. Just grumbling the whole time.Short statured elderly female with kyphosis and hunched over posture) Eyes Bilateral: positive: PERRL, EOMI ENT: positive: Pharynx nml Neck: positive: No JVD Respiratory: positive: Chest non-tender. negative: Wheezes, Rales, Rhonchi Cardiovascular: positive: Regular rate & rhythm. negative: Gallop/S4, Friction rub Abdomen: positive: Non-tender, No organomegaly, Nml bowel sounds, No distention Skin: positive: Warm, Dry Extremities: positive: Pedal edema Neurologic/Psychiatric: positive: CN's nml (2-12), Motor nml (She does not have unilateral loss of strength but has shuffling, balance issues, and needs a lot of help), Disoriented to place, Disoriented to time, Depressed mood/affect, Other (Shuffling gait, cries when you touch her.). negative: Mood/affect nml - Lab Results Fish Bones: 10/10/18 06:30 10/10/18 06:30 Other Labs: Lab Results x24hrs 10/10/18 10/10/18 Range/Units 06:30 06:30 WBC 14.8 H (4.8-10.8) x10^3/uL RBC 2.62 L (4.20-5.40) 10^6/uL Hgb 7.8 L (12.0-16.0) g/dL Hct 24.9 L (37.0-47.0) % MCV 95.0 (81.0-99.0) fL MCH 29.8 (27.0-31.0) pg MCHC 31.3 L (32.0-36.0) g/dL RDW 14.1 (12.0-15.0) % Plt Count 202 (130-450) 10^3/uL MPV 11.6 H (7.9-10.8) fL Neut # (Auto) 13.2 H (1.5-6.6) 10^3/uL Lymph # (Auto) 0.7 L (1.5-3.5) 10^3/uL Caroline # (Auto) 0.6 (0.0-1.0) 10^3/uL Eos # (Auto) 0.1 (0.0-0.7) 10^3/uL Baso # (Auto) 0.0 (0.0-0.1) 10^3/uL Absolute Nucleated RBC 0.00 x10^3/uL Nucleated RBC % 0.0 /100WBC Sodium 135 (135-145) mmol/L Potassium 4.5 (3.5-5.0) mmol/L Chloride 111 (101-111) mmol/L Carbon Dioxide 15 L (21-32) mmol/L Anion Gap 9.0 (6-13) BUN 51 H (6-20) mg/dL Creatinine 2.4 H (0.4-1.0) mg/dL Estimated GFR (MDRD) 19 L (>89) Glucose 114 H (70-100) mg/dL Calcium 7.5 L (8.5-10.3) mg/dL Phosphorus 3.7 (2.5-4.6) mg/dL Albumin 1.9 L (3.2-5.5) g/dL ABX Reporting Has patient been on IV antibiotics over the past 48 hours?: Yes Sepsis Event Note (H) - Evaluation Current Stage of Sepsis: Ruled out Possible source of Sepsis: positive: Genitourinary - Sepsis Criteria Sepsis Criteria: Recorded Temperature greater than 38.3C or Less than 36C, WBC count greater than 12,000 or less than 4000, SBP drop more than 40mHg, MAP less than 65 mmHg Assessment/Plan - Problem List (1) Acute hemorrhagic cystitis Impression: CT abd/pelvis shows 4.7 cm mass seen in bladder (tumor vs thrombus) likely representing hemorrhagic cystitis. Would treat empirically with IV merrem, place on probiotics, pain control, supportive care. Cultures are showing ESBL E. coli. (2) ESBL E coli Urinary tract infection with hematuria and bacteremia Conclusion/Plan: Place on IV merrem as hx ESBL+ MDR Klebsiella pn. Urine cultures were not done. We are not clear what the process is been going on. We were on downtime with orders being written on paper. During that time her urinalysis was collected and submitted to the lab for culture and sensitivity. Lab has opted not to do culture and sensitivity on the urine. Blood cultures are positive however. Plan: Continue meropenem. Qualifiers: Urinary tract infection type: acute cystitis Qualified Code(s): N30.01 - Acute cystitis with hematuria (3) Acute blood loss anemia Conclusion/Plan: Secondary to acute hemorrhagic cystitis. Would transfuse under liberal protocol. H/H monitoring. Hemoglobin has been 8 g to 8.9 g. No transfusion needed at this time. (4) Hypotension, resolved. Conclusion/Plan: Initial thought that it was likely from lisinopril as opposed to hypovolemia or dehydration, IVF's, midodrine prn. As day went on 10/08, she was sliding into septic shock. Still hypotensive this am but improved from 70 systolic to 108 systolic. NO transfer to ICU Qualifiers: Hypotension type: unspecified hypotension type Qualified Code(s): I95.9 - Hypotension, unspecified (5) Vascular dementia Conclusion/Plan: Resume aricept. No evidence of hallucinations, patient p/w with mild agitation as it pertained to her pelvic pain and her symptoms of her UTI. It is On the basis of her dementia, poor quality of life, that her daughter is opted to go no further with her measures. Yesterday, she felt that her mother survived this event with antibiotics, fluid support, that would be adequate. If mom did not survive the event, that would be okay as well. Mom has been stating for many months if not over a year now that she has no quality of life. The patient has enough self introspection to define herself is unhappy, does not understand why she is still living. I have asked for Palliative Care Consult and LESTER Gutierrez has seen the patient and her daughter. Qualifiers: Dementia behavioral disturbance: without behavioral disturbance Qualified Code(s): F01.50 - Vascular dementia without behavioral disturbance (6) Acute worsening of stage 3 chronic kidney disease with hyperkalemia. Conclusion/Plan: Creatinine started 2, and with yesterday's hypotension she is gone to 2.5 this morning. She is still making urine. She is refusing a Lopez catheter. Plan:Would avoid nephrotoxic agents, perfuse kidneys with IVF's, transfuse as needed, correct lytes, prior cr 1.5 on last discharge here. Monitor renal function, bilateral hydronephrosis as well as recurrence of hemorrhagic cystatis with possible post-obstructive process seen. Uric acid is 4.1. allopurinol to continue. (7) Macrocytosis Conclusion/Plan: Check labs and correct nutritional deficiencies if present Laboratory Tests 10/08/18 10/08/18 07:37 07:37 Iron 10 L % Saturation 4 L Transferrin 161 L Vitamin B12 2232 H TSH 1.24 (8) Anemia Conclusion/Plan: Multifactorial anemia; Iron deficiency anemia, anemia of chronic disease superimposed on acute on chronic blood loss anemia as it pertains to her recurrence of hemorrhagic cystitis. Correct underlying cause. Transfuse under liberal protocol of <8g/dl due to hx valvular heart disease with . Qualifiers: Anemia type: other cause Other causes of anemia: other cause, not classified Qualified Code(s): D64.89 - Other specified anemias (9) Vicky rash of groin Conclusion/Plan: Would apply nystatin powder which she was receiving at [facility]. (10) Generalized weakness Conclusion/Plan: Likely related to recurrent UTI along with blood loss anemia, correct underlying causes. May need PT to eval for physical deconditioning related to medical conditions. (11) Critical Aortic Stenosis Troponin was 0.07 in the midst of this episode. As such I do not think she is having an ID that is contributing to her hypotension. (12) Type 2 DM. Selected Entries 10/10/18 10/10/18 10/10/18 07:50 11:51 11:54 Result (mg/dL) 104 127 126 10/10/18 10/10/18 16:36 17:37 Result (mg/dL) 148 148 controlled on SS insulin. No changes for today. (13) Sepsis has resolved. Patient was admitted with acute cystitis presenting as a bloody diaper and lethargy. She has either a mass in her bladder or blood clot in her bladder. 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 On 10/08, starting at 14:30 she has spiked a temperature, she was given Tylenol, more antibiotics, and repeat blood and urine cultures were done. At least we tried to do repeat urine cultures but the patient refuses to have it in and out straight cath, has cried out. Is tearful. She then began having nausea, and became bradycardic with a probable vasovagal response. Pulse rebounded. It went from the 30s back up into the 80s and 90s. Temperature came down with the IV Tylenol but at 15: 30 she is to drop her pressures. She is received a fluid bolus of close to a liter and pressure is still 74/43 at 16: 30. My next step would have been to place her in the ICU and place a central line, start pressors. Continue with fluid boluses. I called the daughter and presented her with the situation of probable sepsis due to her UTI. Or a lady who has critical aortic stenosis and could be having an ID. The patient herself is unable to really guide me with regards to review of systems. She is a tearful, very forgetful elderly female who is very resistant as touching her, and was flatly fighting against us for the in and out catheter/Lopez. She has slowly responded and is turning around from a systolic blood pressure perspective. She has manifestation of endorgan damage with a rise in her creatinine. We will continue to have goal-directed therapy for ESBL E. coli. Day #3 meropenem. Continue IV fluids.
[2018-10-10] MEDS ORDERED: OLANZapine ODT 5 MG TABLET TL PRN (20:03)
[2018-10-10] MEDS: LORazepam 2 MG/ML VIAL IVP PRN ×2 (20:14→23:03)
[2018-10-10] MEDS ORDERED: SODIUM CHLORIDE FLUSH 0.9% 10 ML SYRINGE ONE (20:16)
[2018-10-11] MEDS: PHENAZOPYRIDINE 100 MG TABLET PO SCH ×3 (05:54→22:10)
[2018-10-11] MEDS: INSULIN ASPART 300 UNIT/3 ML PEN SUBQ SCH ×4 (10:08→22:09)
[2018-10-11] MEDS ORDERED: SODIUM CHLORIDE FLUSH 0.9% 10 ML SYRINGE ONE (10:21)
[2018-10-11] MEDS: MEROPENEM 500 MG in SODIUM CHLORIDE 0.9% MINIBAG 100 ML IV SCH ×2 (10:21→21:55)
[2018-10-11] MEDS: POLYETHYLENE GLYCOL 3350 17 GM PACKET PO SCH (10:27)
--- NOTE | 2018-10-11 11:56 | Discharge Plan ---
"Discharge Plan for SNF / [facility] - Discharge Plan And Transition Orders Problem Reviewed?: Yes Disposition: 03 SNF DC/Xfer Condition: Stable Allergies and Adverse Reactions: Allergies Allergy/AdvReac Type Severity Reaction Status Date / Time cephalexin [Cephalexin] Allergy Intermediate generalized Verified 01/26/18 14:30 shaking Health Concerns: She was admitted for hemorrhagic cystitis, acute blood loss anemia from that, and continues to have probable small clot in her bladder that may intermittently obstruct. Cystitis grew out ESBL E. coli and she became bacteremic with the same E. coli. She went into septic shock. She has recovered with IV antibiotics, IV fluids. She continues to be very unhappy, tearful, with dementia. She has critical aortic stenosis, type 2 diabetes mellitus and these comorbidities are difficult to treat in the face of her dementia. Plan of Treatment: Treatment is with meropenem twice a day. She will need to complete a total of 10 days of IV antibiotic therapy which should be completed on October 19. She is tearful at times. Complains of all over body pain at times treated with tylenol. She should continue her fosfomycin 3 g packet every 10 days that she was using before admission. At this point she can stop Zocor and donepezil since they do not seem to have any effectiveness for her current treatment. Care Goals: 1. Complete therapy for ESBL E. coli sepsis and bacteremia 2. Considering her dementia,'s statements regarding quality of life, please transition to comfort measures. She is followed by Ginny Romero, palliative care clinician. Assessment: The patient's dementia precludes understanding. She does states she wants to return to [facility], she does not want to come back to the hospital ever again. Daughter is her power of project eng and expresses acceptance and understanding of the current care plan with possible transition to hospice in the near future. - SNF / [facility] Transition Orders Admit to (Facility): [facility] Under the care of (Name): Ramya Vanegas MD Discharge Diagnosis: 1. Septic shock 2. acute hemorrhagic cystitis with ESBL E coli 3. bacteremia with ESBL E. coli 4. Critical aortic stenosis 5. Type 2 diabetes mellitus, with complications, not on long-term insulin 6. Alzheimer's dementia with anxiety and depression 7. Hypertension 8. Gout history 9. Chronic kidney disease, stage IV with acute exacerbation 10. Hyperlipidemia 11. Iron deficiency anemia Medicare Certification Statement: I certify that [facility] care is medically necessary on a continuing basis for any of the conditions for which she/he is receiving care during hospitalization. Notify PCP of admission and forward orders to primary provider for signature. Weight on admission and: Weekly Call PCP immediately if weight increases by: 3 kg Other Notification Orders: Call PCP immediately if patient develops dyspnea, chest pain/tightness or edema. House Bowel Program: Yes Additional Bowel Program Orders: If no BM after 2 days, nurse may give M.O.M. 30ml PO PRN and/or ducolax Supp 1 CT and/or ELIZABETH 250mg P.O., and/or senna 1-2 tabs PO. On day 3 nurse may give repeat above order until residents constipation is resolved. Annual Influenza Vaccine (between Dec 14 and July 13): Yes Two-step PPD per [facility] [phone] or approved exception documents: Yes Lab Tests or X-ray Orders: CBC in 1 week Medication Orders: PLEASE REFER TO THE DISCHARGE MEDICATION LIST. Insulin Orders?: Yes - Medications New Prescriptions: Meropenem [Merrem] 500 mg IV BID #14 vial - Diet Type: Geriatric Texture: Regular Liquids: Thin Insulin Orders - SNF Basal | Correction | Custom Orders: Diagnosis: Diabetes Initiate hypo and hyperglycemia protocols for BG <70 and BG >375. May check BG PRN for signs/symptoms of dysglycemia. Frequency of BG checks: [AC/Meal/HS] Basal Insulin: [] Lantus 100 units / ml inject subq as follows: [] [] Other: [] Correction Insulin: - Select the type of insulin below [Choose: Humalog]100 units /ml insulin inject subq per orders indicate below [] LOW DOSE [X] MODERATE DOSE [] MODERATE/HIGH DOSE [] HIGH DOSE GB UNITS GB UNITS GB UNITS GB UNITS 61-140 0 UNITS 61-140 0 UNITS 61-140 0 UNITS 61-140 0 UNITS 141-175 1 UNITS 141-175 1 UNITS 141-175 2 UNITS 141-175 3 UNITS 176-225 2 UNITS 176-225 3 UNITS 176-225 4 UNITS 176-225 5 UNITS 226-275 3 UNITS 226-275 5 UNITS 226-275 6 UNITS 226-275 7 UNITS 276-325 4 UNITS 276-325 7 UNITS 276-325 8 UNITS 276-325 9 UNITS 326-375 5 UNITS 326-375 9 UNITS 326-375 10 UNITS 326-375 11 UNITS >375 CONTACT MD >375 CONTACT MD >375 CONTACT MD >375 CONTACT MD Custom Dosing: [Choose: Novolog/Humalog] 100 units/ml Insulin inject subq as follows: GB Units 61-140 [] Units 141-175 [] Units 176-225 [] Units 226-275 [] Units 276-325 []Units 326-375 [] Units >375 Contact MD"
[2018-10-11] MEDS: SODIUM CHLORIDE FLUSH 0.9% 10 ML SYRINGE IVP SCH ×3 (14:36→22:02)
--- NOTE | 2018-10-11 17:27 | PROVIDER PROGRESS NOTE ---
Subjective - Prog Note Date Prog Note Date: 10/11/18 Prog Note Time: 17:34 - Subjective Subjective: She is calmer today. Able to ambulate in the room is in her chair. Current Medications - Current Medications Current Medications: Active Medications Acetaminophen (Ofirmev) 100 mls @ 400 mls/hr IV Q6HR PRN PRN Reason: PAIN Last Infusion: 10/09/18 03:29 Dose: Infused Meropenem 500 mg/ Sodium (Chloride) 100 mls @ 200 mls/hr IV BID REBECCA Last Infusion: 10/11/18 10:51 Dose: Infused Insulin Aspart (Novolog) 3 - 11 unit SUBQ 0800,1200,1700,2100 [facility]; Protocol Last Admin: 10/11/18 13:44 Dose: 3 unit Lorazepam (Ativan Inj (Vial)) 0.5 mg IVP Q2H PRN PRN Reason: Agitation Last Admin: 10/10/18 23:03 Dose: 0.5 mg Midodrine () 10 mg PO TID PRN PRN Reason: SBP<100 Last Admin: 10/09/18 00:26 Dose: 10 mg Morphine Sulfate (Roxanol) 10 mg PO Q2HR PRN PRN Reason: PAIN Last Admin: 10/08/18 17:08 Dose: 10 mg Olanzapine (Zyprexa Odt) 2.5 mg TL TID PRN PRN Reason: Agitation Phenazopyridine HCl (Pyridium) 100 mg PO TID [facility] Last Admin: 10/11/18 13:39 Dose: 100 mg Polyethylene Glycol (Miralax) 17 gm PO DAILY [facility] Last Admin: 10/11/18 10:27 Dose: Not Given Sodium Chloride (Normal Saline Flush 0.9%) 10 ml IVP PRN PRN PRN Reason: NEEDED PER PROVIDER ORDERS Sodium Chloride (Normal Saline Flush 0.9%) 10 ml IVP Q8HR [facility] Last Admin: 10/11/18 14:57 Dose: Not Given Cyanocobalamin (Vitamin B-12) [Vitamin B-12] 2,500 mcg PO DAILY 02/18/13 Lisinopril 2.5 mg PO DAILY 02/18/13 Omeprazole [PriLOSEC] 20 mg PO QDAC 02/18/13 Simvastatin [Zocor] 40 mg PO QPM 02/18/13 traZODone [Desyrel] 50 mg PO QPM 10/30/17 Loratadine 10 mg PO DAILY 10/31/17 Folic Acid 1 mg PO DAILY 01/26/18 Glucosamine Sulfate 500 mg PO BID 01/26/18 Fosfomycin Tromethamine [Monurol] 3 g PO Q10D 10/08/18 Saccharomyces Boulardii [Florastor] 250 mg PO BID 10/08/18 Objective - Vital Signs/Intake & Output Reviewed Vital Signs: Yes Vital Signs: Vital Signs x48h Temp Pulse Resp BP Pulse Ox 10/11/18 16:54 36.3 C L 92 20 132/85 H 98 10/11/18 12:55 36.8 C 90 17 135/67 H 100 Intake & Output: Intake & Output 10/08/18 10/09/18 10/10/18 10/11/18 23:59 23:59 23:59 23:59 Intake Total 3823.833 8260.834 4780 1650 Output Total 116 177 6511 Balance 3823.833 7960.834 4480 350 - Objective General Appearance: positive: Alert Eyes Bilateral: positive: PERRL ENT: positive: No signs of dehydration Neck: positive: No JVD Respiratory: positive: Chest non-tender. negative: Wheezes, Rales, Rhonchi Cardiovascular: positive: Regular rate & rhythm, Systolic murmur. negative: Gallop/S4, Friction rub Abdomen: positive: Non-tender, No organomegaly, Nml bowel sounds, No distention Neurologic/Psychiatric: positive: Oriented x3 (But with emotion, she will forget where she is momentarily, forget why she is here, and need constant prompting.), CN's nml (2-12), Motor nml - Lab Results Fish Bones: 10/10/18 06:30 10/10/18 06:30 ABX Reporting Has patient been on IV antibiotics over the past 48 hours?: Yes Sepsis Event Note (H) - Evaluation Current Stage of Sepsis: Resolved Possible source of Sepsis: positive: Genitourinary Confirmed Source and Organism (if known) of Sepsis: ESBL E coli UTI Sepsis Associated Organ Dysfunction: acute renal failure - Sepsis Criteria Sepsis Criteria: Recorded Temperature greater than 38.3C or Less than 36C, WBC count greater than 12,000 or less than 4000, SBP drop more than 40mHg, MAP less than 65 mmHg Assessment/Plan - Problem List (1) Acute hemorrhagic cystitis Impression: Impression: CT abd/pelvis shows 4.7 cm mass seen in bladder (tumor vs thrombus) likely representing hemorrhagic cystitis. Would treat empirically with IV merrem, place on probiotics, pain control, supportive care. Cultures are showing ESBL E. coli.She will complete 10 days of IV antibiotic therapy because of the bacteremia. She will also resume her fosfomycin p.o. every 10 days at senior care facility. (2) ESBL E coli Urinary tract infection with hematuria and bacteremia Conclusion/Plan: Placed on IV merrem as hx ESBL+ MDR Klebsiella pn. Urine cultures were not done. We are not clear what the process is been going on. We were on downtime with orders being written on paper. During that time her urinalysis was collected and submitted to the lab for culture and sensitivity. Lab has opted not to do culture and sensitivity on the urine. Blood cultures are positive however. Day #4 meropenem Plan: Continue meropenem. Get PICC line and continue meropenem for total 10 days at [facility]. I have called Anesthesia for the PICC line and will be placed tomorrow. Qualifiers: Urinary tract infection type: acute cystitis Qualified Code(s): N30.01 - Acute cystitis with hematuria (3) Acute blood loss anemia Conclusion/Plan: Secondary to acute hemorrhagic cystitis. Would transfuse under liberal protocol. H/H monitoring. Hemoglobin has been 8 g to 8.9 g. No transfusion needed at this time. (4) Hypotension, resolved. Conclusion/Plan: Initial thought that it was likely from lisinopril as opposed to hypovolemia or dehydration, IVF's, midodrine prn. As day went on 10/08, she was sliding into septic shock. improved from 70 systolic to 108 systolic to 138 systolic today. NO transfer to ICU Qualifiers: Hypotension type: unspecified hypotension type Qualified Code(s): I95.9 - Hypotension, unspecified (5) Vascular dementia Conclusion/Plan: Resume aricept. No evidence of hallucinations, patient p/w with mild agitation as it pertained to her pelvic pain and her symptoms of her UTI. It is On the basis of her dementia, poor quality of life, that her daughter is opted to go no further with her measures. Yesterday, she felt that her mother survived this event with antibiotics, fluid support, that would be adequate. If mom did not survive the event, that would be okay as well. Mom has been stating for many months if not over a year now that she has no quality of life. The patient has enough self introspection to define herself is unhappy, does not understand why she is still living. I have asked for Palliative Care Consult and LESTER Gutierrez has seen the patient and her daughter. Qualifiers: Dementia behavioral disturbance: without behavioral disturbance Qualified Code(s): F01.50 - Vascular dementia without behavioral disturbance (6) Acute worsening of stage 3 chronic kidney disease with hyperkalemia. Conclusion/Plan: Creatinine started 2, and with septic shock she went to 2.5. On 10/10 she was 2.4. She is still making urine. She is refusing a Lopez catheter. Plan:Would avoid nephrotoxic agents, perfuse kidneys with IVF's, transfuse as needed, correct lytes, prior cr 1.5 on last discharge here. Monitor renal function, bilateral hydronephrosis as well as recurrence of hemorrhagic cystatis with possible post-obstructive process seen. Uric acid is 4.1. allopurinol to continue. will check BMP tomorrow am. (7) Macrocytosis Conclusion/Plan: Check labs and correct nutritional deficiencies if present Laboratory Tests 10/08/18 10/08/18 07:37 07:37 Iron 10 L % Saturation 4 L Transferrin 161 L Vitamin B12 2232 H TSH 1.24 (8) Anemia Conclusion/Plan: Multifactorial anemia; Iron deficiency anemia, anemia of chronic disease superimposed on acute on chronic blood loss anemia as it pertains to her recurrence of hemorrhagic cystitis. Correct underlying cause. Transfuse under liberal protocol of <8g/dl due to hx valvular heart disease with . Qualifiers: Anemia type: other cause Other causes of anemia: other cause, not classif ied Qualified Code(s): D64.89 - Other specified anemias (9) Vicky rash of groin Conclusion/Plan: Would apply nystatin powder which she was receiving at [facility]. (10) Generalized weakness Conclusion/Plan: Likely related to recurrent UTI along with blood loss anemia, correct underlying causes. She will return to SNF and I will order PT. (11) Critical Aortic Stenosis Troponin was 0.07 in the midst of this episode. As such I do not think she is having an SC that is contributing to her hypotension. (12) Type 2 DM. Selected Entries 10/10/18 10/10/18 10/10/18 07:50 11:51 11:54 Result (mg/dL) 104 127 126 10/10/18 10/10/18 16:36 17:37 Result (mg/dL) 148 148 Selected Entries 10/11/18 10/11/18 10/11/18 08:00 10:08 12:00 Result (mg/dL) 116 116 145 10/11/18 13:44 Result (mg/dL) 145 controlled on SS insulin. No changes 4 here. When she returns to the senior care facility tomorrow I will still continue sliding scale insulin. (13) Sepsis has resolved. Patient was admitted with acute cystitis presenting as a bloody diaper and lethargy. She has either a mass in her bladder or blood clot in her bladder. 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 On 10/08, starting at 14:30 she has spiked a temperature, she was given Tylenol, more antibiotics, and repeat blood and urine cultures were done. At least we tried to do repeat urine cultures but the patient refuses to have it in and out straight cath, has cried out. Is tearful. She then began having nausea, and became bradycardic with a probable vasovagal response. Pulse rebounded. It went from the 30s back up into the 80s and 90s. Temperature came down with the IV Tylenol but at 15: 30 she is to drop her pressures. She is received a fluid bolus of close to a liter and pressure is still 74/43 at 16: 30. My next step would have been to place her in the ICU and place a central line, start pressors. Continue with fluid boluses. I called the daughter and presented her with the situation of probable sepsis due to her UTI. Or a lady who has critical aortic stenosis and could be having an SC. The patient herself is unable to really guide me with regards to review of systems. She is a tearful, very forgetful elderly female who is very resistant as touching her, and was flatly fighting against us for the in and out catheter/Lopez. She has slowly responded and is turning around from a systolic blood pressure perspective. She has manifestation of endorgan damage with a rise in her creatinine. We will continue to have goal-directed therapy for ESBL E. coli. Day #4 meropenem. Continue IV fluids.
[2018-10-11] MEDS: LORazepam 2 MG/ML VIAL IVP PRN (22:54)
[2018-10-11] MEDS: SODIUM CHLORIDE FLUSH 0.9% 10 ML SYRINGE IVP PRN (22:54)
[2018-10-12] MEDS: SODIUM CHLORIDE FLUSH 0.9% 10 ML SYRINGE IVP SCH ×2 (00:25→09:27)
[2018-10-12] MEDS: PHENAZOPYRIDINE 100 MG TABLET PO SCH ×2 (05:55→11:55)
[2018-10-12 06:39] LABS: CALCIUM 8.2 mg/dL (8.5-10.3)
[2018-10-12] MEDS: MEROPENEM 500 MG in SODIUM CHLORIDE 0.9% MINIBAG 100 ML IV SCH (09:25)
[2018-10-12] MEDS: POLYETHYLENE GLYCOL 3350 17 GM PACKET PO SCH (09:25)
[2018-10-12] MEDS: INSULIN ASPART 300 UNIT/3 ML PEN SUBQ SCH ×2 (09:26→11:51)
[2018-10-12] MEDS: SODIUM CHLORIDE FLUSH 0.9% 10 ML SYRINGE IVP PRN (09:27)
--- NOTE | 2018-10-12 11:58 | ANESTHESIA PROCEDURE NOTE ---
Diagnosis: emt intermediate antibiotic therapy Procedure: Placement of PICC line Consent for Procedure(s) Verified and Reviewed: Yes Height and Weight: Height 5 ft Weight (kg) 65 kg Body Mass Index 28.0 Vital Signs: Temp Pulse Resp BP Pulse Ox 36.4 C L 77 18 133/77 H 97 10/12/18 08:00 10/12/18 08:00 10/12/18 08:00 10/12/18 08:00 10/12/18 08:00 Allergies cephalexin [Cephalexin] Allergy (Intermediate, Verified 01/26/18 14:30) generalized shaking Anes. Procedure Start Time: 10:37 Anes. Procedure Stop Time: 11:34 Procedure Notes: Consent obtained from patient's daughter. Right arm was prepped with chloroprep. Timeout completed. Sterile gown and gloves, mask and full drape utilized. Right arm was imaged using ultrasound and the right bascilic vein was identified and accessed with 18G needle. Wire was advanced with ease and sheath inserted. A 4Fr catheter was inserted and was unable to get adequate readings with 3CG. A chest xray was ordered to verify placement, but line was pulled back during exam. Chest xray showed PICC line to be midline. Flushed and aspirated blood. Line secured and hospitalist notified of midline placement. She verified midline was ok to use for antibiotic therapy. Catheter was trimmed to 37 cm with 11cm exposed.
--- NOTE | 2018-10-12 13:01 | XRAY Report ---
Reason: PICC LINE Procedure Date: 10/12/2018 Accession Number: [id number] / [id number] Procedure: XR - Chest for Line Placement CPT Code: FULL RESULT: EXAM: CHEST RADIOGRAPHY EXAM DATE: 10/12/2018 11:43 AM. CLINICAL HISTORY: PICC LINE. COMPARISON: CHEST 1 VIEW 04/20/2018 1:27 PM. TECHNIQUE: 1 view. FINDINGS: Limited exam as patient uncooperative with exam. Lungs/Pleura: No definite focal opacities evident. No pneumothorax. Mediastinum: Prominent pulmonary vasculature. Other: Right PICC line overlies the mid-subclavian vein. IMPRESSION: 1. Right PICC terminates mid-subclavian vein. 2. Pulmonary vascular congestion. RAD[facility] The call report notification system was initiated by Dr. Berta Hernandez at 12:42 PM on 10/12/2018. The above call report findings were discussed with Kimi Aparicio by Dr. Berta Hernandez at 12:59 PM on 10/12/2018.
[2018-10-12 13:52] VITALS: BP 140/59
--- NOTE | 2018-10-13 01:04 | DISCHARGE SUMMARY ---
Physician: Kimi Aparicio MD DATE OF ADMISSION: 10/08/2018 DATE OF DISCHARGE: 10/12/2018 DISCHARGE DIAGNOSES 1. Septic shock due to urinary tract infection. 2. Acute hemorrhagic cystitis. 3. Urinary tract infection due to extended-spectrum beta-lactamase Escherichia coli. 4. Bacteremia due to extended-spectrum beta-lactamase Escherichia coli. 5. Vascular dementia. 6. Acute on chronic renal failure, stage III. 7. Hyperkalemia. 8. Macrocytosis. 9. Iron deficiency anemia, chronic. 10. Acute blood loss anemia. 11. Aortic stenosis, critical. 12. Type 2 diabetes mellitus, uncontrolled. DISCHARGE MEDICATIONS 1. Vitamin B12 2500 mcg daily. 2. Folic acid 1 mg daily. 3. Fosfomycin 3 grams packet every 10 days p.o. 4. Glucosamine 500 mg b.i.d. 5. Lisinopril 2.5 mg daily. 6. Loratadine 10 mg daily. 7. Prilosec 20 mg daily. 8. Florastor 250 mg b.i.d. 9. Zocor 40 mg daily. Consider stopping at this point. 10. Desyrel 50 mg daily. 11. Tylenol 650 mg every 4 hours as needed for fever, pain, headache. 12. Tylenol 500 mg p.o. b.i.d. for pain, not p.r.n. 13. Zyloprim 300 mg p.o. daily. Please consider reducing to 100 mg p.o. daily because of GFR. 14. Aspirin 81 mg daily. 15. Magnesium oxide 400 mg daily. 16. Meropenem 500 mg IV b.i.d. for 7 more days. 17. vitamin 1 p.o. daily. PRINCIPAL PROCEDURES 1. Blood cultures 10/08/2018 growing out ESBL Escherichia coli, blood cultures 10/10/2018 are negative after starting meropenem. 2. Urine culture positive for ESBL Escherichia coli 10/08/2018. 3. Abdomen and pelvis CT 10/08/2018 shows right hydronephrosis and hydroureter increased from previous with hydroureter extending to the bladder base. Left hydronephrosis and hydroureter also increased from previous CT October 2017. Hyperdense lesion in the posterior urinary bladder, new from previous measuring 4 x 7 x 4 x 5 x 4.0 cm. This is either a mass or probably a thrombus. 4. Chest x-ray with a right PICC line terminating in the mid subclavian vein, pulmonary vascular congestion. This was felt to be a midline IV as opposed to a true full PICC. 5. PICC line placement. 6. Palliative care consultation with Ginny Romero. HOSPITAL COURSE: This is an 83-year-old female who lives at a intermediate facility and has a history of frequent and recurrent UTIs with ESBL organisms. She presents to our emergency room with pelvic pain associated with weakness, dysuria, and a bloody diaper. She was treated and discharged in April 2018 here at her facility for hypotension due to hypovolemia secondary to dehydration and chronic protein-calorie malnutrition, as well as adult failure to thrive. She has been identified as having critical aortic stenosis, chronic iron and B12 deficiency anemia, chronic renal insufficiency, vascular dementia, and type 2 diabetes. After being seen in the emergency room for her dysuria, pelvic pain, she was found to have a mass on CT of the abdomen. This mass is in the bladder. Most likely this is thrombus from hemorrhagic cystitis. She has history of a previous cystoscopy at [facility] and she has not found to have a bladder tumor or cancer. She was started on antibiotics, but had a delay in treatment due to downtime orders not being received. Access antibiotics were delayed until the afternoon of her first day of stay. She went into septic shock with acute renal failure. Baseline creatinine is about 1.8. Creatinine peaked at 2.5. It is also not clear if her creatinine may have peaked because of obstruction from this thrombus. Cultures eventually grew out ESBL Escherichia coli of both blood and urine. Shock resolved without any transition to the ICU. In speaking to the daughter, she feels that mom is at end of life. She is strongly considering transitioning her to comfort measures only. She did not want me to transfer the patient to ICU for central line and pressors. The patient gradually recovered with IV antibiotics and fluid resuscitation. PICC line was placed for her to complete her IV antibiotic therapy. Palliative care will continue to see the patient at intermediate [facility]. Diabetes mellitus was controlled during her stay. Admission glycosylated hemoglobin was 7.2%. Lactic acidosis was not present with her episode of sepsis. Troponin was checked at 0.07. We were trying to make sure that her hypotension was in fact from sepsis and not from critical aortic stenosis with AK. The patient did become temporarily hyperkalemic with her renal failure with a potassium of 5.1 and by the time of discharge, she was 4.2. The patient was very tearful during her stay. Would cry out in just generalized discomfort. There was anxiety. She would keep on asking why she was still here, why did she have to keep on having to live. Why are we keeping her alive was repeatedly asked. Hypertension was not a problem. She was initially hypotensive with her shock and gradually returned to normal blood pressure. She did not have any problem with her gout while here, but on resumption of her allopurinol, it should be considered to reduce her Allopurinol to 100 mg a day because of renal insufficiency to avoid vasculitis and complications from allopurinol toxicity. She is on an antilipemic agent. Considering she is being transitioned to palliative measures, statin should be considered as being discontinued. We did do studies for her anemia, and she is felt to have iron deficiency anemia with an iron of 10, TIBC 225, percent saturation 4, and transferrin 161. B12 was 2232, folate 49, TSH 1.24. She is on a B12, folate supplement. We can reduce the dose in the outpatient setting. She will be continued on iron therapy. She is felt to have a combination of macrocytic anemia from previous B12 deficiency, iron deficiency that is chronic and anemia of chronic disease and then acute blood loss anemia from her hemorrhagic cystitis. Hemoglobin at discharge was 7.8. On admission, she was 8.6. Not felt a candidate for transfusion at this time. She is discharged in stable condition with an overall poor prognosis with expected steady deterioration in this unfortunate elderly female with many comorbidities. Temperature is 36.7, pulse is 85, blood pressure 140/59, respirations 18, O2 saturation 99% on room air. She is 5 feet tall at 65 kg. When last seen, she was sitting up in room chair, at her bedside table, eating breakfast, waiting for her daughter. She was alert to place, but not to date. She knew that she was on her way back to [facility] to complete antibiotic therapy and was looking forward to getting back home. She has a slightly kyphotic posturing because of her overall age. Lungs have diminished breath sounds at the bases, but were clear to auscultation and percussion and there was no increased respiratory effort. PMI is normally placed with a regular rate, rhythm and a systolic ejection murmur. Loudest at the right upper sternal border and she did radiate into her carotids. PICC line was clean, slightly pulled out after it was placed in and got a chest x-ray, so it is felt to be midline now. She has an unsteady gait and we need a gait belt and a wheeled walker to get her to the bathroom. If able to tolerate, she would be a candidate for some gentle physical therapy back at the intermediate facility. She has bilateral leg edema. She continues to be incontinent of urine and has to wear a briefs pad. She gets very anxious very easily. Hard of hearing. Greater than 30 minutes was spent coordinating discharge. TD: 10/12/2018 18:50 MTDD
== END 2018-10-12 13:20 | disposition home or self-care (01) | DRG 871 ==
LOC: EDUNIT# → ED 23:52 → MS2 10-08 04:42 → ED 10-08 06:20
PROVIDERS: ADMIT Family Medicine; ATTEND Specialist
PROC: 05H533Z Insertion of Infusion Device into Right Subclavian Vein, Percutaneous Approach (ICD-10-PCS; principal; 2018-10-12)
DX: N30.90 Cystitis, unspecified without hematuria (principal); F03.90 Unspecified dementia, unspecified severity, without behavioral disturbance, psychotic disturbance, mood disturbance, and anxiety; A41.51 Sepsis due to Escherichia coli [E. coli]; R65.21 Severe sepsis with septic shock; G93.41 Metabolic encephalopathy; N30.01 Acute cystitis with hematuria; D62 Acute posthemorrhagic anemia; N17.9 Acute kidney failure, unspecified; N13.30 Unspecified hydronephrosis; I13.0 Hypertensive heart and chronic kidney disease with heart failure and stage 1 through stage 4 chronic kidney disease, or unspecified chronic kidney disease; N18.4 Chronic kidney disease, stage 4 (severe); E11.22 Type 2 diabetes mellitus with diabetic chronic kidney disease; E87.5 Hyperkalemia; R00.1 Bradycardia, unspecified; F01.50 Vascular dementia, unspecified severity, without behavioral disturbance, psychotic disturbance, mood disturbance, and anxiety; G30.9 Alzheimer's disease, unspecified; F02.80 Dementia in other diseases classified elsewhere, unspecified severity, without behavioral disturbance, psychotic disturbance, mood disturbance, and anxiety; D50.9 Iron deficiency anemia, unspecified; I35.0 Nonrheumatic aortic (valve) stenosis; I50.9 Heart failure, unspecified; E78.49 Other hyperlipidemia; R32 Unspecified urinary incontinence; R15.9 Full incontinence of feces; R26.81 Unsteadiness on feet; F41.8 Other specified anxiety disorders; M10.9 Gout, unspecified; D63.8 Anemia in other chronic diseases classified elsewhere; H91.90 Unspecified hearing loss, unspecified ear; E11.42 Type 2 diabetes mellitus with diabetic polyneuropathy; K21.9 Gastro-esophageal reflux disease without esophagitis; N32.89 Other specified disorders of bladder; B37.2 Candidiasis of skin and nail; M40.209 Unspecified kyphosis, site unspecified; Z16.12 Extended spectrum beta lactamase (ESBL) resistance; Z66 Do not resuscitate; Z51.5 Encounter for palliative care; Z86.2 Personal history of diseases of the blood and blood-forming organs and certain disorders involving the immune mechanism; Z79.899 Other long term (current) drug therapy; Z85.42 Personal history of malignant neoplasm of other parts of uterus; Z91.81 History of falling; Z79.82 Long term (current) use of aspirin
CPT/HCPCS: 36415; 74176; 80048; 80053; 80069; 81001; 82607; 82746; 83036; 83540; 83605; 83690; 84443; 84466; 84484; 84550; 85025; 87040; 87077; 87086; 87181; 99223; 99283; A9270; C1751; J0131; J2060; J2185; 71045; 81003

== ENCOUNTER 2018-10-18 10:15 | Outpatient (CLI) | payer MEDICARE, OTHER, MEDICAID | END 2018-10-18 10:16 | disposition EMS.NT | LOC: EMS 10:15 | PROVIDERS: ATTEND Surgery | DX: R06.89 Other abnormalities of breathing (principal) ==